=== PATIENT | male | born 1945 | race Caucasian/White ===

== ENCOUNTER → 2016-03-28 | Day surgery (SDC) | payer MEDICARE, BC, OTHER ==
[~2016-03-28] VITALS: Ht 177.8 cm; Wt 81.6 kg
[~2016-03-28] MED LIST: ACET500C OR; ACETYLCHOLINE OPHTH SOLN 1% 2ML As Ordered ONE; ACETYLCHOLINE OPHTH SOLN 1% 2ML XX ONE; ACTO15TA OR; ACTO45TA6 PO; ATOR1TAB19 PO; BALANCED SALT IRRIGATION SOLUTION 500ML BAG (FOR OR EYE MACHINE) As Ordered ONE; BALANCED SALT IRRIGATION SOLUTION 500ML BAG (FOR OR EYE MACHINE) XX ONE; BALANCED SALT SOLN OPHTH 15 ML BTL As Ordered ONE; CEFUROXIME 1MG/0.1ML INTRACAMERAL INJ As Ordered ONE; CEFUROXIME 1MG/0.1ML INTRACAMERAL INJ XX ONE; D5W/0.2% SODIUM CHLORIDE 1,000 ML IV SCH; FARX1TAB2 PO; GLUC850T PO; HEALON DUET (HEALON 10MG/ML 0.55ML & HEALON ENDOCOAT 30MG/ML 0.85ML) As Ordered ONE; INSULADS SC; LIDOCAINE 0.75%/EPINEPHRINE 0.025% IN BSS 1ML SYR INTRACAMERAL (OR ONLY) XX ONE; LIDOCAINE 1% SDV 5 ML VIAL As Ordered ONE; LIDOCAINE 4% INJ 5 ML AMP As Ordered ONE; LIDOCAINE 4% INJ 5 ML AMP OU ONE; LISI10TA4 OR; MELOPOW PO; METF1000 PO; MIDAZOLAM INJ 2 MG/2 ML VIAL (J2250) As Ordered ONE; MIRA3350 PO; OFLOXACIN 0.3 % (OCUFLOX) OPTH SOL 5ML OD ONE; ONDANSETRON 4MG/2ML VIAL (J2405) IV PRN; PHENYLEPHRINE 2.5% OPHTH SOL 2ML OD ONE; POVIDONE-IODINE 5% OPHTH PREP SOL 30ML As Ordered ONE; PRIL20TA2 PO; PROPARACAINE 0.5% OPHTH SOL 15ML OD ONE; TETRACAINE 0.5% OPHTH SOLN 2 ML As Ordered ONE; TOBRADEX OPHTH OINT 3.5 GM As Ordered ONE; TRAM50TA2 OR; TROPICAMIDE 1% OPHTH SOLN 2 ML OD ONE; VICT18IN SC; [UNRECOGNIZED DRUG - OTHER] PO; [UNRECOGNIZED DRUG - OTHER] SUBQ; fentaNYL 100 MCG/2 ML INJECTION (J3010) As Ordered ONE
[2016-03-28 09:55] VITALS: BP 132/71
--- NOTE | 2016-03-30 09:46 | RO ---
DATE OF PROCEDURE: 03/28/2016 PREOPERATIVE DIAGNOSIS: Visually significant nuclear sclerotic cataract right eye. POSTOPERATIVE DIAGNOSIS: Visually significant nuclear sclerotic cataract right eye. PROCEDURE: Cataract extraction with use of phacoemulsification and placement of intraocular lens ZCB00 20.0 diopters, right eye. SURGEON: Smith Dominguez DO WOOD PLANER: ANESTHESIA: Local with monitored anesthesia care (MAC). COMPLICATIONS: None. POSTOPERATIVE CONDITION: Stable. INDICATION FOR SURGERY: Blurred vision right eye affecting patient's activities of daily living. DESCRIPTION OF PROCEDURE: The patient was seen in the preoperative area and properly identified. The correct operative eye was identified and marked. Attention was turned to that eye. The patient received topical antibiotics in the preoperative area. The patient then received topical dilating drops consisting of tropicamide and phenylephrine. The patient was then transferred to the operating room. The correct side was reidentified. The patient received topical anesthetics and antibiotics on the surface of the eye. The eye was prepped and draped in a sterile fashion. The upper and lower eyelids were isolated with Tegaderm tape, and the lids were held open with an adjustable speculum. Using a sideport blade, a paracentesis incision was made. Intraocular preservative-free lidocaine was then injected into the anterior chamber. Viscoelastic was then injected into the anterior chamber through the paracentesis. Using a 2.75 mm sharp-tipped keratome, the anterior chamber was entered via a temporal clear corneal incision. A continuous curvilinear capsulorrhexis was created with the aid of a 26-gauge cystotome and Utrata forceps. Hydrodissection was performed with balanced salt solution (BSS) on a blunt cannula until the nucleus was freely mobile. The crystalline lens was phacoemulsified and aspirated. Additional cohesive viscoelastic was placed into the capsular bag to deepen it. A ZCB00, 20.0 diopter lens was placed into the capsular bag and confirmed by visualizing the continuous curvilinear capsulorrhexis. Additional irrigation and aspiration was used to remove cortical material and remaining viscoelastic. The clear corneal incision was hydrated with BSS on a blunt cannula. The lens was well positioned. The incisions were then tested for leaks and found to be negative. The eye was then palpated for appropriate pressure and adjusted accordingly with BSS. Several drops of antibiotics and Iopidine were placed in the eye. The eyelid speculum was then carefully removed. Maxitrol ointment was placed in the eye. An eye patch and shield were then secured over the eye. The patient tolerated the procedure well and was discharged to the recovery unit in a stable condition.
== END | disposition home or self-care (01) ==
LOC: M SDC 07:05
PROVIDERS: ATTEND Ophthalmology
DX: H25.11 Age-related nuclear cataract, right eye (principal); E11.9 Type 2 diabetes mellitus without complications; Z79.4 Long term (current) use of insulin; E78.4 Other hyperlipidemia; Z79.899 Other long term (current) drug therapy
CPT/HCPCS: 66984; J2250; J3010; V2632

== ENCOUNTER → 2016-05-03 | Outpatient (REF) | payer MEDICARE, OTHER ==
[~2016-05-03] MED LIST changes: -ACETYLCHOLINE OPHTH SOLN 1% 2ML As Ordered ONE; -ACETYLCHOLINE OPHTH SOLN 1% 2ML XX ONE; -BALANCED SALT IRRIGATION SOLUTION 500ML BAG (FOR OR EYE MACHINE) As Ordered ONE; -BALANCED SALT IRRIGATION SOLUTION 500ML BAG (FOR OR EYE MACHINE) XX ONE; -BALANCED SALT SOLN OPHTH 15 ML BTL As Ordered ONE; -CEFUROXIME 1MG/0.1ML INTRACAMERAL INJ As Ordered ONE; -CEFUROXIME 1MG/0.1ML INTRACAMERAL INJ XX ONE; -D5W/0.2% SODIUM CHLORIDE 1,000 ML IV SCH; -HEALON DUET (HEALON 10MG/ML 0.55ML & HEALON ENDOCOAT 30MG/ML 0.85ML) As Ordered ONE; -LIDOCAINE 0.75%/EPINEPHRINE 0.025% IN BSS 1ML SYR INTRACAMERAL (OR ONLY) XX ONE; -LIDOCAINE 1% SDV 5 ML VIAL As Ordered ONE; -LIDOCAINE 4% INJ 5 ML AMP As Ordered ONE; -LIDOCAINE 4% INJ 5 ML AMP OU ONE; -MIDAZOLAM INJ 2 MG/2 ML VIAL (J2250) As Ordered ONE; -OFLOXACIN 0.3 % (OCUFLOX) OPTH SOL 5ML OD ONE; -ONDANSETRON 4MG/2ML VIAL (J2405) IV PRN; -PHENYLEPHRINE 2.5% OPHTH SOL 2ML OD ONE; -POVIDONE-IODINE 5% OPHTH PREP SOL 30ML As Ordered ONE; -PROPARACAINE 0.5% OPHTH SOL 15ML OD ONE; -TETRACAINE 0.5% OPHTH SOLN 2 ML As Ordered ONE; -TOBRADEX OPHTH OINT 3.5 GM As Ordered ONE; -TROPICAMIDE 1% OPHTH SOLN 2 ML OD ONE; -fentaNYL 100 MCG/2 ML INJECTION (J3010) As Ordered ONE
== END ==
LOC: M LAB REF 12:56
PROVIDERS: ATTEND Internal Medicine Cardiovascular Disease
DX: I10 Essential (primary) hypertension (principal)

== ENCOUNTER → 2016-05-22 | Outpatient (CLI) | payer MEDICARE, BC, OTHER ==
--- NOTE | 2016-05-22 10:38 | REP ---
REASON: Trauma. COMPARISON: None. TECHNIQUE: 4.5 mm contiguous transaxial sections were obtained from the skull base to the cerebral convexities with thin cuts through the posterior fossa without the administration of intravenous contrast. FINDINGS: The ventricles and sulci are consistent with the patient's age. There are no extra-axial fluid collections. There is no mass effect. The deep cerebral white matter is consistent with the patient's age. The orbital and petrous structures , cerebellopontine angles, and posterior fossa are unremarkable. The sella turcica, cavernous, and paracavernous structures are essentially unremarkable. The visualized portions of the paranasal sinuses and mastoid air cells are clear. Images of the skull base show no gross abnormality. IMPRESSION: Essentially unremarkable CT examination of the brain. There are calcifications in the carotid siphon bilaterally. Signed by Royce Kimball DO 05/22/2016 11:42 A
== END ==
LOC: M RAD 10:04
PROVIDERS: ATTEND Internal Medicine Cardiovascular Disease
DX: R51 Headache (principal)

== ENCOUNTER → 2016-08-09 | Outpatient (REF) | payer MEDICARE, BC, OTHER | LOC: M LAB REF 09:48 | PROVIDERS: ATTEND Physician Assistant | DX: R31.0 Gross hematuria (principal) ==

== ENCOUNTER → 2016-08-13 | Outpatient (CLI) | payer MEDICARE, BC, OTHER ==
--- NOTE | 2016-08-13 09:25 | REP ---
Clinical: Hypertension . Comparison: 02/13/2016 . Technique: PA and lateral. Findings: The mediastinum and cardiac silhouette are normal. The lung rowland are clear and without acute consolidation, effusion, or pneumothorax. The skeletal structures are intact and normal. Impression: 1. No acute cardiopulmonary process. Signed by Vinod Woodruff MD 08/13/2016 09:16 A
[2016-08-13 09:31] LABS: ALBUMIN 3.9 GM/DL (3.2-5.2); ALBUMIN/GLOBULIN RATIO 1.26 (1.00-1.93); ALKALINE PHOSPHATASE 74 U/L (45-117); ALT/SGPT 26 U/L (12-78); ANION GAP 6 MEQ/L (8-16); AST/SGOT 12 U/L (15-37); BLOOD UREA NITROGEN 14 MG/DL (7-18); CALCIUM LEVEL 8.6 MG/DL (8.8-10.2); CARBON DIOXIDE LEVEL 29 MEQ/L (21-32); CHLORIDE LEVEL 106 MEQ/L (98-107); CHOLESTEROL LEVEL 187 MG/DL (<200); CREATININE FOR GFR 0.87 MG/DL (0.70-1.30); GLOMERULAR FILTRATION RATE > 60.0 (>49); GLUCOSE, FASTING 158 MG/DL (80-110); MEAN CORPUSCULAR HEMOGLOBIN 30.6 pg (27.0-33.0); MEAN CORPUSCULAR HGB CONC 33.5 g/dl (32.0-36.5); MEAN CORPUSCULAR VOLUME 91.3 fl (80.0-96.0); POTASSIUM SERUM 4.2 MEQ/L (3.5-5.1); RED CELL DISTRIBUTION WIDTH 12.4 % (11.5-14.5); SODIUM LEVEL 141 MEQ/L (136-145); TRIGLYCERIDES LEVEL 86 MG/DL (<150); WHITE BLOOD COUNT 4.6 K/mm3 (4.0-10.0)
--- NOTE | 2016-08-15 14:16 | ECGEPIP ---
Stationary ECG Study 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 Electronically Signed On 08-15-2016 14:15:59 EDT by Adria Tovar
== END ==
LOC: M LAB 08:16
PROVIDERS: ATTEND Family Medicine
DX: I10 Essential (primary) hypertension (principal); E11.9 Type 2 diabetes mellitus without complications; R31.9 Hematuria, unspecified

== ENCOUNTER → 2016-08-21 | Outpatient (CLI) | payer MEDICARE, BC, OTHER ==
[~2016-08-21] MED LIST changes: +ISOVUE-370 76% 100ML VIAL (Q9967) As Ordered ONE
--- NOTE | 2016-08-21 16:31 | REP ---
CT ABDOMEN: REASON: Hematuria. COMPARISON: 07/03/2007. CONTRAST: 100 mL Isovue-370. There is no significant change in appearance of the lung bases. The precontrast enhanced portion of the examination shows hepatic and splenic densities again to be within normal limits. Since last examination the patient has undergone cholecystectomy. In the inferior pole of the left kidney there is an abnormal 1 cm sized calcification in one of the lower pole calices and there is a small calcification in the proximal left ureter at the level of the renal pelvis measuring 6 mm. There is no hydronephrosis. There are no right sided nephroliths or right ureteroliths. There are no urinary bladder calcifications. There are mild bilateral pelvic phleboliths. The contrast enhanced portion of the examination shows the liver, spleen, pancreas, and adrenal glands to be within normal limits. There are no abnormal enhancing renal lesions. There is a small round 1.6 cm sized cyst in the inferior pole of the right kidney which is unchanged from the prior exam. The small calcification seen in the upper left ureter is again noted. The abdominal aorta and paraortic regions are within normal limits. There is no evidence of an intraabdominal mass or adenopathy. The bowel loops and their mesenteries are within normal limits. There is no evidence of free fluid or free air. CT PELVIS: The bowel loops and their mesenteries are within normal limits. The prostate gland appears enlarged in the floor of the urinary bladder there is a small filling defect. This measures approximately 1.7 cm. There is no free pelvic fluid or air. There is no pelvic side wall adenopathy Bone window technique throughout the exam shows the osseous structures to be within normal limits for the patient's age. There are spinal degenerative changes status quo. IMPRESSION: 1. Right renal and proximal ureteral calcifications as described above. 2. Filling defect seen in the floor of the urinary bladder. Neoplasm can not be ruled out. Urological consultation is recommended. 3. There is prostatomegaly. 4. Simple right renal cyst and other findings as described above. Signed by Royce Kimball DO 08/22/2016 09:05 A
== END ==
LOC: M RAD 14:34
PROVIDERS: ATTEND Family Medicine
DX: R30.0 Dysuria (principal); N20.2 Calculus of kidney with calculus of ureter; N28.1 Cyst of kidney, acquired; N40.0 Benign prostatic hyperplasia without lower urinary tract symptoms; N32.9 Bladder disorder, unspecified
CPT/HCPCS: 74178; Q9967

== ENCOUNTER → 2016-08-29 | Outpatient (REF) | payer MEDICARE, OTHER, BC ==
[~2016-08-29] MED LIST changes: +ACTO45TA12 PO; -ACTO45TA6 PO; +ATOR1TAB21 PO; +CIPR-249 PO; +CIPR500T3 PO; +CLEADRO8 OU; +DOXA1TAB71 PO; -FARX1TAB2 PO; +FARX1TAB3 PO; +INSULANT SC; -ISOVUE-370 76% 100ML VIAL (Q9967) As Ordered ONE; +LISI10TA4 PO; -METF1000 PO; +METF10004 PO; +OMEP40CA2 PO; +OXYB5TAB10 PO; +OXYC1TAB23 PO; +ZOFR4TAB3 PO
== END ==
LOC: M SMT 17:17
PROVIDERS: ATTEND Nurse Practitioner Family
DX: R31.9 Hematuria, unspecified (principal)
CPT/HCPCS: 81001; 87086; 88108; G0463

== ENCOUNTER → 2016-09-28 | Outpatient (CLI) | payer MEDICARE, BC, OTHER ==
[2016-09-28 10:32] LABS: MEAN CORPUSCULAR HEMOGLOBIN 29.9 pg (27.0-33.0); MEAN CORPUSCULAR HGB CONC 33.4 g/dl (32.0-36.5); MEAN CORPUSCULAR VOLUME 89.6 fl (80.0-96.0); WHITE BLOOD COUNT 5.6 K/mm3 (4.0-10.0)
[2016-09-28 10:35] LABS: INR 0.94
[2016-09-28 10:55] LABS: ALBUMIN 3.8 GM/DL (3.2-5.2); ALBUMIN/GLOBULIN RATIO 1.23 (1.00-1.93); ALKALINE PHOSPHATASE 75 U/L (45-117); ALT/SGPT 24 U/L (12-78); ANION GAP 6 MEQ/L (8-16); AST/SGOT 11 U/L (15-37); BILIRUBIN,TOTAL 0.8 MG/DL (0.2-1.0); BLOOD UREA NITROGEN 12 MG/DL (7-18); CALCIUM LEVEL 8.6 MG/DL (8.8-10.2); CARBON DIOXIDE LEVEL 25 MEQ/L (21-32); CHLORIDE LEVEL 108 MEQ/L (98-107); CHOLESTEROL LEVEL 203 MG/DL (<200); CREATININE FOR GFR 0.79 MG/DL (0.70-1.30); GLOMERULAR FILTRATION RATE > 60.0 (>49); GLUCOSE, FASTING 159 MG/DL (80-110); POTASSIUM SERUM 3.9 MEQ/L (3.5-5.1); SODIUM LEVEL 139 MEQ/L (136-145); TOTAL PROTEIN 6.9 GM/DL (6.4-8.2); TRIGLYCERIDES LEVEL 109 MG/DL (<150)
== END ==
LOC: M LAB 09:48
PROVIDERS: ATTEND Family Medicine
DX: Z01.818 Encounter for other preprocedural examination (principal); I10 Essential (primary) hypertension; E11.9 Type 2 diabetes mellitus without complications

== ENCOUNTER → 2016-10-01 | Outpatient (CLI) | payer MEDICARE, BC, OTHER ==
--- NOTE | 2016-10-01 11:03 | REP ---
Chest two views HISTORY: Hypertension Comparison: 08/13/2016 The lungs are clear. The heart is normal in size. The pulmonary vasculature is normal in appearance. The bony structure is intact. IMPRESSION: No acute disease. Signed by Ran Ham MD 10/01/2016 10:55 A
--- NOTE | 2016-10-01 23:13 | ECGEPIP ---
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
== END ==
LOC: M EKG 10:29
PROVIDERS: ATTEND Family Medicine
DX: Z01.818 Encounter for other preprocedural examination (principal); I10 Essential (primary) hypertension

== ENCOUNTER → 2016-10-03 | Outpatient (REF) | payer MEDICARE, OTHER | LOC: M LAB REF 08:59 | PROVIDERS: ATTEND Family Medicine | DX: N39.0 Urinary tract infection, site not specified (principal) ==

== ENCOUNTER → 2016-10-11 | Day surgery (SDC) | payer MEDICARE, BC, OTHER ==
[~2016-10-11] VITALS: Ht 177.8 cm; Wt 81.6 kg
[~2016-10-11] MED LIST changes: +CONRAY-60 60% 50ML VIAL (Q9961) As Ordered ONE; +LIDOCAINE 2% INJ 100 MG/5 ML SDV (FOR ANES.) As Ordered ONE; +LIDOCAINE 2% JELLY 30 ML As Ordered ONE; +LR 1,000 ML IV SCH; +METOCLOPRAMIDE INJ 10MG/2ML VIAL (J2765) As Ordered ONE; +METOCLOPRAMIDE INJ 10MG/2ML VIAL (J2765) IV PRN; +MIDAZOLAM INJ 2 MG/2 ML VIAL (J2250) As Ordered ONE; +MORPHINE 10 MG/ML 1ML VIAL As Ordered ONE; +ONDANSETRON 4MG/2ML VIAL (J2405) As Ordered ONE; +ONDANSETRON 4MG/2ML VIAL (J2405) IV PRN; +PERCOCET 5MG/325MG TAB PO PRN; +PROPOFOL 200 MG/20 ML VIAL As Ordered ONE; +ROCURONIUM BROMIDE 50 MG/5 ML VIAL/SYRINGE As Ordered ONE; +dexameTHASONE 4 MG/ML 1ML VIAL (J1100) As Ordered ONE; +fentaNYL 100 MCG/2 ML INJECTION (J3010) As Ordered ONE; +oxyBUTYnin 5 MG TAB PO PRN
[2016-10-11] MEDS: fentaNYL 100 MCG/2 ML INJECTION (J3010) IV PRN ×4 (10:17→11:09)
[2016-10-11] MEDS: PERCOCET 5MG/325MG TAB PO PRN ×2 (10:20→11:55)
[2016-10-11] MEDS: MORPHINE 2 MG/ML 1ML SYRINGE IV PRN ×5 (11:08→11:51)
--- NOTE | 2016-10-11 11:56 | REP ---
RETROGRADE PYELOGRAM: Eight views. HISTORY: Bladder tumor. Nephrolithiasis. 10 seconds of fluoroscopy time is reported. FINDINGS: A sequence of eight last image hold fluoroscopically obtained spot radiographs of the abdomen document left ureteral cannulation, guidewire manipulation, contrast injection, and double pigtail ureteral stent placement. Signed by Parveen Alva MD 10/11/2016 12:26 P
[2016-10-11 15:20] VITALS: BP 152/82
--- NOTE | 2016-10-12 14:21 | RO ---
DATE OF PROCEDURE: 10/11/2016 PREPROCEDURE DIAGNOSIS: Left kidney stones, bladder tumors. POSTPROCEDURE DIAGNOSIS: Left kidney stones, bladder tumors. PROCEDURE: Cystoscopy, left ureteroscopy with laser lithotripsy and basket extraction of stones, left retrograde pyelogram with intraoperative interpretation of images, left ureteral stent placement, transurethral resection of bladder tumor (greater than 5 cm). SURGEON: Brent Little MD RECORDS OFFICER: None. ANESTHESIA: General. OPERATIVE INDICATIONS: This is a 70-year-old male who was recently seen for hematuria and on evaluation was found to have left kidney stones, the largest stone measuring around a centimeter in size. Also, on cystoscopy he was noted to have a large bladder tumor at the base of his bladder. He was brought to the operating room today for treatment. DESCRIPTION OF PROCEDURE: The patient was brought to the operating room and general anesthesia was induced. Prophylactic antibiotics were infused. He was then placed in dorsal lithotomy position and prepped and draped in the usual sterile fashion. A rigid cystoscope was then inserted into the urethral meatus and advanced to the bladder. The bladder was then thoroughly examined and the only abnormality seen was the large papillary tumor at the trigone in between the two ureteral orifices as well as a few smaller tumors on either side of it. At this point, a guidewire was advanced up the left collecting system. I then utilized the wire to advance the ureteral access sheath to the left collecting system. The stylette was then removed and the wire was secured to the drape to serve as a safety wire. I then went in the access sheath with the flexible ureteroscope and within the upper pole calyx a 1 cm stone was seen. Also within the mid pole calyx an approximately 3-4 mm stone was seen. At this point, a 200 micron laser fiber was utilized to fragment the 1 cm stone into smaller fragments, then all the pieces were removed with a basket. I then removed the mid pole calyx with the basket as well. Once this was done, the only stone fragments that remained were very tiny fragments that should be small enough to pass. At this point, a retrograde pyelogram was performed and was negative for extravasation. I then withdrew the ureteroscope along with access sheath and no stones were seen within the ureter. At this point, the wire was used to advanced a #6 Jordanian by 22-32 cm JJ ureteral stent up into the left collecting system. The wire was then removed and there were adequate curls of the stent in the left renal pelvis and in the bladder. At this point, the cystoscope was traded out for the resectoscope. At this point, I utilized the resectoscope to remove a large tumor on the trigone as well as small satellite tumors that were adjacent to it. I kept doing this until there was no visible tumor left in the bladder. I did make sure I made deep enough resections to get into the muscle layer of the bladder. Once I was done resecting the tumor, all of the tumors were removed using an [employer] evacuator. Hemostasis was then obtained using coagulation current. Even though I was resecting in the trigone, I did not have to resect over the ureteral orifices on either side. Once satisfied with hemostasis, the resectoscope was removed and an #18 Jordanian Scott catheter was inserted into the bladder and the balloon was filled with 10 mL of sterile water. Fluid drained clear out of the catheter at the end of the procedure. The catheter was connected to gravity drainage, thus marking conclusion of the procedure. The patient was then taken out of the dorsal lithotomy position, awakened from anesthesia and transported to the recovery room in stable condition. ESTIMATED BLOOD LOSS: 5 mL. COMPLICATIONS: None. SPECIMENS: Left kidney stone fragments, bladder tumors. PLAN: The patient will followup in the clinic next week for catheter removal and to discuss pathology results. I will remove the stent in 2-3 weeks. ALYSE
== END | disposition home or self-care (01) ==
LOC: M SDC 05:50
PROVIDERS: ATTEND Urology
DX: N20.0 Calculus of kidney (principal); C67.0 Malignant neoplasm of trigone of bladder; E10.9 Type 1 diabetes mellitus without complications; Z79.4 Long term (current) use of insulin; Z79.899 Other long term (current) drug therapy; E78.5 Hyperlipidemia, unspecified; K21.9 Gastro-esophageal reflux disease without esophagitis; N40.0 Benign prostatic hyperplasia without lower urinary tract symptoms
CPT/HCPCS: 52240; 52356; 76000; 82360; 88300; 88307; C1769; C1894; C2617; J0690; J1100; J2250; J2405; J2765; J3010; Q9961

== ENCOUNTER 2016-10-14 15:06 | Emergency (ER) | payer MEDICARE, BC, OTHER ==
[~2016-10-14] VITALS: Ht 177.8 cm; Wt 81.8 kg
[~2016-10-14 15:06] MED LIST changes: -CIPR-249 PO; -CONRAY-60 60% 50ML VIAL (Q9961) As Ordered ONE; -LIDOCAINE 2% INJ 100 MG/5 ML SDV (FOR ANES.) As Ordered ONE; -LIDOCAINE 2% JELLY 30 ML As Ordered ONE; -LR 1,000 ML IV SCH; -METOCLOPRAMIDE INJ 10MG/2ML VIAL (J2765) As Ordered ONE; -METOCLOPRAMIDE INJ 10MG/2ML VIAL (J2765) IV PRN; -MIDAZOLAM INJ 2 MG/2 ML VIAL (J2250) As Ordered ONE; -MORPHINE 10 MG/ML 1ML VIAL As Ordered ONE; -ONDANSETRON 4MG/2ML VIAL (J2405) As Ordered ONE; -ONDANSETRON 4MG/2ML VIAL (J2405) IV PRN; -OXYB5TAB10 PO; -OXYC1TAB23 PO; -PERCOCET 5MG/325MG TAB PO PRN; -PROPOFOL 200 MG/20 ML VIAL As Ordered ONE; -ROCURONIUM BROMIDE 50 MG/5 ML VIAL/SYRINGE As Ordered ONE; -ZOFR4TAB3 PO; -dexameTHASONE 4 MG/ML 1ML VIAL (J1100) As Ordered ONE; -fentaNYL 100 MCG/2 ML INJECTION (J3010) As Ordered ONE; -oxyBUTYnin 5 MG TAB PO PRN
[2016-10-14] MEDS ORDERED: OXYB5TAB10 PO (15:35)
[2016-10-14] MEDS ORDERED: OXYC1TAB23 PO (15:35)
[2016-10-14] MEDS ORDERED: CIPR-249 PO ×2 (15:35→18:17)
[2016-10-14] MEDS ORDERED: ONDANSETRON 4MG/2ML VIAL (J2405) IV ONE (16:30)
[2016-10-14] MEDS ORDERED: NS 1,000 ML IV ONE (16:30)
[2016-10-14] MEDS ORDERED: cefTRIAXone SOD 2 GM in D5W MINI-BAG PLUS 50 ML IV ONE (16:30)
--- NOTE | 2016-10-14 17:36 | REP ---
CT ABDOMEN AND PELVIS WITHOUT CONTRAST: CT abdomen and pelvis performed without oral or IV contrast with sagittal and coronal reconstruction images performed. COMPARISON: 08/21/2016 Visualized lung bases demonstrate no evidence of infiltrate. The liver is grossly unremarkable. The patient has had a cholecystectomy. The spleen, adrenals and pancreas are grossly unremarkable. There is a small cyst in the lower pole of the right kidney. There is no right hydronephrosis. The left kidney demonstrates a small stone in the upper pole collecting system. There is mild left hydronephrosis. There is a left ureteral stent in place. There are mild to moderate scattered atherosclerotic calcifications of the abdominal aorta without aneurysm. There is o adenopathy. There is no free air or free fluid. No bowel wall thickening is seen. A Scott catheter is seen in the urinary bladder. There is a small hiatal hernia. There are small bilateral inguinal hernias containing fat. IMPRESSION: Left ureteral stent in place. There is mild left hydronephrosis. There is a calculus in the upper pole of the left kidney. There is no right hydronephrosis. There is no other acute abnormality identified as discussed in detail above. Signed by Jai Tiwari MD 10/15/2016 03:26 P
[2016-10-14 17:38] LABS: BASO % 0.1 % (0.0-1.0); EOS # 0.1 K/mm3 (0.0-0.50); EOS % 0.7 % (0.0-3.0); LARGE UNSTAINED CELL % 0.3 % (0.0-4.0); LYMPH # 0.7 K/mm3 (1.5-4.5); LYMPH % 6.9 % (24.0-44.0); MEAN CORPUSCULAR HGB CONC 33.9 g/dl (32.0-36.5); MEAN CORPUSCULAR VOLUME 88.6 fl (80.0-96.0); MONO # 0.3 K/mm3 (0.0-0.8); MONO % 2.6 % (0.0-5.0); NEUTROPHILS # 9.2 K/mm3 (1.8-7.7); NEUTROPHILS % 89.4 % (36.0-66.0); PLATELET COUNT, AUTOMATED 184 k/mm3 (150-450); RED CELL DISTRIBUTION WIDTH 11.9 % (11.5-14.5); WHITE BLOOD COUNT 10.3 K/mm3 (4.0-10.0)
[2016-10-14 17:42] LABS: MICROSCOPIC INDICATED? MAN YES (NO)
[2016-10-14 17:45] LABS: INR 0.96
[2016-10-14 17:45] LABS: BACTERIA, URINE LARGE AMOUNT; HYALINE CAST, URINE NONE SEEN /lpf (0-1); MICROSCOPIC EXAM PERFORMED; RBC, URINE TNTC /hpf (0-3); SQUAMOUS EPITHELIAL CELL URINE NONE SEEN /hpf (SMALL AMT); TRANSITIONAL EPI CELLS, URINE SMALL AMOUNT /hpf; WBC, URINE 15-20 /hpf (0-3)
[2016-10-14 17:55] LABS: ALBUMIN 3.4 GM/DL (3.2-5.2); ALBUMIN/GLOBULIN RATIO 0.83 (1.00-1.93); ALKALINE PHOSPHATASE 82 U/L (45-117); ALT/SGPT 19 U/L (12-78); ANION GAP 8 MEQ/L (8-16); AST/SGOT 12 U/L (15-37); BILIRUBIN,DIRECT 0.1 MG/DL (0.0-0.2); BILIRUBIN,TOTAL 0.6 MG/DL (0.2-1.0); BLOOD UREA NITROGEN 9 MG/DL (7-18); CARBON DIOXIDE LEVEL 27 MEQ/L (21-32); CHLORIDE LEVEL 104 MEQ/L (98-107); CREATININE FOR GFR 0.98 MG/DL (0.70-1.30); GLOMERULAR FILTRATION RATE > 60.0 (>49); GLUCOSE, FASTING 210 MG/DL (80-110); POTASSIUM SERUM 3.9 MEQ/L (3.5-5.1); SODIUM LEVEL 139 MEQ/L (136-145); TOTAL PROTEIN 7.5 GM/DL (6.4-8.2)
[2016-10-14] MEDS ORDERED: ZOFR4TAB3 PO (18:17)
[2016-10-14 19:36] VITALS: BP 134/69
== END 2016-10-14 19:50 | disposition home or self-care (01) ==
LOC: M ED 15:06
DX: N30.00 Acute cystitis without hematuria (principal); I10 Essential (primary) hypertension; E11.9 Type 2 diabetes mellitus without complications; Z87.442 Personal history of urinary calculi; K21.9 Gastro-esophageal reflux disease without esophagitis; Z87.891 Personal history of nicotine dependence; Z90.79 Acquired absence of other genital organ(s); Z87.448 Personal history of other diseases of urinary system; Z96.0 Presence of urogenital implants; Z79.4 Long term (current) use of insulin; Z79.899 Other long term (current) drug therapy
CPT/HCPCS: 36415; 74176; 80048; 80076; 81000; 83605; 83690; 85025; 85610; 85730; 87040; 87086; 96365; 96366; 96375; 99284; J0696; J2405

== ENCOUNTER → 2016-10-30 | Outpatient (REF) | payer MEDICARE, OTHER ==
[~2016-10-30] MED LIST changes: +CIPR-249 PO; +OXYB5TAB10 PO; +OXYC1TAB23 PO; +ZOFR4TAB3 PO
== END ==
LOC: M SMT 17:19
PROVIDERS: ATTEND Urology
DX: N39.0 Urinary tract infection, site not specified (principal)

== ENCOUNTER → 2016-11-08 | Outpatient (CLI) | payer MEDICARE, BC, OTHER ==
[2016-11-08 09:24] LABS: MEAN CORPUSCULAR HEMOGLOBIN 30.5 pg (27.0-33.0); MEAN CORPUSCULAR HGB CONC 34.4 g/dl (32.0-36.5); MEAN CORPUSCULAR VOLUME 88.7 fl (80.0-96.0); RED CELL DISTRIBUTION WIDTH 11.8 % (11.5-14.5); WHITE BLOOD COUNT 5.3 K/mm3 (4.0-10.0)
[2016-11-08 09:42] LABS: ANION GAP 6 MEQ/L (8-16); BLOOD UREA NITROGEN 11 MG/DL (7-18); CARBON DIOXIDE LEVEL 30 MEQ/L (21-32); CHLORIDE LEVEL 107 MEQ/L (98-107); CREATININE FOR GFR 0.91 MG/DL (0.70-1.30); GLOMERULAR FILTRATION RATE > 60.0 (>49); GLUCOSE, FASTING 160 MG/DL (80-110); POTASSIUM SERUM 4.3 MEQ/L (3.5-5.1); SODIUM LEVEL 143 MEQ/L (136-145)
== END ==
LOC: M LAB 08:44
PROVIDERS: ATTEND Urology
DX: Z01.818 Encounter for other preprocedural examination (principal); C67.9 Malignant neoplasm of bladder, unspecified; N39.0 Urinary tract infection, site not specified

== ENCOUNTER 2016-11-18 05:59 | Day surgery (SDC) | payer MEDICARE, BC, OTHER ==
[~2016-11-18] VITALS: Ht 177.8 cm; Wt 81.6 kg
[2016-11-18] MEDS ORDERED: LR 1,000 ML IV SCH ×2 (06:15→09:00)
[2016-11-18] MEDS ORDERED: LIDOCAINE 2% INJ 100 MG/5 ML SDV (FOR ANES.) As Ordered ONE (07:15)
[2016-11-18] MEDS ORDERED: dexameTHASONE 4 MG/ML 1ML VIAL (J1100) As Ordered ONE ×2 (07:15→08:14)
[2016-11-18] MEDS ORDERED: PROPOFOL 200 MG/20 ML VIAL As Ordered ONE (07:15)
[2016-11-18] MEDS ORDERED: MIDAZOLAM INJ 2 MG/2 ML VIAL (J2250) As Ordered ONE (07:16)
[2016-11-18] MEDS ORDERED: fentaNYL 250 MCG/5 ML INJECTION (J3010) As Ordered ONE (07:16)
[2016-11-18] MEDS ORDERED: ROCURONIUM BROMIDE 50 MG/5 ML VIAL/SYRINGE As Ordered ONE (07:41)
[2016-11-18] MEDS ORDERED: METOCLOPRAMIDE INJ 10MG/2ML VIAL (J2765) As Ordered ONE (08:15)
[2016-11-18] MEDS ORDERED: ONDANSETRON 4MG/2ML VIAL (J2405) As Ordered ONE (08:15)
[2016-11-18] MEDS ORDERED: SUGAMMADEX SODIUM 500 MG/5 ML VIAL (BRIDION) As Ordered ONE (08:23)
[2016-11-18] MEDS ORDERED: ACETAMINOPHEN TAB 650MG DOSE (2X325MG) PO PRN (08:45)
[2016-11-18] MEDS ORDERED: oxyBUTYnin 5 MG TAB PO PRN (08:45)
[2016-11-18] MEDS ORDERED: PERCOCET 5MG/325MG TAB PO PRN (09:00)
[2016-11-18] MEDS ORDERED: fentaNYL 100 MCG/2 ML INJECTION (J3010) IV PRN (09:00)
[2016-11-18] MEDS ORDERED: ONDANSETRON 4MG/2ML VIAL (J2405) IV PRN (09:00)
[2016-11-18 10:01] VITALS: BP 160/81
--- NOTE | 2016-11-18 16:54 | RO ---
DATE OF PROCEDURE: 11/18/2016 PREPROCEDURE DIAGNOSIS: Bladder cancer, kidney stones. POSTPROCEDURE DIAGNOSIS: Bladder cancer, kidney stones. PROCEDURE: Cystoscopy, transurethral resection of bladder tumor (less than 2 cm), removal of left ureteral stent. SURGEON: Dr. Brent Little POULTRY TRIMMER: None. ANESTHESIA: General. OPERATIVE INDICATIONS: This 70-year-old male was brought to the operating room approximately 1 month ago for removal of left kidney stones, and he had a stent placed at that time. 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 Per routine, the patient was brought back to the operating room approximately 1 month later, which is today, for a restaging transurethral resection of bladder tumor. Since we are bringing him to the operating room today, the decision was also made to remove his left ureteral stent today. DESCRIPTION OF PROCEDURE: The patient was brought to the operating room where general was induced. Prophylactic antibiotics were infused. He was then placed in the dorsal lithotomy position and prepped and draped in the usual sterile fashion. A resectoscope was then inserted into the urethral meatus and advanced to the bladder using visual obturator. Once within the bladder, the previously placed left ureteral stent was grasped and withdrawn. Then I went back in with the resectoscope and the area of prior resection seen at the bladder base right above the trigone. There was nothing but scar tissue here. The bladder was thoroughly examined and no tumors were seen. At this point, I resected the bladder tumor base to get additional samples of muscle layer. Once all the resections were obtained, they were removed from the bladder to be sent for pathological analysis. I then cauterized the area of resection, making sure not to cauterize on top of the ureteral orifices. Once there was good hemostasis, this marked the conclusion of the procedure. The patient's bladder was then emptied of all fluid and this marked the conclusion of the procedure. The patient was then taken out of the dorsal lithotomy position, awakened from anesthesia and transported to the recovery room in stable condition. Estimated blood loss was 0 mL. Complications: None. Specimens: Resection of bladder tumor base. PLAN: The patient will followup in the clinic next week to discuss pathology results.
== END 2016-11-18 10:05 | disposition home or self-care (01) ==
LOC: M SDC 05:59
PROVIDERS: ATTEND Urology
DX: C67.9 Malignant neoplasm of bladder, unspecified (principal); N20.0 Calculus of kidney; E10.9 Type 1 diabetes mellitus without complications; I10 Essential (primary) hypertension; E78.4 Other hyperlipidemia; K21.9 Gastro-esophageal reflux disease without esophagitis; N40.0 Benign prostatic hyperplasia without lower urinary tract symptoms; Z87.891 Personal history of nicotine dependence; Z79.4 Long term (current) use of insulin; Z79.899 Other long term (current) drug therapy
CPT/HCPCS: 52234; 88309; J0690; J2250; J2405; J2765; J3010

== ENCOUNTER → 2017-01-02 | Outpatient (CLI) | payer MEDICARE, BC, OTHER ==
[2017-01-02 14:11] LABS: MEAN CORPUSCULAR HEMOGLOBIN 29.9 pg (27.0-33.0); MEAN CORPUSCULAR HGB CONC 33.3 g/dl (32.0-36.5); MEAN CORPUSCULAR VOLUME 89.8 fl (80.0-96.0); RED CELL DISTRIBUTION WIDTH 12.4 % (11.5-14.5); WHITE BLOOD COUNT 4.8 10^3/uL (4.0-10.0)
[2017-01-02 14:26] LABS: ALBUMIN 3.8 GM/DL (3.2-5.2); ALBUMIN/GLOBULIN RATIO 1.19 (1.00-1.93); ALKALINE PHOSPHATASE 83 U/L (45-117); ALT/SGPT 22 U/L (12-78); ANION GAP 5 MEQ/L (8-16); AST/SGOT 10 U/L (15-37); BILIRUBIN,TOTAL 0.5 MG/DL (0.2-1.0); BLOOD UREA NITROGEN 12 MG/DL (7-18); CALCIUM LEVEL 9.2 MG/DL (8.8-10.2); CARBON DIOXIDE LEVEL 28 MEQ/L (21-32); CHLORIDE LEVEL 107 MEQ/L (98-107); CREATININE FOR GFR 0.75 MG/DL (0.70-1.30); GLOMERULAR FILTRATION RATE > 60.0 (>42); GLUCOSE, FASTING 134 MG/DL (83-110); POTASSIUM SERUM 4.2 MEQ/L (3.5-5.1); SODIUM LEVEL 140 MEQ/L (136-145)
== END ==
LOC: M SMT 09:18
PROVIDERS: ATTEND Urology
DX: C67.9 Malignant neoplasm of bladder, unspecified (principal)

== ENCOUNTER → 2017-01-15 | Outpatient (REF) | payer MEDICARE, OTHER | LOC: M SMT 12:47 | PROVIDERS: ATTEND Urology | DX: C67.9 Malignant neoplasm of bladder, unspecified (principal); R31.9 Hematuria, unspecified ==

== ENCOUNTER → 2017-02-03 | Outpatient (REF) | payer MEDICARE, OTHER | LOC: M SMT 17:09 | PROVIDERS: ATTEND Urology | DX: R31.29 Other microscopic hematuria (principal) ==

== ENCOUNTER → 2017-04-29 | Outpatient (CLI) | payer MEDICARE, OTHER ==
[2017-04-29 18:21] LABS: HEMATOCRIT 44.8 % (42.0-52.0); HEMOGLOBIN 15.1 g/dl (14.0-18.0); MEAN CORPUSCULAR HEMOGLOBIN 29.2 pg (27.0-33.0); MEAN CORPUSCULAR HGB CONC 33.7 g/dl (32.0-36.5); MEAN CORPUSCULAR VOLUME 86.5 fl (80.0-96.0); PLATELET COUNT, AUTOMATED 235 10^3/uL (150-450); RED BLOOD COUNT 5.18 10^6/uL (4.30-6.10); RED CELL DISTRIBUTION WIDTH 12.2 % (11.5-14.5); WHITE BLOOD COUNT 5.3 10^3/uL (4.0-10.0)
[2017-04-29 18:23] LABS: APPEARANCE, URINE CLEAR (CLEAR); BACTERIA, URINE AUTO NEGATIVE (NEGATIVE); BILIRUBIN, URINE AUTO NEGATIVE (NEGATIVE); BLOOD, URINE BLOOD 1+ (NEGATIVE); COLOR, URINE YELLOW (YELLOW); GLUCOSE, URINE (UA) AUTO 2+ mg/dL (NEGATIVE); KETONE, URINE AUTO NEGATIVE (NEGATIVE); LEUKOCYTE ESTERASE, URINE AUTO NEGATIVE (NEGATIVE); MUCUS, URINE SMALL (NEGATIVE); NITRITE, URINE AUTO NEGATIVE (NEGATIVE); PROTEIN, URINE AUTO NEGATIVE (NEGATIVE); RBC, URINE AUTO 4 /HPF (0-3); SPECIFIC GRAVITY URINE AUTO 1.024 (1.002-1.035); SQUAMOUS EPITHELIAL CELL UR AU 0 /HPF (0-6); UROBILINOGEN, URINE AUTO 0.2 mg/dL (0.0-2.0); WBC, URINE AUTO 4 /HPF (0-3)
[2017-04-29 18:34] LABS: ALBUMIN 3.9 GM/DL (3.2-5.2); ALBUMIN/GLOBULIN RATIO 1.08 (1.00-1.93); ALKALINE PHOSPHATASE 85 U/L (45-117); ALT/SGPT 22 U/L (12-78); ANION GAP 7 MEQ/L (8-16); AST/SGOT 13 U/L (7-37); BILIRUBIN,TOTAL 0.8 MG/DL (0.2-1.0); BLOOD UREA NITROGEN 11 MG/DL (7-18); CALCIUM LEVEL 8.7 MG/DL (8.8-10.2); CARBON DIOXIDE LEVEL 26 MEQ/L (21-32); CHLORIDE LEVEL 107 MEQ/L (98-107); CREATININE FOR GFR 0.78 MG/DL (0.70-1.30); GLOMERULAR FILTRATION RATE > 60.0 (>42); GLUCOSE, FASTING 150 MG/DL (70-100); POTASSIUM SERUM 4.3 MEQ/L (3.5-5.1); SODIUM LEVEL 140 MEQ/L (136-145); TOTAL PROTEIN 7.5 GM/DL (6.4-8.2)
== END ==
LOC: M SMT 12:02
DX: C67.9 Malignant neoplasm of bladder, unspecified (principal); Z79.899 Other long term (current) drug therapy
CPT/HCPCS: 80053

== ENCOUNTER → 2017-05-19 | Outpatient (CLI) | payer MEDICARE, BC, OTHER ==
[~2017-05-19] MED LIST changes: -ACET500C OR; -ACTO15TA OR; -ACTO45TA12 PO; -ATOR1TAB19 PO; -ATOR1TAB21 PO; -CIPR-249 PO; -CIPR500T3 PO; -CLEADRO8 OU; -DOXA1TAB71 PO; -FARX1TAB3 PO; -GLUC850T PO; -INSULADS SC; -INSULANT SC; +LIQUID POLIBAR PLUS 105% w/v 1900ML BTL As Ordered; -LISI10TA4 OR; -LISI10TA4 PO; -MELOPOW PO; -METF10004 PO; -MIRA3350 PO; -OMEP40CA2 PO; -OXYB5TAB10 PO; -OXYC1TAB23 PO; -PRIL20TA2 PO; -TRAM50TA2 OR; -VICT18IN SC; -ZOFR4TAB3 PO; -[UNRECOGNIZED DRUG - OTHER] PO; -[UNRECOGNIZED DRUG - OTHER] SUBQ
== END ==
LOC: M RAD 08:10
DX: K59.00 Constipation, unspecified (principal); R10.84 Generalized abdominal pain
CPT/HCPCS: 74270

== ENCOUNTER → 2017-06-24 | Outpatient (REF) | payer MEDICARE, OTHER | LOC: M SMT 12:55 | DX: C67.9 Malignant neoplasm of bladder, unspecified (principal) | CPT/HCPCS: 88108 ==

== ENCOUNTER → 2017-07-28 | Outpatient (CLI) | payer MEDICARE, BC, OTHER ==
[2017-07-28 14:13] LABS: ALBUMIN 3.9 GM/DL (3.2-5.2); ALBUMIN/GLOBULIN RATIO 1.22 (1.00-1.93); ALKALINE PHOSPHATASE 84 U/L (45-117); ALT/SGPT 22 U/L (12-78); ANION GAP 6 MEQ/L (8-16); AST/SGOT 14 U/L (7-37); BILIRUBIN,TOTAL 0.7 MG/DL (0.2-1.0); BLOOD UREA NITROGEN 11 MG/DL (7-18); CALCIUM LEVEL 8.7 MG/DL (8.8-10.2); CARBON DIOXIDE LEVEL 28 MEQ/L (21-32); CHLORIDE LEVEL 106 MEQ/L (98-107); CREATININE FOR GFR 0.82 MG/DL (0.70-1.30); GLOMERULAR FILTRATION RATE > 60.0 (>42); GLUCOSE, FASTING 136 MG/DL (70-100); HEMATOCRIT 44.4 % (42.0-52.0); HEMOGLOBIN 14.9 g/dl (13.5-17.5); MEAN CORPUSCULAR HEMOGLOBIN 29.9 pg (27.0-33.0); MEAN CORPUSCULAR HGB CONC 33.6 g/dl (32.0-36.5); PLATELET COUNT, AUTOMATED 225 10^3/uL (150-450); POTASSIUM SERUM 4.3 MEQ/L (3.5-5.1); RED BLOOD COUNT 4.99 10^6/uL (4.30-6.10); RED CELL DISTRIBUTION WIDTH 12.4 % (11.5-14.5); SODIUM LEVEL 140 MEQ/L (136-145); TOTAL PROTEIN 7.1 GM/DL (6.4-8.2); WHITE BLOOD COUNT 5.7 10^3/uL (4.0-10.0)
[2017-07-28 14:28] LABS: APPEARANCE, URINE HAZY (CLEAR); BACTERIA, URINE AUTO NEGATIVE (NEGATIVE); BILIRUBIN, URINE AUTO NEGATIVE (NEGATIVE); BLOOD, URINE BLOOD 2+ (NEGATIVE); COLOR, URINE YELLOW (YELLOW); GLUCOSE, URINE (UA) AUTO 3+ mg/dL (NEGATIVE); KETONE, URINE AUTO NEGATIVE (NEGATIVE); LEUKOCYTE ESTERASE, URINE AUTO TRACE (NEGATIVE); MUCUS, URINE SMALL (NEGATIVE); NITRITE, URINE AUTO NEGATIVE (NEGATIVE); PROTEIN, URINE AUTO NEGATIVE (NEGATIVE); RBC, URINE AUTO 12 /HPF (0-3); SPECIFIC GRAVITY URINE AUTO 1.021 (1.002-1.035); SQUAMOUS EPITHELIAL CELL UR AU 0 /HPF (0-6); UROBILINOGEN, URINE AUTO 0.2 mg/dL (0.0-2.0); WBC, URINE AUTO 11 /HPF (0-3)
== END ==
LOC: M SMT 09:18
DX: C67.9 Malignant neoplasm of bladder, unspecified (principal); Z79.899 Other long term (current) drug therapy
CPT/HCPCS: 80053

== ENCOUNTER → 2017-10-28 | Outpatient (REF) | payer MEDICARE, OTHER | LOC: M SMT 17:33 | DX: C67.9 Malignant neoplasm of bladder, unspecified (principal) | CPT/HCPCS: 88108 ==

== ENCOUNTER → 2017-12-12 | Outpatient (REF) | payer MEDICARE, OTHER ==
[2017-12-12 18:32] LABS: APPEARANCE, URINE CLEAR (CLEAR); BACTERIA, URINE AUTO NEGATIVE (NEGATIVE); BILIRUBIN, URINE AUTO NEGATIVE (NEGATIVE); BLOOD, URINE BLOOD NEGATIVE (NEGATIVE); COLOR, URINE YELLOW (YELLOW); GLUCOSE, URINE (UA) AUTO 1+ mg/dL (NEGATIVE); KETONE, URINE AUTO NEGATIVE (NEGATIVE); LEUKOCYTE ESTERASE, URINE AUTO NEGATIVE (NEGATIVE); MUCUS, URINE SMALL (NEGATIVE); NITRITE, URINE AUTO NEGATIVE (NEGATIVE); PROTEIN, URINE AUTO NEGATIVE (NEGATIVE); RBC, URINE AUTO 0 /HPF (0-3); SPECIFIC GRAVITY URINE AUTO 1.017 (1.002-1.035); SQUAMOUS EPITHELIAL CELL UR AU 0 /HPF (0-6); UROBILINOGEN, URINE AUTO 0.2 mg/dL (0.0-2.0); WBC, URINE AUTO 2 /HPF (0-3)
== END ==
LOC: M SMT 17:15
DX: R97.20 Elevated prostate specific antigen [PSA] (principal); Z79.899 Other long term (current) drug therapy
CPT/HCPCS: 81001

== ENCOUNTER → 2017-12-16 | Outpatient (CLI) | payer MEDICARE, OTHER ==
[2017-12-16 13:50] LABS: ALBUMIN 3.9 GM/DL (3.2-5.2); ANION GAP 11 MEQ/L (8-16); BLOOD UREA NITROGEN 13 MG/DL (7-18); CARBON DIOXIDE LEVEL 24 MEQ/L (21-32); CHLORIDE LEVEL 106 MEQ/L (98-107); CREATININE FOR GFR 0.81 MG/DL (0.70-1.30); GLOMERULAR FILTRATION RATE > 60.0 (>42); GLUCOSE, FASTING 93 MG/DL (70-100); PHOSPHORUS LEVEL 3.5 MG/DL (2.5-4.9); POTASSIUM SERUM 4.3 MEQ/L (3.5-5.1); SODIUM LEVEL 141 MEQ/L (136-145)
== END ==
LOC: M WUC 09:07
DX: I10 Essential (primary) hypertension (principal)
CPT/HCPCS: 80069

== ENCOUNTER → 2018-01-02 | Outpatient (CLI) | payer MEDICARE, BC, OTHER ==
[2018-01-04 00:06] LABS: PSA % FREE 20.2 % (.); PSA FREE 0.87 ng/mL; PSA TOTAL 4.3 ng/mL (0.0-4.0)
== END ==
LOC: M LAB 08:12
DX: R97.20 Elevated prostate specific antigen [PSA] (principal)
CPT/HCPCS: 84154

== ENCOUNTER → 2018-03-03 | Outpatient (REF) | payer MEDICARE, OTHER ==
[~2018-03-03] MED LIST changes: +ACET500C OR; +ACTO15TA OR; +ACTO45TA12 PO; +ATOR1TAB19 PO; +ATOR1TAB21 PO; +CIPR-249 PO; +CIPR500T3 PO; +CLEADRO8 OU; +DOXA2TAB3 PO; +FARX1TAB3 PO; +GLUC850T PO; +INSULADS SC; +INSULANT SC; -LIQUID POLIBAR PLUS 105% w/v 1900ML BTL As Ordered; +LISI10TA4 OR; +LISI10TA4 PO; +MELOPOW PO; +METF10004 PO; +MIRA3350 PO; +OMEP40CA2 PO; +OXYB5TAB10 PO; +OXYC1TAB23 PO; +PRIL20TA2 PO; +TRAM50TA2 OR; +VICT18IN SC; +ZOFR4TAB14 PO; +[UNRECOGNIZED DRUG - OTHER] PO; +[UNRECOGNIZED DRUG - OTHER] SUBQ
== END ==
LOC: M SMT 17:15
PROVIDERS: ATTEND Urology
DX: C67.9 Malignant neoplasm of bladder, unspecified (principal)

== ENCOUNTER → 2018-04-08 | Outpatient (CLI) | payer MEDICARE, BC, OTHER ==
[2018-04-08 13:42] LABS: HEMATOCRIT 45.8 % (42.0-52.0); HEMOGLOBIN 15.3 g/dl (13.5-17.5); MEAN CORPUSCULAR HEMOGLOBIN 29.3 pg (27.0-33.0); MEAN CORPUSCULAR HGB CONC 33.4 g/dl (32.0-36.5); MEAN CORPUSCULAR VOLUME 87.7 fl (80.0-96.0); PLATELET COUNT, AUTOMATED 215 10^3/uL (150-450); RED BLOOD COUNT 5.22 10^6/uL (4.30-6.10); WHITE BLOOD COUNT 4.6 10^3/uL (4.0-10.0)
[2018-04-08 13:57] LABS: APPEARANCE, URINE TURBID (CLEAR); BACTERIA, URINE AUTO NEGATIVE (NEGATIVE); BILIRUBIN, URINE AUTO NEGATIVE (NEGATIVE); BLOOD, URINE BLOOD 2+ (NEGATIVE); COLOR, URINE AMBER (YELLOW); GLUCOSE, URINE (UA) AUTO 3+ mg/dL (NEGATIVE); KETONE, URINE AUTO NEGATIVE (NEGATIVE); LEUKOCYTE ESTERASE, URINE AUTO TRACE (NEGATIVE); MUCUS, URINE SMALL (NEGATIVE); NITRITE, URINE AUTO NEGATIVE (NEGATIVE); PROTEIN, URINE AUTO NEGATIVE (NEGATIVE); RBC, URINE AUTO 9 /HPF (0-3); SPECIFIC GRAVITY URINE AUTO 1.023 (1.002-1.035); SQUAMOUS EPITHELIAL CELL UR AU 0 /HPF (0-6); UROBILINOGEN, URINE AUTO 0.2 mg/dL (0.0-2.0); WBC, URINE AUTO 9 /HPF (0-3)
[2018-04-08 13:59] LABS: ALT/SGPT 29 U/L (12-78); BILIRUBIN,TOTAL 0.5 MG/DL (0.2-1.0); BLOOD UREA NITROGEN 13 MG/DL (7-18); CALCIUM LEVEL 8.7 MG/DL (8.8-10.2); CARBON DIOXIDE LEVEL 27 MEQ/L (21-32); CHLORIDE LEVEL 106 MEQ/L (98-107); CREATININE FOR GFR 0.83 MG/DL (0.70-1.30); GLOMERULAR FILTRATION RATE > 60.0 (>42); GLUCOSE, FASTING 177 MG/DL (70-100); POTASSIUM SERUM 4.2 MEQ/L (3.5-5.1); SODIUM LEVEL 139 MEQ/L (136-145)
[2018-04-10 00:10] LABS: PSA FREE 1.15 ng/mL
== END ==
LOC: M SMT 08:52
PROVIDERS: ATTEND Urology
DX: C67.9 Malignant neoplasm of bladder, unspecified (principal); R97.20 Elevated prostate specific antigen [PSA]; Z79.899 Other long term (current) drug therapy

== ENCOUNTER → 2018-04-21 | Outpatient (CLI) | payer MEDICARE, OTHER ==
--- NOTE | 2018-04-21 12:13 | REP ---
TRANSRECTAL PROSTATE ULTRASOUND WITH ULTRASOUND GUIDANCE FOR PROSTATE BIOPSY. Real-time sonographic evaluation of the prostate performed utilizing transrectal probe. The size of the gland is 5.1 x 4.3 x 6.3 cm for a total volume of 72.3 mL. Echotexture is heterogeneous with scattered tiny cystic changes in calcifications. Seminal vesicles appear symmetrical. Ultrasound guidance was provided for Dr. Little who performed ultrasound guided biopsy of the prostate. Electronically Signed by Jai Tiwari MD 04/21/2018 12:49 P
== END ==
LOC: M SMT PRO 10:08
PROVIDERS: ATTEND Urology
DX: C61 Malignant neoplasm of prostate (principal)
CPT/HCPCS: 55700; 76872; 76942; G0416

== ENCOUNTER → 2018-05-20 | Outpatient (CLI) | payer MEDICARE, BC, OTHER ==
[2018-05-20 10:17] LABS: HEMATOCRIT 48.6 % (42.0-52.0); HEMOGLOBIN 16.1 g/dl (13.5-17.5); MEAN CORPUSCULAR HEMOGLOBIN 29.2 pg (27.0-33.0); MEAN CORPUSCULAR HGB CONC 33.1 g/dl (32.0-36.5); MEAN CORPUSCULAR VOLUME 88.2 fl (80.0-96.0); PLATELET COUNT, AUTOMATED 263 10^3/uL (150-450); RED BLOOD COUNT 5.51 10^6/uL (4.30-6.10); WHITE BLOOD COUNT 7.3 10^3/uL (4.0-10.0)
[2018-05-20 10:24] LABS: ALBUMIN 4.2 GM/DL (3.2-5.2); ALT/SGPT 37 U/L (12-78); BILIRUBIN,TOTAL 0.9 MG/DL (0.2-1.0); BLOOD UREA NITROGEN 13 MG/DL (7-18); CALCIUM LEVEL 10.1 MG/DL (8.8-10.2); CARBON DIOXIDE LEVEL 27 MEQ/L (21-32); CHLORIDE LEVEL 104 MEQ/L (98-107); CREATININE FOR GFR 0.81 MG/DL (0.70-1.30); GLOMERULAR FILTRATION RATE > 60.0 (>42); GLUCOSE, FASTING 112 MG/DL (70-100); POTASSIUM SERUM 4.4 MEQ/L (3.5-5.1); SODIUM LEVEL 139 MEQ/L (136-145); TOTAL PROTEIN 7.5 GM/DL (6.4-8.2)
== END ==
LOC: M SMT 08:05
PROVIDERS: ATTEND Urology
DX: C67.9 Malignant neoplasm of bladder, unspecified (principal)

== ENCOUNTER → 2018-05-25 | Outpatient (REF) | payer MEDICARE, OTHER | LOC: M SMT 13:07 | PROVIDERS: ATTEND Urology | DX: R39.89 Other symptoms and signs involving the genitourinary system (principal) ==

== ENCOUNTER → 2018-05-26 | Outpatient (REF) | payer MEDICARE, OTHER ==
[2018-05-26 18:37] LABS: APPEARANCE, URINE CLEAR (CLEAR); BACTERIA, URINE AUTO NEGATIVE (NEGATIVE); BILIRUBIN, URINE AUTO NEGATIVE (NEGATIVE); BLOOD, URINE BLOOD NEGATIVE (NEGATIVE); COLOR, URINE YELLOW (YELLOW); GLUCOSE, URINE (UA) AUTO 3+ mg/dL (NEGATIVE); KETONE, URINE AUTO TRACE mg/dL (NEGATIVE); LEUKOCYTE ESTERASE, URINE AUTO 1+ (NEGATIVE); MUCUS, URINE SMALL (NEGATIVE); NITRITE, URINE AUTO NEGATIVE (NEGATIVE); PROTEIN, URINE AUTO NEGATIVE (NEGATIVE); RBC, URINE AUTO 1 /HPF (0-3); SPECIFIC GRAVITY URINE AUTO 1.028 (1.002-1.035); SQUAMOUS EPITHELIAL CELL UR AU 0 /HPF (0-6); UROBILINOGEN, URINE AUTO 0.2 mg/dL (0.0-2.0); WBC, URINE AUTO 9 /HPF (0-3)
== END ==
LOC: M SMT 17:24
PROVIDERS: ATTEND Urology
DX: C67.9 Malignant neoplasm of bladder, unspecified (principal)

== ENCOUNTER → 2018-06-17 | Outpatient (REF) | payer MEDICARE, OTHER ==
[2018-06-17 14:07] LABS: APPEARANCE, URINE HAZY (CLEAR); BACTERIA, URINE AUTO NEGATIVE (NEGATIVE); BILIRUBIN, URINE AUTO NEGATIVE (NEGATIVE); BLOOD, URINE BLOOD NEGATIVE (NEGATIVE); COLOR, URINE YELLOW (YELLOW); GLUCOSE, URINE (UA) AUTO 3+ mg/dL (NEGATIVE); KETONE, URINE AUTO NEGATIVE (NEGATIVE); LEUKOCYTE ESTERASE, URINE AUTO TRACE (NEGATIVE); MUCUS, URINE SMALL (NEGATIVE); NITRITE, URINE AUTO NEGATIVE (NEGATIVE); PROTEIN, URINE AUTO NEGATIVE (NEGATIVE); RBC, URINE AUTO 1 /HPF (0-3); SPECIFIC GRAVITY URINE AUTO 1.023 (1.002-1.035); SQUAMOUS EPITHELIAL CELL UR AU 0 /HPF (0-6); UROBILINOGEN, URINE AUTO 0.2 mg/dL (0.0-2.0); WBC, URINE AUTO 15 /HPF (0-3)
== END ==
LOC: M SMT 13:17
PROVIDERS: ATTEND Nurse Practitioner Family
DX: R82.90 Unspecified abnormal findings in urine (principal)

== ENCOUNTER → 2018-07-27 | Outpatient (REF) | payer MEDICARE, OTHER | LOC: M SMT 17:18 | PROVIDERS: ATTEND Urology | DX: C67.9 Malignant neoplasm of bladder, unspecified (principal) ==

== ENCOUNTER → 2018-08-06 | Outpatient (CLI) | payer MEDICARE, OTHER | LOC: M SMT 08:13 | PROVIDERS: ATTEND Urology | DX: C61 Malignant neoplasm of prostate (principal); C67.9 Malignant neoplasm of bladder, unspecified ==

== ENCOUNTER → 2018-09-03 | Outpatient (CLI) | payer MEDICARE, OTHER | LOC: M WUC 08:09 | PROVIDERS: ATTEND Urology | DX: C61 Malignant neoplasm of prostate (principal) ==

== ENCOUNTER → 2018-10-06 | Outpatient (CLI) | payer MEDICARE, BC, OTHER ==
--- NOTE | 2018-10-06 15:24 | REP ---
Transrectal ultrasound guidance: History: Prostate cancer. Findings: Transrectal sonographic guidance is provided to Dr. Little who performed transrectal ultrasound guided needle biopsy of the prostate. Electronically Signed by Parveen Alva MD 10/06/2018 04:56 P
== END ==
LOC: M SMT PRO 09:45
PROVIDERS: ATTEND Urology
DX: R97.20 Elevated prostate specific antigen [PSA] (principal); Z85.46 Personal history of malignant neoplasm of prostate; Z85.51 Personal history of malignant neoplasm of bladder
CPT/HCPCS: 55700; 76942; G0416

== ENCOUNTER → 2018-11-02 | Outpatient (REF) | payer MEDICARE, OTHER ==
[~2018-11-02] MED LIST changes: +ATOR80TA59 PO; +LINZ290C PO; +SUCR1TA PO
== END ==
LOC: M SMT 13:17
PROVIDERS: ATTEND Urology
DX: C67.9 Malignant neoplasm of bladder, unspecified (principal)

== ENCOUNTER 2018-11-07 13:41 | Emergency (ER) | payer MEDICARE, BC, OTHER ==
[~2018-11-07] VITALS: Ht 177.8 cm; Wt 73.2 kg
[~2018-11-07 13:41] MED LIST changes: -ATOR80TA59 PO; -LINZ290C PO; -OMEP40CA2 PO; +OMEP40CA97 PO; -SUCR1TA PO
[2018-11-07] MEDS ORDERED: ATOR80TA59 PO (13:56)
[2018-11-07] MEDS ORDERED: LINZ290C PO (13:56)
[2018-11-07] MEDS ORDERED: SUCR1TA PO (13:56)
[2018-11-07 14:17] LABS: BASO % 0.5 % (0.0-1.0); EOS # 0.1 10^3/uL (0.0-0.50); EOS % 1.1 % (0.0-3.0); HEMATOCRIT 44.8 % (42.0-52.0); LYMPH # 1.7 10^3/uL (1.5-4.5); LYMPH % 29.9 % (24.0-44.0); MEAN CORPUSCULAR HEMOGLOBIN 30.1 pg (27.0-33.0); MEAN CORPUSCULAR HGB CONC 33.5 g/dl (32.0-36.5); MEAN CORPUSCULAR VOLUME 89.8 fl (80.0-96.0); MONO # 0.4 10^3/uL (0.0-0.8); MONO % 7.5 % (0.0-5.0); NEUTROPHILS # 3.5 10^3/uL (1.8-7.7); NEUTROPHILS % 60.6 % (36.0-66.0); PLATELET COUNT, AUTOMATED 212 10^3/uL (150-450); RED BLOOD COUNT 4.99 10^6/uL (4.30-6.10); WHITE BLOOD COUNT 5.7 10^3/uL (4.0-10.0)
[2018-11-07 14:49] LABS: ALBUMIN 3.7 GM/DL (3.2-5.2); ALT/SGPT 289 U/L (12-78); BILIRUBIN,DIRECT 1.9 MG/DL (0.0-0.2); BILIRUBIN,TOTAL 2.3 MG/DL (0.2-1.0); BLOOD UREA NITROGEN 10 MG/DL (7-18); CALCIUM LEVEL 8.9 MG/DL (8.8-10.2); CARBON DIOXIDE LEVEL 29 MEQ/L (21-32); CHLORIDE LEVEL 105 MEQ/L (98-107); CREATININE FOR GFR 0.84 MG/DL (0.70-1.30); GLOMERULAR FILTRATION RATE > 60.0 (>42); GLUCOSE, FASTING 230 MG/DL (70-100); POTASSIUM SERUM 4.2 MEQ/L (3.5-5.1); SODIUM LEVEL 139 MEQ/L (136-145); TOTAL PROTEIN 7.5 GM/DL (6.4-8.2)
[2018-11-07 14:50] LABS: LIPASE 7768 U/L (73-393)
[2018-11-07] MEDS ORDERED: KETOROLAC 30 MG/ML VIAL (J1885) IV ONE (15:45)
[2018-11-07] MEDS ORDERED: NS 1,000 ML IV ONE (15:45)
[2018-11-07] MEDS ORDERED: ONDANSETRON 4MG/2ML VIAL (J2405) IV ONE (15:45)
[2018-11-07] MEDS ORDERED: ISOVUE-370 76% 100ML VIAL (Q9967) As Ordered ONE (15:47)
--- NOTE | 2018-11-07 19:38 | ECGEPIP ---
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
[2018-11-07] MEDS ORDERED: MORPHINE 4 MG/ML 1ML VIAL/SYRINGE (J2270) IV PRN (20:45)
[2018-11-07 22:05] VITALS: BP 171/80
--- NOTE | 2018-11-08 00:40 | ED PDOC ---
Post-Departure Follow-Up AT 2041 PT REQUESTED ADDITIONAL PAIN MEDICATION. PROVIDER EXAMINED PATIENT. EXAM WAS UNCHANGED. ORDER FOR MORPHINE WAS PLACED, WHICH NURSE LATERAL INFORMED PROVIDER PT DECLINED STATING HE DID NOT WANT ANYTHING THAT STRONG AND PREFERRED TO WAIT UNTIL TRANSFER TO [facility] FOR FURTHER TREATMENT Christie Pedraza PA-C Nov 08, 2018 00:40
--- NOTE | 2018-11-08 09:16 | REP ---
CT ABDOMEN AND PELVIS WITH IV CONTRAST ONLY: 11/07/2018. Technique: The patient received bolus of 100 ml Isovue 370, scanning through the abdomen and pelvis with coronal and sagittal reconstructions. Comparison: 10/14/2016. Clinical history: Pancreatitis. Evaluate common duct. Findings: CT abdomen: Lung bases are clear. Heart is not enlarged. There is no pericardial thickening or effusion. Small hiatal hernia noted. There is no hepatomegaly. There is evidence for prior cholecystectomy. There is also some mild intraductal dilatation centrally and this is a new finding since the previous study which was also postcholecystectomy. In the orville hepatis, the common duct measures up to 11 mm. I do not see a calcified stone or other filling defect. It extends into the pancreatic head where it resumes normal caliber and then disappears. There is no ascites around the liver. Spleen is not enlarged and shows no focal lesion. Adrenal glands normal. The pancreas shows no mass. There is only very subtle infiltration of fat around the pancreatic head. This could be some very mild pancreatitis. The remainder of the pancreas including body and tail region are without that finding. These show a lower pole cyst on the right up to 2.5 cm. There is a peripheral scar in the interpolar region on the right. There is no stone, mass or hydronephrosis on the right. The left kidney shows a 4.4 mm nonobstructing stone lower pole. Calcifications in the upper pole on the previous CT are no longer located there. The ureteral stent is also gone. Small bowel loops were unremarkable. Appendix is seen and normal. The colon without signs of colitis or diverticulitis. Stomach collapsed without much fluid or content. The bony lumbar and thoracic spine show no compression deformity or destructive lesion. There is some hypertrophic facet changes lower lumbar spine. Visualized ribs are intact. CT pelvis: The bony sacrum, SI joints, pelvis and ischia were unremarkable. Acetabulum and hips show some degenerative spurring but no AVN or fracture. Bladder shows no wall thickening, mass or stone. There is a prostate indentation on the bladder base with an enlarged prostate. Distal small bowel loops unremarkable. The distal left colon, sigmoid and rectum unremarkable. No ventral or inguinal hernia nor pathologic sized inguinal adenopathy. Impression: 1. Common duct dilatation up to 11.4 mm in the orville hepatis in this postcholecystectomy patient, 2 years ago in this same location it was no more than 7 mm. In addition, there is intrahepatic ductal dilatation which was not previously present. Consideration for a MRCP is warranted in the absence of visualization of a common duct stone or other definite cause. Slight infiltration of the peripancreatic fat may reflect some mild pancreatitis. No other findings in the region of the pancreas. 2. No hepatosplenomegaly or ascites. 3. Simple cyst lower pole right kidney, scarring laterally in its upper pole and a nonobstructing calculus about 4 mm lower pole on the left. 4. No colitis, diverticulitis, appendicitis or other acute bowel inflammatory changes. I see no perforation or free air. 5. Bladder without mass, wall thickening or stone. However the prostate is enlarged and indents the bladder base. Electronically Signed by Iglesia Huynh MD 11/08/2018 08:04 P
[2019-02-25] MEDS ORDERED: NOVOINJ3 SC (13:07)
[2019-02-25] MEDS ORDERED: CREO3600 PO (13:07)
[2019-02-25] MEDS ORDERED: Boost (14:12)
[2019-03-15] MEDS ORDERED: [UNRECOGNIZED DRUG - CODE] PO (13:25)
[2019-03-15] MEDS ORDERED: GRAN1TA PO (13:36)
[2019-03-15] MEDS ORDERED: MORP1SOL3 PO (13:37)
[2019-03-22] MEDS ORDERED: CREO3600 PO (10:20)
[2019-03-26] MEDS ORDERED: LACT10SO29 PO (14:46)
[2019-03-26] MEDS ORDERED: DRON5CAP13 PO (14:48)
[2019-04-13] MEDS ORDERED: DRON5CAP13 PO (09:10)
== END 2018-11-07 22:08 | disposition short-term general hospital (02) ==
LOC: M ED 13:41
DX: K85.10 Biliary acute pancreatitis without necrosis or infection (principal); E11.9 Type 2 diabetes mellitus without complications; I10 Essential (primary) hypertension; E78.5 Hyperlipidemia, unspecified; K22.70 Barrett's esophagus without dysplasia; Z85.46 Personal history of malignant neoplasm of prostate; Z85.51 Personal history of malignant neoplasm of bladder; Z79.899 Other long term (current) drug therapy; Z79.4 Long term (current) use of insulin
CPT/HCPCS: 74177; 80048; 80076; 81001; 83690; 85025; 87088; 87186; 93005; 96361; 96374; 96375; 99284; J1885; J2405; Q9967

== ENCOUNTER 2018-11-26 09:36 | Day surgery (SDC) | payer MEDICARE, BC, OTHER ==
[~2018-11-26] VITALS: Ht 177.8 cm; Wt 69.8 kg
[~2018-11-26 09:36] MED LIST changes: +ATOR80TA59 PO; +LINZ290C PO; +OMEP40CA2 PO; -OMEP40CA97 PO; +SUCR1TA PO
[2018-11-26] MEDS ORDERED: PROPOFOL 500 MG/50 ML VIAL As Ordered ONE (10:27)
[2018-11-26] MEDS ORDERED: LIDOCAINE 2% INJ 100 MG/5 ML SDV (FOR ANES.) As Ordered ONE (10:29)
[2018-11-26] MEDS ORDERED: NS 1,000 ML IV ONE (11:00)
--- NOTE | 2018-11-26 11:43 | ROOR ---
Patient Name: Barry Monahan Procedure Date: 11/26/2018 11:21 AM Date of : 1945 Age: 72 Room: [facility] Gender: Male Note Status: Finalized Procedure: Upper GI endoscopy Indications: Surveillance for malignancy due to personal history of Page's esophagus, Epigastric abdominal pain, Heartburn Providers: Bright OSPINA MD Referring MD: OSMANY SNELL MD Requesting Provider: Medicines: Monitored Anesthesia Care Complications: No immediate complications. Procedure: Pre-Anesthesia Assessment: - The heart rate, respiratory rate, oxygen saturations, blood pressure, adequacy of pulmonary ventilation, and response to care were monitored throughout the procedure. The Endoscope was introduced through the mouth, and advanced to the second part of duodenum. The upper GI endoscopy was accomplished without difficulty. The patient tolerated the procedure well. Findings: The Z-line was variable and was found 39 cm from the incisors. This was biopsied with a cold forceps for histology. The exam of the esophagus was otherwise normal. Mild gastritis, This was biopsied with a cold forceps for histology. The exam of the stomach was otherwise normal. A previously placed plastic biliary stent was seen in the area of the papilla. The exam of the duodenum was otherwise normal. Impression: - Z-line variable, 39 cm from the incisors. Biopsied. - Mild gastritis - Plastic biliary stent in the duodenum. - The examination was otherwise normal. Recommendation: - Telephone endoscopist for pathology results in 2 weeks. - Continue present medications. Bright Ospina MD Bright OSPINA MD 11/26/2018 11:42:42 AM Electronically signed by Bright OSPINA MD Number of Addenda: 0 Note Initiated On: 11/26/2018 11:21 AM Estimated Blood Loss: Estimated blood loss: none.
--- NOTE | 2018-11-26 12:03 | ROOR ---
Patient Name: Barry Monahan Procedure Date: 11/26/2018 11:22 AM Date of : 1945 Age: 72 Room: LTAC, [facility]IN [facility] Gender: Male Note Status: Finalized Procedure: Colonoscopy Indications: Change in bowel habits Providers: Bright OSPINA MD Referring MD: OSMANY SNELL MD Requesting Provider: Medicines: Monitored Anesthesia Care Complications: No immediate complications. Procedure: Pre-Anesthesia Assessment: - The heart rate, respiratory rate, oxygen saturations, blood pressure, adequacy of pulmonary ventilation, and response to care were monitored throughout the procedure. The Colonoscope was introduced through the anus and advanced to 10 cm into the ileum. The colonoscopy was performed without difficulty. The patient tolerated the procedure well. The quality of the bowel preparation was good. Findings: The perianal and digital rectal examinations were normal. Internal hemorrhoids were found during retroflexion. The hemorrhoids were medium-sized. Retroflexion in the right colon was performed. The entire examined colon appeared normal on direct and retroflexion views. The terminal ileum appeared normal. Impression: - Internal hemorrhoids. - Mild scattered sigmoid diverticulosis. - The entire colon is otherwise normal on direct and retroflexion views. - The examined portion of the ileum was normal. - No specimens collected. Recommendation: - Continue present medications. Bright Ospina MD Bright OSPINA MD 11/26/2018 12:02:59 PM Electronically signed by Bright OSPINA MD Number of Addenda: 0 Note Initiated On: 11/26/2018 11:22 AM Estimated Blood Loss: Estimated blood loss: none.
[2018-11-26 12:30] VITALS: BP 125/75
== END 2018-11-26 13:15 | disposition home or self-care (01) ==
LOC: M OPP 09:36
PROVIDERS: ATTEND Internal Medicine Gastroenterology
DX: K64.8 Other hemorrhoids (principal); K57.30 Diverticulosis of large intestine without perforation or abscess without bleeding; R19.4 Change in bowel habit; K22.8 Other specified diseases of esophagus; K22.70 Barrett's esophagus without dysplasia; R10.13 Epigastric pain; E11.9 Type 2 diabetes mellitus without complications; Z79.4 Long term (current) use of insulin; Z79.899 Other long term (current) drug therapy; Z85.51 Personal history of malignant neoplasm of bladder; Z85.46 Personal history of malignant neoplasm of prostate

== ENCOUNTER 2019-01-21 17:35 | Emergency (ER) | payer MEDICARE, BC, OTHER ==
[~2019-01-21] VITALS: Ht 177.8 cm; Wt 69.3 kg
[~2019-01-21 17:35] MED LIST changes: -OMEP40CA2 PO; +OMEP40CA97 PO
[2019-01-21] MEDS ORDERED: TRAM50TA2 PO (17:44)
[2019-01-21] MEDS ORDERED: NS 1,000 ML IV ONE (18:30)
[2019-01-21] MEDS ORDERED: FAMOTIDINE INJ 20MG/2ML VIAL (S0028) IVP ONE (18:30)
[2019-01-21] MEDS ORDERED: MORPHINE 4 MG/ML 1ML VIAL/SYRINGE (J2270) IV ONE (18:30)
[2019-01-21] MEDS ORDERED: ONDANSETRON 4MG/2ML VIAL (J2405) IV ONE (18:30)
[2019-01-21 18:50] LABS: BASO % 0.4 % (0.0-1.0); EOS # 0.3 10^3/uL (0.0-0.5); EOS % 4.8 % (0.0-3.0); HEMATOCRIT 32.6 % (42.0-52.0); HEMOGLOBIN 10.5 g/dl (13.5-17.5); LYMPH # 1.3 10^3/uL (1.5-5.0); LYMPH % 17.6 % (24.0-44.0); MEAN CORPUSCULAR HEMOGLOBIN 29.6 pg (27.0-33.0); MEAN CORPUSCULAR HGB CONC 32.2 g/dl (32.0-36.5); MEAN CORPUSCULAR VOLUME 91.8 fl (80.0-96.0); MONO # 0.5 10^3/uL (0.0-0.8); MONO % 6.5 % (0.0-5.0); NEUTROPHILS % 69.9 % (36.0-66.0); PLATELET COUNT, AUTOMATED 422 10^3/uL (150-450); RED BLOOD COUNT 3.55 10^6/uL (4.30-6.10); WHITE BLOOD COUNT 7.1 10^3/uL (4.0-10.0)
[2019-01-21] MEDS: GASTROGRAFIN SOLUTION 30ML PO SCH ×2 (19:01→19:20)
[2019-01-21 19:09] LABS: ALBUMIN 2.7 GM/DL (3.2-5.2); ALT/SGPT 41 U/L (12-78); BILIRUBIN,DIRECT 0.1 MG/DL (0.0-0.2); BILIRUBIN,TOTAL 0.4 MG/DL (0.2-1.0); BLOOD UREA NITROGEN 8 MG/DL (7-18); CALCIUM LEVEL 8.7 MG/DL (8.8-10.2); CARBON DIOXIDE LEVEL 29 MEQ/L (21-32); CHLORIDE LEVEL 103 MEQ/L (98-107); CK-MB VALUE MASS < 1.0 NG/ML (<3.6); CPK CREATINE PHOSPHOKINASE 27 U/L (39-308); CREATININE FOR GFR 0.69 MG/DL (0.70-1.30); GLOMERULAR FILTRATION RATE > 60.0 (>42); GLUCOSE, FASTING 133 MG/DL (70-100); LIPASE 119 U/L (73-393); POTASSIUM SERUM 4.1 MEQ/L (3.5-5.1); SODIUM LEVEL 139 MEQ/L (136-145); TOTAL PROTEIN 6.4 GM/DL (6.4-8.2); TROPONIN I < 0.02 NG/ML (< 0.10)
[2019-01-21] MEDS ORDERED: fentaNYL 100 MCG/2 ML INJECTION (J3010) IV ONE (19:15)
[2019-01-21] MEDS ORDERED: PROMETHAZINE INJ 25 MG/ML VIAL (J2550) IV ONE (19:15)
[2019-01-21] MEDS ORDERED: ISOVUE-370 76% 100ML VIAL (Q9967) As Ordered ONE (19:41)
--- NOTE | 2019-01-21 20:34 | REPVR ---
PROCEDURE INFORMATION: Exam: CT Abdomen And Pelvis With Contrast Exam date and time: 01/21/2019 8:07 PM Clinical history: 73 years old, male; Abdominal pain; Generalized; Prior surgery; Surgery date: 3-7 days post-operative; Surgery type: Whipple 01-11-19; Additional info: Whipple 01/11/19, worsening pain, nausea, reflux TECHNIQUE: Imaging protocol: Computed tomography of the abdomen and pelvis with intravenous contrast. Radiation optimization: All CT scans at this facility use at least one of these dose optimization techniques: automated exposure control; mA and/or kV adjustment per patient size (includes targeted exams where dose is matched to clinical indication); or iterative reconstruction. Contrast material: ISOVUE 370; Contrast volume: 100 ml; Contrast route: IV; COMPARISON: CT ABD/PEL W/IV CONTRAST ONLY 11/07/2018 3:58 PM FINDINGS: Liver: There is a diffuse decrease in hepatic parenchymal density, consistent with fatty infiltration. Gallbladder and bile ducts: Normal. No calcified stones. No ductal dilation. Pancreas: Postsurgical changes are inserted in the pancreatic head and neck region status post Whipple procedure. Fluid demonstrated in the surgical bed extending along the medial perihepatic region and caudate lobe likely related to recent surgery. Impression per Spleen: Normal. No splenomegaly. Adrenals: Normal. No mass. Kidneys and ureters: Nonobstructive calculus left kidney measures 6 mm. Right renal cyst measures 2 cm. Stomach and bowel: Pneumobilia secondary to Whipple procedure demonstrated in There is gastric distention with retained secretions. Clinical correlation to exclude gastroparesis or gastric outlet obstruction suggested. Appendix: No evidence of appendicitis. Intraperitoneal space: There is a small amount of free intraperitoneal fluid present. Vasculature: There is moderate atherosclerotic calcification of the coronary arteries. The aorta demonstrates mild atherosclerotic calcification. Lymph nodes: Unremarkable. No enlarged lymph nodes. Bladder: Unremarkable as visualized. Reproductive: The prostate gland demonstrates moderate hyperplasia. Bones/joints: The spine demonstrates mild degenerative changes. Moderate short pedicle degenerative spinal stenosis L4-5. Soft tissues: Left inguinal hernia. Mild anasarca. IMPRESSION: 1. There is a diffuse decrease in hepatic parenchymal density, consistent with fatty infiltration. 2. There is gastric distention with retained secretions. Clinical correlation to exclude gastroparesis or gastric outlet obstruction suggested. 3. Moderate prostatic hyperplasia. Electronically signed by: Farshad Barr On 01/21/2019 20:33:45 PM
[2019-01-21] MEDS ORDERED: REGL10TA6 PO (21:14)
[2019-01-21 21:20] VITALS: BP 161/77
--- NOTE | 2019-01-21 21:46 | ECGEPIP ---
[facility] - ED Test Date: 2019-01-21 Pat Name: FABI DECKER Department: Room: - Gender: Male Information Systems Architect: LAUREN : 1945 Requested By: DAV HINTON Order Number: [id number] Reading MD: Segun Gan Measurements Intervals [place] Rate: 75 P: 8 CA: 164 QRS: 59 QRSD: 114 T: 40 QT: 383 QTc: 428 Interpretive Statements SINUS RHYTHM MODERATE INTRAVENTRICULAR CONDUCTION DELAY NONSPECIFIC T-WAVE ABNORMALITY SIMILAR TO 11/07/18 Electronically Signed on 01-21-2019 21:46:28 EDT by Segun Gan
== END 2019-01-21 21:29 | disposition home or self-care (01) ==
LOC: M ED 17:35
DX: K31.84 Gastroparesis (principal); K22.70 Barrett's esophagus without dysplasia; I10 Essential (primary) hypertension; E11.9 Type 2 diabetes mellitus without complications; E78.49 Other hyperlipidemia; K59.00 Constipation, unspecified

== ENCOUNTER → 2019-01-22 | Outpatient (CLI) | payer MEDICARE, BC, OTHER ==
[~2019-01-22] MED LIST changes: +PEPC40TA12 PO; +REGL10TA6 PO; +TRAM50TA2 PO
[2019-01-22 13:35] LABS: BLOOD UREA NITROGEN 12 MG/DL (7-18); CALCIUM LEVEL 8.5 MG/DL (8.8-10.2); CARBON DIOXIDE LEVEL 30 MEQ/L (21-32); CHLORIDE LEVEL 103 MEQ/L (98-107); CREATININE FOR GFR 0.85 MG/DL (0.70-1.30); GLOMERULAR FILTRATION RATE > 60.0 (>42); GLUCOSE, FASTING 159 MG/DL (70-100); POTASSIUM SERUM 4.7 MEQ/L (3.5-5.1); SODIUM LEVEL 137 MEQ/L (136-145)
== END ==
LOC: M LAB 12:24
PROVIDERS: ATTEND Internal Medicine Endocrinology, Diabetes & Metabolism
DX: E11.65 Type 2 diabetes mellitus with hyperglycemia (principal)

== ENCOUNTER 2019-01-23 18:58 | Inpatient (IN) | payer MEDICARE, BC, OTHER ==
[~2019-01-23] VITALS: Ht 177.8 cm; Wt 65.2 kg
[~2019-01-23 18:58] MED LIST changes: -PEPC40TA12 PO
[2019-01-23] MEDS ORDERED: DEXTROSE 50% 50 ML SYRINGE As Ordered ONE (19:04)
[2019-01-23] MEDS ORDERED: DEXTROSE 50% 50 ML SYRINGE IV STA (19:19)
[2019-01-23] MEDS ORDERED: PEPC40TA12 PO (19:29)
[2019-01-23] MEDS ORDERED: D10W 500 ML IV ONE (19:30)
[2019-01-23 19:57] LABS: HEMOGLOBIN 11.6 g/dl (13.5-17.5); MEAN CORPUSCULAR HEMOGLOBIN 29.1 pg (27.0-33.0); MEAN CORPUSCULAR HGB CONC 31.4 g/dl (32.0-36.5); MEAN CORPUSCULAR VOLUME 92.7 fl (80.0-96.0); PLATELET COUNT, AUTOMATED 489 10^3/uL (150-450); RED BLOOD COUNT 3.99 10^6/uL (4.30-6.10)
[2019-01-23 20:07] LABS: ALT/SGPT 29 U/L (12-78); BILIRUBIN,DIRECT 0.1 MG/DL (0.0-0.2); BILIRUBIN,TOTAL 0.5 MG/DL (0.2-1.0); BLOOD UREA NITROGEN 9 MG/DL (7-18); CALCIUM LEVEL 8.8 MG/DL (8.8-10.2); CARBON DIOXIDE LEVEL 27 MEQ/L (21-32); CHLORIDE LEVEL 103 MEQ/L (98-107); CREATININE FOR GFR 0.64 MG/DL (0.70-1.30); GLOMERULAR FILTRATION RATE > 60.0 (>42); GLUCOSE, FASTING 53 MG/DL (70-100); POTASSIUM SERUM 3.8 MEQ/L (3.5-5.1); SODIUM LEVEL 139 MEQ/L (136-145); TOTAL PROTEIN 7.1 GM/DL (6.4-8.2)
[2019-01-23 20:33] LABS: LIPASE 74 U/L (73-393)
[2019-01-23] MEDS ORDERED: METOCLOPRAMIDE INJ 10MG/2ML VIAL (J2765) IV ONE (20:45)
[2019-01-23] MEDS ORDERED: fentaNYL 100 MCG/2 ML INJECTION (J3010) IV ONE (20:45)
[2019-01-23] MEDS ORDERED: ISOVUE-370 76% 100ML VIAL (Q9967) As Ordered ONE (21:13)
--- NOTE | 2019-01-23 22:10 | REPVR ---
PROCEDURE INFORMATION: Exam: CT Abdomen And Pelvis With Contrast Exam date and time: 01/23/2019 9:15 PM Clinical history: 73 years old, male; Abdominal pain; Prior surgery; Surgery date: <1 month; Surgery type: Whipple; Additional info: Abd pain, n/v S/P whipple procedure TECHNIQUE: Imaging protocol: Computed tomography of the abdomen and pelvis with intravenous contrast. Radiation optimization: All CT scans at this facility use at least one of these dose optimization techniques: automated exposure control; mA and/or kV adjustment per patient size (includes targeted exams where dose is matched to clinical indication); or iterative reconstruction. Contrast material: ISOVUE 370; Contrast volume: 100 ml; Contrast route: IV; COMPARISON: CT ABD/PEL W/IV ORAL CONTRAS 01/21/2019 8:06 PM FINDINGS: Liver: Trace pneumobilia in the left hepatic lobe. Gallbladder and bile ducts: Normal. No calcified stones. No ductal dilation. Pancreas: The pancreatic body and tail are within normal limits. In the region of the pancreatic head, there is induration with lobular fluid collections and an apparent suture line along the right lateral aspect consistent with a Whipple procedure. A segment of bowel extends into the orville hepatis which may reflect a choledocho-enterostomy. Spleen: Normal. No splenomegaly. Adrenals: Normal. No mass. Kidneys and ureters: There is a right renal cyst measuring 19 mm. Nonobstructing left renal calculus. Stomach and bowel: Partial gastrectomy with gastrojejunostomy. Prominent distention of the gastric remnant to the level of the gastrojejunostomy anastomosis. There is reflux into a small hiatal hernia and retained fluid and gas in the distal esophagus with slight distal esophageal wall thickening. The gastric remnant extends anterior to the transverse colon. Appendix: A normal contrast-filled appendix is seen. Intraperitoneal space: Mild peritoneal ascites with a Hounsfield measurement of 3 in the pelvis. Vasculature: There is mild calcification of the abdominal aorta with extension into the iliac arteries. Lymph nodes: Unremarkable. No enlarged lymph nodes. Bladder: Unremarkable as visualized. Reproductive: There is mild prostatic enlargement. Bones/joints: Unremarkable. No acute fracture. Soft tissues: Small fat filled bilateral inguinal hernias. Residua of midline incision. IMPRESSION: 1. Status post Whipple procedure. 2. Status post partial gastrectomy with prominent distention of the gastric remnant which is increased since 01/21/2019 extending to the level of the gastrojejunostomy anastomosis which may reflect anastomotic stricture. Gastric atony is not excluded. There is reflux into a small hiatal hernia and into the distal esophagus with question of esophagitis with slight wall thickening. 3. Trace pneumobilia which is decreased since the prior study. 4. Mild peritoneal ascites which is slightly increased overall. 5. Induration and small fluid collections in the region of the previous pancreatic head. The fluid collections are similar but there is increased induration consistent with increased inflammation which may reflect a leak at the pancreatico-enteric anastomosis. 6. Nonobstructing left renal calculus. 7. Small fat filled bilateral inguinal hernias which are similar. Electronically signed by: Jaiden Dyer On 01/23/2019 22:09:40 PM
[2019-01-23] MEDS ORDERED: PROMETHAZINE INJ 25 MG/ML VIAL (J2550) IV ONE (22:30)
[2019-01-23] MEDS ORDERED: MORPHINE 4 MG/ML 1ML VIAL/SYRINGE (J2270) IV PRN (22:30)
[2019-01-23 22:32] LABS: BASO # 0.1 10^3/uL (0.0-0.2); BASO % 0.5 % (0.0-1.0); EOS # 0.7 10^3/uL (0.0-0.5); EOS % 4.7 % (0.0-3.0); LYMPH # 1.9 10^3/uL (1.5-5.0); LYMPH % 13.2 % (24.0-44.0); MONO # 0.6 10^3/uL (0.0-0.8); MONO % 3.9 % (0.0-5.0); NEUTROPHILS # 10.8 10^3/uL (1.5-8.5); NEUTROPHILS % 77.3 % (36.0-66.0)
[2019-01-23] MEDS ORDERED: PIPERACILLIN/TAZOBACTAM SOD 3.375 GM in D5W MINI-BAG PLUS 50 ML IV ONE (23:30)
[2019-01-24] MEDS ORDERED: D5W/0.45% SODIUM CHLORIDE 1,000 ML IV SCH (00:13)
[2019-01-24] MEDS ORDERED: REGL10TA6 PO (00:32)
[2019-01-24 01:30] VITALS: BP 175/86
[2019-01-24] MEDS ORDERED: NS 1,000 ML IV SCH ×2 (01:57→15:00)
[2019-01-24] MEDS ORDERED: diphenhydrAMINE INJ 50MG/ML VIAL (J1200) IV PRN (02:00)
[2019-01-24] MEDS ORDERED: NALOXONE INJ 0.4 MG/1 ML VIAL (J2310) IV PRN (02:00)
[2019-01-24] MEDS ORDERED: NALBUPHINE HCL 10 MG/ML AMP (J2300) IV PRN (02:00)
[2019-01-24] MEDS ORDERED: ONDANSETRON 4MG/2ML VIAL (J2405) IV PRN (02:00)
[2019-01-24] MEDS ORDERED: EPIDURAL/PCA KEYS XX PRN (02:00)
[2019-01-24] MEDS ORDERED: MORPHINE 4 MG/ML 1ML VIAL/SYRINGE (J2270) IV ONE (02:00)
[2019-01-24] MEDS: MORPHINE 1MG/ML IN 0.9% NACL 100ML IV BAG IV PRN (02:04)
[2019-01-24 04:00] VITALS: BP 150/72
[2019-01-24 05:28] LABS: BASO % 0.3 % (0.0-1.0); EOS # 0.2 10^3/uL (0.0-0.5); EOS % 1.4 % (0.0-3.0); HEMATOCRIT 33.1 % (42.0-52.0); HEMOGLOBIN 10.7 g/dl (13.5-17.5); LYMPH # 1.1 10^3/uL (1.5-5.0); LYMPH % 10.6 % (24.0-44.0); MEAN CORPUSCULAR HEMOGLOBIN 29.4 pg (27.0-33.0); MEAN CORPUSCULAR HGB CONC 32.3 g/dl (32.0-36.5); MEAN CORPUSCULAR VOLUME 90.9 fl (80.0-96.0); MONO # 0.5 10^3/uL (0.0-0.8); MONO % 4.5 % (0.0-5.0); NEUTROPHILS # 8.6 10^3/uL (1.5-8.5); NEUTROPHILS % 82.6 % (36.0-66.0); PLATELET COUNT, AUTOMATED 462 10^3/uL (150-450); RED BLOOD COUNT 3.64 10^6/uL (4.30-6.10); WHITE BLOOD COUNT 10.4 10^3/uL (4.0-10.0)
[2019-01-24] MEDS: PIPERACILLIN/TAZOBACTAM SOD 3.375 GM in D5W MINI-BAG PLUS 50 ML IV SCH ×4 (05:38→23:21)
[2019-01-24 05:43] LABS: HEMOGLOBIN A1c 6.9 %
[2019-01-24 05:56] LABS: ALBUMIN 2.6 GM/DL (3.2-5.2); ALT/SGPT 23 U/L (12-78); BILIRUBIN,TOTAL 0.4 MG/DL (0.2-1.0); BLOOD UREA NITROGEN 8 MG/DL (7-18); CALCIUM LEVEL 8.3 MG/DL (8.8-10.2); CARBON DIOXIDE LEVEL 28 MEQ/L (21-32); CHLORIDE LEVEL 101 MEQ/L (98-107); CHOLESTEROL LEVEL 111 MG/DL (<200); CHOLESTEROL RISK RATIO 2.775 (<5); CK-MB VALUE MASS < 1.0 NG/ML (<3.6); CPK CREATINE PHOSPHOKINASE 17 U/L (39-308); CREATININE FOR GFR 0.73 MG/DL (0.70-1.30); GLOMERULAR FILTRATION RATE > 60.0 (>42); GLUCOSE, FASTING 287 MG/DL (70-100); HDL CHOLESTEROL 40 MG/DL (>40); LDL CHOLESTEROL 53 MG/DL (<100); LIPASE 106 U/L (73-393); MAGNESIUM LEVEL 1.9 MG/DL (1.8-2.4); MB/CK RELATIVE INDEX 5.88 (< OR =4); NON-HDL-C 71 MG/DL; POTASSIUM SERUM 4.6 MEQ/L (3.5-5.1); SODIUM LEVEL 135 MEQ/L (136-145); TOTAL PROTEIN 6.2 GM/DL (6.4-8.2); TRIGLYCERIDES LEVEL 90 MG/DL (<150); TROPONIN I < 0.02 NG/ML (< 0.10)
[2019-01-24 07:33] VITALS: BP 148/70
[2019-01-24] MEDS: ATORVASTATIN 20 MG TAB PO SCH (08:55)
[2019-01-24] MEDS: SUCRALFATE 1 GM TAB PO SCH ×4 (08:55→21:37)
[2019-01-24] MEDS: PANTOPRAZOLE 40MG INJ (PROTONIX) (C9113) IV SCH ×2 (08:56→21:37)
[2019-01-24] MEDS ORDERED: GLUCOSE 4 GM CHEW TABLET PO PRN (09:00)
[2019-01-24] MEDS ORDERED: DEXTROSE 50% 50 ML SYRINGE IV PRN (09:00)
[2019-01-24] MEDS ORDERED: GLUCAGON FOR INJ 1 MG VIAL (J1610) SC PRN (09:00)
[2019-01-24] MEDS ORDERED: HumaLOG INSULIN (NovoLOG) PER UNIT SC ONE (09:30)
[2019-01-24] MEDS ORDERED: SLF 3 ML SYR IV PRN (10:00)
--- NOTE | 2019-01-24 10:02 | REP ---
Clinical: Hyperglycemia . Comparison: 10/01/2016 . Findings: The mediastinum and cardiac silhouette are stable and within normal limits for portable technique. The lung [place] are clear without acute consolidation, effusion, or pneumothorax. Skeletal structures are intact. Impression: No acute cardiopulmonary process appreciated. Electronically Signed by Vinod Woodruff MD 01/24/2019 09:54 A
--- NOTE | 2019-01-24 10:20 | HPE ---
DATE OF ADMISSION: 01/24/2019 PRIMARY CARE PHYSICIAN: Kenny House CHIEF COMPLAINT: Abdominal pain. HISTORY OF PRESENTING ILLNESS: This is a 73-year-old male with recent diagnosis of pancreatic cancer status post Whipple procedure at [facility] [address] Anne presents to the emergency room after being released on 01/18/2019 with a several day history of nausea, vomiting, heartburn symptoms, burping and gas. The patient states "my stomach is killing me." Says that the pain is 9/10, very sharp, crampy and unrelenting in four different spots. The patient feels a significant "pouring out with acid reflux with burning sensation all the way up to his mouth." Complaining of "a lot of pain which started with a followup with a Dr. Anne on Friday. The patient denies any fever and chills, has had 2-3 episodes of bilious vomiting today once at home and despite pain medications with tramadol, which he only took one of, has had no significant improvement. The patient has only had one bowl of cereal this morning and two small cookies. He made himself drink some orange juice due to his glucose level dropping down to 60 and he has not been taking insulin. He says that he was seen in the emergency room (ER) on 01/21/2019. CT of the abdomen and pelvis was unremarkable and he was sent home on pain medications. When he presented today on 01/23/2019, CT abdomen and pelvis shows a possible anastomotic stricture with reflux into a small hiatal hernia and question esophagitis with slight wall thickening. There is increased inflammation in the region of the previous pancreatic head, which could reflect a leak at the pancreaticoenteric anastomosis. Dr. Anne was contacted by the emergency room physician Gustavo Ceballos recommended transferring to [facility] once a bed is available. The patient is currently being admitted for medical management. He has been given antibiotics, Protonix 40 mg intravenously twice a day and continued on morphine patient controlled analgesia (CUSHION BUILDER) and intravenous fluids. The patient also has noted some thick yellow output with his right-sided colostomy bag, which he was told was fatty deposits due to recent pancreatic surgery. He was due to see a transport assistant and follow with Dr. Anne but ended in the emergency room due to severe pain. PAST MEDICAL HISTORY: 1. Pancreatic cancer status post Whipple procedure, December 2018, at Dr. Dayana Mg. 2. Gastritis. 3. Plastic biliary stent in the duodenum. 4. Internal hemorrhoids 5. Sigmoid diverticulosis. 6. Gastroesophageal reflux disease. 7. Renal colic. 8. Hiatal hernia. 9. Page's esophagus. 10. Chronic constipation. 11. Kidney stones. 12. Prostate cancer status post transurethral resection of bladder (TURBT) 2017 and BCG induction and three maintenance courses. 123. Prostate cancer, [place] 3+4, status post prostate biopsy on 04/21/2018. PAST SURGICAL HISTORY: 1. Whipple procedure, 01/11/2019, at Dr. Dayana Mg. 2. Cholecystectomy 2007. 3. TURBT 2016. 4. Lithotripsy. 5. Bladder cancer status post TURBT on 10/11/2016. 6. Squamous cell skin resection 2014. 7. Tonsillectomy age 22. 8. Restaging TURBT 11/18/2016. 9. TRUS biopsy of the prostate 04/21/2018. 10. Repeat TRUS biopsy of the prostate 10/06/2018. ALLERGIES: NO KNOWN DRUG ALLERGIES. HOME MEDICATIONS: - famotidine 40 mg daily - lisinopril 10 mg daily - metformin 1 gram daily - Reglan 10 mg every 6 hours as needed - omeprazole 40 mg daily - Carafate 1 gram by mouth four times a day - tramadol 50 mg every 6 hours - Linzess 290 mcg by mouth nightly - atorvastatin 80 mg daily - Lantus insulin 25 units subcu nightly SOCIAL HISTORY: Denies any active alcohol use. Nonsmoker. Denies drug use. 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 FAMILY HISTORY: Noncontributory due to age. Father with diabetes. Mother . One son, one daughter both are healthy. REVIEW OF SYSTEMS: Per HPI. 12 point system otherwise negative. PHYSICAL EXAMINATION: Vital signs: Temperature 98.3, pulse 91, respiratory rate 16, blood pressure 152/71, 100% on room air. Generally, the patient is in moderate distress, laying still. He is wincing in pain. Cannot get comfortable. Pupils are round, reactive to light, accommodation. Extraocular muscles are intact. Normocephalic, atraumatic. Anicteric sclerae. No jaundice. Face is symmetric. Tongue is midline. Trachea is midline. Dry mucous membranes. No jugular venous distention (JVD) or thyromegaly. No cervical lymphadenopathy. Full range of motion. Lungs are clear to auscultation. No wheezing, rales or rhonchi. Heart: S1, S2. Sinus rhythm. No murmurs, rubs or gallops. Abdomen is soft, significantly tender left upper epigastric region, right upper quadrant. He has a right-sided colostomy bag. Midline abdominal scars was healed. No rebound or guarding. Positive bowel sounds on four quadrants. Midline chary in epigastric region all the way down to umbilicus. Extremities: No cyanosis, clubbing or pitting edema. LABORATORY DATA: White count 14, hemoglobin 11.6, hematocrit 37, platelet count 489. Sodium 139, potassium 3.8, chloride 103, bicarbonate 27, BUN 9, creatinine 0.64, glucose 53, lactic acid 1.3, calcium 8.8, total bilirubin 0.5, direct bilirubin 0.1, AST 13, ALT 29, alkaline phosphatase 150, total protein 7.1, albumin 3, lipase 74. Urinalysis: Cloudy appearance, 5 pH, 1.02 specific gravity, 3+ glucose, 2+ ketones, 2+ leukocyte esterase, too numerous count WBCs, 12 RBCs, 1+ bacteria, small amount of mucus. Glucose 155, fingerstick 146, 169, 156, 175. Two sets of blood cultures, urine culture are pending. CT abdomen and pelvis: In the liver trace pneumobilia in the left hepatic lobe. Gallbladder and bile ducts are normal. No calcified stones. No ductal dilatation. Pancreatic body and tail within normal. In the region of the pancreatic head there is induration with lobular fluid collection and suture line along the right lateral aspect consistent with a Whipple procedure. A segment of bile extends into the orville hepatis, which may reflect choledochoenterostomy. Spleen is normal without splenomegaly. Adrenals are normal. No mass. Kidneys and ureters there is a right renal cyst measuring 19 mm nonobstructing left renal calculus. Stomach and bowel have a partial gastrectomy with gastrojejunostomy. Prominent distention of the gastric remnant to the level of the gastrojejunostomy anastomosis. There is reflux into a small hiatal hernia and retained fluid and gas in the distal esophagus with slight distal esophageal wall thickening. The gastric remnant extends anterior to the transverse colon. A normal contrast filled appendix is seen. Mild peritoneal ascites with Hounsfield measurement of 3. In the pelvis there is mild calcification of the abdominal aorta with extension into the iliac arteries. No enlarged lymph nodes. Unremarkable bladder. There is mild prostatic enlargement. No acute fracture of bones and joints. Small fat filled bilateral inguinal hernias. Residual of midline incisions. ASSESSMENT AND PLAN: This is a 73-year-old male with recent diagnosis of pancreatic cancer status post Whipple procedure at [facility] by Dr. Anne in December 2018, discharged on 01/18/2019, presented to the emergency room at [facility] on 01/21/2019 with complaints of gas, burping nausea, vomiting, and heartburn. CT of the abdomen at that time was unremarkable and patient was sent home on Toradol. The patient then re-presents on 01/23/2019 with worsening pain found on CT to have possible pancreaticoenteric anastomotic leak with possible anastomotic stricture with prominent distention of the gastric remnant extending to the level of the gastrojejunostomy anastomosis, reflux into a small hiatal hernia with question of esophagitis. Hospitalist was asked to admit. Surgical consultation was discussed by ER physician, Dr. Gustavo Ceballos with Dr. Issa Au. The patient is admitted for the following issues. 1. Pancreaticoenteric anastomotic leak, possible anastomotic stricture at the leve of the gastrojejunostomy anastomosis, reflux into small hiatal hernia with question of esophagitis. The patient is admitted as an inpatient for IV fluids, antibiotics. He has been placed on Protonix 40 mg IV twice a day and Zosyn 3.375 grams IV every 6 hours, and surgical consult being controlled with morphine CUSHION BUILDER pump and keep nothing by mouth status with D5 normal saline at 100 mL/h to prevent hypoglycemia. Dr. Anne has accepted the patient in transfer to [facility] as soon as a bed is available. I have confirmed this with the nursing mill platform supervisor, who has taken down the phone number to progressive care unit (PCU) and will call in case a bed opens up and patient may be transferred expeditiously. Defer to Dr. Au's surgical consult for any need for intervention. He is currently kept nothing by mouth for now. 2. History of bladder tumor, status post TURBT, managed by Dr. Little, Urologist. No acute issues at this time. 3. Prostate cancer, status post TRUS biopsy, surveyed with repeat cystoscopies by Dr. Little, Urology. 4. Type 2 diabetes. Currently on D5 normal saline due to nothing by mouth status. Levemir insulin has been held due to nothing by mouth status. Monitor fingersticks every 6 hours, hypoglycemic protocol. 5. Hypertension. Currently stable with systolic pressure of 119-155. The patient's pain is yet to be controlled. Will monitor for now. The patient is currently on telemetry. 6. Esophagitis, gastroesophageal reflux. On Protonix IV twice a day and Carafate four times a day. 7. Hypercholesterolemia. On atorvastatin. 8. History of Page's esophagus. Currently on proton pump inhibitor (PPI) and Carafate. 9. Chronic constipation. No acute issues at this time. 10. Diet: Nothing by mouth status. 11. Code status: FULL CODE. DISPOSITION: Morning hospitalist attending is to call [facility] to check for bed availability. The patient's primary surgeon, Dr. Anne, who had performed the Whipple procedure has accepted the patient in transfer once a bed is available. ALYSE
[2019-01-24 12:00] VITALS: BP 129/78
[2019-01-24] MEDS: METOCLOPRAMIDE INJ 10MG/2ML VIAL (J2765) IV SCH ×3 (13:13→23:21)
[2019-01-24] MEDS: HumaLOG INSULIN (NovoLOG) PER UNIT SC SCH ×3 (13:13→23:33)
[2019-01-24] MEDS: SIMETHICONE 80 MG CHEW TAB PO SCH ×3 (13:14→21:37)
[2019-01-24] MEDS: SLF 3 ML SYR IV SCH ×2 (15:07→21:37)
--- NOTE | 2019-01-24 15:36 | CR ---
DATE: 01/24/2019 The patient was readmitted for some abdominal distension, pain, discomfort. Essentially was readmitted after having a recent admission for a gastroparesis issue and essentially had undergone a Whipple procedure within the last couple of weeks and essentially he was released a couple of days ago and since that time developed increasing abdominal pain, discomfort and swelling. He has had terrible reflux issues and has had some bilious vomiting. A CT scan was performed and said there was some inflammatory changes around the operative site and there was evidence of distended stomach. I was asked to see him for his abdominal discomfort pain. They are awaiting a transfer to [place] at this point and he states that he is feeling better today than he was yesterday, having much decreased pain compared to what it was and having less reflux symptoms. His past medical history is significant for pancreatic cancer status post Whipple procedure, history of gastritis, history of biliary stenting, history of diverticulosis, GE reflux disease, renal colic, hiatal hernia, Page's esophagus, chronic constipation, kidney stones, prostate cancer and cholecystectomy, bladder cancer surgery. MEDICATIONS: Include: - famotidine - lisinopril - metformin - Reglan - omeprazole - Carafate - tramadol - Linzess - atorvastatin - Lantus insulin PHYSICAL EXAMINATION: Reveals a frail-appearing, 73-year-old male who looks stated age. HEENT is unremarkable. Lungs are clear anteriorly. Heart is regular. Abdomen is distended in the upper abdomen with tympanitic epigastric area without guarding, without rebound, without peritoneal signs. His x-ray show a significantly distended stomach. He has been hiccupping today. IMPRESSION AND PLAN: The patient has evidence of possible gastroparesis / delayed gastric emptying status post his Whipple procedure. Other options or possibility is that he has an anastomotic stricture but I anticipate his major issue is most likely gastroparesis as a not unusual / somewhat typical postoperative finding in a Whipple procedure. In any case, at this point I have offered him an NG tube which probably will make his abdominal distension much better, decrease his abdominal pain, possibly even resolve his gastroparesis issues quicker and otherwise given that he has had some improvement, it may not be unreasonable to keep him nothing by mouth and see how he does over the next 24 hours. He would prefer to do this given that he may be transferred to [place] in the near future and when that happens he would like their opinion about the next step for treatment. I have instructed him that he also has a possibility of reflux / aspiration pneumonia developing if he has nausea and vomiting. He understands but despite this would prefer not to have an NG tube. Thus, at this point, I will order him some simethicone to see if we can decrease the gaseous distension to at least a little bit and otherwise I would keep him nothing by mouth for right now and continue his supportive care and medications as ordered.
[2019-01-24 16:00] VITALS: BP 126/68
[2019-01-24 20:00] VITALS: BP 138/68
[2019-01-24] MEDS ORDERED: LEVEMIR (INSULIN DETEMIR) 1 UNITS/0.01ML SC SCH (21:00)
[2019-01-25] VITALS: BP 143/70
[2019-01-25] MEDS: MORPHINE 1MG/ML IN 0.9% NACL 100ML IV BAG IV PRN (03:56)
[2019-01-25 04:00] VITALS: BP 142/68
[2019-01-25] MEDS: PIPERACILLIN/TAZOBACTAM SOD 3.375 GM in D5W MINI-BAG PLUS 50 ML IV SCH ×2 (05:15→11:05)
[2019-01-25] MEDS: METOCLOPRAMIDE INJ 10MG/2ML VIAL (J2765) IV SCH (05:27)
[2019-01-25] MEDS: SLF 3 ML SYR IV SCH ×2 (05:27→13:44)
[2019-01-25] MEDS: HumaLOG INSULIN (NovoLOG) PER UNIT SC SCH ×2 (05:27→12:00)
[2019-01-25 05:34] LABS: BASO # 0.1 10^3/uL (0.0-0.2); BASO % 0.4 % (0.0-1.0); EOS # 0.7 10^3/uL (0.0-0.5); EOS % 5.8 % (0.0-3.0); HEMATOCRIT 28.6 % (42.0-52.0); HEMOGLOBIN 9.2 g/dl (13.5-17.5); LYMPH # 1.8 10^3/uL (1.5-5.0); LYMPH % 15.8 % (24.0-44.0); MEAN CORPUSCULAR HGB CONC 32.2 g/dl (32.0-36.5); MEAN CORPUSCULAR VOLUME 93.2 fl (80.0-96.0); MONO # 0.7 10^3/uL (0.0-0.8); MONO % 6.3 % (0.0-5.0); NEUTROPHILS % 71.1 % (36.0-66.0); PLATELET COUNT, AUTOMATED 391 10^3/uL (150-450); RED BLOOD COUNT 3.07 10^6/uL (4.30-6.10); WHITE BLOOD COUNT 11.3 10^3/uL (4.0-10.0)
[2019-01-25 06:02] LABS: ALBUMIN 2.1 GM/DL (3.2-5.2); ALT/SGPT 19 U/L (12-78); BILIRUBIN,TOTAL 0.7 MG/DL (0.2-1.0); BLOOD UREA NITROGEN 10 MG/DL (7-18); CARBON DIOXIDE LEVEL 31 MEQ/L (21-32); CHLORIDE LEVEL 102 MEQ/L (98-107); CREATININE FOR GFR 0.72 MG/DL (0.70-1.30); GLOMERULAR FILTRATION RATE > 60.0 (>42); GLUCOSE, FASTING 126 MG/DL (70-100); LIPASE 123 U/L (73-393); MAGNESIUM LEVEL 1.9 MG/DL (1.8-2.4); POTASSIUM SERUM 4.2 MEQ/L (3.5-5.1); SODIUM LEVEL 137 MEQ/L (136-145); TOTAL PROTEIN 5.4 GM/DL (6.4-8.2)
[2019-01-25 08:00] VITALS: BP 137/63
[2019-01-25] MEDS ORDERED: HEPARIN SOD (PORCINE) 5000 UNITS/ML VIAL SQ SCH (09:00)
[2019-01-25] MEDS: PANTOPRAZOLE 40MG INJ (PROTONIX) (C9113) IV SCH (09:16)
[2019-01-25] MEDS: SIMETHICONE 80 MG CHEW TAB PO SCH ×2 (09:17→13:44)
[2019-01-25] MEDS: SUCRALFATE 1 GM TAB PO SCH ×2 (09:17→13:44)
[2019-01-25] MEDS: ATORVASTATIN 20 MG TAB PO SCH (09:17)
[2019-01-25] MEDS ORDERED: NS 1,000 ML IV SCH (10:30)
[2019-01-25] MEDS ORDERED: PILL CUTTER 1 EACH XX PRN (10:45)
[2019-01-25 12:00] VITALS: BP 150/70
[2019-01-25] MEDS ORDERED: CIPROFLOXACIN 200 MG in IV 1 EA IV SCH (13:15)
[2019-01-25] MEDS ORDERED: CIPR-249 PO (13:25)
[2019-01-25] MEDS ORDERED: ALPRAZolam 0.25 MG TAB PO ONE (14:15)
--- NOTE | 2019-01-25 14:15 | DS.PDOC ---
Discharge Summary General Date of Admission Jan 24, 2019 at 00:10 Date of Discharge 01/25/19 Attending Physician: PHILIP VARELA MD Specialist/Consultants Involve: Issa Au Jr Discharge Summary PROCEDURES PERFORMED DURING STAY: None ADMITTING DIAGNOSES: 1. Abdominal Pain 2. Postoperative leak DISCHARGE DIAGNOSES: 1. Postoperative leak 2. Gastroparesis/ileus COMPLICATIONS/CHIEF COMPLAINT: Postoperative Leak. HISTORY OF PRESENT ILLNESS/HOSPITAL COURSE: Patient is a 73-year-old male with recent diagnosis of pancreatic cancer status post Whipple procedure at [facility] [address] Anne. He presented complaining of severe abdominal pain that was 9 out of 10, sharp, unrelenting, and not relieved by moment, this was accompanied by 2-3 episodes of nonbilious vomiting. On initial evaluation, patient was afebrile, non- tachycardic, he did have elevated blood pressure. Initial CT of the abdomen showed possible anastomotic stricture with reflux into a small hiatal hernia and question esophagitis with slight wall thickening. There was increased inflammation in the region of the previous pancreatic head, which could reflect a leak at the pancreaticoenteric anastomosis. He was admitted and started on IV Protonix, as well as pain control with morphine BREAKER BOSS. During admission, patient was evaluated by surgeon, Dr. Au, who noted that there was evidence of possible gastroparesis/delayed gastric emptying following patients with procedure. Offer was made to place an NG tube for abdominal compression of her patient declined. He was managed medically in the hospital, until his pain significantly improved and he was no longer using a BREAKER BOSS pump. Patient will be discharged to [place], to follow-up with his surgeon, for management of his gastroparesis/ileus, and possible leak from surgery. He was discharged in stable condition, without questions or concerns. DISCHARGE MEDICATIONS: Please see below. ALLERGIES: Please see below. PHYSICAL EXAMINATION ON DISCHARGE: VITAL SIGNS: Please see below. PHYSICAL EXAMINATION: GENERAL APPEARANCE: Alert no acute distress. SKIN: Warm, well perfused. ENT: Palate intact, martinez tympanic membrane no bulging, no erythema, Neck supple, no thyromegaly THORAX: Symmetrical. LUNGS: Clear to auscultation bilaterally. HEART: Normal S1, S2. No murmurs, no rubs, no gallops ABDOMEN: Soft. No masses. Bowel sounds are present. Colostomy bag located on patient's right side abdomen, draining abdominal contents. Abdomen is distended TRUNK/SPINE:Straight. EXTREMITIES: Moves all extremities equally. No gross deformities. PULSES: 2+ upper and lower extremity . LABORATORY DATA: Please see below. IMAGING: Impression: No acute cardiopulmonary process appreciated. IMPRESSION: 1. Status post Whipple procedure. 2. Status post partial gastrectomy with prominent distention of the gastric remnant which is increased since 01/21/2019 extending to the level of the gastrojejunostomy anastomosis which may reflect anastomotic stricture. Gastric atony is not excluded. There is reflux into a small hiatal hernia and into the distal esophagus with question of esophagitis with slight wall thickening. 3. Trace pneumobilia which is decreased since the prior study. 4. Mild peritoneal ascites which is slightly increased overall. 5. Induration and small fluid collections in the region of the previous pancreatic head. The fluid collections are similar but there is increased induration consistent with increased inflammation which may reflect a leak at the pancreatico-enteric anastomosis. 6. Nonobstructing left renal calculus. 7. Small fat filled bilateral inguinal hernias which are similar. PROGNOSIS: Stable ACTIVITY: As tolerated DIET: Nothing by mouth diet DISCHARGE PLAN: To [place] DISPOSITION: . Stable. DISCHARGE INSTRUCTIONS: 1. Follow-up at [place] ITEMS TO FOLLOWUP ON ON OUTPATIENT: 1. History of paresis/ileus 2. Postoperative leak DISCHARGE CONDITION: Stable TIME SPENT ON DISCHARGE: Greater than 35 minutes. Attending addendum: I personally saw and examined the patient. I discussed the care and management of this patient with the Resident and agree with the plan above. Additional information below: - s/p recent Whipple's procedure, admitted for possible anastomotic stricture vs leak vs gastroparesis, clinically stable, wishes to follow up at [place] for further care because that's where he had surgery. Remained NPO w/o any nausea/vomiting, received bed in [place], will be transferred there today via ambulance. Vital Signs/I&Os Vital Signs Date Time Temp Pulse Resp B/P (MAP) Pulse Ox O2 Delivery O2 Flow Rate FiO2 01/25/19 12:00 98.4 79 18 150/70 (96) 96 Room Air I&O- Last 24 Hours up to 6 AM 01/25/19 06:00 Intake Total 725 ml Output Total 1015 ml Balance -290 ml Laboratory Data Labs 24H Laboratory Tests 2 01/24/19 17:35: Bedside Glucose (Misc Panel) 207H 01/24/19 23:20: Bedside Glucose (Misc Panel) 169H 01/25/19 04:08: Bedside Glucose (Misc Panel) 131H 01/25/19 04:48: Immature Granulocyte % (Auto) 0.6, Neutrophils (%) (Auto) 71.1H, Lymphocytes (%) (Auto) 15.8L, Monocytes (%) (Auto) 6.3H, Eosinophils (%) (Auto) 5.8H, Basophils (%) (Auto) 0.4, Neutrophils # (Auto) 8.0, Lymphocytes # (Auto) 1.8, Monocytes # (Auto) 0.7, Eosinophils # (Auto) 0.7H, Basophils # (Auto) 0.1, Nucleated Red Blood Cells % (auto) 0.0, Anion Gap 4L, Glomerular Filtration Rate > 60.0, Calcium Level 8.0L, Magnesium Level 1.9, Total Bilirubin 0.7#, Aspartate Amino Transf (AST/SGOT) 10, Alanine Aminotransferase (ALT/SGPT) 19, Alkaline Phosphatase 96, Total Protein 5.4L, Albumin 2.1L, Albumin/Globulin Ratio 0.64L, Lipase 123 01/25/19 06:35: Bedside Glucose (Misc Panel) 130H 01/25/19 11:55: Bedside Glucose (Misc Panel) 149H CBC/BMP Laboratory Tests 01/25/19 04:48 FSBS Laboratory Tests Test 01/24/19 17:35 01/24/19 23:20 01/25/19 04:08 01/25/19 06:35 Range/Units Bedside Glucose (Misc Panel) 207 169 131 130 83-110 MG/DL Test 01/25/19 11:55 Range/Units Bedside Glucose (Misc Panel) 149 83-110 MG/DL Microbiology Microbiology 01/23/19 Urine Culture - Final, Complete Enterococcus Faecalis 01/23/19 Blood Culture - Preliminary, Resulted No growth after 24 hours . All specim... 01/23/19 Blood Culture - Preliminary, Resulted No growth after 24 hours . All specim... Discharge Medications Scheduled Atorvastatin Calcium (Atorvastatin Calcium) 80 Mg Tablet, 80 MG PO DAILY, (Reported) Ciprofloxacin HCl (Cipro) 500 Mg Tablet, 500 MG PO BID Famotidine (Pepcid) 40 Mg Tablet, 40 MG PO DAILY, (Reported) Insulin Glargine (Lantus) 1 Units/0.01 Ml Susp, 25 UNITS SC QHS, (Reported) Linaclotide (Linzess) 290 Mcg Capsule, 290 MCG PO QHS, (Reported) Lisinopril (Lisinopril) 10 Mg Tab, 10 MG PO DAILY, (Reported) Metformin HCl (Metformin HCl) 1,000 Mg Tab, 1,000 MG PO DAILY, (Reported) Sucralfate (Sucralfate) 1 Gm Tablet, 1 GM PO QID, (Reported) Scheduled PRN Metoclopramide HCl (Reglan) 10 Mg Tablet, 10 MG PO Q6H PRN for NAUSEA, (Reported) Omeprazole (Omeprazole) 40 Mg Cap, 40 MG PO DAILY PRN for HEARTBURN, (Reported) Tramadol HCl (Tramadol HCl) 50 Mg Tablet, 50 MG PO Q6H PRN for PAIN, (Reported) Allergies Coded Allergies: No Known Drug Allergies (Verified Allergy, Unknown, 11/07/18) GME ATTESTATION GME ATTESTATION My faculty preceptor for this patient encounter was physically present during the encounter and was fully available. All aspects of the patient interview, examination, medical decision making process, and medical care plan development were reviewed and approved by the faculty preceptor. The faculty preceptor is aware and concurs with the plan as stated in the body of this note and will attest to such by his/her cosignature. ANTHONY PERAZA DO Jan 25, 2019 14:15 PHILIP VARELA MD Jan 25, 2019 17:18
== END 2019-01-25 15:16 | disposition short-term general hospital (02) | DRG 395 ==
LOC: M ED 18:58 → M ED INP 01-24 00:10 → M PCU 01-24 01:30
PROVIDERS: ADMIT General Practice; ATTEND Internal Medicine
DX: K91.89 Other postprocedural complications and disorders of digestive system (principal); E11.9 Type 2 diabetes mellitus without complications; K31.84 Gastroparesis; Z79.899 Other long term (current) drug therapy; Z85.07 Personal history of malignant neoplasm of pancreas; Z85.46 Personal history of malignant neoplasm of prostate; K21.9 Gastro-esophageal reflux disease without esophagitis; K44.9 Diaphragmatic hernia without obstruction or gangrene; K64.8 Other hemorrhoids; K57.30 Diverticulosis of large intestine without perforation or abscess without bleeding; Z85.51 Personal history of malignant neoplasm of bladder; Z79.4 Long term (current) use of insulin; I10 Essential (primary) hypertension; E78.00 Pure hypercholesterolemia, unspecified; K22.70 Barrett's esophagus without dysplasia

== ENCOUNTER → 2019-03-04 | Outpatient (CLI) | payer MEDICARE, BC, OTHER ==
[~2019-03-04] MED LIST changes: +ACET25TA12 PO; +Boost; +CREO3600 PO; +NOVOINJ3 SC; +PEPC40TA12 PO; +ceFAZolin 1GM INJ (J0690 PER 500MG) As Ordered ONE
[2019-03-04 08:54] VITALS: BP 140/70
--- NOTE | 2019-03-04 12:38 | IRPN ---
[facility] IR Progress Note IR Progress Note DATE: Mar 04, 2019 Patient presented for port placement. 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 He is scheduled to see neurology in early March. He is also confused about his treatment plan as he was initially told no chemotherapy but then yes chemotherapy. He is eager to meet with his medical oncologist for further discussions. He is not clear about any concrete treatment plans and does not yet have a chemotherapy date. After talking to the patient, I felt it best to hold off on placing a port today. Let him see his neurologist in early March. Once concrete treatment plans are in place and patient understands them, a temporary PICC line is probably best for starting chemotherapy. Once concrete treatment plans are in place for long-term chemotherapy, I'll be happy to place a port. Thank you for this referral Allergies Coded Allergies: No Known Drug Allergies (Verified Allergy, Unknown, 11/07/18) VS,Fishbone, I+O VS, Fishbone, I+O Vital Signs Date Time Temp Pulse Resp B/P (MAP) Pulse Ox O2 Delivery O2 Flow Rate FiO2 03/04/19 08:54 98.3 79 16 99 Room Air ROWAN BOO MD Mar 04, 2019 12:38
== END ==
LOC: M IRPRO 08:18
PROVIDERS: ATTEND Internal Medicine Hematology
DX: C25.9 Malignant neoplasm of pancreas, unspecified (principal); Z53.9 Procedure and treatment not carried out, unspecified reason

== ENCOUNTER → 2019-03-05 | Outpatient (CLI) | payer MEDICARE, BC, OTHER ==
[~2019-03-05] MED LIST changes: -ceFAZolin 1GM INJ (J0690 PER 500MG) As Ordered ONE
--- NOTE | 2019-03-08 12:47 | RADONC ---
RADIATION ONCOLOGY CONSULTATION NOTE: DATE: 03/05/2019 CHART NUMBER: [id number] DIAGNOSIS: Pancreatic carcinoma. STAGE: II B pT1c pN1c M0 ECOG PERFORMANCE STATUS: 0 Mr. Monahan is a very pleasant 73-year-old white male with the diagnosis of what appears to be a stage II B, pT1c pN1c M0 poorly differentiated adenocarcinoma of the pancreas as well as a well-differentiated neuroendocrine tumor of the pancreas who is presenting to us today status post a Whipple procedure with negative margins for consideration of postoperative external beam radiation therapy as a therapeutic options. HISTORY OF PRESENT ILLNESS: The patient has a rather long history. He has been diagnosed with prostate cancer and is being monitored by his urologist Dr. Little for that. In addition on 10/11/2016 the patient underwent a bladder biopsy and was diagnosed as having a high-grade papillary urothelial carcinoma. He has been undergoing BCG treatments and reports that on his most recent visit with Dr. Little, he was told that they are no longer working. He is being scheduled for a cystoscopy in the future. As far as his prostate cancer goes patient has a Madelin score 7 (3-4) adenocarcinoma of the prostate involving his right apex which was biopsied on 04/21/2018. Apparently, the patient had been followed and more recently had several episodes of severe abdominal pain. He also lost 25 pounds over 2 months during the summer. He presented on November 07, 2018 and was noted to be jaundiced. A CT scan was done and there was a dilated biliary tract duct. On November 11, 2018 ERCP was undertaken and there was noted to be some stenosed common bile duct. Brushings revealed a poorly differentiated malignancy. Subsequent studies done on December 16, 2018 with an MRI revealed a 1 cm mass in that of the pancreas. He was subsequently referred to [facility]. On January 11, 2019 the patient underwent a Whipple procedure. Pathology revealed a 1.2 cm poorly differentiated adenocarcinoma in the head of the pancreas. In addition, there was a grade 1, well-differentiated neuroendocrine tumor measuring 0.7 cm in greatest dimension. A total of 1/22 lymph nodes was positive for malignancy. All margins of resection were noted to be negative. There was perineural invasion present. Lymph vascular invasion was also noted to be present. The patient was therefore staged as having a stage II B, pathologic T1c, pathologic N1 pancreatic malignancy. The patient has been seen and followed by his physicians at [facility] and chemotherapy was recommended. Apparently, he was told there that there is no definitive evidence of benefit to the rather toxic regimen of chemoradiation postoperatively. Since that time, this patient was seen by her medical oncologist, Dr. Bobby Morris, who asked me to see this patient to review some of the studies to see whether or not he would like to undergo postoperative radiation. ALLERGIES: The patient has NO KNOWN DRUG ALLERGIES. PAST MEDICAL HISTORY: The patient's past medical history is positive for diabetes as well as his bladder cancer and prostate cancer. He has received no definitive treatment or radiation for either of those at this point. SOCIAL HISTORY: The patient has smoked [id number] of cigarettes per day for 20 years. He quit in the year 1999. He does not abuse alcohol. FAMILY HISTORY: The patient's family his history is negative for pancreatic malignancies or other cancers. REVIEW OF SYSTEMS: The patient's review of systems is positive for a 35-pound weight loss as well as anorexia. He has some visual acuity problems. He reports hearing loss as well as some weakness in his arms and legs and decreased energy. He denies nausea, vomiting, fevers, chills, night sweats, diplopia, headaches, chest pain, shortness of breath, bowel difficulties or bone pain. PHYSICAL EXAMINATION: The patient is a well-developed, well-nourished male in no acute distress. HEENT exam is normocephalic, atraumatic. Extraocular movements are intact. There is no palpable cervical, supraclavicular, infraclavicular, axillary, or inguinal lymphadenopathy present. Lungs are clear to auscultation and percussion. Heart has a regular rate and rhythm. Abdomen is benign with no hepatosplenomegaly, masses, or tenderness. Skeletal examination reveals no tenderness to pressure or percussion of the bony skeleton. Extremities reveal no clubbing, cyanosis, or edema. Neurologic exam is grossly intact, as is the remainder of the physical examination. ASSESSMENT: The patient came in and reaffirmed that he wishes to follow the instructions of his physicians at [facility] who have recommended against radiation. He is rather strongly against radiation at this time and I cannot disagree with him. I made him a copy of the guidelines from the national comprehensive cancer network which actually includes [facility]. We discussed version 1.2020 for pancreatic adenocarcinomas. I gave the patient a copy of these guidelines and we discussed multiple studies with regards to various adjuvant regimens to treat pancreatic adenocarcinoma. Postoperatively. The definitive role of receiving postoperative radiation is still not clear in this case. The patient has had a complete resection and indeed his margins appeared to be negative. He does have several risk factors including perineural invasion and tumor extending into the peripancreatic soft tissues as well as a lymph node present. I discussed the potential benefits of adjuvant chemoradiation in different subsets. We discussed various trials clinical trials including the new RTOG trial 0848 which is being conducted. The trial is estimated to be completed next year in 2019. This trial is being used to clarify the role of chemoradiation following gemcitabine mono therapy in an adjuvant setting. The patient is aware that many studies have failed to show survival benefits while others have showed some statistical benefit to adjuvant radiation. In addition, I spoke to the patient about his other malignancies. I have made clear to him that radiation can be delivered only once safely. If indeed his bladder malignancy is no longer controlled with BCG, then radiation would be a treatment option for bladder conservation treatment. It would also be an option for palliative treatment for hematuria. If however, we treat to maximum tolerable doses the small intestines for postoperative pancreatic treatment, then that would eliminate or at least compromise significantly the chances of delivering a beneficial dose of radiation to his bladder or his prostate cancer for that matter. Once again in summary, I have given the patient list of various studies and the web sites to check out and make a decision on whether or not he wants radiation. I have also asked him to contact his physician again at [facility] and confirm at their tumor conference and meetings, they have recommended against it. At this time the patient does not wish to undergo radiation and in light of the fact that the data is not at this point definitive, I think he is being reasonable. I have given the patient my cell phone number and office number and should he change his mind and wish radiation or have any questions whatsoever and more than glad to see him at any time and we can initiate treatment without delay. In the meantime, I believe he is in good hands with Dr. Morris and therefore, I am not setting him up for any routine followup in our office at this point. cc: MD Chris Holder MD MTDD
== END ==
LOC: M ONCR 13:59
PROVIDERS: ATTEND Radiology Radiation Oncology
DX: C25.9 Malignant neoplasm of pancreas, unspecified (principal)

== ENCOUNTER 2019-03-07 11:44 | Inpatient (IN) | payer MEDICARE, BC, OTHER ==
[~2019-03-07] VITALS: Ht 177.8 cm; Wt 65.2 kg
[~2019-03-07 11:44] MED LIST changes: -ACET25TA12 PO
[2019-03-07 12:23] LABS: BASO % 0.4 % (0.0-1.0); EOS % 0.1 % (0.0-3.0); HEMATOCRIT 43.6 % (42.0-52.0); HEMOGLOBIN 13.4 g/dl (13.5-17.5); LYMPH # 1.4 10^3/uL (1.5-5.0); LYMPH % 14.1 % (24.0-44.0); MEAN CORPUSCULAR HGB CONC 30.7 g/dl (32.0-36.5); MONO # 0.6 10^3/uL (0.0-0.8); MONO % 5.5 % (0.0-5.0); NEUTROPHILS # 8.1 10^3/uL (1.5-8.5); NEUTROPHILS % 79.6 % (36.0-66.0); PLATELET COUNT, AUTOMATED 273 10^3/uL (150-450); RED BLOOD COUNT 4.79 10^6/uL (4.30-6.10); WHITE BLOOD COUNT 10.2 10^3/uL (4.0-10.0)
[2019-03-07 12:48] LABS: ALBUMIN 3.5 GM/DL (3.2-5.2); BILIRUBIN,DIRECT 0.2 MG/DL (0.0-0.2); BILIRUBIN,TOTAL 0.9 MG/DL (0.2-1.0); TOTAL PROTEIN 7.5 GM/DL (6.4-8.2)
[2019-03-07] MEDS ORDERED: KETOROLAC 30 MG/ML VIAL (J1885) IV ONE (13:00)
[2019-03-07] MEDS ORDERED: NS 1,000 ML IV ONE (13:00)
[2019-03-07] MEDS ORDERED: ONDANSETRON 4MG/2ML VIAL (J2405) IV ONE (13:00)
[2019-03-07] MEDS ORDERED: ISOVUE-370 76% 100ML VIAL (Q9967) As Ordered ONE (13:10)
--- NOTE | 2019-03-07 14:13 | REP ---
CT abdomen and pelvis with IV but without oral contrast: History: Left upper quadrant pain. History of pancreatic cancer. Status post Whipple procedure. Comparison is made with prior studies, the most recent of which is from [address] contrast dose: 100 mL of intravenous Isovue 370. CT findings: Digital preliminary certified orthotist radiograph demonstrates two loops of air-filled dilated small bowel in the central abdomen. The lung bases are clear. There is a very small sliding-type hiatal hernia. Pneumobilia is noted post choledochojejunostomy. No focal hepatic lesion is seen. The spleen is normal in size and homogeneous in texture. Partial gastrectomy has been performed with gastrojejunostomy. The distal stomach and duodenal C-loop appear to have been resected. There is peripancreatic edema and edema is seen with wall thickening surrounding the choledochojejunostomy in the epigastric region of the abdomen. This pattern is more pronounced than on January 26, 2019. That prior study showed some ascitic fluid. There is a tiny sliver of fluid in the pericolic gutters. There is a small quantity of ascites in the pelvic reflection, but this is improved from the January 26, 2019 study. Stomach is not dilated today. There are some mildly dilated air and fluid-filled small bowel loops in the central abdomen consistent with ileus. No obstructive lesion is appreciated. The prostate is enlarged. Mild diffuse bladder wall thickening is seen. The kidneys enhance symmetrically. There is a 2 cm cyst in the lower pole of the right kidney. There is some focal renal parenchymal scarring in the upper pole of the right kidney. There is an intrarenal calculus in the lower pole of the left kidney which measures 7 mm in diameter. No hydro. A normal appendix is seen. Impression: Diffuse pattern of edema surrounding the choledochojejunostomy bowel loop in the epigastric region. Edema surrounds the remaining pancreas, question pancreatitis. No evidence of abscess. Minimal ascites. Mild ileus pattern in the bowel gas. Small sliding-type hiatal hernia. There is a 7 mm intrarenal calculus in the lower pole of the left kidney without hydronephrosis. Electronically Signed by Parveen Alva MD 03/07/2019 02:46 P
[2019-03-07] MEDS ORDERED: MORPHINE 2 MG/ML 1ML VIAL (J2270) IV ONE ×2 (15:45→18:15)
[2019-03-07] MEDS ORDERED: ACET25TA12 PO (16:27)
--- NOTE | 2019-03-07 17:41 | CR.PDOC ---
General Date of Consultation: Mar 07, 2019 Referring Provider: Issa Au Jr Consultation REASON FOR CONSULTATION/CHIEF COMPLAINT: medical co-management HISTORY OF PRESENT ILLNESS: 73 yo male for recurrent abdominal pain s/p whipples procedure , recent discharge from [facility] and transfer to [place] for possible post-op complications, returns for 2 day history of mid-epigastric/LUQ abdominal pain. Pain started around 1pm yesterday after lunch, no modifying factors, constant, non-radiating. He was recently admitted on 01/24/19, and transferred to [place] for further evaluation and treatment. He states he had an NG tube there draining chyle for about three days, and then another 4 days of rehab. Today he denies N/V/D, chest pain, shortness of breath. He states he did contact [facility], who advised to visit local ED. ALLERGIES: Please see below. HOME MEDICATIONS: Please see below. 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 REVIEW OF SYSTEMS: Negative except as per HPI PHYSICAL EXAMINATION: VITAL SIGNS: Please see below. GENERAL APPEARANCE: NAD, lying comfortably in bed, at bedside HEENT: NC/AT, EOMI RESPIRATORY: CTA B/L CARDIOVASCULAR: +S1S2, RRR ABDOMEN: soft, hypoactive bowel sounds, well healing mid-line scar EXTREMITIES: no edema NEUROLOGICAL: no gross focal deficits PSYCHIATRIC: AAOx3, in good spirits LABORATORY DATA: Please see below. ASSESSMENT/PLAN: 73 yo male for recurrent abdominal pain s/p recent Whipples procedure (Dec 2018), presents for 2 day history of mid-epigastric/LUQ abdominal pain. #abdominal pain - in setting of recent whipples procedure - follow as per primary team - surgery #adenocarcinoma of the pancreas - s/p whipple - Dr. 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 #DVT prophylaxis - will d/w surgery - mechanical for now Vital Signs/I&O Vital Signs Date Time Temp Pulse Resp B/P (MAP) Pulse Ox O2 Delivery O2 Flow Rate FiO2 03/07/19 15:52 18 03/07/19 14:06 97.7 81 144/69 (94) 99 Room Air Laboratory Data Labs 24H Laboratory Tests 2 03/07/19 12:12: Immature Granulocyte % (Auto) 0.3, Neutrophils (%) (Auto) 79.6H, Lymphocytes (%) (Auto) 14.1L, Monocytes (%) (Auto) 5.5H, Eosinophils (%) (Auto) 0.1, Basophils (%) (Auto) 0.4, Neutrophils # (Auto) 8.1, Lymphocytes # (Auto) 1.4L, Monocytes # (Auto) 0.6, Eosinophils # (Auto) 0.0, Basophils # (Auto) 0.0, Nucleated Red Blood Cells % (auto) 0.0, POC Glucose (Misc Panel) 234H, POC Sodium (Misc Panel) 137, POC Potassium (Misc Panel) 4.1, POC Chloride (Misc Panel) 99, POC Total CO2 (Misc Panel) 26.0, POC Blood Urea Nitrogen (Misc Panel 9, POC Ionized Calcium (Misc Panel) 4.7, POC Creatinine (Misc Panel) 0.6, POC Hematocrit (Misc Panel) 43.0, Total Bilirubin 0.9, Direct Bilirubin 0.2, Aspartate Amino Transf (AST/SGOT) 14, Alanine Aminotransferase (ALT/SGPT) 18, Alkaline Phosphatase 109, Total Protein 7.5, Albumin 3.5, Albumin/Globulin Ratio 0.88L, Amylase Level 251H, Lipase 1128H CBC/BMP Laboratory Tests 03/07/19 12:12 Allergies Coded Allergies: No Known Drug Allergies (Verified Allergy, Unknown, 11/07/18) Home Medications Scheduled Insulin Aspart (Novolog Flexpen) 100 Unit/1 Ml Insuln.pen, 1 DOSE SC AC, (Reported) PER SLIDING SCALE Insulin Glargine (Lantus) 1 Units/0.01 Ml Susp, 20 UNITS SC QHS, (Reported) Linaclotide (Linzess) 290 Mcg Capsule, 290 MCG PO QHS, (Reported) Scheduled PRN Acetaminophen/Diphenhydramine (Acetaminophen Pm Caplet) 1 Each Tablet, 1 TAB PO QHS PRN for SLEEP, (Reported) Tramadol HCl (Tramadol HCl) 50 Mg Tablet, 50 MG PO Q6H PRN for PAIN, (Reported) DEVON CONTE MD Mar 07, 2019 17:41
[2019-03-07] MEDS ORDERED: DEXTROSE 50% 50 ML SYRINGE IV PRN (17:45)
[2019-03-07] MEDS ORDERED: GLUCAGON FOR INJ 1 MG VIAL (J1610) SC PRN (17:45)
[2019-03-07] MEDS ORDERED: GLUCOSE 4 GM CHEW TABLET PO PRN (17:45)
[2019-03-07] MEDS ORDERED: ONDANSETRON 4MG/2ML VIAL (J2405) IV PRN (19:15)
[2019-03-07] MEDS ORDERED: MORPHINE 2 MG/ML 1ML VIAL (J2270) IV PRN (19:15)
[2019-03-07] MEDS: NS 1,000 ML IV SCH (20:22)
[2019-03-07] MEDS: HumaLOG INSULIN (NovoLOG) PER UNIT SC SCH (20:44)
[2019-03-07] MEDS ORDERED: DOCUSATE SODIUM 100 MG CAP PO SCH (21:00)
[2019-03-07] MEDS: PANTOPRAZOLE 40MG INJ (PROTONIX) (C9113) IV SCH (21:04)
[2019-03-07] MEDS: MORPHINE 2 MG/ML 1ML VIAL (J2270) IV PRN (21:05)
--- NOTE | 2019-03-08 00:50 | ECGEPIP ---
[facility] - ED Test Date: 2019-03-07 Pat Name: FABI DECKER Department: Room: - Gender: Male X Ray Technologist: : 1945 Requested By: Pierre Gan Order Number: [id number] Reading MD: Bright Mejia Measurements Intervals [place] Rate: 91 P: 74 VA: 162 QRS: 76 QRSD: 110 T: 65 QT: 344 QTc: 423 Interpretive Statements SINUS RHYTHM Intraventricular conduction delay Non specific t Nonspecific T wave abnormality Similar to tracing done 01-21-19 Electronically Signed on 03-08-2019 0:50:21 EST by Bright Mejia
[2019-03-08] MEDS: HumaLOG INSULIN (NovoLOG) PER UNIT SC SCH ×4 (01:07→17:15)
[2019-03-08] MEDS: MORPHINE 2 MG/ML 1ML VIAL (J2270) IV PRN ×4 (01:22→19:56)
[2019-03-08] MEDS: NS 1,000 ML IV SCH ×3 (03:12→17:15)
[2019-03-08 06:00] VITALS: BP 161/79
[2019-03-08 06:49] LABS: HEMATOCRIT 35.6 % (42.0-52.0); MEAN CORPUSCULAR HEMOGLOBIN 28.9 pg (27.0-33.0); MEAN CORPUSCULAR VOLUME 90.1 fl (80.0-96.0); PLATELET COUNT, AUTOMATED 216 10^3/uL (150-450); RED BLOOD COUNT 3.95 10^6/uL (4.30-6.10)
[2019-03-08 06:50] LABS: HEMOGLOBIN 11.4 g/dl (13.5-17.5)
[2019-03-08 07:06] LABS: ALBUMIN 2.5 GM/DL (3.2-5.2); ALT/SGPT 11 U/L (12-78); BILIRUBIN,TOTAL 0.9 MG/DL (0.2-1.0); BLOOD UREA NITROGEN 8 MG/DL (7-18); CALCIUM LEVEL 8.1 MG/DL (8.8-10.2); CARBON DIOXIDE LEVEL 27 MEQ/L (21-32); CHLORIDE LEVEL 106 MEQ/L (98-107); GLOMERULAR FILTRATION RATE > 60.0 (>42); GLUCOSE, FASTING 151 MG/DL (70-100); LIPASE 679 U/L (73-393); POTASSIUM SERUM 3.9 MEQ/L (3.5-5.1); SODIUM LEVEL 138 MEQ/L (136-145)
[2019-03-08] MEDS: PANTOPRAZOLE 40MG INJ (PROTONIX) (C9113) IV SCH ×2 (08:58→20:30)
[2019-03-08] MEDS: DOCUSATE SOD LIQ 100MG/10ML UDC PO SCH ×2 (11:26→20:30)
[2019-03-08 13:10] VITALS: BP 169/79
[2019-03-08 14:00] VITALS: BP 148/78
--- NOTE | 2019-03-08 15:15 | IPNPDOC ---
Text Note Date of Service The patient was seen on 03/08/19. NOTE Patient was seen and examined this morning. Continues to complain of mid-epi gastric/LUQ abdominal pain. PHYSICAL EXAMINATION: GENERAL APPEARANCE: NAD, lying comfortably in bed HEENT: NC/AT, EOMI RESPIRATORY: CTA B/L CARDIOVASCULAR: +S1S2, RRR ABDOMEN: soft, hypoactive bowel sounds, well healing mid-line scar EXTREMITIES: no edema NEUROLOGICAL: no gross focal deficits PSYCHIATRIC: AAOx3, in good spirits LABORATORY DATA: Please see below. ASSESSMENT/PLAN: 73 yo male for recurrent abdominal pain s/p recent Whipples procedure (Dec 2018), presents for 2 day history of mid-epigastric/LUQ abdominal pain. 1. abdominal pain. Under evaluation. CT scan of the abdomen and pelvis was done which showed Diffuse pattern of edema surrounding the choledochojejunostomy bowel loop in the epigastric region. Edema surrounds the remaining pancreas, question pancreatitis. No evidence of abscess. Minimal ascites. Mild ileus pattern in the bowel gas. Surgery has been following the patient. Diet as per surgery. Activity as per surgery and pain control as per surgery. 2. adenocarcinoma of the pancreas: s/p whipple - Dr. Anne - surgeon at [facility] 3. diabetes: insulin sliding scale. Optimize once he started on a diet and his home medications 4. HTN: appears to be controlled with diet. Continue monitoring 5. 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 Little this Friday 6. adenocarcinoma of the prostate: clinical stage of cT1c, underactive surveillance by Diet. Pain control and activity as per surgery Disposition as per primary VS,Fishbone, I+O VS, Fishbone, I+O Laboratory Tests 03/08/19 06:20 Vital Signs Date Time Temp Pulse Resp B/P (MAP) Pulse Ox O2 Delivery O2 Flow Rate FiO2 03/08/19 13:10 99.6 77 18 169/79 (109) 98 Room Air I&O- Last 24 Hours up to 6 AM 03/08/19 06:00 Intake Total 1000 ml Balance 1000 ml ANAHY SMITH MD Mar 08, 2019 15:15
[2019-03-08] MEDS ORDERED: LIDOCAINE 1% MDV 20ML VIAL As Ordered ONE (15:39)
--- NOTE | 2019-03-08 17:24 | REP ---
PICC line insertion under ultrasound guidance. The procedure was performed by FLAQUITA Sarkar, under the direct supervision of Dr. Alva. The risks and benefits of the procedure were explained to the patient and informed consent was obtained both verbally and written. Directly prior to the start of the procedure, a formal timeout was completed in the procedure room. The left medial brachial vein was localized using ultrasound guidance. The skin was prepped and draped in the sterile fashion. 2 ml 1% lidocaine 10 mg/ml was used as a local anesthetic. Using ultrasound guidance the left medial brachial vein was cannulated and a 0.018 guidewire was inserted and advanced to the SVC using fluoroscopic guidance. The needle was removed and a 5.5 Nauruan dilator and peel-away sheath was inserted over the guidewire. A 5.5 Nauruan double lumen catheter was cut to the length of 40 cm. The dilator was removed and the catheter was inserted over the guide wire with the tip ending in the SVC. The peel-away sheath was removed and the catheter was flushed with heparinized saline as per hospital protocol. The catheter was affixed to the skin and a sterile dressing was applied. The patient tolerated the procedure well and there were no immediate complications. 0.4 minutes of fluoroscopy time was utilized for this procedure. Some fluoroscopic images are performed with last image hold technology. These images require no additional radiation. Reviewed by FLAQUITA Arzate 03/08/2019 05:02 P Electronically Signed by Parveen Alva MD 03/08/2019 05:15 P
[2019-03-08] MEDS ORDERED: SODIUM CHLORIDE 0.9% INJ 10 ML SYR IV PRN (18:45)
[2019-03-08] MEDS: ACETAMINOPHEN TAB 650MG DOSE (2X325MG) PO PRN (20:30)
[2019-03-08 22:00] VITALS: BP 145/81
[2019-03-09] MEDS: MORPHINE 2 MG/ML 1ML VIAL (J2270) IV PRN ×3 (00:46→22:22)
[2019-03-09] MEDS: NS 1,000 ML IV SCH ×3 (00:47→17:49)
[2019-03-09] MEDS: HumaLOG INSULIN (NovoLOG) PER UNIT SC SCH ×4 (00:47→17:44)
[2019-03-09 02:00] VITALS: BP 144/75
[2019-03-09 06:00] VITALS: BP 148/67
[2019-03-09] MEDS: SODIUM CHLORIDE 0.9% INJ 10 ML SYR IV SCH ×2 (06:00→17:49)
[2019-03-09 06:24] LABS: HEMATOCRIT 35.7 % (42.0-52.0); HEMOGLOBIN 10.9 g/dl (13.5-17.5); MEAN CORPUSCULAR HEMOGLOBIN 27.7 pg (27.0-33.0); MEAN CORPUSCULAR HGB CONC 30.5 g/dl (32.0-36.5); MEAN CORPUSCULAR VOLUME 90.6 fl (80.0-96.0); PLATELET COUNT, AUTOMATED 193 10^3/uL (150-450); RED BLOOD COUNT 3.94 10^6/uL (4.30-6.10); WHITE BLOOD COUNT 7.6 10^3/uL (4.0-10.0)
[2019-03-09 06:55] LABS: ALBUMIN 2.3 GM/DL (3.2-5.2); ALT/SGPT 8 U/L (12-78); BILIRUBIN,TOTAL 1.5 MG/DL (0.2-1.0); BLOOD UREA NITROGEN 7 MG/DL (7-18); CALCIUM LEVEL 8.1 MG/DL (8.8-10.2); CARBON DIOXIDE LEVEL 26 MEQ/L (21-32); CHLORIDE LEVEL 107 MEQ/L (98-107); GLOMERULAR FILTRATION RATE > 60.0 (>42); GLUCOSE, FASTING 91 MG/DL (70-100); LIPASE 393 U/L (73-393); POTASSIUM SERUM 3.7 MEQ/L (3.5-5.1); SODIUM LEVEL 139 MEQ/L (136-145); TOTAL PROTEIN 5.7 GM/DL (6.4-8.2)
[2019-03-09] MEDS: PANTOPRAZOLE 40MG INJ (PROTONIX) (C9113) IV SCH ×2 (08:51→20:09)
[2019-03-09] MEDS: DOCUSATE SOD LIQ 100MG/10ML UDC PO SCH ×2 (08:52→20:09)
[2019-03-09 14:00] VITALS: BP 143/74
--- NOTE | 2019-03-09 14:21 | IPNPDOC ---
Text Note Date of Service The patient was seen on 03/09/19. NOTE Patient was seen and examined this morning. Continues to complain of mid-epi gastric/LUQ abdominal pain but better from yesterday. PHYSICAL EXAMINATION: GENERAL APPEARANCE: NAD, lying comfortably in bed HEENT: NC/AT, EOMI RESPIRATORY: CTA B/L CARDIOVASCULAR: +S1S2, RRR ABDOMEN: soft, hypoactive bowel sounds, well healing mid-line scar EXTREMITIES: no edema NEUROLOGICAL: no gross focal deficits PSYCHIATRIC: AAOx3, in good spirits LABORATORY DATA: Please see below. ASSESSMENT/PLAN: 73 yo male for recurrent abdominal pain s/p recent Whipples procedure (Dec 2018), presents for 2 day history of mid-epigastric/LUQ abdominal pain. 1. abdominal pain. Under evaluation. CT scan of the abdomen and pelvis was done which showed Diffuse pattern of edema surrounding the choledochojejunostomy bowel loop in the epigastric region. Edema surrounds the remaining pancreas, question pancreatitis. No evidence of abscess. Minimal ascites. Mild ileus pattern in the bowel gas. Surgery has been following the patient. Diet as per surgery. Activity as per surgery and pain control as per surgery. Lipase trending down 2. adenocarcinoma of the pancreas: s/p whipple - Dr. Anne - surgeon at [facility] 3. diabetes: insulin sliding scale. Optimize once he started on a diet and his home medications 4. HTN: appears to be controlled with diet. Continue monitoring 5. 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 Little this Friday 6. adenocarcinoma of the prostate: clinical stage of cT1c, underactive surveillance by Diet. Pain control and activity as per surgery Diet as per surgery Disposition as per primary VS,Fishbone, I+O VS, Fishbone, I+O Laboratory Tests 03/09/19 06:08 Vital Signs Date Time Temp Pulse Resp B/P (MAP) Pulse Ox O2 Delivery O2 Flow Rate FiO2 03/09/19 06:00 98.9 85 16 148/67 (94) 97 Room Air I&O- Last 24 Hours up to 6 AM 03/09/19 06:00 Intake Total 60 ml Output Total 1000 ml Balance -940 ml ANAHY SMITH MD Mar 09, 2019 14:21
--- NOTE | 2019-03-09 20:27 | CR ---
DATE OF CONSULTATION: 03/09/2019 IDENTIFICATION AND CHIEF COMPLAINT: Barry Monahan is a 73-year-old gentleman with recently diagnosed adenocarcinoma of the pancreas, lymph node positive disease, seen at the request of Dr. Mckeon and the inpatient medicine service for evaluation and management recommendations with respect to adjuvant chemotherapy. Mr. Monahan reports "I still have pain, but the morphine has helped tremendously. The pain was really a 10 out of 10 over the weekend and have been much better since I was admitted to the hospital close." HISTORY OF PRESENT ILLNESS: Barry Monahan is a 73-year-old gentleman with a past medical history significant for diabetes mellitus, early stage prostate cancer, and transitional cell carcinoma of the bladder, who is currently without evidence of disease with respect to these malignancies. His history of present illness dates to September 2018, when he developed epigastric abdominal pain. He experienced several episodes of severe abdominal pain, and ultimately presented for evaluation on November 07, 2018. By that time, Mr. Monahan had lost approximately 25 pounds during the prior two months. He was noted to be jaundiced, and imaging by CT scan showed dilated intrahepatic biliary tract. He was referred to [facility] in [place], [place] and underwent initial endoscopic retrograde cholangiopancreatography (ERCP) on November 11, 2018, where there was evidence of stenosis of the distal biliary system, and sphincterotomy with plastic stent placement were performed, and brushings were obtained - which were reportedly nondiagnostic at that time. He underwent subsequent repeat ERCP at [facility], and on this occasion, tissue sampling documented poorly differentiated malignancy. Endoscopic ultrasound showed a diffuse hypoechoic area around the biliary stent and a plastic stent was again placed. On December 16, 2018, magnetic resonance cholangiopancreatography was performed demonstrating a mass in the posterior pancreatic head of approximately 1 cm. Cytology was subsequently positive for adenocarcinoma consistent with pancreatic primary. Mr. Monahan presented to [facility] in December 2018 and was felt to have resectable adenocarcinoma of the pancreas. He was therefore taken to the operating room by Ben Anne MD at [facility] on January 11, 2019. Laparoscopy was performed initially, followed by laparotomy with pancreaticoduodenectomy and partial gastrectomy, as well as a Brawn enterostomy. Severe peripancreatic inflammation was noted and the surgery was lengthy. Histopathology from [facility] showed a neuroendocrine tumor with a mitotic rate of less than 2 mitoses per squared mm, with a tumor that was 7 mm and invading the submucosa. However, a pancreatic ductal adenocarcinoma, poorly differentiated and measuring 1.2 cm in greatest dimension was also identified. One out of 22 lymph nodes sampled was positive for metastatic adenocarcinoma. Mr. Monahan was discharged from the hospital, but re-admitted with upper gastrointestinal symptoms and was found to have gastroparesis. This responded favorably to metoclopramide. He was subsequently discharged and evaluated as an outpatient for adjuvant therapy on March 04, 2019 by medical oncology. He was, in addition, evaluated by radiation oncology as well. Following discussions, it was elected to proceed with plans for adjuvant Folfirinox chemotherapy, utilizing the regimen described in the so-called PRODIGE Study, published in the [employer] Journal of Medicine in February 2018. The patient signed consent for treatment, and therapy was anticipated to begin on March 09, 2019. However, in the evening of March 06, 2019, Mr. Monahan developed severe epigastric abdominal pain, rated 10 out of 10 in intensity. He presented to the emergency department at [facility] on March 07, 2019, and laboratory studies were consistent with pancreatitis. Serum lipase was markedly elevated at 1128 and serum amylase was elevated at 251. The patient was admitted, made nil per os, and aggressive intravenous fluid hydration was initiated. CT scan obtained March 07, 2019 documented a diffuse pattern of edema surrounding the choledochojejunostomy bowel loop in the epigastric region, as well as edema surrounding the remaining pancreas. Minimal ascites was seen and a mild ileus pattern was noted in the bowel gas. Overall, the patient was felt to have pancreatitis as a postoperative complication of his recent surgery. At this time, he reports that his pain is well controlled with current medications, and he is eager for hospital discharge. He has had no recent fevers, chills nor sweats. ALLERGIES: None known. CURRENT MEDICATIONS: - NovoLog insulin on sliding scale - Lantus insulin 20 units subcutaneously every p.m. - Linzess 290 mcg by mouth at bedtime (q.h.s.) - tramadol 50 mg by mouth every 6 hours - morphine sulfate 4 mg intravenously every 4 hours as needed - Zofran 4 mg IV every 6 hours as needed for nausea - Protonix 40 mg IV twice a day PAST MEDICAL HISTORY: The patient has past history significant for diabetes mellitus, as well as hypertension. There is history of transitional cell carcinoma of the bladder superficial, status post transurethral resection and adjuvant BCG. There is history of adenocarcinoma of the prostate on prostate biopsy with clinical stage C T1C under active surveillance by Dr. Little. There is history of cholelithiasis for which he underwent cholecystectomy and history of nephrolithiasis. 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 There is also history of ocular cataracts status post surgery. SOCIAL HISTORY: Tobacco: The patient smokes cigarettes from the age of 19 to approximately the age of 56, but less than one pack per day for a less than 30 pack-year history of tobacco use. Alcohol: The patient has consumed alcohol socially in the past. Illicit drugs: No history of illicit drug use. FAMILY HISTORY: The patient's father at that age of 77 from organic heart disease in the setting of diabetes mellitus. The patient's mother at age of 85 from organic heart disease. REVIEW OF SYSTEMS: Neurologic: The patient reports right hand pain, particularly at the thumb following Whipple procedure and states this has interfere with his ability to play the guitar. He notes that his right ear feels "like it is plugged up" at times. No history of seizure disorder. No history of cough. No shortness of breath. No chest pain at present. Cardiac: No history of myocardial infarction. No exertional chest pressure. No palpitations. No leg edema. No orthopnea. Gastrointestinal: Epigastric pain as detailed above with report of mild constipation since hospital admission. No fevers, chills or sweats. No jaundice. Genitourinary: History of bladder cancer, history of prostate cancer, history of nephrolithiasis. No dysuria at this time. No hematuria. No flank pain. Endocrine: History of diabetes mellitus on insulin. No polyuria, polydipsia or polyphagia at this time. No intolerance of heat or cold. Musculoskeletal: Mild joint discomfort chronically. No recent fractures. No joint effusions. No bone pain. Constitutional: No recent fevers, chills nor sweats. The remainder of the review of systems was obtained and was negative. PHYSICAL EXAMINATION: The patient is a thin, well-developed, well-nourished gentleman, awake, alert, fully oriented, cooperative in no acute distress. Temperature 99.7, pulse 88, respirations 17, blood pressure 143/74, oxygen saturation 97% on room air. Skin: Full turgor, anicteric and without lesions. HEENT examination: Normocephalic, atraumatic. Pupils round and reactive. Extraocular muscles intact. Sclerae anicteric. Oropharynx without lesions. Neck: Supple without thyromegaly. Lymphatics: No pathologic lymphadenopathy noted in the cervical, supraclavicular, axillary nor inguinal regions. Lungs: Clear to auscultation. Cardiac exam: Regular rhythm. Point of maximal impulse nondisplaced. S1, S2, without gallop, rub or murmur. Full pulses. Abdomen: Active bowel sounds, soft, nontender to superficial palpation with modest tenderness on deep palpation. No guarding or rebound elicited. There is no appreciable organomegaly present. Abdominal scar healing well. No masses appreciated. Rectal examination: Deferred. Extremities: Without clubbing, cyanosis or edema. Neurologic examination: Mental status intact. Cranial nerves intact. Motor and sensory grossly intact. LABORATORY DATA: Laboratory studies dated March 09, 2019 include the following: Sodium 139, potassium 3.7, chloride 107, bicarbonate 26, BUN is 7, creatinine 0.5 mg per dl, glucose 91 mg per dl, total bilirubin mildly elevated at 1.5 mg per dl, AST 8, ALT 8, alkaline phosphatase 76, albumin depressed at 2.3 grams per dl, lipase has normalized at 393, decreased 1128 on March 07, 2019. CEA mildly elevated at 2.6 ng/mL. Complete blood count March 09, 2019 includes white blood count 7600, hemoglobin 10.9 grams per dl, hematocrit 35.7%, platelet count 193,000 IMPRESSION: 1. Pancreatitis. The patient has acute pancreatitis clinically, as a complication of his recent Whipple procedure. This is not an unusual complication of this radical surgical procedure. The patient is being treated appropriately, with a normalization of the serum lipase noted over the last several days, and regression of pain. Hemoglobin has been stable, white count is now not elevated, and the patient overall is doing well. It is concerning that the patient's serum albumin is depressed, and it will be important to maintain his nutritional status. He may benefit from dietary consult during this admission, in order to educate the patient regarding appropriate diet in the setting of pancreatic insufficiency and pancreatitis. As an outpatient, the patient has been taking Creon enzyme supplementation, and this will need to be renewed once the patient begins to eat again. He would likely also benefit from low-fat nutritional supplementation such as Resource. 2. Adenocarcinoma of the pancreas. The patient is clinically without evidence of disease. It is desirable to initiate adjuvant chemotherapy as soon as feasible, but not at the expense of unacceptable toxicities in the setting of pancreatitis. As the patient appears to be improving, it is likely that he will be fit for hospital discharge within the next several days. Consequently, it may be feasible to initiate his first cycle of Folfirinox chemotherapy, previously planned for this week, to start on March 16, 2019. This was discussed with the patient; and if his clinical status permits this, he is amendable to beginning Folfirinox chemotherapy on March 16, 2019. RECOMMENDATIONS: Mr. Monahan will be monitored during the remainder of his hospital stay. If he is discharged prior to March 16, 2019, and he is clinically stable on that date, then he will be asked to return to begin Folfirinox chemotherapy as detailed in the PRODIGE study. Treatment would be every 2 weeks for a total of approximately 24 weeks, barring unexpected complications. MediPort will need to be placed to facilitate chemotherapy, but the patient's percutaneous indwelling central catheter (PICC) should remain in place to facilitate infusional chemotherapy for the first cycle. The patient is aware that he will require PICC line care in the interim.
[2019-03-09 22:00] VITALS: BP 144/75
[2019-03-09] MEDS: ACETAMINOPHEN TAB 650MG DOSE (2X325MG) PO PRN (22:21)
[2019-03-10] MEDS: SODIUM CHLORIDE 0.9% INJ 10 ML SYR IV SCH (05:38)
[2019-03-10] MEDS: NS 1,000 ML IV SCH ×2 (05:39→08:05)
[2019-03-10] MEDS: HumaLOG INSULIN (NovoLOG) PER UNIT SC SCH ×3 (05:59→12:00)
[2019-03-10 06:00] VITALS: BP 147/73
[2019-03-10 07:22] LABS: HEMATOCRIT 31.9 % (42.0-52.0); HEMOGLOBIN 10.3 g/dl (13.5-17.5); MEAN CORPUSCULAR HEMOGLOBIN 28.5 pg (27.0-33.0); MEAN CORPUSCULAR HGB CONC 32.3 g/dl (32.0-36.5); MEAN CORPUSCULAR VOLUME 88.1 fl (80.0-96.0); PLATELET COUNT, AUTOMATED 185 10^3/uL (150-450); RED BLOOD COUNT 3.62 10^6/uL (4.30-6.10)
[2019-03-10 07:51] LABS: ALT/SGPT 7 U/L (12-78); BILIRUBIN,TOTAL 1.5 MG/DL (0.2-1.0); BLOOD UREA NITROGEN 6 MG/DL (7-18); CARBON DIOXIDE LEVEL 26 MEQ/L (21-32); CHLORIDE LEVEL 107 MEQ/L (98-107); CREATININE FOR GFR 0.51 MG/DL (0.70-1.30); GLOMERULAR FILTRATION RATE > 60.0 (>42); GLUCOSE, FASTING 104 MG/DL (70-100); LIPASE 375 U/L (73-393); POTASSIUM SERUM 3.7 MEQ/L (3.5-5.1); SODIUM LEVEL 138 MEQ/L (136-145); TOTAL PROTEIN 5.4 GM/DL (6.4-8.2)
[2019-03-10] MEDS: PANTOPRAZOLE 40MG INJ (PROTONIX) (C9113) IV SCH (08:04)
[2019-03-10] MEDS: DOCUSATE SOD LIQ 100MG/10ML UDC PO SCH (08:05)
--- NOTE | 2019-03-10 11:38 | IPNPDOC ---
Text Note Date of Service The patient was seen on 03/10/19. NOTE Patient was seen and examined this morning. Continues to complain of mid-epi gastric/LUQ abdominal pain but better from yesterday. Tolerated diet PHYSICAL EXAMINATION: GENERAL APPEARANCE: NAD, lying comfortably in bed HEENT: NC/AT, EOMI RESPIRATORY: CTA B/L CARDIOVASCULAR: +S1S2, RRR ABDOMEN: soft, hypoactive bowel sounds, well healing mid-line scar EXTREMITIES: no edema NEUROLOGICAL: no gross focal deficits PSYCHIATRIC: AAOx3, in good spirits LABORATORY DATA: Please see below. ASSESSMENT/PLAN: 73 yo male for recurrent abdominal pain s/p recent Whipples procedure (Dec 2018), presents for 2 day history of mid-epigastric/LUQ abdominal pain. 1. abdominal pain. Improving. CT scan of the abdomen and pelvis was done which showed Diffuse pattern of edema surrounding the choledochojejunostomy bowel loop in the epigastric region. Edema surrounds the remaining pancreas, question pancreatitis. No evidence of abscess. Minimal ascites. Mild ileus pattern in the bowel gas. Surgery has been following the patient. Diet as per surgery. Activity as per surgery and pain control as per surgery. Lipase trending down and normalized 2. adenocarcinoma of the pancreas: s/p whipple - Dr. Anne - surgeon at [facility] 3. diabetes: insulin sliding scale. Optimize once he started on a diet and his home medications 4. HTN: appears to be controlled with diet. Continue monitoring 5. 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 Little this Friday 6. adenocarcinoma of the prostate: clinical stage of cT1c, underactive surveillance by Diet. Pain control and activity as per surgery Diet as per surgery Disposition as per primary VS,Fishbone, I+O VS, Fishbone, I+O Laboratory Tests 03/10/19 07:05 Vital Signs Date Time Temp Pulse Resp B/P (MAP) Pulse Ox O2 Delivery O2 Flow Rate FiO2 03/10/19 06:00 98.7 70 18 147/73 (97) 98 Room Air I&O- Last 24 Hours up to 6 AM 03/10/19 06:00 Intake Total 3510 ml Output Total 1550 ml Balance 1960 ml ANAHY SMITH MD Mar 10, 2019 11:38
--- NOTE | 2019-03-10 15:30 | IPN ---
DATE: 03/08/2019 Patient overall has done well overnight. Still feels a fair bit of pressure and his lipase did come down to 679 today. His white count is also normalized and he states that he is feeling relatively good, but still has some pressure in the mid upper abdomen. He has not had any fevers or chills and otherwise feeling relatively well at this point. He states that his oncologist was hoping to get a PICC line in to start his chemotherapy and essentially wanted to start it later on this week. In general I feel that that is not a good option at this point to start his chemotherapy and we should resolve his pancreatitis before that time, however, we can get a PICC line him while he is here in the hospital given that he is somewhat of a difficult IV stick in any case and then we will have it available for him after discharge for them to use his PICC line. I anticipate he will probably need an [id number] at some point in the future, but I will defer that judgment to the oncologist evaluating/treating him. Otherwise at this point on this physical examination he really does not have any significant peritoneal signs. He has some mild discomfort in the epigastric area and clinically he seems to be improving his pancreatitis as well as chemically. We will just see how he does overnight with still keeping him nothing by mouth, I would like to go slowly with him given the significant inflammation I appreciated on the CAT scan and if he is doing well tomorrow we will start him on a clear liquid diet.
--- NOTE | 2019-03-10 15:38 | IPN ---
DATE: 03/09/2019 The patient overall has been doing quite nicely and feeling a lot better today; only has some minimal discomfort in the epigastric area and has not had any fevers or chills. Actually did have a little bit of a low grade temperature yesterday, but since that time has been good. Has not had any nausea. His white count is within normal limits and otherwise his lipase is down to 393 which is within normal limits today. In any case, given his decreased pain, discomfort and overall improvement I do feel that his abdominal exam is relatively benign on exam. I do feel that we can start some clear liquids today. I would like to go slowly with him and we will see how he does with a full day of clear liquids before progressing his diet and tomorrow we will try him on a low-fat diet and if he does well with that then we may be able to discharge him to home.
--- NOTE | 2019-03-10 15:44 | HPE ---
DATE OF ADMISSION: 03/07/2019 HISTORY OF PRESENT ILLNESS: The patient is a 73-year-old male, who presents with abdominal pain status post Whipple procedure a month before essentially had a postoperative ileus and had an admission for a few days. Went back to [facility] for some possible complications but then seemed to do well for a couple weeks and now has acute onset of pain that started 24 hours prior to admission quite severe in nature and persistent and then came to the emergency room for this persistent abdominal pain. States his pain was about at the midline just off to the left-hand side. He had no fevers, no chills. He had some mild nausea, no vomiting, decreased appetite. But pain that was in the abdomen somewhat radiating to his back. His evaluation was performed in the emergency room and revealed a white count of 10.2 and revealed an elevated lipase of 1100, and a CAT scan which showed edema at the choledochojejunostomy and some edema surrounding the remaining pancreas in the midabdomen. Question of pancreatitis. Mild ileus in this area as well. No other significant abnormalities. His past medical history is significant for history of bladder cancer, history of hypertension, history of diabetes mellitus, history of pancreas/neuroendocrine tumor, status post Whipple, history of prostate cancer, history of cholecystectomy, history of Page's esophagus, history of squamous cell cancer, history of cataracts. Medications include: - insulin - Linzess - acetaminophen - tramadol Physical exam reveals a 73-year-old male who looks stated age. HEENT is unremarkable. Neck supple without adenopathy. Lungs are clear to auscultation without crackles, wheezes, rhonchi. Heart is regular without murmur. Abdomen is softly distended, mostly in the upper abdomen, has some mild tenderness in the upper abdomen without significant guarding, rebound or peritoneal signs. Extremities are warm, well-perfused. IMPRESSION/PLAN: The patient has evidence of pancreatitis on his CT scan and given his previous Whipple I anticipate this is in the previous anastomotic area. Right now not I am not seeing any significant fluid collection, although there is a slight development of a phlegmon in this area. The emergency room doctors contacted [facility] and they felt that he would be served adequately by being admitted to the hospital and treated for typical pancreatitis here and if they we have any progressive problems that they would be glad to intervene/accept him in transfer. Thus, we will admit him for pancreatitis, nothing by mouth, IV fluids, IV medications as necessary. I have asked medicine to see him and make recommendations as appropriate. We give him some pain medication for him as well.
--- NOTE | 2019-03-11 02:56 | DSES ---
DATE OF ADMISSION: 03/07/2019 DATE OF DISCHARGE: 03/10/2019 PRINCIPAL DIAGNOSIS: Pancreatitis. ASSOCIATED DIAGNOSES: History of Whipple procedure for pancreatic neuroendocrine tumor. History of diabetes mellitus. History of bladder cancer. History of prostate cancer. History of hypertension. BRIEF HISTORY OF PRESENT ILLNESS: Patient is a 73-year-old male who presents after a Whipple procedure done a little over a month ago and initially came into the hospital within 2 weeks of being discharged from his Whipple with an ileus/gastric emptying issue and eventually was discharged to [place] where they treated him nonoperatively and he improved/resolved his issues, has been home for awhile now, and then developed acute abdominal pain in the mid epigastric area 24 hours prior to admission. He came to the emergency room where he was found have some pancreatitis and was admitted for the above findings. HOSPITAL COURSE SUMMARY: The patient was admitted with the above findings and had significant improvement over the first 24 hours and continued improvement over the next several days. Eventually he was started on a clear liquid diet, advanced to a regular diet, and was discharged home with instructions to followup with oncology next week. He had a peripherally inserted central catheter (PICC) line placed for IV access but also for plans on using that for his chemotherapy next week, and then he will followup with oncology next week and then followup with his surgeon in [place] as necessary. MEDICATIONS AT THE TIME OF DISCHARGE: Include the same as on admission, which include: - insulin - tramadol - nighttime Tylenol - Linzess
== END 2019-03-10 15:40 | disposition home health service (06) | DRG 393 ==
LOC: M ED 11:44 → M ED INP 19:11 → M MS5PR 03-08 13:20
PROVIDERS: ADMIT Surgery; ATTEND Surgery
PROC: 02HV33Z Insertion of Infusion Device into Superior Vena Cava, Percutaneous Approach (ICD-10-PCS; principal; 2019-03-08 15:00)
DX: K91.89 Other postprocedural complications and disorders of digestive system (principal); K85.90 Acute pancreatitis without necrosis or infection, unspecified; C77.9 Secondary and unspecified malignant neoplasm of lymph node, unspecified; C25.9 Malignant neoplasm of pancreas, unspecified; E11.9 Type 2 diabetes mellitus without complications; I10 Essential (primary) hypertension; Z85.51 Personal history of malignant neoplasm of bladder; Z79.4 Long term (current) use of insulin; Z79.899 Other long term (current) drug therapy; K22.70 Barrett's esophagus without dysplasia; Z85.828 Personal history of other malignant neoplasm of skin; Z87.891 Personal history of nicotine dependence; C61 Malignant neoplasm of prostate

== ENCOUNTER → 2019-03-12 | Outpatient (REF) | payer MEDICARE, BC, OTHER ==
[~2019-03-12] MED LIST changes: +ACET25TA12 PO; +GRAN1TA PO; +MORP1SOL3 PO; +[UNRECOGNIZED DRUG - CODE] PO
[2019-03-15 11:40] LABS: HEMATOCRIT 33.9 % (42.0-52.0); HEMOGLOBIN 10.7 g/dl (13.5-17.5); MEAN CORPUSCULAR HEMOGLOBIN 27.9 pg (27.0-33.0); MEAN CORPUSCULAR HGB CONC 31.6 g/dl (32.0-36.5); MEAN CORPUSCULAR VOLUME 88.5 fl (80.0-96.0); RED BLOOD COUNT 3.83 10^6/uL (4.30-6.10); WHITE BLOOD COUNT 5.7 10^3/uL (4.0-10.0)
[2019-03-15 11:41] LABS: BASO % 0.4 % (0.0-1.0); EOS # 0.3 10^3/uL (0.0-0.5); EOS % 4.9 % (0.0-3.0); LYMPH # 1.3 10^3/uL (1.5-5.0); LYMPH % 23.3 % (24.0-44.0); MONO # 0.4 10^3/uL (0.0-0.8); MONO % 6.7 % (0.0-5.0); NEUTROPHILS # 3.7 10^3/uL (1.5-8.5); NEUTROPHILS % 64.5 % (36.0-66.0); PLATELET COUNT, AUTOMATED 262 10^3/uL (150-450)
[2019-03-15 11:42] LABS: ALT/SGPT 14 U/L (12-78); AMYLASE 34 U/L (25-115); BILIRUBIN,TOTAL 0.4 MG/DL (0.2-1.0); BLOOD UREA NITROGEN 7 MG/DL (7-18); CALCIUM LEVEL 8.1 MG/DL (8.8-10.2); CARBON DIOXIDE LEVEL 24 MEQ/L (21-32); CHLORIDE LEVEL 107 MEQ/L (98-107); CREATININE FOR GFR 0.61 MG/DL (0.70-1.30); GLOMERULAR FILTRATION RATE > 60.0 (>42); GLUCOSE, FASTING 207 MG/DL (70-100); POTASSIUM SERUM 4.6 MEQ/L (3.5-5.1); SODIUM LEVEL 140 MEQ/L (136-145); TOTAL PROTEIN 6.2 GM/DL (6.4-8.2)
[2019-03-15 11:43] LABS: ALBUMIN 2.7 GM/DL (3.2-5.2); LIPASE 161 U/L (73-393)
== END ==
LOC: M SHH 11:34
PROVIDERS: ATTEND Internal Medicine Hematology
DX: C67.9 Malignant neoplasm of bladder, unspecified (principal); C61 Malignant neoplasm of prostate; C25.9 Malignant neoplasm of pancreas, unspecified; C77.9 Secondary and unspecified malignant neoplasm of lymph node, unspecified

== ENCOUNTER → 2019-03-29 | Outpatient (CLI) | payer MEDICARE, BC, OTHER ==
[~2019-03-29] MED LIST changes: +DRON5CAP13 PO; +LACT10SO29 PO; +LIDOCAINE 1% MDV 20ML VIAL As Ordered ONE; +MIDAZOLAM INJ 2 MG/2 ML VIAL (J2250) As Ordered ONE; +ceFAZolin 1GM INJ (J0690 PER 500MG) As Ordered ONE; +diphenhydrAMINE INJ 50MG/ML VIAL (J1200) As Ordered ONE; +fentaNYL 100 MCG/2 ML INJECTION (J3010) As Ordered ONE
--- NOTE | 2019-03-29 15:10 | IRHP ---
[facility] IR Pre-Procedure H & P General Date of Service: Mar 29, 2019 Procedure: Same Day Surgery Interval History and Physical I have seen the patient and reviewed last H & P performed within 30 days. There is no significant interval change. History of Present Illness Chief Complaint The patient is a 73-year-old male admitted with a reason for visit of Bladder Ca. PRE-PROCEDURE DIAGNOSIS: bladder ca HEART: normal rate. LUNGS: normal breathing at rest. ASA Classification ASA Classification: II-Mild systemic disease Mallampati Score: II NPO: Yes Problems with prior sedation: No Obstructive Sleep Apnea: No Plan moderate sedation Allergies Coded Allergies: No Known Drug Allergies (Verified Allergy, Unknown, 11/07/18) Home Medications Scheduled Insulin Aspart (Novolog Flexpen), 1 DOSE SC AC, (Reported) Insulin Glargine (Lantus), 20 UNITS SC QHS, (Reported) Lactulose (Lactulose), 30 ML PO TID Linaclotide (Linzess), 290 MCG PO QHS, (Reported) Lipase/Protease/Amylase (Creon Dr 36,000 Units Capsule), 1 CAP PO AC, (Reported) Scheduled PRN Acetaminophen/Diphenhydramine (Acetaminophen Pm Caplet), 1 TAB PO QHS PRN for SLEEP, (Reported) Dronabinol (Dronabinol), 5 MG PO BIDP PRN for anorexia Granisetron HCl (Granisetron HCl), 1 TAB PO DAILY PRN for NAUSEA Morphine Sulfate (Morphine Sulfate), 5 MG PO Q4H PRN for PAIN Tramadol HCl (Tramadol HCl), 50 MG PO Q6H PRN for PAIN, (Reported) Discontinued Medications Nutritional Supplement (Resource 2.0), 1 LIQ PO TID Discontinued Reason: Pt states not taking VS, I&O, 24H, Fishbone Vital Signs/I&O Vital Signs Date Time Temp Pulse Resp B/P (MAP) Pulse Ox O2 Delivery O2 Flow Rate FiO2 03/29/19 14:50 78 18 98 Nasal Cannula 2 03/29/19 13:28 98.2 ROWAN BOO MD Mar 29, 2019 15:10
--- NOTE | 2019-03-29 15:12 | POST-OPPD ---
Postoperative Procedure Note Date Of Procedure: Mar 29, 2019 Time Of Procedure: 15:58 PREOPERATIVE DIAGNOSIS: bladder ca POSTOPERATIVE DIAGNOSIS: bladder ca FINDINGS: patent right IJ PROCEDURE: right sided port SURGEON: Celeste ANESTHESIA: mod sed ESTIMATED BLOOD LOSS: < 5 ml COMPLICATIONS: none POSTOPERATIVE CONDITION: stable ROWAN BOO MD Mar 29, 2019 15:12
[2019-03-29 15:56] VITALS: BP 127/60
--- NOTE | 2019-03-30 08:53 | REP ---
IR Ultrasound and fluoroscopy-guided port placement. IR Ultrasound of the neck. IR Moderate sedation. Clinical information: Bladder cancer. Physician: Dr. Alonso. Procedure: The patient was advised of the benefits, risks, and alternatives of the procedure and informed consent was obtained. A time-out was performed with verification of the patient's name, MRN, site of procedure and type of procedure to be performed. The patient was positioned in the supine position on the angiographic table. The site was prepped and draped in the usual sterile fashion. Moderate sedation was performed by the physician including the presence of an independent trained observer who assisted and monitored the patient's level of consciousness and physiologic status. Following the administration of Fentanyl and versed, the physician spent 45 minutes of continuous face to face time with the patient. Ultrasound of the neck reveals a patent and compressible right internal jugular vein. A parking meter mechanic radiograph reveals no gross abnormality. The neck and anterior chest wall were anesthetized with lidocaine. The right internal jugular vein was accessed using a microintroducer needle under ultrasound guidance, via a lateral approach. An 018 wire was advanced into the superior vena cava, the needle was removed and a microsheath was placed. An Amplatz wire was then passed into the inferior vena cava. An incision at the internal jugular vein access site and anterior chest wall were made using a scalpel. An incision was made at the anterior chest wall. A small pocket was created using a combination of blunt and sharp dissection. A tunneling device was then used to pass the catheter from the pocket to the neck puncture site. An 8-Fijian Angio dynamics low profile Smart power port was then positioned in the pocket. The catheter was then measured and cut. The introducer sheath was exchanged for a peel-away sheath. The catheter was passed through the peel-away sheath into the internal jugular vein and the peel-away sheath was removed. The port tip was positioned at the cavoatrial junction. The port was then accessed with a Worrell needle. The port flushes and aspirates well. The puncture site in the neck was closed. The chest wall incision was then closed with 2-0 Vicryl and 4-0 Monocryl. Glue and Steri-Strips were applied. A sterile dressing was then applied. The patient tolerated the procedure well and was returned to the PRU in stable condition. Estimated blood loss: <5 ml. Complications: None. Conclusion: 1. Successful placement of an 8-Fijian Angio dynamics Smart power port via the right internal jugular vein. The port is ready for immediate use. 2. Patient to follow up in IR clinic in 2 weeks. Thank you for this referral. Electronically Signed by Janice Alonso MD 03/30/2019 08:51 A
== END ==
LOC: M IRPRO 12:01
PROVIDERS: ATTEND Internal Medicine Hematology
DX: C67.9 Malignant neoplasm of bladder, unspecified (principal); Z79.4 Long term (current) use of insulin

== ENCOUNTER → 2019-04-20 | Outpatient (POV) | payer MEDICARE, BC, OTHER ==
[~2019-04-20] VITALS: Ht 177.8 cm; Wt 57.7 kg
[~2019-04-20] MED LIST changes: -LIDOCAINE 1% MDV 20ML VIAL As Ordered ONE; -MIDAZOLAM INJ 2 MG/2 ML VIAL (J2250) As Ordered ONE; -ceFAZolin 1GM INJ (J0690 PER 500MG) As Ordered ONE; -diphenhydrAMINE INJ 50MG/ML VIAL (J1200) As Ordered ONE; -fentaNYL 100 MCG/2 ML INJECTION (J3010) As Ordered ONE
[2019-04-20 08:39] VITALS: BP 134/73
--- NOTE | 2019-04-21 08:06 | IRPN ---
[facility] IR Progress Note IR Progress Note DATE: Apr 20, 2019 FOLLOW-UP: 2 weeks status post right chest wall port placement. No fevers or chills. No pain, discomfort or discharge from site. ON EXAMINATION: Right port site healing well. No redness, tenderness, fluctuance or discharge. IMPRESSION: Port site healing well status post placement. No further follow-up scheduled unless initiated by patient or referring provider. Thank you for this referral Allergies Coded Allergies: No Known Drug Allergies (Verified Allergy, Unknown, 11/07/18) VS,Fishbone, I+O VS, Fishbone, I+O Vital Signs Date Time Temp Pulse Resp B/P (MAP) Pulse Ox O2 Delivery O2 Flow Rate FiO2 04/20/19 08:39 97.7 98 16 134/73 (93) 95 Room Air ROWAN BOO MD Apr 21, 2019 08:06
== END ==
LOC: M IRPOV 08:30
PROVIDERS: ATTEND Radiology Diagnostic Radiology
DX: Z45.2 Encounter for adjustment and management of vascular access device (principal)

== ENCOUNTER → 2019-05-07 | Outpatient (CLI) | payer MEDICARE, BC, OTHER ==
[~2019-05-07] MED LIST changes: +CHOL4PW PO; +LIDVISCBTL SSP; -MORP1SOL3 PO; +MORP1SOL4 PO; +ONDA4TAB6 PO
--- NOTE | 2019-05-07 10:03 | REP ---
Clinical: Epigastric and abdominal pain. Technique: Upright view of the chest with supine and upright views of the abdomen and pelvis. Findings: Frontal upright view of the chest demonstrates no acute cardiopulmonary process or free air below the diaphragm to suspect pneumoperitoneum. [id number] identified with tip in the SVC/right atrium. Supine and upright views of the abdomen and pelvis demonstrate nonspecific bowel gas pattern with evidence to suggest moderate/significant fecal stasis. No obstruction or perforation. No organomegaly. 5 mm calcification in the left mid abdomen may represent nonobstructing renal stone. Surgical suture material in the left upper abdomen. Skeletal structures normal for age. Impression: 1. Moderate/significant fecal stasis suggested. No bowel obstruction or perforation. 2. 5 mm nonobstructing left renal calculus suspected. Electronically Signed by Vinod Woodruff MD 05/07/2019 09:54 A
== END ==
LOC: M RAD 09:29
PROVIDERS: ATTEND Physician Assistant Medical
DX: K59.04 Chronic idiopathic constipation (principal)

== ENCOUNTER 2019-05-15 08:53 | Inpatient (IN) | payer MEDICARE, BC, OTHER ==
[~2019-05-15] VITALS: Ht 177.8 cm; Wt 62.2 kg
[2019-05-15] MEDS: DOCUSATE SODIUM 100 MG CAP PO SCH ×2 (09:00→20:19)
[2019-05-15] MEDS ORDERED: ENOXAPARIN 40 MG/0.4 ML SYRINGE (J1650) SC SCH (09:00)
[2019-05-15] MEDS ORDERED: NS 1,000 ML IV ONE (09:30)
[2019-05-15 10:10] LABS: HEMATOCRIT 38.3 % (42.0-52.0); HEMOGLOBIN 12.4 g/dl (13.5-17.5); MEAN CORPUSCULAR HEMOGLOBIN 27.7 pg (27.0-33.0); MEAN CORPUSCULAR HGB CONC 32.4 g/dl (32.0-36.5); MEAN CORPUSCULAR VOLUME 85.7 fl (80.0-96.0); PLATELET COUNT, AUTOMATED 137 10^3/uL (150-450); RED BLOOD COUNT 4.47 10^6/uL (4.30-6.10)
[2019-05-15 10:22] LABS: WHITE BLOOD COUNT 35.9 10^3/uL (4.0-10.0)
[2019-05-15 10:36] LABS: ALBUMIN 3.1 GM/DL (3.2-5.2); BILIRUBIN,DIRECT 0.1 MG/DL (0.0-0.2); BILIRUBIN,TOTAL 0.5 MG/DL (0.2-1.0); TOTAL PROTEIN 6.4 GM/DL (6.4-8.2)
[2019-05-15] MEDS ORDERED: cefTRIAXone SOD 2 GM in D5W MINI-BAG PLUS 50 ML IV ONE (10:45)
[2019-05-15 10:46] LABS: BASOPHILS 1 % (0-1); LYMPHOCYTES 2 % (16-44); MONOCYTES 1 % (0-5); NEUTROPHILS 92 % (28-66); PLATELET ESTIMATE DECREASED (NORMAL); TOXIC GRANULATION 1+
[2019-05-15 10:47] LABS: ANISOCYTOSIS 1+
--- NOTE | 2019-05-15 11:42 | REP ---
Renal ultrasound for renal calculus: Comparison is the abdomen/pelvis CT dated 2018. On the comparison CT there was a left renal lower pole calculus that measured 7 mm. In addition there is a right renal lower pole 2 cm cyst. On the study today: The right kidney measures 12.3 x 5.2 x 5.6 cm. The left kidney measures 10.9 x 5.5 x 5.2 cm. The kidneys are normal size. Renal cortical echogenicity is normal bilaterally. There is no hydronephrosis on the right on the left. No renal calculi are identified by ultrasound today. There is a renal cyst at the lower pole of the right kidney measuring 2.9 x 1.7 by 2.0 cm. This is a Bosniak type 1 cyst. Bladder: The bladder wall appears trabeculated. The prostate is enlarged measuring 4.7 x 5.5 x 5.7 cm. Impression: There are no renal calculi by ultrasound. There is a Bosniak type 1 2.9 cm right renal lower pole cyst. There is no hydronephrosis. The prostate is enlarged. The bladder wall appears trabeculated. Electronically Signed by Jai Portillo MD 05/15/2019 11:34 A
[2019-05-15] MEDS ORDERED: AUGM0.05 TOP (12:21)
[2019-05-15] MEDS ORDERED: ZZZQ50LI PO (12:21)
[2019-05-15] MEDS ORDERED: PREDOPD OS (12:21)
[2019-05-15] MEDS ORDERED: MORPHINE SULFATE ORAL SOLN 10 MG/5 ML UD PO PRN (12:45)
[2019-05-15] MEDS ORDERED: DEXTROSE 50% 50 ML SYRINGE IV PRN (12:45)
[2019-05-15] MEDS ORDERED: CHOLESTYRAMINE 4 GM PWD PKT PO PRN (12:45)
[2019-05-15] MEDS ORDERED: traMADol 50 MG TAB PO PRN (12:45)
[2019-05-15] MEDS ORDERED: GLUCAGON FOR INJ 1 MG VIAL (J1610) SC PRN (12:45)
[2019-05-15] MEDS ORDERED: DRONABINOL 2.5 MG CAP (MARINOL) PO PRN (12:45)
[2019-05-15] MEDS ORDERED: GLUCOSE 4 GM CHEW TABLET PO PRN (12:45)
[2019-05-15] MEDS ORDERED: BETAMETHASONE DIP 0.05% OINT 15 GM TOP PRN (12:45)
[2019-05-15] MEDS ORDERED: diphenhydrAMINE 25 MG CAP PO PRN (12:45)
[2019-05-15] MEDS ORDERED: LIDOCAINE VISCOUS 2% SOLN 15ML UDC TOP PRN (12:45)
[2019-05-15] MEDS ORDERED: ONDANSETRON 4 MG ORAL DISINTEGRATING TAB (Q0162 PER 1MG) PO PRN (12:45)
[2019-05-15] MEDS ORDERED: GRANISETRON 1 MG PO PRN (12:45)
[2019-05-15] MEDS: ACETAMINOPHEN TAB 650MG DOSE (2X325MG) PO PRN ×2 (13:18→20:18)
[2019-05-15 16:00] VITALS: BP 92/49
[2019-05-15 16:40] VITALS: BP 98/56
[2019-05-15] MEDS: HumaLOG INSULIN (NovoLOG) PER UNIT SC SCH ×2 (17:30→20:19)
[2019-05-15] MEDS: prednisoLONE ACET 1% OPHTH SUSP 5ML OS SCH ×2 (17:59→20:17)
[2019-05-15] MEDS: CREON-24 CAPSULE PO SCH (17:59)
[2019-05-15] MEDS: NS 1,000 ML IV SCH (19:00)
--- NOTE | 2019-05-15 19:18 | HPEPDOC ---
General Date of Admission May 15, 2019 at 12:07 Date of Service: May 15, 2019 Attending Physician: SONJA FALCON MD Chief Complaint The patient is a 73-year-old male admitted with a reason for visit of Adenocarcinoma Of Pancreas Stage 3 Uti. 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 He is now being admitted for sepsis 2/2 UTI with softening BP and tachycardia in the setting of the ongoing UTI. Home Medications Scheduled Insulin Aspart (Novolog Flexpen) 100 Unit/1 Ml Insuln.pen, 1 DOSE SC AC, (Reported) PER SLIDING SCALE Insulin Glargine (Lantus) 1 Units/0.01 Ml Susp, 20 UNITS SC BID, (Reported) Lactulose (Lactulose) 10 Gm/15 Ml Solution, 30 ML PO TID for constipation Take 30 ml po q.i.d. prn constipation Linaclotide (Linzess) 290 Mcg Capsule, 290 MCG PO QHS, (Reported) Lipase/Protease/Amylase (Ismael Jonas 36,000 Units Capsule) 1 Each Capsule.dr, 1 CAP PO AC, (Reported) Prednisolone Acetate (Prednisolone Acetate 1% Opth Susp) 5 Ml Drops.susp, 1 DROP OS QID, (Reported) Scheduled PRN Acetaminophen/Diphenhydramine (Acetaminophen Pm Caplet) 1 Each Tablet, 2 CAP PO QHS PRN for SLEEP, (Reported) Alternates with Zzzquil for sleep Betamethasone/Propylene Glyc (Betamethasone Dp Aug 0.05% Crm) 15 Gm Cream..g., 1 APLCT TOP TID PRN for perirectal area discomfort, (Reported) Cholestyramine (Cholestyramine Packet) 4 Gm Powd.pack, 4 GM PO TIDP PRN for DIARRHEA Take 1 packet in liquid as directed T.I.D. prn diarrhea Diphenhydramine HCl (Zzzquil) 50 Mg/30 Ml Liquid, 25 MG PO QHS PRN for SLEEP, (Reported) Alternates with tylenol PM for sleep Dronabinol (Dronabinol) 5 Mg Capsule, 5 MG PO BIDP PRN for anorexia Take 5 mg po B.I.D. as appetite stimulant Granisetron HCl (Granisetron HCl) 1 Mg Tablet, 1 TAB PO DAILY PRN for NAUSEA take 1 tablet po daily x 2 days after each chemotherapy infusion started, then daily prn Lidocaine HCl (Lidocaine HCl Viscous) 100 Ml Solution, 5 ML SSP Q3-4HP PRN for pain apply using gauze or cotton tip swab to painful hemorroids q 4 hours prn pain Morphine Sulfate (Morphine Sulfate) 10 Mg/5 Ml Solution, 5 MG PO Q4H PRN for PAIN Ondansetron (Ondansetron Odt) 4 Mg Tab.rapdis, 4 MG PO Q6-8HP PRN for nausea/vomiting Take 4 mg po q 6 hours prn nausea Tramadol HCl (Tramadol HCl) 50 Mg Tablet, 50 MG PO Q6H PRN for PAIN, (Reported) Allergies Coded Allergies: No Known Drug Allergies (Verified Allergy, Unknown, 11/07/18) Past Medical History Medical History prostate CA, bladder CA s/p tumor resection and BCG, and recent diagnosis of pancreatic CA in 2019 s/p Whipple surgery in 12/2018 on FOLFIRINOX 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, DM, HTN, HLD, prior episodes of enterococcus UTIs Surgical History tonsillectomy cataract surgery whipple surgery for pancreatic cancer bladder tumor resection TURP lithotripsy colonoscopy cholecystectomy Social History * Smoker: Denies Alcohol: Denies Drugs: denies Recent Travel/Sick Contacts: Denies: Recent travel, Recent sick contacts Lives with girlfriend of 20+ years A-FIB/CHADSVASC A-FIB History Current/History of A-Fib/PAF?: No Current PO Anticoag Therapy: No Age/Risk Factor Scoring CHADSVASC: CHADSVASC Response (Comments) Value Age Risk Factor Age 65-74 years old 1 Gender Risk Factor Male 0 Hx of CHF No 0 Hx of HTN Yes 1 Hx of Stroke/TIA/or VTE No 0 Hx of Diabetes Yes 1 Hx of Vascular Disease No 0 Total 3 Treatment Treatment ordered: NONE Reason Anticoagulant not given: Not indicated/[id number] Review of Systems Constitutional: Denies: Chills, Fever, Night Sweats Eyes: Denies: Pain, Vision change ENT: Denies: Head Aches, Ear Pain, Dysphagia Skin: Denies: Rash, Lesions, Breakdown Pulmonary: Denies: Dyspnea, Cough Cardiovascular: Denies: Chest Pain, Palpitations, Orthopnea, Paroxysmal Noc. Dyspnea, Lt Headedness Gastrointestinal: Denies: Nausea, Vomiting, Abdominal Pain, Diarrhea Genitourinary: Reports: Dysuria, Frequency; Denies: Incontinence, Hematuria, Retention Hematologic: Denies: Bruising, Bleeding Excessively Endocrine: Reports: Polyuria; Denies: Polydipsia, Polyphagia, Heat Intolerance Musculoskeletal: Denies: Neck Pain, Back Pain, Joint Pain, Muscle Pain, Spasms Neurological: Denies: Weakness, Numbness, Change in speech, Confusion Psych: Reports: Mood Normal; Denies: Depression, Memory Issues Physical Examination General Exam: Positive: Alert, No Acute Distress, Other (thin, cachectic) Eye Exam: Positive: PERRLA, Conjunctiva & lids normal, EOMI; Negative: Sclera icteric ENT Exam: Positive: Atraumatic, Mucous membr. moist/pink, Pharynx Normal Neck Exam: Positive: Supple; Negative: JVD, thyromegaly Chest Exam: Positive: Clear to auscultation, Normal air movement Heart Exam: Positive: Rate Normal, Regular Rhythm, Normal S1, Normal S2; Negative: Murmurs, Rubs Abdomen Exam: Positive: Normal bowel sounds, Soft, Other (scaphoid); Negative: Tenderness, Hepatospenomegaly, Mass, Hernia Extremity Exam: Positive: Normal pulses; Negative: Clubbing, Cyanosis, Edema Skin Exam: Positive: Nl turgor and temperature; Negative: Breakdown, Lesion Neuro Exam: Positive: Normal Speech, Strength at 5/5 X4 ext, Normal Tone, Cranial Nerves 3-12 NL, Reflexes 2+ Psych Exam: Positive: Mental status NL, Mood NL, Oriented x 3 Vital Signs Vital Signs Date Time Temp Pulse Resp B/P (MAP) Pulse Ox O2 Delivery O2 Flow Rate FiO2 05/15/19 16:40 98/56 (70) 05/15/19 16:00 97.1 71 18 97 Room Air Laboratory Data Labs 24H Laboratory Tests 2 05/15/19 09:37: Immature Granulocyte % (Auto) , Neutrophils (%) (Auto) , Neutrophils # (Auto) , Nucleated Red Blood Cells % (auto) 0.0, Neutrophils 92H, Band Neutrophils 4, Lymphocytes (Manual) 2L, Monocytes (Manual) 1, Basophils (Manual) 1, Anisocytosis 1+, Toxic Granulation 1+, Platelet Estimate DECREASED, Urine Color YELLOW, Urine Appearance CLOUDYH, Urine pH 6.0, Urine Specific [place] 1.015, Urine Protein 1+H, Urine Glucose (UA) 3+H, Urine Ketones TRACEH, Urine Blood NEGATIVE, Urine Nitrite NEGATIVE, Urine Bilirubin NEGATIVE, Urine Urobilinogen 0.2, Urine Leukocyte Esterase 2+H, Urine WBC (Auto) TNTCH, Urine RBC (Auto) 24H, Urine Hyaline Casts (Auto) 2, Urine Bacteria (Auto) 1+H, Urine Squamous Epithelial Cells 0, Urine Mucus (Auto) SMALL, Urine Sperm (Auto) , Lactic Acid Level 1.9, Total Bilirubin 0.5, Direct Bilirubin 0.1, Aspartate Amino Transf (AST/SGOT) 19, Alanine Aminotransferase (ALT/SGPT) 21, Alkaline Phosphatase 163H, Total Protein 6.4, Albumin 3.1L, Albumin/Globulin Ratio 0.94L, Lipase 31L 05/15/19 09:55: POC Glucose (Misc Panel) 202H, POC Sodium (Misc Panel) 133L, POC Potassium (Misc Panel) 4.5, POC Chloride (Misc Panel) 96L, POC Total CO2 (Misc Panel) 25.0, POC Blood Urea Nitrogen (Misc Panel 18, POC Ionized Calcium (Misc Panel) 4.5, POC C reatinine (Misc Panel) 0.8, POC Hematocrit (Misc Panel) 40.0 05/15/19 16:44: Bedside Glucose (Misc Panel) 124H CBC/BMP Laboratory Tests 05/15/19 09:37 Microbiology Microbiology 05/15/19 Urine Culture, Received Pending Assessment/Plan 73 yo man with a history of prostate CA, bladder CA s/p tumor resection and BCG, and recent diagnosis of pancreatic CA in 2019 s/p Whipple surgery in 12/2018 on FOLFIRINOX 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 Sepsis 2/2 ongoing UTI: Leukocytosis, tachycardia, +UA, now with borderline soft BPs -Will continue empiric ceftriaxone based on the prior micro data of enterococcus that was ceftriaxone sensitive -follow up UCx -s/p 1L NS in the ED -start NS @ 150cc/hr for 1.5L more -strict I/Os, he seems from the history he told, excessively polyuric? Pancreatic cancer: -s/p Whipple -On FOLFIRINOX with Dr. Morris, c/b neuropathy thus far manageable and plan it to continue with treatment -continue home morphine and tramadol per outpatient scripts for pain -continue home granisetron and PRN ondansetron -continue creon and cholestyramine Bladder CA: -s/p tumor resection and BCG -Follow with Dr. Little Prostate CA: -s/p TURP with enlarged prostate on imaging -being monitored Anorexia with poor nutritional status: -continue home dranabinol -consistent carb diet -continue home granisetron and PRN ondansetron to manage nausea DM: -continue home levemir, SSI, hypoglycemia protocol, FSBG AC/HS DVT ppx: SCDs and TEDs, no lovenox with mild thrombocytopenia Plan / VTE VTE Prophylaxis Ordered?: Yes SONJA FALCON MD May 15, 2019 19:17
[2019-05-15 20:00] VITALS: BP 107/57
[2019-05-15] MEDS ORDERED: LEVEMIR (INSULIN DETEMIR) 1 UNITS/0.01ML SC SCH (21:00)
[2019-05-15] MEDS ORDERED: LINZESS 290 MCG PO SCH (21:00)
[2019-05-15] MEDS: LEVEMIR (INSULIN DETEMIR) 1 UNITS/0.01ML SC SCH (21:00)
[2019-05-15] MEDS: RAMELTEON 8 MG TAB (ROZEREM) PO SCH (22:26)
[2019-05-16] MEDS: NS 1,000 ML IV SCH ×2 (01:42→08:31)
[2019-05-16 04:00] VITALS: BP 112/58
[2019-05-16] MEDS: HumaLOG INSULIN (NovoLOG) PER UNIT SC SCH ×4 (07:30→21:00)
[2019-05-16 07:40] LABS: HEMATOCRIT 29.5 % (42.0-52.0); MEAN CORPUSCULAR HEMOGLOBIN 27.9 pg (27.0-33.0); MEAN CORPUSCULAR HGB CONC 32.2 g/dl (32.0-36.5); MEAN CORPUSCULAR VOLUME 86.5 fl (80.0-96.0); RED BLOOD COUNT 3.41 10^6/uL (4.30-6.10); WHITE BLOOD COUNT 29.8 10^3/uL (4.0-10.0)
[2019-05-16 08:18] LABS: ALBUMIN 2.2 GM/DL (3.2-5.2); ALT/SGPT 17 U/L (12-78); BILIRUBIN,TOTAL 0.2 MG/DL (0.2-1.0); BLOOD UREA NITROGEN 14 MG/DL (7-18); CALCIUM LEVEL 7.3 MG/DL (8.8-10.2); CARBON DIOXIDE LEVEL 26 MEQ/L (21-32); CHLORIDE LEVEL 110 MEQ/L (98-107); CREATININE FOR GFR 0.54 MG/DL (0.70-1.30); GLOMERULAR FILTRATION RATE > 60.0 (>42); GLUCOSE, FASTING 68 MG/DL (70-100); MAGNESIUM LEVEL 2.1 MG/DL (1.8-2.4); POTASSIUM SERUM 4.1 MEQ/L (3.5-5.1); SODIUM LEVEL 140 MEQ/L (136-145); TOTAL PROTEIN 4.6 GM/DL (6.4-8.2)
[2019-05-16] MEDS: prednisoLONE ACET 1% OPHTH SUSP 5ML OS SCH ×4 (08:26→21:45)
[2019-05-16] MEDS: CREON-24 CAPSULE PO SCH ×3 (08:27→18:00)
[2019-05-16] MEDS: DOCUSATE SODIUM 100 MG CAP PO SCH ×2 (08:30→21:00)
[2019-05-16] MEDS: LEVEMIR (INSULIN DETEMIR) 1 UNITS/0.01ML SC SCH ×2 (08:30→21:45)
[2019-05-16 08:42] LABS: HEMOGLOBIN 9.5 g/dl (13.5-17.5); PLATELET COUNT, AUTOMATED 87 10^3/uL (150-450)
[2019-05-16 10:15] VITALS: BP 116/57
[2019-05-16] MEDS: cefTRIAXone SOD 2 GM in D5W MINI-BAG PLUS 50 ML IV SCH (11:26)
--- NOTE | 2019-05-16 11:54 | IPNPDOC ---
Text Note Date of Service The patient was seen on 05/16/19. NOTE Physical Examination General: Alert, No Acute Distress, cachectic, appears comfortable Eye: PERRLA, Conjunctiva & lids normal, EOMI, anicteric ENT: Atraumatic, Mucous membr. moist/pink, Pharynx Normal Neck: Supple, no JVD or thyromegaly Chest: Clear to auscultation, Normal air movement Heart: RRR, no mrg Abdomen: scaphoid, normoactive, soft, NTND Extremity: WWP, no LE edema Skin: Nl turgor and temperature, no rashes or lesions Neuro: Normal Speech, Strength at 5/5 X4 ext, Normal Tone, Cranial Nerves 3-12 NL Psych Exam: Oriented x 3 Labs: Reviewed. 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 Sepsis 2/2 ongoing UTI: Leukocytosis, tachycardia, +UA, now with borderline soft BPs -Will continue empiric ceftriaxone based on the prior micro data of enterococcus that was ceftriaxone sensitive -follow up UCx -s/p 1L NS in the ED -DC NS @ 150cc/hr as he is taking good PO -strict I/Os, he seems from the history he told, excessively polyuric? Pancreatic cancer: -s/p Whipple -On FOLFIRINOX with Dr. Morris, c/b neuropathy thus far manageable and plan it to continue with treatment -continue home morphine and tramadol per outpatient scripts for pain -continue home granisetron and PRN ondansetron -continue creon and cholestyramine Bladder CA: -s/p tumor resection and BCG -Follow with Dr. Little Prostate CA: -s/p TURP with enlarged prostate on imaging -being monitored Anorexia with poor nutritional status: -continue home dranabinol -consistent carb diet -continue home granisetron and PRN ondansetron to manage nausea DM: -continue home levemir, SSI, hypoglycemia protocol, FSBG AC/HS DVT ppx: SCDs and TEDs, no lovenox with mild thrombocytopenia VS,Fishbone, I+O VS, Fishbone, I+O Laboratory Tests 05/16/19 07:29 Vital Signs Date Time Temp Pulse Resp B/P (MAP) Pulse Ox O2 Delivery O2 Flow Rate FiO2 05/16/19 10:15 97.5 71 18 116/57 (76) 98 Room Air I&O- Last 24 Hours up to 6 AM 05/16/19 06:00 Intake Total 2380 ml Output Total 525 ml Balance 1855 ml SONJA FALCON MD May 16, 2019 11:54
[2019-05-16 14:00] VITALS: BP 116/59
[2019-05-16] MEDS: LACTULOSE 20 GM/30 ML SYRUP UD PO PRN (18:08)
[2019-05-16] MEDS: RAMELTEON 8 MG TAB (ROZEREM) PO SCH (21:45)
[2019-05-16] MEDS: ACETAMINOPHEN TAB 650MG DOSE (2X325MG) PO PRN (21:46)
[2019-05-16 22:00] VITALS: BP 119/63
[2019-05-17] MEDS ORDERED: ANUSOL HC 25MG SUPP PR PRN (01:00)
[2019-05-17] MEDS: ANUSOL HC CREAM 30GM TOP SCH ×3 (04:08→22:00)
[2019-05-17 06:00] VITALS: BP 116/65
[2019-05-17 06:17] LABS: HEMATOCRIT 29.9 % (42.0-52.0); HEMOGLOBIN 9.7 g/dl (13.5-17.5); MEAN CORPUSCULAR HGB CONC 32.4 g/dl (32.0-36.5); MEAN CORPUSCULAR VOLUME 86.4 fl (80.0-96.0); RED BLOOD COUNT 3.46 10^6/uL (4.30-6.10); WHITE BLOOD COUNT 21.5 10^3/uL (4.0-10.0)
[2019-05-17 06:18] LABS: PLATELET COUNT, AUTOMATED 65 10^3/uL (150-450)
[2019-05-17 06:42] LABS: ALBUMIN 2.4 GM/DL (3.2-5.2); ALT/SGPT 17 U/L (12-78); BILIRUBIN,TOTAL 0.4 MG/DL (0.2-1.0); BLOOD UREA NITROGEN 10 MG/DL (7-18); CARBON DIOXIDE LEVEL 28 MEQ/L (21-32); CHLORIDE LEVEL 108 MEQ/L (98-107); CREATININE FOR GFR 0.59 MG/DL (0.70-1.30); GLOMERULAR FILTRATION RATE > 60.0 (>42); GLUCOSE, FASTING 74 MG/DL (70-100); POTASSIUM SERUM 3.9 MEQ/L (3.5-5.1); SODIUM LEVEL 137 MEQ/L (136-145); TOTAL PROTEIN 5.3 GM/DL (6.4-8.2)
[2019-05-17] MEDS: HumaLOG INSULIN (NovoLOG) PER UNIT SC SCH ×4 (07:30→20:45)
[2019-05-17] MEDS: LEVEMIR (INSULIN DETEMIR) 1 UNITS/0.01ML SC SCH ×3 (08:18→21:00)
[2019-05-17] MEDS: DOCUSATE SODIUM 100 MG CAP PO SCH ×2 (08:19→20:45)
[2019-05-17] MEDS: CREON-24 CAPSULE PO SCH ×3 (08:28→18:00)
[2019-05-17] MEDS: LACTULOSE 20 GM/30 ML SYRUP UD PO PRN ×2 (08:28→21:59)
[2019-05-17] MEDS: prednisoLONE ACET 1% OPHTH SUSP 5ML OS SCH ×4 (08:28→21:58)
[2019-05-17] MEDS: cefTRIAXone SOD 2 GM in D5W MINI-BAG PLUS 50 ML IV SCH (10:46)
[2019-05-17 14:00] VITALS: BP 102/63
--- NOTE | 2019-05-17 16:27 | IPNPDOC ---
Text Note Date of Service The patient was seen on 05/17/19. NOTE Patient was seen and examined this morning. No apparent distress. Physical Examination General: Alert, No Acute Distress, cachectic, appears comfortable Eye: PERRLA, Conjunctiva & lids normal, EOMI, anicteric ENT: Atraumatic, Mucous membr. moist/pink, Pharynx Normal Neck: Supple, no JVD or thyromegaly Chest: Clear to auscultation, Normal air movement Heart: RRR, no mrg Abdomen: scaphoid, normoactive, soft, NTND Extremity: WWP, no LE edema Skin: Nl turgor and temperature, no rashes or lesions Neuro: Normal Speech, Strength at 5/5 X4 ext, Normal Tone, Cranial Nerves 3-12 NL Psych Exam: Oriented x 3 Labs: Reviewed. 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 1. Sepsis 2/2 ongoing UTI: Improving Leukocytosis, tachycardia, +UA, now with borderline soft BPs. She was started on empiric Rocephin, but it is Enterococcus faecalis and the patient has been started on Cipro now. 2. Pancreatic cancer: s/p Whipple. On FOLFIRINOX with Dr. Morris, c/b neuropathy thus far manageable and plan it to continue with treatment . continue home morphine and tramadol per outpatient scripts for pain, continue home granisetron and PRN ondansetron , continue creon and cholestyramine 3. Bladder CA: s/p tumor resection and BCG , Follow with Dr. Little 4. Anorexia with poor nutritional status: continue home dranabinol , consistent carb diet , continue home granisetron and PRN ondansetron to manage nausea 5. DM: continue home levemir, SSI, hypoglycemia protocol, FSBG AC/HS DVT ppx: SCDs and TEDs, no lovenox with mild thrombocytopenia VS,Fishbone, I+O VS, Fishbone, I+O Laboratory Tests 05/17/19 05:21 Vital Signs Date Time Temp Pulse Resp B/P (MAP) Pulse Ox O2 Delivery O2 Flow Rate FiO2 05/17/19 14:00 98.2 78 19 102/63 (76) 98 Room Air I&O- Last 24 Hours up to 6 AM 05/17/19 06:00 Intake Total 1890 ml Output Total 450 ml Balance 1440 ml ANAHY SMITH MD May 17, 2019 16:27
[2019-05-17] MEDS: CIPROFLOXACIN 500 MG TAB PO SCH (19:51)
[2019-05-17] MEDS: RAMELTEON 8 MG TAB (ROZEREM) PO SCH (21:58)
[2019-05-17] MEDS: ACETAMINOPHEN TAB 650MG DOSE (2X325MG) PO PRN (21:59)
[2019-05-17 22:00] VITALS: BP 108/58
[2019-05-18] MEDS ORDERED: SODIUM CHLORIDE NASAL 0.65% SPRAY BTL (OCEAN) PRN (05:15)
[2019-05-18 05:50] LABS: HEMATOCRIT 29.3 % (42.0-52.0); HEMOGLOBIN 9.5 g/dl (13.5-17.5); MEAN CORPUSCULAR HEMOGLOBIN 27.9 pg (27.0-33.0); MEAN CORPUSCULAR HGB CONC 32.4 g/dl (32.0-36.5); MEAN CORPUSCULAR VOLUME 85.9 fl (80.0-96.0); RED BLOOD COUNT 3.41 10^6/uL (4.30-6.10); WHITE BLOOD COUNT 7.1 10^3/uL (4.0-10.0)
[2019-05-18] MEDS: CIPROFLOXACIN 500 MG TAB PO SCH (05:56)
[2019-05-18 06:00] VITALS: BP 113/62
[2019-05-18 06:00] LABS: PLATELET COUNT, AUTOMATED 45 10^3/uL (150-450)
[2019-05-18 06:08] LABS: ALBUMIN 2.3 GM/DL (3.2-5.2); ALT/SGPT 15 U/L (12-78); BILIRUBIN,TOTAL 0.3 MG/DL (0.2-1.0); BLOOD UREA NITROGEN 9 MG/DL (7-18); CALCIUM LEVEL 8.1 MG/DL (8.8-10.2); CARBON DIOXIDE LEVEL 26 MEQ/L (21-32); CHLORIDE LEVEL 107 MEQ/L (98-107); CREATININE FOR GFR 0.54 MG/DL (0.70-1.30); GLOMERULAR FILTRATION RATE > 60.0 (>42); GLUCOSE, FASTING 120 MG/DL (70-100); POTASSIUM SERUM 4.1 MEQ/L (3.5-5.1); SODIUM LEVEL 136 MEQ/L (136-145); TOTAL PROTEIN 5.4 GM/DL (6.4-8.2)
[2019-05-18] MEDS: HumaLOG INSULIN (NovoLOG) PER UNIT SC SCH ×2 (07:30→12:00)
[2019-05-18] MEDS: DOCUSATE SODIUM 100 MG CAP PO SCH (07:32)
[2019-05-18] MEDS: LEVEMIR (INSULIN DETEMIR) 1 UNITS/0.01ML SC SCH (07:32)
[2019-05-18] MEDS: CREON-24 CAPSULE PO SCH ×2 (08:45→12:14)
[2019-05-18] MEDS: prednisoLONE ACET 1% OPHTH SUSP 5ML OS SCH ×2 (08:46→12:14)
[2019-05-18] MEDS: ANUSOL HC CREAM 30GM TOP SCH (08:48)
[2019-05-18] MEDS: LACTULOSE 20 GM/30 ML SYRUP UD PO PRN (08:50)
[2019-05-18] MEDS ORDERED: CIPR-249 PO (10:58)
--- NOTE | 2019-05-18 11:00 | DS.PDOC ---
Discharge Summary General Date of Admission May 15, 2019 at 12:07 Date of Discharge 05/18/19 Discharge Summary Chief Complaint The patient is a 73-year-old male admitted with Uti. 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 He was admitted for sepsis 2/2 UTI with softening BP and tachycardia in the setting of the ongoing UTI.For his sepsis 2/2 ongoing UTI. Initially he had Leukocytosis, tachycardia, +UA, now with borderline soft BPs. He was started on empiric Rocephin, but it is Enterococcus faecalis and the patient was switched to Cipro. And he will require for the next 5 days, Cipro 500 twice a day. His sepsis has resolved and UTIs getting better. For his Pancreatic cancer: s/p Whipple. On FOLFIRINOX with Dr. Morris, c/b neuropathy thus far manageable and plan it to continue with treatment . continue home morphine and tramadol per outpatient scripts for pain, continue home granisetron and PRN ondansetron , continue creon and cholestyramine. For his diabetes. He will be continued on his home medications. He is clinically optimized for discharge and will be required to follow-up with PCP and oncology as outpatient Physical Examination General: Alert, No Acute Distress, cachectic, appears comfortable Eye: PERRLA, Conjunctiva & lids normal, EOMI, anicteric ENT: Atraumatic, Mucous membr. moist/pink, Pharynx Normal Neck: Supple, no JVD or thyromegaly Chest: Clear to auscultation, Normal air movement Heart: RRR, no mrg Abdomen: scaphoid, normoactive, soft, NTND Extremity: WWP, no LE edema Skin: Nl turgor and temperature, no rashes or lesions Neuro: Normal Speech, Strength at 5/5 X4 ext, Normal Tone, Cranial Nerves 3-12 NL Psych Exam: Oriented x 3 Medications. As per discharge reconciliation medication list Activity as tolerated Diet. 2 g sodium diet Follow-up appointments. PCP in 1 week, oncology in 1 week Condition on discharge. Patient is medically optimized for discharge Discharge disposition: Home Total time spent on this discharge including coordination of care, review of ch art documentation and actual contact is around 35 minutes Vital Signs/I&Os Vital Signs Date Time Temp Pulse Resp B/P (MAP) Pulse Ox O2 Delivery O2 Flow Rate FiO2 05/18/19 06:00 98.1 65 18 113/62 (79) 99 Room Air I&O- Last 24 Hours up to 6 AM 05/18/19 05:59 Intake Total 1990 ml Output Total 1625 ml Balance 365 ml Laboratory Data Labs 24H Laboratory Tests 2 05/17/19 11:19: Bedside Glucose (Misc Panel) 174H 05/17/19 16:29: Bedside Glucose (Misc Panel) 161H 05/17/19 19:56: Bedside Glucose (Misc Panel) 131H 05/18/19 05:25: Nucleated Red Blood Cells % (auto) 0.0, Immature Platelet Fraction 4.5, Anion Gap 3L, Glomerular Filtration Rate > 60.0, Calcium Level 8.1L, Total Bilirubin 0.3, Aspartate Amino Transf (AST/SGOT) 18, Alanine Aminotransferase (ALT/SGPT) 15, Alkaline Phosphatase 132H, Total Protein 5.4L, Albumin 2.3L, Albumin/Globulin Ratio 0.74L CBC/BMP Laboratory Tests 05/18/19 05:25 FSBS Laboratory Tests Test 05/17/19 11:19 05/17/19 16:29 05/17/19 19:56 Range/Units Bedside Glucose (Misc Panel) 174 161 131 83-110 MG/DL Microbiology Microbiology 05/15/19 Urine Culture - Final, Complete Enterococcus Faecalis Discharge Medications Scheduled Ciprofloxacin HCl (Cipro) 500 Mg Tablet, 500 MG PO BID@ Insulin Aspart (Novolog Flexpen) 100 Unit/1 Ml Insuln.pen, 1 DOSE SC AC, (Reported) PER SLIDING SCALE Insulin Glargine (Lantus) 1 Units/0.01 Ml Susp, 20 UNITS SC BID, (Reported) Lactulose (Lactulose) 10 Gm/15 Ml Solution, 30 ML PO TID for constipation Take 30 ml po q.i.d. prn constipation Linaclotide (Linzess) 290 Mcg Capsule, 290 MCG PO QHS, (Reported) Lipase/Protease/Amylase (Creon Dr 36,000 Units Capsule) 1 Each Capsule.dr, 1 CAP PO AC, (Reported) Prednisolone Acetate (Prednisolone Acetate 1% Opth Susp) 5 Ml Drops.susp, 1 DROP OS QID, (Reported) Scheduled PRN Acetaminophen/Diphenhydramine (Acetaminophen Pm Caplet) 1 Each Tablet, 2 CAP PO QHS PRN for SLEEP, (Reported) Alternates with Zzzquil for sleep Betamethasone/Propylene Glyc (Betamethasone Dp Aug 0.05% Crm) 15 Gm Cream..g., 1 APLCT TOP TID PRN for perirectal area discomfort, (Reported) Cholestyramine (Cholestyramine Packet) 4 Gm Powd.pack, 4 GM PO TIDP PRN for DIARRHEA Take 1 packet in liquid as directed T.I.D. prn diarrhea Diphenhydramine HCl (Zzzquil) 50 Mg/30 Ml Liquid, 25 MG PO QHS PRN for SLEEP, (Reported) Alternates with tylenol PM for sleep Dronabinol (Dronabinol) 5 Mg Capsule, 5 MG PO BIDP PRN for anorexia Take 5 mg po B.I.D. as appetite stimulant Granisetron HCl (Granisetron HCl) 1 Mg Tablet, 1 TAB PO DAILY PRN for NAUSEA take 1 tablet po daily x 2 days after each chemotherapy infusion started, then daily prn Lidocaine HCl (Lidocaine HCl Viscous) 100 Ml Solution, 5 ML SSP Q3-4HP PRN for pain apply using gauze or cotton tip swab to painful hemorroids q 4 hours prn pain Morphine Sulfate (Morphine Sulfate) 10 Mg/5 Ml Solution, 5 MG PO Q4H PRN for PAIN Ondansetron (Ondansetron Odt) 4 Mg Tab.rapdis, 4 MG PO Q6-8HP PRN for nausea/vomiting Take 4 mg po q 6 hours prn nausea Tramadol HCl (Tramadol HCl) 50 Mg Tablet, 50 MG PO Q6H PRN for PAIN, (Reported) Allergies Coded Allergies: No Known Drug Allergies (Verified Allergy, Unknown, 11/07/18) ANAHY SMITH MD May 18, 2019 11:00
[2019-05-18] MEDS ORDERED: MIRALAX *UNIT DOSE* 17GM PACKET PO ONE (12:00)
[2019-05-18] MEDS ORDERED: SENNA 8.6 MG TAB (SENOKOT) PO ONE (13:00)
== END 2019-05-18 13:13 | disposition home or self-care (01) | DRG 872 ==
LOC: M ED 08:53 → M ED INP 12:07 → ENRESERVTM 05-16 09:39 → ENRESERVDT 05-16 09:39 → M MSPAV 05-16 10:16
PROVIDERS: ADMIT Internal Medicine; ATTEND Internal Medicine
DX: A41.9 Sepsis, unspecified organism (principal); N39.0 Urinary tract infection, site not specified; Z68.1 Body mass index [BMI] 19.9 or less, adult; C25.9 Malignant neoplasm of pancreas, unspecified; E11.40 Type 2 diabetes mellitus with diabetic neuropathy, unspecified; Z85.51 Personal history of malignant neoplasm of bladder; Z85.46 Personal history of malignant neoplasm of prostate; B97.19 Other enterovirus as the cause of diseases classified elsewhere; Z79.4 Long term (current) use of insulin; Z79.899 Other long term (current) drug therapy; R63.0 Anorexia

== ENCOUNTER 2019-06-05 12:35 | Inpatient (IN) | payer MEDICARE, BC, OTHER ==
[~2019-06-05] VITALS: Ht 177.8 cm; Wt 56.9 kg
[~2019-06-05 12:35] MED LIST changes: +AUGM0.05 TOP; +PREDOPD OS; +ZZZQ50LI PO
[2019-06-05 13:20] LABS: HEMOGLOBIN 12.2 g/dl (13.5-17.5); MEAN CORPUSCULAR HEMOGLOBIN 28.4 pg (27.0-33.0); MEAN CORPUSCULAR HGB CONC 32.1 g/dl (32.0-36.5); MEAN CORPUSCULAR VOLUME 88.6 fl (80.0-96.0); RED BLOOD COUNT 4.29 10^6/uL (4.30-6.10); WHITE BLOOD COUNT 4.5 10^3/uL (4.0-10.0)
[2019-06-05 13:36] LABS: BLOOD UREA NITROGEN 12 MG/DL (7-18); CALCIUM LEVEL 8.2 MG/DL (8.8-10.2); CARBON DIOXIDE LEVEL 26 MEQ/L (21-32); CHLORIDE LEVEL 103 MEQ/L (98-107); CREATININE FOR GFR 0.81 MG/DL (0.70-1.30); GLOMERULAR FILTRATION RATE > 60.0 (>42); GLUCOSE, FASTING 137 MG/DL (70-100); POTASSIUM SERUM 3.4 MEQ/L (3.5-5.1); SODIUM LEVEL 137 MEQ/L (136-145)
[2019-06-05 13:58] LABS: ATYPICAL LYMPH 1 % (0-5); DOHLE BODIES 1+; EOSINOPHILS 2 % (0-3); LYMPHOCYTES 39 % (16-44); MONOCYTES 13 % (0-5); NEUTROPHILS 38 % (28-66); PLATELET ESTIMATE INVALID (NORMAL)
[2019-06-05] MEDS ORDERED: MORPHINE 4 MG/ML 1ML VIAL/SYRINGE (J2270) IV ONE (14:00)
[2019-06-05] MEDS ORDERED: NS 1,000 ML IV ONE (14:00)
[2019-06-05 14:18] LABS: ALT/SGPT 14 U/L (12-78); BILIRUBIN,DIRECT 0.1 MG/DL (0.0-0.2); BILIRUBIN,TOTAL 0.4 MG/DL (0.2-1.0); CK-MB VALUE MASS < 1.0 NG/ML (<3.6); CPK CREATINE PHOSPHOKINASE 17 U/L (39-308); LIPASE 29 U/L (73-393); MB/CK RELATIVE INDEX 5.88 (< OR =4); TOTAL PROTEIN 6.4 GM/DL (6.4-8.2); TROPONIN I < 0.02 NG/ML (< 0.10)
[2019-06-05] MEDS ORDERED: ISOVUE-370 76% 100ML VIAL (Q9967) As Ordered ONE (14:20)
--- NOTE | 2019-06-05 17:29 | ECGEPIP ---
[facility] - ED Test Date: 2019-06-05 Pat Name: FABI DECKER Department: Room: - Gender: Male Tile Ditcher: ef : 1945 Requested By: ZION Arita Order Number: [id number] Reading MD: Bright Mejia Measurements Intervals [place] Rate: 97 P: 78 CT: 156 QRS: 85 QRSD: 126 T: 40 QT: 350 QTc: 445 Interpretive Statements SINUS RHYTHM MODERATE INTRAVENTRICULAR CONDUCTION DELAY Nonspecific ST-T wave abnormalities Electronically Signed on 06-05-2019 17:29:36 EDT by Bright Mejia
[2019-06-05] MEDS ORDERED: COMMENTS (17:43)
[2019-06-05] MEDS ORDERED: GLUCAGON FOR INJ 1 MG VIAL (J1610) SC PRN (17:45)
[2019-06-05] MEDS ORDERED: GLUCOSE 4 GM CHEW TABLET PO PRN (17:45)
[2019-06-05] MEDS ORDERED: MAGIC MOUTHWASH SUSPENSION BTL SS PRN (17:45)
[2019-06-05] MEDS ORDERED: traMADol 50 MG TAB PO PRN (18:15)
[2019-06-05] MEDS ORDERED: DRONABINOL 2.5 MG CAP (MARINOL) PO PRN (18:15)
[2019-06-05] MEDS ORDERED: MORPHINE SULFATE ORAL SOLN 10 MG/5 ML UD PO PRN (18:15)
[2019-06-05] MEDS: HumaLOG INSULIN (NovoLOG) PER UNIT SC SCH ×2 (19:07→19:52)
[2019-06-05] MEDS: LEVEMIR (INSULIN DETEMIR) 1 UNITS/0.01ML SC SCH (19:53)
[2019-06-05 20:00] VITALS: BP 128/68
--- NOTE | 2019-06-05 20:02 | HPE ---
DATE OF ADMISSION: 06/05/2019 TIME: 5:00 p.m. CHIEF COMPLAINT: Diarrhea for the last 2 days, which has been persistent. HISTORY OF PRESENT ILLNESS: Mr. Monahan is a 74-year-old gentleman who has a history of prostate cancer, bladder cancer and is status post tumor resection and BCG. He was diagnosed with pancreatic cancer in 2018 and underwent a Whipple in December 2018 and is currently followed by Dr. Morris. He is currently on FOLFIRINOX, complicated by neuropathy secondary to oxaliplatin. He also has concomitant medical conditions that include diabetes, hypertension, hyperlipidemia. He was hospitalized here approximately 2 to 3 weeks ago for urinary tract infection (UTI). At that time, he was discharged home on Cipro. The patient had completed his full course of antibiotics. Over the past few days, he has developed increasing weakness, as well as persistent diarrhea, which brought him to the emergency room to be evaluated. Prior to coming to the emergency room, the patient did take some Imodium. A CT of the abdomen and pelvis was done in the emergency department. I am unable to view the radiologic report as it is not available, but in talking to the emergency room provider, it only shows ileus, no evidence of colitis. Due to the patient receiving chemotherapy 2 weeks ago and receiving antibiotic, there is concern for possible Clostridium (C.) difficile, but he has not had any diarrhea since being in the emergency department. His preliminary laboratories showed no evidence of sepsis. He is going to be admitted to an observation status for further treatment and evaluation. ALLERGIES: No known drug allergies. CURRENT HOME MEDICATIONS: - Lantus 20 units twice a day - NovoLog sliding scale - Linzess 290 mcg at bedtime - Creon one capsule with meals - prednisolone eye drops one drop four times a day - Tylenol PM one capsule at bedtime for sleep - betamethasone cream applied topically every 8 hours as needed for perirectal area - cholestyramine 4 grams by mouth three t imes a day as needed for diarrhea - diphenhydramine 25 mg as needed for sleep - dronabinol 5 mg twice a day as needed for anorexia - Gaviscon one tablet by mouth daily as needed for nausea - lidocaine applied with cotton tipped swab to painful hemorrhoids every 4 hours as needed for pain - morphine sulfate 5 mg by mouth every 4 hours as needed for pain - Zofran 4 mg every 6 to 8 hours as needed for nausea and vomiting - tramadol 50 mg every 6 hours as needed for pain PAST MEDICAL HISTORY: Includes prostate cancer, bladder cancer, status post tumor resection and BCG, pancreatic cancer, status post Whipple, he is currently on chemotherapy, he has had four sessions, the last session was 2 weeks ago. He has a history of insulin-dependent diabetes, hypertension, hyperlipidemia. He has a history of Enterococcus urinary tract infection (UTI). PAST SURGICAL HISTORY: Notable for tonsillectomy, cataract surgery, Whipple, bladder tumor resection, transurethral resection of prostate (TURP), lithotripsy, colonoscopy, cholecystectomy. SOCIAL HISTORY: The patient resides with his girlfriend. He states that his girlfriend is his surrogate medical decision maker. He is a [employer]. He does not use tobacco, alcohol or illicit drugs. FAMILY HISTORY: Notable for heart disease in both of his parents. REVIEW OF SYSTEMS: 12 system reviewed with the patient, otherwise negative. He is experiencing a hemorrhoid flare at this time and is having some blood in his stool, bright red blood, but nothing quite severe. He is not experiencing any fevers or chills. He did have some abdominal crampy pain but that has resolved after receiving IV morphine in the emergency department. The remainder of the systems reviewed with the patient are otherwise negative. PERTINENT LABORATORIES: White count 4.5, hemoglobin 11.2, hematocrit 38, platelet count not reported as the patient has platelet clumping. Sodium is 137, potassium 3.4, chloride 103, bicarbonate 26, anion gap 8, BUN 12, creatinine 0.8, glucose 137, lactic acid 2.3, bilirubin 0.4, AST 11, ALT 14, alkaline phosphatase 138, troponin is less than 0.02, albumin 3.0, lipase 29. IMAGING: CT of the abdomen and pelvis showed ileus. IMPRESSION: 1. Diarrhea, rule out Clostridium (C.) difficile colitis secondary to recent antibiotic use. 2. Pancreatic cancer with ongoing chemotherapy. 3. Hypokalemia. 4. Insulin-dependent diabetes mellitus type 2. PLAN: The patient will be admitted to observation status. He will be hydrated with intravenous fluids. We will obtain GI panel, as well as ova and parasites and check microsporidia as well. We will hold off on giving antibiotics until infection is confirmed, but at this point in time he is not having any diarrhea after taking some Imodium. Hold the Imodium for now. His potassium will be supplemented. He will be placed on a diabetic diet. He will continue on his medications from home. ALYSE
[2019-06-05] MEDS ORDERED: ENOXAPARIN 40 MG/0.4 ML SYRINGE (J1650) SC SCH (21:00)
[2019-06-05] MEDS: LR 1,000 ML IV SCH (21:37)
[2019-06-05] MEDS: diphenhydrAMINE 25 MG CAP PO PRN (21:37)
[2019-06-05] MEDS ORDERED: PREPARATION H OINTMENT (HEMORRHOID) TOP PRN (22:30)
[2019-06-06] MEDS: prednisoLONE ACET 1% OPHTH SUSP 5ML OS SCH ×5 (00:29→20:25)
[2019-06-06] MEDS: LR 1,000 ML IV SCH (05:43)
[2019-06-06 06:00] VITALS: BP 116/62
[2019-06-06 07:28] LABS: HEMATOCRIT 27.9 % (42.0-52.0); MEAN CORPUSCULAR HEMOGLOBIN 28.4 pg (27.0-33.0); MEAN CORPUSCULAR HGB CONC 31.9 g/dl (32.0-36.5); MEAN CORPUSCULAR VOLUME 89.1 fl (80.0-96.0); RED BLOOD COUNT 3.13 10^6/uL (4.30-6.10); WHITE BLOOD COUNT 6.6 10^3/uL (4.0-10.0)
[2019-06-06] MEDS: HumaLOG INSULIN (NovoLOG) PER UNIT SC SCH ×4 (07:30→20:24)
[2019-06-06 07:52] LABS: ALBUMIN 2.1 GM/DL (3.2-5.2); ALT/SGPT 11 U/L (12-78); BILIRUBIN,TOTAL 0.2 MG/DL (0.2-1.0); BLOOD UREA NITROGEN 10 MG/DL (7-18); CARBON DIOXIDE LEVEL 28 MEQ/L (21-32); CHLORIDE LEVEL 107 MEQ/L (98-107); CREATININE FOR GFR 0.65 MG/DL (0.70-1.30); GLOMERULAR FILTRATION RATE > 60.0 (>42); GLUCOSE, FASTING 65 MG/DL (70-100); POTASSIUM SERUM 4.2 MEQ/L (3.5-5.1); SODIUM LEVEL 139 MEQ/L (136-145); TOTAL PROTEIN 4.9 GM/DL (6.4-8.2)
[2019-06-06 08:05] LABS: HEMOGLOBIN 8.9 g/dl (13.5-17.5); PLATELET COUNT, AUTOMATED 68 10^3/uL (150-450)
[2019-06-06] MEDS: LEVEMIR (INSULIN DETEMIR) 1 UNITS/0.01ML SC SCH (09:00)
[2019-06-06] MEDS ORDERED: LACT10SO29 PO (09:45)
[2019-06-06] MEDS ORDERED: MAGICMW SS (09:45)
--- NOTE | 2019-06-06 09:50 | IPNPDOC ---
Subjective Date Seen The patient was seen on 06/06/19. Subjective Chief Complaint/HPI No diarrhea since arriving in the hospital. Feels better after hydration Objective Physical Examination General Exam: Positive: Alert, Cooperative, No Acute Distress Eye Exam: Positive: Conjunctiva & lids normal; Negative: Sclera icteric ENT Exam: Positive: Atraumatic, Mucous membr. moist/pink (no thrush) Neck Exam: Positive: Supple Chest Exam: Positive: Clear to auscultation Heart Exam: Positive: Rate Normal, Normal S1, Normal S2; Negative: Murmurs Abdomen Exam: Positive: Normal bowel sounds Extremity Exam: Negative: Clubbing, Cyanosis, Edema Skin Exam: Positive: Nl turgor and temperature; Negative: Rash Neuro Exam: Positive: Normal Speech Psych Exam: Positive: Mental status NL Assessment /Plan Assessment # Diarrhea due likely to lactulose therapy - gi panel negative - reduce lactulose to 10 ml daily prn - home today # Hypokalemia - resolved # Bicytopenia due to chemotherapy # Stage 3 pancreatic cancer - f/u with Dr. Morris on Friday for repeat labs Plan/VTE VTE Prophylaxis Ordered?: No VTE Exclusion Mechanical Proph: N/A:VTE Prophy Ordered VTE Exclusion Pharmacological: N/A:VTE Prophy Ordered VS, I&O, 24H, Fishbone Vital Signs/I&O Vital Signs Date Time Temp Pulse Resp B/P (MAP) Pulse Ox O2 Delivery O2 Flow Rate FiO2 06/06/19 06:00 97.8 70 17 116/62 (80) 100 Room Air I&O- Last 24 Hours up to 6 AM 06/06/19 06:00 Intake Total 1480 ml Output Total 25 ml Balance 1455 ml Laboratory Data 24H LABS Laboratory Tests 2 06/05/19 13:08: Neutrophils (%) (Auto) , Nucleated Red Blood Cells % (auto) 0.7H, Neutrophils 38, Band Neutrophils 7, Lymphocytes (Manual) 39, Monocytes (Manual) 13H, Eosinophils (Manual) 2, Atypical Lymphocytes 1, Dohle Bodies 1+, Platelet Estimate INVALID, Anion Gap 8, Glomerular Filtration Rate > 60.0, Calcium Level 8.2L, Total Bilirubin 0.4, Direct Bilirubin 0.1, Aspartate Amino Transf (AST/SGOT) 11, Alanine Aminotransferase (ALT/SGPT) 14, Alkaline Phosphatase 138H, Total Creatine Kinase 17L, Creatine Kinase MB < 1.0, Creatine Kinase MB Relative Index 5.88H, Troponin I < 0.02, Total Protein 6.4, Albumin 3.0L, Albumin/Globulin Ratio 0.88L, Lipase 29L, Thyroid Stimulating Hormone (TSH) 2.750 06/05/19 14:30: Lactic Acid Level 2.3*H 06/05/19 19:00: Bedside Glucose (Misc Panel) 84 06/05/19 19:29: Urine Color YELLOW, Urine Appearance CLEAR, Urine pH 5.0, Urine Specific [place] >1.060H, Urine Protein NEGATIVE, Urine Glucose (UA) 1+H, Urine Ketones TRACEH, Urine Blood NEGATIVE, Urine Nitrite NEGATIVE, Urine Bilirubin NEGATIVE, Urine Urobilinogen 0.2, Urine Leukocyte Esterase NEGATIVE, Urine WBC (Auto) 1, Urine RBC (Auto) 0, Urine Hyaline Casts (Auto) 0, Urine Bacteria (Auto) NEGATIVE, U rine Squamous Epithelial Cells 0, Urine Mucus (Auto) SMALL, Urine Sperm (Auto) 06/05/19 19:51: Bedside Glucose (Misc Panel) 80L 06/05/19 20:42: Lactic Acid Followup at 4 Hours 1.7 06/06/19 07:11: Nucleated Red Blood Cells % (auto) 0.3H, Immature Platelet Fraction 3.0, Anion Gap 4L, Glomerular Filtration Rate > 60.0, Calcium Level 8.0L, Total Bilirubin 0.2, Aspartate Amino Transf (AST/SGOT) 9, Alanine Aminotransferase (ALT/SGPT) 11L, Alkaline Phosphatase 95, Total Protein 4.9#L, Albumin 2.1#L, Albumin/Globulin Ratio 0.75L CBC/BMP Laboratory Tests 06/05/19 13:08 06/06/19 07:11 Microbiology Microbiology 06/05/19 Gastrointestinal Tract Panel (PCR) - Final, Complete 06/05/19 Blood Culture, Received Pending 06/05/19 Blood Culture, Received Pending CHULA WEATHERS MD Jun 06, 2019 09:50
--- NOTE | 2019-06-06 10:39 | REP ---
REASON: Abdominal pain. COMPARISON: Multiple, the latest 05/08/2018. CONTRAST: 100 mL Isovue-370. There is no change in the lung bases. There is extensive pneumobilia, status quo. The spleen, pancreas, adrenal glands, and kidneys are unchanged. The abnormal bowel wall thickening and edema seen in the epigastrium has resolved. The bowel loops and their mesenteries are within normal limits. There is a large amount of fluid-like content in the colon. There is no free fluid or free air. The abdominal aorta and para-aortic regions are unchanged. There are a few nonenlarged scattered stable appearing mesenteric lymph nodes. There is an incidental unchanged right renal cyst. CT pelvis: Scattered air-fluid levels are seen in pelvic small bowel loops. There is gas and fluid in the rectosigmoid region. There is no evidence of intestinal obstruction. There is no free fluid or free air. There is no evidence of a pelvic mass. The prostate gland appears full sized but unchanged. Bone window technique throughout the exam shows the osseous structures to be unchanged. IMPRESSION: 1. Extensive but unchanged pneumobilia. 2. Probable ileus without evidence of intestinal obstruction, free fluid, or free air. 3. Simple unchanged right renal cyst. 4. Other findings, as described above. Electronically Signed by Royce Kimball DO 06/06/2019 10:53 A
[2019-06-06] MEDS: DEXTROSE 50% 50 ML SYRINGE IV PRN ×2 (12:58→16:39)
[2019-06-06 14:00] VITALS: BP 140/65
[2019-06-06] MEDS: ONDANSETRON 4 MG ORAL DISINTEGRATING TAB (Q0162 PER 1MG) PO PRN (16:36)
[2019-06-06] MEDS: D5W 1,000 ML IV SCH (16:43)
[2019-06-06] MEDS ORDERED: ONDANSETRON 4MG/2ML VIAL (J2405) IV PRN (19:00)
[2019-06-06] MEDS: MORPHINE 2 MG/ML 1ML VIAL (J2270) IV PRN (20:23)
[2019-06-06 22:00] VITALS: BP 143/68
[2019-06-07] MEDS: diphenhydrAMINE 25 MG CAP PO PRN ×2 (01:10→21:56)
[2019-06-07] MEDS: MORPHINE 2 MG/ML 1ML VIAL (J2270) IV PRN ×2 (04:42→21:58)
[2019-06-07] MEDS: D5W 1,000 ML IV SCH (04:43)
[2019-06-07 06:00] VITALS: BP 128/65
[2019-06-07 07:04] LABS: HEMATOCRIT 28.9 % (42.0-52.0); HEMOGLOBIN 9.3 g/dl (13.5-17.5); MEAN CORPUSCULAR HEMOGLOBIN 28.8 pg (27.0-33.0); MEAN CORPUSCULAR HGB CONC 32.2 g/dl (32.0-36.5); MEAN CORPUSCULAR VOLUME 89.5 fl (80.0-96.0); RED BLOOD COUNT 3.23 10^6/uL (4.30-6.10); WHITE BLOOD COUNT 10.9 10^3/uL (4.0-10.0)
[2019-06-07 07:09] LABS: PLATELET COUNT, AUTOMATED 81 10^3/uL (150-450)
[2019-06-07 07:29] LABS: EOSINOPHILS 2 % (0-3); LYMPHOCYTES 19 % (16-44); MONOCYTES 5 % (0-5); NEUTROPHILS 73 % (28-66)
[2019-06-07 07:30] LABS: ANISOCYTOSIS 2+; PLATELET ESTIMATE DECREASED (NORMAL); POIKILOCYTOSIS 1+
[2019-06-07] MEDS: HumaLOG INSULIN (NovoLOG) PER UNIT SC SCH ×4 (07:30→21:00)
[2019-06-07 07:32] LABS: BLOOD UREA NITROGEN 7 MG/DL (7-18); CALCIUM LEVEL 7.6 MG/DL (8.8-10.2); CARBON DIOXIDE LEVEL 26 MEQ/L (21-32); CHLORIDE LEVEL 104 MEQ/L (98-107); CREATININE FOR GFR 0.67 MG/DL (0.70-1.30); GLOMERULAR FILTRATION RATE > 60.0 (>42); GLUCOSE, FASTING 134 MG/DL (70-100); POTASSIUM SERUM 3.1 MEQ/L (3.5-5.1); SODIUM LEVEL 136 MEQ/L (136-145)
[2019-06-07] MEDS ORDERED: POTASSIUM CHLORIDE 10 MEQ SR TABLET PO ONE (08:00)
[2019-06-07] MEDS: CREON-12 CAPSULE PO SCH ×3 (08:00→16:55)
[2019-06-07] MEDS: prednisoLONE ACET 1% OPHTH SUSP 5ML OS SCH ×4 (08:05→21:07)
[2019-06-07] MEDS ORDERED: CHOLESTYRAMINE 4 GM PWD PKT PO PRN (09:00)
[2019-06-07] MEDS: LR 1,000 ML IV SCH ×2 (09:57→18:03)
[2019-06-07 14:00] VITALS: BP 124/72
--- NOTE | 2019-06-07 15:49 | IPNPDOC ---
Subjective Date Seen The patient was seen on 06/07/19. Subjective Chief Complaint/HPI Hypoglycemic yesterday, that has resolved with D5W infusion. BG levels are holding up since dextrose discontinued this morning. C/o diarrhea x 3 episodes this morning with lower abdominal cramping, and feeling weak, concerned about going home. Objective Physical Examination General Exam: Positive: No Acute Distress Eye Exam: Positive: Conjunctiva & lids normal; Negative: Sclera icteric ENT Exam: Positive: Pharynx Normal Neck Exam: Positive: Supple Chest Exam: Positive: Clear to auscultation Heart Exam: Positive: Rate Normal, Normal S1, Normal S2; Negative: Murmurs Abdomen Exam: Positive: Normal bowel sounds; Negative: Tenderness Extremity Exam: Negative: Clubbing, Cyanosis, Edema Skin Exam: Positive: Nl turgor and temperature; Negative: Rash Neuro Exam: Positive: Normal Speech Psych Exam: Positive: Mental status NL Assessment /Plan Assessment # Diarrhea due likely due to lactulose therapy and malabsorption associated with pancreatic ca - gi panel negative - reduce lactulose to 10 ml daily prn - resume creon + cholestyramine - Updated Dr. Morris, will hold off on upcoming chemo cycle, until he's stronger - Ova + Para still pending - change to inpatient - discharge held yesterday due to hypoglycemia, discharge summary is dictated and will need addendum at discharge # IDDM2 with hypoglycemia - did not receive levemir Friday night, suspect it's lower due to malnutrition - insulin stopped due to hypoglycemia - stop dextrose fluids and observe # Severe protein calorie malnutrition - Ensure shakes with meals # Hypokalemia - oral K today # Bicytopenia due to chemotherapy # Stage 3 pancreatic cancer - f/u with Dr. Morris as outpatient - labs this morning are higher - mild leukocytosis will monitor Plan/VTE VTE Prophylaxis Ordered?: No VTE Exclusion Mechanical Proph: N/A:VTE Prophy Ordered VTE Exclusion Pharmacological: N/A:VTE Prophy Ordered VS, I&O, 24H, Fishbone Vital Signs/I&O Vital Signs Date Time Temp Pulse Resp B/P (MAP) Pulse Ox O2 Delivery O2 Flow Rate FiO2 06/07/19 14:00 98.2 68 18 124/72 (89) 99 Room Air I&O- Last 24 Hours up to 6 AM 06/07/19 05:59 Intake Total 2270 ml Output Total 525 ml Balance 1745 ml Laboratory Data 24H LABS Laboratory Tests 2 06/06/19 16:17: Bedside Glucose (Misc Panel) 63L 06/06/19 18:17: Bedside Glucose (Misc Panel) 128H 06/06/19 19:51: Bedside Glucose (Misc Panel) 110 06/07/19 04:25: 06/07/19 04:50: Bedside Glucose (Misc Panel) 128H 06/07/19 05:57: Immature Granulocyte % (Auto) , Neutrophils (%) (Auto) , Nucleated Red Blood Cells % (auto) 0.3H, Neutrophils 73H, Band Neutrophils 1, Lymphocytes (Manual) 19, Monocytes (Manual) 5, Eosinophils (Manual) 2, Poikilocytosis 1+, Anisocytosis 2+, Platelet Estimate DECREASED, Anion Gap 6L, Glomerular Filtration Rate > 60.0, Calcium Level 7.6L 06/07/19 11:40: Bedside Glucose (Misc Panel) 123H CBC/BMP Laboratory Tests 06/07/19 05:57 Microbiology Microbiology 06/05/19 Gastrointestinal Tract Panel (PCR) - Final, Complete 06/05/19 Blood Culture - Preliminary, Resulted No Growth after 48 hours. All Specime... 06/05/19 Blood Culture - Preliminary, Resulted No Growth after 48 hours. All Specime... CHULA WEATHERS MD Jun 07, 2019 15:26
[2019-06-07] MEDS: ONDANSETRON 4 MG ORAL DISINTEGRATING TAB (Q0162 PER 1MG) PO PRN (16:55)
[2019-06-07 22:00] VITALS: BP 126/63
[2019-06-08] MEDS: LR 1,000 ML IV SCH (03:14)
[2019-06-08 06:00] VITALS: BP 121/61
[2019-06-08 06:55] LABS: HEMATOCRIT 28.4 % (42.0-52.0); HEMOGLOBIN 9.2 g/dl (13.5-17.5); MEAN CORPUSCULAR HEMOGLOBIN 28.8 pg (27.0-33.0); MEAN CORPUSCULAR HGB CONC 32.4 g/dl (32.0-36.5); RED BLOOD COUNT 3.19 10^6/uL (4.30-6.10)
[2019-06-08 06:56] LABS: PLATELET COUNT, AUTOMATED 78 10^3/uL (150-450)
[2019-06-08 07:03] LABS: BASOPHILS 1 % (0-1); EOSINOPHILS 3 % (0-3); LYMPHOCYTES 18 % (16-44); MONOCYTES 6 % (0-5); MYELOCYTES 3 % (0-0); NEUTROPHILS 69 % (28-66)
[2019-06-08 07:04] LABS: PLATELET ESTIMATE DECREASED (NORMAL); POLYCHROMASIA 1+
[2019-06-08 07:05] LABS: ANISOCYTOSIS 2+; POIKILOCYTOSIS 1+
[2019-06-08 07:21] LABS: BLOOD UREA NITROGEN 2 MG/DL (7-18); CALCIUM LEVEL 7.7 MG/DL (8.8-10.2); CARBON DIOXIDE LEVEL 28 MEQ/L (21-32); CHLORIDE LEVEL 108 MEQ/L (98-107); CREATININE FOR GFR 0.56 MG/DL (0.70-1.30); GLOMERULAR FILTRATION RATE > 60.0 (>42); GLUCOSE, FASTING 100 MG/DL (70-100); POTASSIUM SERUM 3.9 MEQ/L (3.5-5.1); SODIUM LEVEL 141 MEQ/L (136-145)
[2019-06-08] MEDS: HumaLOG INSULIN (NovoLOG) PER UNIT SC SCH ×4 (07:30→21:00)
[2019-06-08] MEDS: CREON-12 CAPSULE PO SCH ×4 (09:21→18:43)
[2019-06-08] MEDS: prednisoLONE ACET 1% OPHTH SUSP 5ML OS SCH ×4 (09:21→21:03)
--- NOTE | 2019-06-08 10:51 | IPNPDOC ---
Text Note Date of Service The patient was seen on 06/08/19. NOTE S: patient seen and examined at bedside. In good spirits. No acute overnight events reported. Feels his diarrhea is about the same. O: General: NAD, lying comfortably in bed HEENT: NC/AT, EOMI Lungs: CTA B/L HEart: +S1S2, RRR Abd: soft, NT, +BS Ext: no edema A/P: # Diarrhea due likely due to lactulose therapy and malabsorption associated with pancreatic ca - gi panel negative - reduce lactulose to 10 ml daily prn - resumed creon + cholestyramine - Updated Dr. Morris, anticipating resuming modified chemo tomorrow - Ova + Para still pending - discharge held yesterday due to hypoglycemia # IDDM2 with hypoglycemia - did not receive levemir Friday, suspect it's lower due to malnutrition - insulin stopped due to hypoglycemia - stop dextrose fluids and observe # Severe protein calorie malnutrition - Ensure shakes with meals # Hypokalemia - resolved # Bicytopenia due to chemotherapy # Stage 3 pancreatic cancer - f/u with Dr. Morris as outpatient - mild leukocytosis - continue to monitor Dispo: anticipating discharge in 24 hours, follow WBC, blood sugars VS,Fishbone, I+O VS, Fishbone, I+O Laboratory Tests 06/08/19 06:22 Vital Signs Date Time Temp Pulse Resp B/P (MAP) Pulse Ox O2 Delivery O2 Flow Rate FiO2 06/08/19 06:00 98.2 71 18 121/61 (81) 100 Room Air I&O- Last 24 Hours up to 6 AM 06/08/19 06:00 Intake Total 3120 ml Output Total 1626 ml Balance 1494 ml DEVON CONTE MD Jun 08, 2019 10:51
[2019-06-08 14:00] VITALS: BP 123/66
--- NOTE | 2019-06-08 20:29 | DSES ---
DATE OF ADMISSION: 06/05/2019 DATE OF DISCHARGE: 06/06/2019 DISCHARGE DIAGNOSES: 1. Diarrhea likely secondary to lactulose therapy. 2. Hypokalemia resolved. 3. Pancytopenia due to chemotherapy. 4. Stage III pancreatic cancer currently undergoing chemotherapy. PROCEDURES PERFORMED DURING HOSPITALIZATION: None. CONSULTANTS ON THE CASE: None. DISPOSITION: The patient is discharged home. DISCHARGE INSTRUCTIONS: The patient is instructed to reduce his lactulose therapy to 10 mL daily as needed for constipation. He is to watch for any fevers, worsening abdominal pain or recurrent diarrhea. He is to followup with Dr. Morris for his previous scheduled appointment this upcoming Friday. Dr. Morris is to address the patient's pancytopenia likely related to his chemotherapy. CONDITION ON DISCHARGE: Improved from admission. PENDING LABS AT THE TIME OF DISCHARGE: None. RELEVANT LABS: Gastrointestinal (GI) panel showed no identifiable organisms. Blood cultures times two are no growth to date at the time of discharge. White blood cell count 6.6, hemoglobin 8.9, hematocrit 27.9, platelet count is 68,000. Sodium 139, potassium 4.2, chloride 107, bicarbonate 28, BUN 10, creatinine 0.65, glucose 65, calcium 8, ALT 11, albumin 2.1, TSH 2.7, lipase 29. IMAGING STUDIES: CT of the abdomen and pelvis showed extensive unchanged pneumobilia, probable ileus without evidence of intestinal obstruction, free fluid or free air, simple unchanged renal cyst. Other findings as described in the body of the report. DISCHARGE MEDICATIONS: - tramadol 50 mg every 6 hours as needed for pain - prednisone acetate 1% ophthalmic solution suspension - Osmol drops, one drop left eye four times a day - Zofran ODT 4 mg every 6-8 hours as needed for nausea or vomiting - morphine sulfate 10 mg/5 mL, 5 mg every 4 hours as needed for pain - Creon DR 36,000 units per capsule, 1 capsule with meals - Linzess 290 mcg at bedtime - lidocaine viscous 5 mL every 2-4 hours as needed - Lantus 20 units twice a day - NovoLog as needed for sliding scale - granisetron 1 tablet by mouth daily as needed for nausea - dronabinol 5 mg twice a day as needed for anorexia - Benadryl 25 mg at bedtime as needed for sleep - cholestyramine 4 grams by mouth three times a day as needed for diarrhea - betamethasone 0.05 % cream as needed to perirectal area for hemorrhoid therapy - Magic Mouth Wash oral suspension every 4 hours as needed for oral discomfort - lactulose 10 grams daily as needed HOSPITAL COURSE: Mr. Moanhan is a 73-year-old gentleman who has history of stage III pancreatic cancer status post Whipple, he is currently on chemotherapy with Dr. Morris. He presents to the hospital with complaints of diarrhea for two days which had been preceded by constipation. He has been taking lactulose for this. He denied having any fevers, chills on presentation. He had some mild abdominal cramping that resolved with intravenous morphine administration in the emergency room. CT abdomen and pelvis done in the emergency room (ER) showed an ileus; however the patient had taken some Imodium prior to coming to the emergency room. The patient was able to provide a sample for a GI panel. The GI panel did come back negative. The patient has not had any diarrhea since arriving to the hospital. He is doing quite well this morning aside for some mild hypoglycemia for which he is asymptomatic. The patient did experience some superimposed dilutional anemia on top of his anemia associated with his chemotherapy and it appears that he has some mild thrombocytopenia also. He does not have any active bleeding. He can follow this up with his oncologist as an outpatient. He will be discharged home in stable condition today. A total of 30 minutes was spent on completing discharge paperwork.
[2019-06-08] MEDS: LEVEMIR (INSULIN DETEMIR) 1 UNITS/0.01ML SC SCH (21:00)
[2019-06-08 22:00] VITALS: BP 122/66
[2019-06-08] MEDS: diphenhydrAMINE 25 MG CAP PO PRN (22:29)
[2019-06-09 06:00] VITALS: BP 103/57
[2019-06-09 06:32] LABS: HEMATOCRIT 28.3 % (42.0-52.0); HEMOGLOBIN 9.3 g/dl (13.5-17.5); MEAN CORPUSCULAR HEMOGLOBIN 29.1 pg (27.0-33.0); MEAN CORPUSCULAR HGB CONC 32.9 g/dl (32.0-36.5); MEAN CORPUSCULAR VOLUME 88.4 fl (80.0-96.0); WHITE BLOOD COUNT 9.1 10^3/uL (4.0-10.0)
[2019-06-09 06:33] LABS: PLATELET COUNT, AUTOMATED 88 10^3/uL (150-450)
[2019-06-09 07:05] LABS: ALT/SGPT 12 U/L (12-78); BILIRUBIN,TOTAL 0.2 MG/DL (0.2-1.0); BLOOD UREA NITROGEN 5 MG/DL (7-18); CALCIUM LEVEL 7.3 MG/DL (8.8-10.2); CARBON DIOXIDE LEVEL 29 MEQ/L (21-32); CHLORIDE LEVEL 106 MEQ/L (98-107); GLOMERULAR FILTRATION RATE > 60.0 (>42); GLUCOSE, FASTING 97 MG/DL (70-100); POTASSIUM SERUM 3.3 MEQ/L (3.5-5.1); SODIUM LEVEL 140 MEQ/L (136-145); TOTAL PROTEIN 4.6 GM/DL (6.4-8.2)
--- NOTE | 2019-06-09 07:05 | IPNPDOC ---
Text Note Date of Service The patient was seen on 06/09/19. NOTE Discharge Addendum: Discharge Date: 06/09/19 Patient seen and examined at bedside. Plan for discharge today and follow up with oncology to continue ongoing chemotherapy next week. Patient's discharge held over secondary to hypoglylcemia. Patient instructed to hold Lantus insulin for now, and if blood sugars continually high, requiring ac/hs correction to contact PCP to restart Lantus at lower dosage. Today his potassium and magnesium are slightly low. Potassium repleted orally, and magnesium with IV repletion. Please refer to previous discharge summary for full details regarding hospital stay. VS,Fishbone, I+O VS, Fishbone, I+O Laboratory Tests 06/09/19 06:09 Vital Signs Date Time Temp Pulse Resp B/P (MAP) Pulse Ox O2 Delivery O2 Flow Rate FiO2 06/09/19 06:00 97.2 68 18 103/57 (72) 100 Room Air I&O- Last 24 Hours up to 6 AM 06/09/19 06:00 Intake Total 680 ml Output Total 900 ml Balance -220 ml DEVON CONTE MD Jun 09, 2019 07:05
[2019-06-09] MEDS: HumaLOG INSULIN (NovoLOG) PER UNIT SC SCH (07:25)
[2019-06-09] MEDS: prednisoLONE ACET 1% OPHTH SUSP 5ML OS SCH (08:05)
[2019-06-09] MEDS: CREON-12 CAPSULE PO SCH (08:05)
[2019-06-09] MEDS ORDERED: POTASSIUM CHLORIDE 10 MEQ SR TABLET PO ONE (09:00)
[2019-06-09] MEDS: LEVEMIR (INSULIN DETEMIR) 1 UNITS/0.01ML SC SCH (09:00)
[2019-06-09 09:53] LABS: MAGNESIUM LEVEL 1.6 MG/DL (1.8-2.4)
[2019-06-09] MEDS ORDERED: MAG SULF 1GM/100ML (MAG RUN) 1 GM in IV 1 EA IV ONE (10:45)
== END 2019-06-09 13:20 | disposition home or self-care (01) | DRG 393 ==
LOC: M ED 12:35 → M ED INP 12:36 → ENRESERVTM 19:02 → ENRESERVDT 19:02 → M MS5PR 20:00 → OBSVTOIN 06-07 09:51
PROVIDERS: ADMIT Internal Medicine; ATTEND Internal Medicine
DX: K52.1 Toxic gastroenteritis and colitis (principal); E43 Unspecified severe protein-calorie malnutrition; D61.810 Antineoplastic chemotherapy induced pancytopenia; C25.9 Malignant neoplasm of pancreas, unspecified; T47.3X5A Adverse effect of saline and osmotic laxatives, initial encounter; E87.6 Hypokalemia; K59.00 Constipation, unspecified; Z79.899 Other long term (current) drug therapy; Z79.4 Long term (current) use of insulin; E11.649 Type 2 diabetes mellitus with hypoglycemia without coma; I10 Essential (primary) hypertension; E78.5 Hyperlipidemia, unspecified

== ENCOUNTER → 2019-07-14 | Outpatient (REF) | payer MEDICARE, BC, OTHER ==
[~2019-07-14] MED LIST changes: +COMMENTS; +MAGICMW SS
== END ==
LOC: M LAB REF 09:45
PROVIDERS: ATTEND Internal Medicine Hematology
DX: C25.9 Malignant neoplasm of pancreas, unspecified (principal)

== ENCOUNTER → 2019-07-20 | Outpatient (CLI) | payer MEDICARE, BC, OTHER ==
[~2019-07-20] MED LIST changes: +DIPH2.5T15 PO
--- NOTE | 2019-07-20 15:39 | REP ---
PET/CT: HISTORY: Restaging pancreatic head malignancy. Stage III A, lymph node positive, post surgical resection and post chemotherapy. COMPARISONS: Comparison CT study abdomen and pelvis June 05, 2019. TECHNIQUE: 48 minutes following the intravenous injection of a 8.70 mCi dose of F-18 FDG, three-dimensional PET scintigraphy is acquired from the skull base to the proximal thighs. Triplanar noncontrast CT scanning is acquired through the same anatomic range for attenuation correction, and image registration with scan parameters optimized to minimize radiation exposure to the patient. PET scintigraphy and CT datasets were fused and displayed on a workstation with multiplanar and projection display capability. PET/CT FINDINGS: Head and neck soft tissues are unremarkable. There is no abnormal pulmonary parenchymal hypermetabolic uptake. A right-sided Isztnj-L-Puwd catheter is noted. No abnormal mediastinal or hilar hypermetabolic uptake is seen. In the abdomen and pelvis, there is normal hepatic FDG distribution. No abnormal oziel uptake is seen in the upper abdomen. Postoperative changes are seen post choledochojejunostomy with pneumobilia. No abnormal hypermetabolic uptake is seen within the area of the remaining pancreas or adjacent soft tissues. Normal adrenal glands are seen. No abnormal hypermetabolic uptake is noted in the abdomen or pelvis. No abnormal skeletal uptake is seen. There is increased uptake in the region of the anal sphincter. Maximum standard uptake value here is 6.62. This it is somewhat more prominent than background gastrointestinal mucosal physiologic uptake in this patient. This is nonspecific. Anal neoplasm versus inflamed hemorrhoids. Clinical correlation suggested. No other abnormal hypermetabolic uptake is seen. IMPRESSION: No abnormal hypermetabolic uptake is seen in the remaining pancreas or elsewhere in the upper abdomen or liver. There is a focus of hypermetabolic uptake in the region of the anal sphincter question inflammatory versus neoplastic disease at the level of the anus. No other abnormal hypermetabolic uptake is seen. Electronically Signed by Parveen Alva MD 07/20/2019 05:10 P
== END ==
LOC: M PLARAD 11:32
PROVIDERS: ATTEND Internal Medicine Hematology
DX: C25.0 Malignant neoplasm of head of pancreas (principal)
CPT/HCPCS: 78815; A9552

== ENCOUNTER → 2019-07-23 | Outpatient (CLI) | payer MEDICARE, BC, OTHER ==
[2019-07-23 09:15] LABS: BASO % 0.2 % (0.0-1.0); EOS % 0.5 % (0.0-3.0); HEMATOCRIT 32.8 % (42.0-52.0); HEMOGLOBIN 10.4 g/dl (13.5-17.5); LYMPH # 0.9 10^3/uL (1.5-5.0); LYMPH % 15.1 % (24.0-44.0); MEAN CORPUSCULAR HGB CONC 31.7 g/dl (32.0-36.5); MEAN CORPUSCULAR VOLUME 97.9 fl (80.0-96.0); MONO # 0.3 10^3/uL (0.0-0.8); MONO % 5.4 % (0.0-5.0); NEUTROPHILS # 4.5 10^3/uL (1.5-8.5); NEUTROPHILS % 78.3 % (36.0-66.0); PLATELET COUNT, AUTOMATED 137 10^3/uL (150-450); RED BLOOD COUNT 3.35 10^6/uL (4.30-6.10); WHITE BLOOD COUNT 5.7 10^3/uL (4.0-10.0)
[2019-07-23 09:49] LABS: ALBUMIN 3.1 GM/DL (3.2-5.2); ALT/SGPT 20 U/L (12-78); BILIRUBIN,TOTAL 0.3 MG/DL (0.2-1.0); BLOOD UREA NITROGEN 7 MG/DL (7-18); CALCIUM LEVEL 8.3 MG/DL (8.8-10.2); CARBON DIOXIDE LEVEL 24 MEQ/L (21-32); CHLORIDE LEVEL 112 MEQ/L (98-107); CREATININE FOR GFR 0.69 MG/DL (0.70-1.30); GLOMERULAR FILTRATION RATE > 60.0 (>42); GLUCOSE, FASTING 125 MG/DL (70-100); POTASSIUM SERUM 4.3 MEQ/L (3.5-5.1); SODIUM LEVEL 141 MEQ/L (136-145); TOTAL PROTEIN 6.1 GM/DL (6.4-8.2)
== END ==
LOC: M LAB 08:53
PROVIDERS: ATTEND Internal Medicine Hematology
DX: C25.9 Malignant neoplasm of pancreas, unspecified (principal)

== ENCOUNTER 2019-10-10 19:39 | Emergency (ER) | payer MEDICARE, BC, OTHER ==
[~2019-10-10] VITALS: Ht 177.8 cm; Wt 62.3 kg
[~2019-10-10 19:39] MED LIST changes: +GABA300S PO; -LACT10SO29 PO; +LACT20EL PO; +LOMO2.5T PO
[2019-10-10] MEDS ORDERED: LIDOCAINE 1% MDV 20ML VIAL IM ONE (21:30)
[2019-10-10] MEDS ORDERED: BOOSTRIX/ADACEL VACCINE (DIPHTH/PERTUSS/ACELL/TETANUS) 0.5ML SYR IM ONE (22:15)
[2019-10-10] MEDS ORDERED: LIDOCAINE 1% SDV 5ML VIAL DILUENT ONE (22:15)
[2019-10-10] MEDS ORDERED: cefTRIAXone SOD 1GM VIAL (J0696 PER 250MG) IM ONE (22:15)
[2019-10-10 22:45] VITALS: BP 158/76
--- NOTE | 2019-10-11 08:27 | REP ---
Clinical: Crush injury. Technique: AP, lateral, bilateral oblique views of the right third digit. Findings: Comminuted nondisplaced fracture of the terminal tuft with overlying soft tissue swelling and laceration noted. Impression: Terminal tuft fracture with soft tissue injury. Electronically Signed by Vinod Woodruff MD 10/11/2019 08:18 A
[2019-11-11] MEDS ORDERED: GABA300S PO (11:46)
[2019-11-11] MEDS ORDERED: DULO30CA9 PO (11:46)
== END 2019-10-10 22:59 | disposition home or self-care (01) ==
LOC: M ED 19:39
DX: S61.212A Laceration without foreign body of right middle finger without damage to nail, initial encounter (principal); W23.0XXA Caught, crushed, jammed, or pinched between moving objects, initial encounter; Y92.018 Other place in single-family (private) house as the place of occurrence of the external cause; E11.9 Type 2 diabetes mellitus without complications; C25.9 Malignant neoplasm of pancreas, unspecified; F17.210 Nicotine dependence, cigarettes, uncomplicated; Z79.899 Other long term (current) drug therapy
CPT/HCPCS: 12001; 73140; 90471; 90715; 96372; 99284; J0696

== ENCOUNTER → 2019-11-26 | Outpatient (CLI) | payer MEDICARE, BC, OTHER ==
[~2019-11-26] MED LIST changes: +DULO30CA9 PO; +GASTROGRAFIN SOLUTION 30ML (Q9963) As Ordered ONE; +ISOVUE-370 76% 100ML VIAL As Ordered ONE
--- NOTE | 2019-12-20 10:23 | REP ---
CONTRAST ENHANCED CT OF THE ABDOMEN AND PELVIS CLINICAL: Pancreatic cancer for follow up. TECHNIQUE: Axial contrast enhanced images from the lung bases to the pubic symphysis using oral (per protocol) and 100 cc Isovue-370 intravenous contrast material with delayed images of the abdomen as well as coronal and sagittal reformations. COMPARISON: 06/05/2019 FINDINGS: Lung bases are clear. Visualized heart and pericardium normal. Small hiatal hernia noted. The patient is status post Whipple procedure. The liver demonstrates small amount of pneumobilia and no focal hepatic lesions to suggest metastatic disease or further pathology. The spleen, residual pancreas, bilateral adrenal glands, and kidneys are essentially normal/stable. A simple 2.2 cm cyst is again identified at the lower pole right kidney along with 6 mm nonobstructing left renal calculus. The enteric system is without obstruction or acute inflammatory process. Pelvis demonstrates normal bladder along with presumed prostatomegaly. No ascites. No free air. No adenopathy. No obvious mass lesion. Atherosclerotic changes to the aorta and vasculature noted without aneurysm. Musculoskeletal structures demonstrate age-related changes without acute osseous abnormality. IMPRESSION: * Status post Whipple for pancreatic carcinoma. No evidence for recurrence or metastatic disease. * Stable simple right renal cyst and 6 mm nonobstructing left renal calculus. MTDD
== END ==
LOC: M RAD 11:00
PROVIDERS: ATTEND Internal Medicine Medical Oncology
DX: R10.9 Unspecified abdominal pain (principal); N28.1 Cyst of kidney, acquired; N20.0 Calculus of kidney; C25.9 Malignant neoplasm of pancreas, unspecified
CPT/HCPCS: 74177; Q9963; Q9967

== ENCOUNTER → 2019-12-24 | Outpatient (CLI) | payer MEDICARE, BC, OTHER ==
[~2019-12-24] MED LIST changes: -GASTROGRAFIN SOLUTION 30ML (Q9963) As Ordered ONE; -ISOVUE-370 76% 100ML VIAL As Ordered ONE
== END ==
LOC: M LABSMTC 11:10
PROVIDERS: ATTEND Anesthesiology
DX: Z01.812 Encounter for preprocedural laboratory examination (principal); Z20.828 Contact with and (suspected) exposure to other viral communicable diseases
CPT/HCPCS: C9803; U0003

== ENCOUNTER 2019-12-29 11:43 | Day surgery (SDC) | payer MEDICARE, BC, OTHER ==
[~2019-12-29] VITALS: Ht 177.8 cm; Wt 71.2 kg
[~2019-12-29 11:43] MED LIST changes: +NS 1,000 ML IV ONE
[2019-12-29] MEDS ORDERED: LIDOCAINE 2% 100MG/5ML SDV (FOR ANES.) As Ordered ONE (13:29)
[2019-12-29] MEDS ORDERED: propofoL 200 MG/20 ML VIAL As Ordered ONE (13:29)
--- NOTE | 2019-12-29 15:24 | ROOR ---
Patient Name: Barry Monahan Procedure Date: 12/29/2019 2:49 PM Date of : 1945 Age: 74 Room: [facility] Gender: Male Note Status: Finalized Procedure: Upper GI endoscopy Indications: Abdominal pain Providers: Bright OSPINA MD Referring MD: OSMANY SNELL MD Requesting Provider: Medicines: Monitored Anesthesia Care Complications: No immediate complications. Procedure: Pre-Anesthesia Assessment: - The heart rate, respiratory rate, oxygen saturations, blood pressure, adequacy of pulmonary ventilation, and response to care were monitored throughout the procedure. The Endoscope was introduced through the mouth, and advanced to the jejunum. The upper GI endoscopy was accomplished without difficulty. The patient tolerated the procedure well. Findings: The Z-line was variable and was found 39 cm from the incisors. Small Hiatal Hernia. 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 This was characterized by erosion, inflammation and mild stenosis. Biopsies were taken with a cold forceps for histology. The exam of the stomach was otherwise normal. The examined jejunum was normal. Impression: - Z-line variable, 39 cm from the incisors. - Small Hiatal Hernia. 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 Biopsied. - Normal examined jejunum. Recommendation: - Use Prilosec (omeprazole) 40 mg PO daily. - Use sucralfate tablets 1 gram PO QID. - Telephone endoscopist for pathology results in 2 weeks. - Follow up with your surgeon for assessment of the anastomosis. (mild to moderate stenosis). - Eat smaller, more frequent meals throughout the day. - Low fat diet. - Liquid/soft foods are tolerated better than solid foods. - Low fiber/well cooked vegetables are tolerated better than high fiber/fibrous foods/raw vegetables. - Avoid medications that inhibit gastric/intestinal motility such as narcotic medications. Bright Ospina MD Bright OSPINA MD 12/29/2019 3:23:42 PM Electronically signed by Bright OSPINA MD Number of Addenda: 0 Note Initiated On: 12/29/2019 2:49 PM Estimated Blood Loss: Estimated blood loss: none.
[2019-12-29 15:55] VITALS: BP 142/70
== END 2019-12-29 16:10 | disposition home or self-care (01) ==
LOC: M OPP 11:43
PROVIDERS: ATTEND Internal Medicine Gastroenterology
DX: K22.8 Other specified diseases of esophagus (principal); Z98.0 Intestinal bypass and anastomosis status; R10.9 Unspecified abdominal pain; K44.9 Diaphragmatic hernia without obstruction or gangrene; E10.9 Type 1 diabetes mellitus without complications; Z79.4 Long term (current) use of insulin; Z79.899 Other long term (current) drug therapy; Z85.07 Personal history of malignant neoplasm of pancreas; Z85.51 Personal history of malignant neoplasm of bladder; Z85.46 Personal history of malignant neoplasm of prostate; Z92.3 Personal history of irradiation; Z92.21 Personal history of antineoplastic chemotherapy; Z87.891 Personal history of nicotine dependence

== ENCOUNTER → 2020-02-15 | Outpatient (CLI) | payer MEDICARE, BC, OTHER ==
[~2020-02-15] MED LIST changes: -NS 1,000 ML IV ONE
== END ==
LOC: M LAB 13:46
PROVIDERS: ATTEND Urology
DX: C61 Malignant neoplasm of prostate (principal)

== ENCOUNTER → 2020-02-21 | Outpatient (REF) | payer MEDICARE, OTHER | LOC: M SMT 13:25 | PROVIDERS: ATTEND Urology | DX: C67.9 Malignant neoplasm of bladder, unspecified (principal) ==

== ENCOUNTER → 2020-05-11 | Outpatient (CLI) | payer MEDICARE, BC, OTHER ==
[~2020-05-11] MED LIST changes: -GRAN1TA PO; +GRAN1TAB PO; +LISI10TA22 PO; -LISI10TA4 PO
[2020-05-11 14:42] LABS: BASO % 0.4 % (0.0-1.0); EOS # 0.1 10^3/uL (0.0-0.5); EOS % 2.3 % (0.0-3.0); HEMATOCRIT 42.4 % (42.0-52.0); LYMPH # 1.7 10^3/uL (1.5-5.0); LYMPH % 34.9 % (24.0-44.0); MEAN CORPUSCULAR HEMOGLOBIN 29.5 pg (27.0-33.0); MEAN CORPUSCULAR VOLUME 89.5 fl (80.0-96.0); MONO # 0.3 10^3/uL (0.0-0.8); MONO % 6.9 % (2.0-8.0); NEUTROPHILS # 2.6 10^3/uL (1.5-8.5); NEUTROPHILS % 55.3 % (36.0-66.0); PLATELET COUNT, AUTOMATED 167 10^3/uL (150-450); RED BLOOD COUNT 4.74 10^6/uL (4.30-6.10); WHITE BLOOD COUNT 4.8 10^3/uL (4.0-10.0)
[2020-05-11 15:03] LABS: ALBUMIN 3.7 GM/DL (3.2-5.2); ALT/SGPT 25 U/L (12-78); AMYLASE 22 U/L (25-115); BILIRUBIN,TOTAL 0.4 MG/DL (0.2-1.0); BLOOD UREA NITROGEN 8 MG/DL (7-18); CALCIUM LEVEL 8.8 MG/DL (8.8-10.2); CARBON DIOXIDE LEVEL 25 MEQ/L (21-32); CHLORIDE LEVEL 107 MEQ/L (98-107); CREATININE FOR GFR 0.95 MG/DL (0.70-1.30); GLOMERULAR FILTRATION RATE > 60.0 (>42); GLUCOSE, FASTING 305 MG/DL (70-100); LIPASE 49 U/L (73-393); POTASSIUM SERUM 4.5 MEQ/L (3.5-5.1); SODIUM LEVEL 138 MEQ/L (136-145); TOTAL PROTEIN 7.2 GM/DL (6.4-8.2)
== END ==
LOC: M LAB 13:56
PROVIDERS: ATTEND Physician Assistant Medical
DX: R10.13 Epigastric pain (principal)

== ENCOUNTER → 2020-05-23 | Outpatient (CLI) | payer MEDICARE, BC, OTHER ==
[~2020-05-23] MED LIST changes: +LANTINJ4 SC
--- NOTE | 2020-05-23 10:56 | REPPI ---
INDICATION: ELEVATED PSA. COMPARISON: None. TECHNIQUE: Transrectal prostate ultrasound performed. FINDINGS: Prostate measures 4.5 x 4.3 x 6.1 cm, total volume 61.1 mL. Echotexture is heterogeneous with scattered tiny cysts and calcifications. No focal mass is seen. Seminal vesicles are symmetrical. IMPRESSION: Ultrasound guidance was provided for Dr. Little who performed ultrasound-guided biopsy of the prostate. <Electronically signed by Jai Tiwari > 05/23/20 [id number]
== END ==
LOC: M SMT PRO 08:09
PROVIDERS: ATTEND Urology
DX: Z85.46 Personal history of malignant neoplasm of prostate (principal); R97.20 Elevated prostate specific antigen [PSA]
CPT/HCPCS: 55700; 76872; 76942; G0416

== ENCOUNTER → 2020-05-28 | Outpatient (CLI) | payer MEDICARE, BC, OTHER | LOC: M LABSMTC 09:33 | PROVIDERS: ATTEND Anesthesiology | DX: Z01.812 Encounter for preprocedural laboratory examination (principal); Z20.822 Contact with and (suspected) exposure to COVID-19 ==

== ENCOUNTER → 2020-05-31 | Outpatient (CLI) | payer MEDICARE, BC, OTHER ==
[~2020-05-31] MED LIST changes: +GASTROGRAFIN SOLUTION 30ML (Q9963) As Ordered ONE; +ISOVUE-370 76% 100ML VIAL As Ordered ONE
--- NOTE | 2020-05-31 18:10 | REP ---
INDICATION: PANCREATIC CANCER. Increasing tumor markers. Patient also gives a history of prostate and bladder carcinoma. COMPARISON: No comparison chest CT study.. There is a comparison PET-CT study July 20, 2019. TECHNIQUE: Helical scanning is acquired following the intravenous injection of 100 mL of Isovue 370. Coronal and sagittal MPR images are generated. FINDINGS: Digital preliminary director of agronomy radiograph shows an Scoohd-K-Chcu catheter on the right. There is no evidence of hilar or mediastinal mass or adenopathy. Coronary artery vascular calcification is observed. No axillary or supraclavicular adenopathy or mass lesion is observed. No pleural or pericardial effusion is seen. There is a small sliding-type hiatal hernia. On lung window settings, there is no evidence of infiltrate, pulmonary mass, or significant pulmonary nodule. No bony destructive lesion is appreciated. IMPRESSION: No active disease. No evidence of mass or adenopathy. <Electronically signed by Easton Alva > 05/31/20 [id number]
--- NOTE | 2020-05-31 18:22 | REP ---
INDICATION: PANCREATIC CANCER INCREASING TUMOR MARKERS. COMPARISON: Comparison CT studies are from November 26, 2019 and June 05, 2019.. TECHNIQUE: Helical scanning is acquired and 3 mm axial images re-formatted. Coronal and sagittal MPR images are generated. The CT contrast enhancement dose is 100 mL of intravenous Isovue 370. FINDINGS: Preliminary digital crime scene investigator radiograph demonstrates an unremarkable bowel gas pattern. Postoperative pneumobilia is noted. The gallbladder is surgically absent. The pancreatic head appears to be surgically absent. There is no evidence of regional adenopathy. No focal liver mass lesion is seen. The spleen is homogeneous in texture normal in size. Normal adrenal glands are observed bilaterally. No retroperitoneal mass or adenopathy is seen. The kidneys enhance symmetrically. There is a cyst in the lower pole and there is some cortical scarring in the upper pole right kidney. There are intrarenal calculi in the lower pole of the left kidney. These findings are unchanged. There is a small sliding-type hiatal hernia. Small and large bowel loops are unremarkable. Prostate is enlarged. Urinary bladder is unremarkable. Normal appendix is seen in the right mid abdomen. No pelvic mass or adenopathy is seen. No abdominal wall defect is observed. No bony destructive lesion is seen. Delayed postcontrast CT acquisition shows no additional abnormality. IMPRESSION: No evidence of mass or adenopathy seen. Status post Whipple procedure. Intrarenal nephrolithiasis lower pole left kidney. Prostate enlargement. Small hiatal hernia. <Electronically signed by Easton Alva > 05/31/20 [id number]
== END ==
LOC: M RAD 15:31
PROVIDERS: ATTEND Internal Medicine Medical Oncology
DX: C25.9 Malignant neoplasm of pancreas, unspecified (principal)
CPT/HCPCS: 71260; 74177; Q9963; Q9967

== ENCOUNTER 2020-06-02 06:50 | Day surgery (SDC) | payer MEDICARE, BC, OTHER ==
[~2020-06-02] VITALS: Ht 177.8 cm; Wt 74.3 kg
[~2020-06-02 06:50] MED LIST changes: -GASTROGRAFIN SOLUTION 30ML (Q9963) As Ordered ONE; -ISOVUE-370 76% 100ML VIAL As Ordered ONE; +NS 1,000 ML IV ONE
[2020-06-02] MEDS ORDERED: LIDOCAINE 2% 100MG/5ML SDV (FOR ANES.) As Ordered ONE (07:26)
[2020-06-02] MEDS ORDERED: propofoL 200 MG/20 ML VIAL As Ordered ONE (07:26)
[2020-06-02] MEDS ORDERED: fentaNYL 100 MCG/2 ML INJECTION (J3010) As Ordered ONE (07:26)
--- NOTE | 2020-06-02 07:59 | ROOR ---
Patient Name: Barry Monahan Procedure Date: 06/02/2020 7:22 AM Date of : 1945 Age: 74 Room: [facility] Gender: Male Note Status: Finalized Procedure: Upper GI endoscopy Indications: Epigastric abdominal pain, Abdominal bloating, Dyspepsia, s/p whipple Providers: Bright OSPINA MD Referring MD: OSMANY SNELL MD Requesting Provider: Medicines: Monitored Anesthesia Care Complications: No immediate complications. Procedure: Pre-Anesthesia Assessment: - The heart rate, respiratory rate, oxygen saturations, blood pressure, adequacy of pulmonary ventilation, and response to care were monitored throughout the procedure. The Endoscope was introduced through the mouth, and advanced to the jejunum. The upper GI endoscopy was accomplished without difficulty. Findings: The examined esophagus was normal. 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 This was characterized by healthy mucosa. no further erosions, no further stenosis. It is now widely patent. The examined jejunum was normal. This was biopsied with a cold forceps for histology. Impression: - Normal esophagus. - A gastroenterostomy was found, characterized by healthy mucosa. no further erosions, no further stenosis. It is now widely patent. - I intubated both limbs of the whipple for 15-20 cm and this showed normal examined jejunum. Biopsied. - I did not see any bile on this exam. Recommendation: - rec checking liver enzymes and hida imaging to assess bile flow if not recently done. - Continue present medications. - Return to our office at the next available appointment. Procedure Code(s): --- Professional --- 39034, Esophagogastroduodenoscopy, flexible, transoral; with biopsy, single or multiple Diagnosis Code(s): --- Professional --- R14.0, Abdominal distension (gaseous) R10.13, Epigastric pain Z98.0, Intestinal bypass and anastomosis status CPT copyright 2019 [employer]. All rights reserved. The codes documented in this report are preliminary and upon stress test technician review may be revised to meet current compliance requirements. Bright Ospina MD Bright OSPINA MD 06/02/2020 7:59:21 AM Electronically signed by Bright OSPINA MD Number of Addenda: 0 Note Initiated On: 06/02/2020 7:22 AM Estimated Blood Loss: Estimated blood loss: none.
[2020-06-02 08:10] VITALS: BP 151/78
== END 2020-06-02 08:17 | disposition home or self-care (01) ==
LOC: M OPP 06:50
PROVIDERS: ATTEND Internal Medicine Gastroenterology
DX: R10.13 Epigastric pain (principal); R14.0 Abdominal distension (gaseous); Z98.0 Intestinal bypass and anastomosis status; E10.9 Type 1 diabetes mellitus without complications; Z85.07 Personal history of malignant neoplasm of pancreas; Z92.21 Personal history of antineoplastic chemotherapy; M19.90 Unspecified osteoarthritis, unspecified site; G62.9 Polyneuropathy, unspecified; E78.5 Hyperlipidemia, unspecified; Z85.51 Personal history of malignant neoplasm of bladder; Z85.46 Personal history of malignant neoplasm of prostate; Z79.4 Long term (current) use of insulin; Z79.899 Other long term (current) drug therapy; Z82.49 Family history of ischemic heart disease and other diseases of the circulatory system; Z83.3 Family history of diabetes mellitus; Z80.8 Family history of malignant neoplasm of other organs or systems
CPT/HCPCS: 43239; 88305; J3010

== ENCOUNTER → 2020-08-28 | Outpatient (REF) | payer MEDICARE, BC, OTHER ==
[~2020-08-28] MED LIST changes: +COVI100V IM; -NS 1,000 ML IV ONE; +OMEP40CA4 PO; -OMEP40CA97 PO
== END ==
LOC: M SMT 13:09
PROVIDERS: ATTEND Urology
DX: C67.9 Malignant neoplasm of bladder, unspecified (principal)

== ENCOUNTER → 2020-09-05 | Outpatient (CLI) | payer MEDICARE, BC, OTHER ==
[~2020-09-05] MED LIST changes: -OMEP40CA4 PO; +OMEP40CA97 PO
== END ==
LOC: M LAB 08:51
PROVIDERS: ATTEND Urology
DX: C61 Malignant neoplasm of prostate (principal)

== ENCOUNTER → 2021-03-30 | Outpatient (REF) | payer MEDICARE, BC, OTHER ==
[~2021-03-30] MED LIST changes: +OMEP40CA4 PO; -OMEP40CA97 PO; +ZENP1CAP64 PO
== END ==
LOC: M SMT 17:59
PROVIDERS: ATTEND Urology
DX: C67.9 Malignant neoplasm of bladder, unspecified (principal)
CPT/HCPCS: 52000; 88108; G0463

== ENCOUNTER → 2021-04-03 | Outpatient (CLI) | payer MEDICARE, BC, OTHER | LOC: M LAB 08:03 | PROVIDERS: ATTEND Urology | DX: C61 Malignant neoplasm of prostate (principal) ==

== ENCOUNTER → 2021-06-11 | Outpatient (CLI) | payer MEDICARE, BC, OTHER | LOC: M RAD 12:09 | PROVIDERS: ATTEND Family Medicine | DX: R07.89 Other chest pain (principal) ==

== ENCOUNTER → 2021-07-19 | Outpatient (CLI) | payer MEDICARE, BC, OTHER | LOC: M WHC 10:04 | PROVIDERS: ATTEND Internal Medicine Medical Oncology | DX: R22.2 Localized swelling, mass and lump, trunk (principal) ==

== ENCOUNTER → 2021-08-16 | Outpatient (REF) | payer MEDICARE, BC, OTHER | LOC: M SFHCDERM 13:49 | PROVIDERS: ATTEND Physician Assistant | DX: D04.39 Carcinoma in situ of skin of other parts of face (principal) | CPT/HCPCS: 11102; 17000; 17003; 88305; G0463 ==

== ENCOUNTER → 2021-10-18 | Outpatient (CLI) | payer MEDICARE, BC, OTHER | LOC: M LABSMTC 10:52 | PROVIDERS: ATTEND Anesthesiology | DX: Z01.812 Encounter for preprocedural laboratory examination (principal); Z20.822 Contact with and (suspected) exposure to COVID-19 ==

== ENCOUNTER 2021-10-23 07:32 | Day surgery (SDC) | payer MEDICARE, BC, OTHER ==
[~2021-10-23] VITALS: Ht 177.8 cm; Wt 71.6 kg
[~2021-10-23 07:32] MED LIST changes: +NS 1,000 ML IV ONE; +propofoL 500 MG/50 ML VIAL As Ordered ONE
[2021-10-23] MEDS ORDERED: fentaNYL 100 MCG/2 ML INJECTION As Ordered ONE (07:36)
[2021-10-23] MEDS ORDERED: LIDOCAINE 2% 100MG/5ML SDV (FOR ANES.) As Ordered ONE (07:36)
[2021-10-23] MEDS ORDERED: ePHEDrine SULFATE 25 MG/5 ML(5MG/ML) SYRINGE As Ordered ONE (08:40)
[2021-10-23 09:45] VITALS: BP 138/68
== END 2021-10-23 10:20 | disposition home or self-care (01) ==
LOC: M OPP 07:32
PROVIDERS: ATTEND Internal Medicine Gastroenterology
DX: R10.32 Left lower quadrant pain (principal); R10.12 Left upper quadrant pain; R19.7 Diarrhea, unspecified; R19.4 Change in bowel habit; K22.70 Barrett's esophagus without dysplasia; D12.6 Benign neoplasm of colon, unspecified; K57.30 Diverticulosis of large intestine without perforation or abscess without bleeding; K64.8 Other hemorrhoids; K22.89 Other specified disease of esophagus; Z98.0 Intestinal bypass and anastomosis status; E11.40 Type 2 diabetes mellitus with diabetic neuropathy, unspecified; K21.9 Gastro-esophageal reflux disease without esophagitis; M19.90 Unspecified osteoarthritis, unspecified site; E78.5 Hyperlipidemia, unspecified; Z85.07 Personal history of malignant neoplasm of pancreas; Z85.51 Personal history of malignant neoplasm of bladder; Z85.46 Personal history of malignant neoplasm of prostate; Z92.21 Personal history of antineoplastic chemotherapy; Z87.891 Personal history of nicotine dependence; Z79.4 Long term (current) use of insulin; Z79.899 Other long term (current) drug therapy; Z82.49 Family history of ischemic heart disease and other diseases of the circulatory system; Z83.3 Family history of diabetes mellitus; Z80.8 Family history of malignant neoplasm of other organs or systems
CPT/HCPCS: 43239; 45380; 88305; J3010

== ENCOUNTER → 2021-10-30 | Outpatient (REF) | payer MEDICARE, BC, OTHER ==
[~2021-10-30] MED LIST changes: -NS 1,000 ML IV ONE; -propofoL 500 MG/50 ML VIAL As Ordered ONE
== END ==
LOC: M LAB REF 14:37
PROVIDERS: ATTEND Internal Medicine Gastroenterology
DX: D3A.8 Other benign neuroendocrine tumors (principal)

== ENCOUNTER → 2021-10-31 | Outpatient (CLI) | payer MEDICARE, BC, OTHER ==
[2021-11-02 17:07] LABS: CHROMOGRANIN A 97.4 ng/mL (0.0-101.8); GASTRIN < 10 pg/mL (0-115)
== END ==
LOC: M LAB 07:23
PROVIDERS: ATTEND Internal Medicine Gastroenterology
DX: D3A.8 Other benign neuroendocrine tumors (principal)

== ENCOUNTER → 2021-11-12 | Outpatient (REF) | payer MEDICARE, OTHER, BC | LOC: M SMT 12:54 | PROVIDERS: ATTEND Urology | DX: C67.9 Malignant neoplasm of bladder, unspecified (principal) ==

== ENCOUNTER → 2022-01-21 | Outpatient (CLI) | payer MEDICARE, BC, OTHER | LOC: M LAB 09:38 | PROVIDERS: ATTEND Urology | DX: C61 Malignant neoplasm of prostate (principal) ==

== ENCOUNTER → 2022-04-10 | Outpatient (CLI) | payer MEDICARE, BC, OTHER | LOC: M ONCR 09:34 | PROVIDERS: ATTEND General Practice | DX: C25.0 Malignant neoplasm of head of pancreas (principal); E11.9 Type 2 diabetes mellitus without complications; K22.70 Barrett's esophagus without dysplasia; K80.80 Other cholelithiasis without obstruction; I10 Essential (primary) hypertension; N20.0 Calculus of kidney; Z79.4 Long term (current) use of insulin; Z79.899 Other long term (current) drug therapy; Z82.49 Family history of ischemic heart disease and other diseases of the circulatory system; Z83.3 Family history of diabetes mellitus; Z85.46 Personal history of malignant neoplasm of prostate; Z85.51 Personal history of malignant neoplasm of bladder; Z85.828 Personal history of other malignant neoplasm of skin; Z87.891 Personal history of nicotine dependence ==

== ENCOUNTER 2022-04-15 09:29 | Outpatient (RCR) | payer MEDICARE, BC, OTHER ==
[2022-04-16] MEDS ORDERED: LACT20EL PO (09:18)
[2022-04-16] MEDS ORDERED: OMEP40CA4 PO (09:18)
[2022-04-16] MEDS ORDERED: CREO3600 PO (09:18)
== END 2022-04-23 ==
LOC: M ONCR 09:29
PROVIDERS: ATTEND General Practice
DX: C25.0 Malignant neoplasm of head of pancreas (principal)

== ENCOUNTER → 2022-04-29 | Outpatient (CLI) | payer MEDICARE, BC, OTHER ==
[~2022-04-29] MED LIST changes: +LINZ145C PO; +ONDA8TAB8 PO; +PROC10TA5 PO
== END ==
LOC: M PLARAD 11:55
PROVIDERS: ATTEND Nurse Practitioner
DX: C25.0 Malignant neoplasm of head of pancreas (principal)
CPT/HCPCS: 78815; A9552

== ENCOUNTER → 2022-05-14 | Outpatient (CLI) | payer MEDICARE, BC, OTHER | LOC: M ONCM 08:39 | PROVIDERS: ATTEND Dietitian, Registered | DX: Z01.89 Encounter for other specified special examinations (principal) ==

== ENCOUNTER → 2022-05-21 | Outpatient (RCR) | payer MEDICARE, BC, OTHER | LOC: M ONCR 04-24 11:10 | PROVIDERS: ATTEND General Practice | DX: C25.0 Malignant neoplasm of head of pancreas (principal) ==

== ENCOUNTER → 2022-06-04 | Outpatient (CLI) | payer MEDICARE, BC, OTHER ==
[~2022-06-04] MED LIST changes: +DEXA4TA PO; +LIDO15SO4 PO; +MAGICMW SSP; +OMEP20TA2 PO; +ORAL0.1P MT
== END ==
LOC: M ONCM 09:32
PROVIDERS: ATTEND Dietitian, Registered
DX: C25.0 Malignant neoplasm of head of pancreas (principal); Z68.21 Body mass index [BMI] 21.0-21.9, adult; Z71.3 Dietary counseling and surveillance; Z92.21 Personal history of antineoplastic chemotherapy

== ENCOUNTER 2022-06-12 09:48 | Outpatient (RCR) | payer MEDICARE, BC, OTHER ==
[~2022-06-12 09:48] MED LIST changes: -DEXA4TA PO
[2022-06-12] MEDS ORDERED: DEXA4TA PO (10:30)
== END 2022-06-21 ==
LOC: M ONCR 09:48
PROVIDERS: ATTEND General Practice
DX: C25.0 Malignant neoplasm of head of pancreas (principal)

== ENCOUNTER → 2022-06-12 | Outpatient (CLI) | payer MEDICARE, BC, OTHER | LOC: M RAD 10:52 | PROVIDERS: ATTEND General Practice | DX: C25.0 Malignant neoplasm of head of pancreas (principal) ==

== ENCOUNTER → 2022-07-22 | Outpatient (CLI) | payer MEDICARE, BC, OTHER ==
[~2022-07-22] MED LIST changes: +DEXA4TA PO; -GABA300S PO; +GABA300S2 PO; +GASTROGRAFIN SOLUTION 30ML As Ordered ONE; +ISOVUE-370 76% 100ML VIAL As Ordered ONE; +LIDO15SO PO; -LIDO15SO4 PO
== END ==
LOC: M RAD 12:09
PROVIDERS: ATTEND Nurse Practitioner
DX: C25.9 Malignant neoplasm of pancreas, unspecified (principal)
CPT/HCPCS: 74177; Q9963; Q9967

== ENCOUNTER → 2022-07-30 | Outpatient (CLI) | payer MEDICARE, BC, OTHER ==
[~2022-07-30] MED LIST changes: -GASTROGRAFIN SOLUTION 30ML As Ordered ONE; -ISOVUE-370 76% 100ML VIAL As Ordered ONE
== END ==
LOC: M LAB 08:31
PROVIDERS: ATTEND Urology
DX: C61 Malignant neoplasm of prostate (principal)

== ENCOUNTER → 2022-09-12 | Outpatient (CLI) | payer MEDICARE, BC, OTHER | LOC: M ONCR 10:12 | PROVIDERS: ATTEND General Practice | DX: C25.0 Malignant neoplasm of head of pancreas (principal); Z71.2 Person consulting for explanation of examination or test findings; Z79.4 Long term (current) use of insulin; Z79.899 Other long term (current) drug therapy; Z85.46 Personal history of malignant neoplasm of prostate; Z87.891 Personal history of nicotine dependence; Z92.21 Personal history of antineoplastic chemotherapy; Z92.3 Personal history of irradiation ==

== ENCOUNTER → 2022-10-30 | Outpatient (CLI) | payer MEDICARE, BC, OTHER ==
[~2022-10-30] MED LIST changes: -DOXA2TAB3 PO; +DOXA2TAB61 PO; +GASTROGRAFIN SOLUTION 30ML As Ordered ONE; +ISOVUE-370 76% 100ML VIAL As Ordered ONE
== END ==
LOC: M RAD 08:05
PROVIDERS: ATTEND Internal Medicine Medical Oncology
DX: C25.9 Malignant neoplasm of pancreas, unspecified (principal)
CPT/HCPCS: 71260; 74177; Q9963; Q9967

== ENCOUNTER → 2022-11-11 | Outpatient (REF) | payer MEDICARE, BC, OTHER ==
[~2022-11-11] MED LIST changes: -GASTROGRAFIN SOLUTION 30ML As Ordered ONE; -ISOVUE-370 76% 100ML VIAL As Ordered ONE
== END ==
LOC: M SMT 13:22
PROVIDERS: ATTEND Urology
DX: C67.9 Malignant neoplasm of bladder, unspecified (principal)

== ENCOUNTER → 2022-11-12 | Outpatient (CLI) | payer MEDICARE, BC, OTHER | LOC: M LAB 10:23 | PROVIDERS: ATTEND Urology | DX: C61 Malignant neoplasm of prostate (principal) ==

== ENCOUNTER → 2023-01-24 | Outpatient (CLI) | payer MEDICARE, BC, OTHER ==
[~2023-01-24] MED LIST changes: +GASTROGRAFIN SOLUTION 30ML As Ordered ONE; +ISOVUE-370 76% 100ML VIAL As Ordered ONE; -OXYB5TAB10 PO; +OXYB5TAB11 PO
== END ==
LOC: M RAD 09:06
PROVIDERS: ATTEND Internal Medicine Medical Oncology
DX: C25.9 Malignant neoplasm of pancreas, unspecified (principal); Z98.890 Other specified postprocedural states
CPT/HCPCS: 71260; 74177; Q9963; Q9967

== ENCOUNTER → 2023-03-13 | Outpatient (CLI) | payer MEDICARE, BC, OTHER ==
[~2023-03-13] MED LIST changes: -GASTROGRAFIN SOLUTION 30ML As Ordered ONE; -ISOVUE-370 76% 100ML VIAL As Ordered ONE
== END ==
LOC: M ONCR 09:46
PROVIDERS: ATTEND General Practice
DX: C25.0 Malignant neoplasm of head of pancreas (principal); Z71.2 Person consulting for explanation of examination or test findings; Z79.4 Long term (current) use of insulin; Z79.899 Other long term (current) drug therapy; Z85.46 Personal history of malignant neoplasm of prostate; Z87.891 Personal history of nicotine dependence; Z90.3 Acquired absence of stomach [part of]; Z92.21 Personal history of antineoplastic chemotherapy; Z92.3 Personal history of irradiation

== ENCOUNTER → 2023-05-02 | Outpatient (CLI) | payer MEDICARE, BC, OTHER ==
[~2023-05-02] MED LIST changes: +GASTROGRAFIN SOLUTION 30ML As Ordered ONE; +ISOVUE-370 76% 100ML VIAL As Ordered ONE
== END ==
LOC: M RAD 11:08
PROVIDERS: ATTEND Internal Medicine Medical Oncology
DX: C25.9 Malignant neoplasm of pancreas, unspecified (principal)
CPT/HCPCS: 71260; 74177; Q9963; Q9967

== ENCOUNTER → 2023-07-11 | Outpatient (CLI) | payer MEDICARE, BC ==
[~2023-07-11] MED LIST changes: +DIPH1TAB81 PO; -DIPH2.5T15 PO; -GASTROGRAFIN SOLUTION 30ML As Ordered ONE; -ISOVUE-370 76% 100ML VIAL As Ordered ONE; -LIDO15SO PO; +LIDO15SO8 PO; -OXYB5TAB11 PO; +OXYB5TAB14 PO
[2023-07-11 13:12] LABS: BASO % 0.6 % (0.0-1.0); EOS % 0.9 % (0.0-3.0); HEMATOCRIT 38.5 % (42.0-52.0); HEMOGLOBIN 12.7 g/dl (13.5-17.5); LYMPH # 0.6 10^3/uL (1.5-5.0); LYMPH % 18.5 % (24.0-44.0); MEAN CORPUSCULAR HEMOGLOBIN 30.6 pg (27.0-33.0); MEAN CORPUSCULAR VOLUME 92.8 fl (80.0-96.0); MONO # 0.2 10^3/uL (0.0-0.8); MONO % 6.6 % (2.0-8.0); NEUTROPHILS # 2.5 10^3/uL (1.5-8.5); NEUTROPHILS % 73.4 % (36.0-66.0); PLATELET COUNT, AUTOMATED 137 10^3/uL (150-450); RED BLOOD COUNT 4.15 10^6/uL (4.30-6.10); WHITE BLOOD COUNT 3.4 10^3/uL (4.0-10.0)
[2023-07-11 13:38] LABS: ALBUMIN 3.4 G/DL (3.2-5.2); ALKALINE PHOSPHATASE 101 U/L (46-116); ALT/SGPT 35 U/L (7.0-40); AST/SGOT 33 U/L (<34); BLOOD UREA NITROGEN 12 MG/DL (9-23); CALCIUM LEVEL 8.7 MG/DL (8.3-10.6); CARBON DIOXIDE LEVEL 29 MMOL/L (20-31); CHLORIDE LEVEL 106 MMOL/L (98-107); CK-MB VALUE MASS 1.9 NG/ML (<3.6); CPK CREATINE PHOSPHOKINASE 63 U/L (46-171); CREATININE FOR GFR 0.69 MG/DL (0.70-1.30); GLOMERULAR FILTRATION RATE > 60.0 (>42); GLUCOSE, FASTING 284 MG/DL (74-106); MB/CK RELATIVE INDEX 3.01 (< OR =4); POTASSIUM SERUM 3.8 MMOL/L (3.5-5.1); SODIUM LEVEL 137 MMOL/L (136-145); TOTAL PROTEIN 6.4 G/DL (5.7-8.2)
[2023-07-11 13:57] LABS: CA19-9 TUMOR MARKER,CARBOHYDRA 26.8 U/ML (<35.0)
[2023-07-11 14:52] LABS: HEMOGLOBIN A1c 7.4 % (4.0-6.0)
== END ==
LOC: M RAD 11:52
PROVIDERS: ATTEND General Practice
DX: C25.0 Malignant neoplasm of head of pancreas (principal); R07.9 Chest pain, unspecified; E11.9 Type 2 diabetes mellitus without complications; C61 Malignant neoplasm of prostate; Z79.4 Long term (current) use of insulin; Z79.899 Other long term (current) drug therapy; Z87.891 Personal history of nicotine dependence; Z92.21 Personal history of antineoplastic chemotherapy; Z92.3 Personal history of irradiation; K90.89 Other intestinal malabsorption
CPT/HCPCS: 36415; 71046; 80053; 82553; 83036; 85025; 86301; 93005; G0463

== ENCOUNTER → 2023-07-11 | Outpatient (CLI) | payer MEDICARE, BC | LOC: M ONCR 10:59 | PROVIDERS: ATTEND General Practice | DX: R07.9 Chest pain, unspecified (principal); C25.0 Malignant neoplasm of head of pancreas; E11.9 Type 2 diabetes mellitus without complications; C61 Malignant neoplasm of prostate; Z79.4 Long term (current) use of insulin; Z79.899 Other long term (current) drug therapy; Z87.891 Personal history of nicotine dependence; Z92.21 Personal history of antineoplastic chemotherapy; Z92.3 Personal history of irradiation; K90.89 Other intestinal malabsorption ==

== ENCOUNTER → 2023-08-06 | Outpatient (CLI) | payer MEDICARE, BC ==
[~2023-08-06] MED LIST changes: +GASTROGRAFIN SOLUTION 30ML As Ordered ONE; +ISOVUE-370 76% 100ML VIAL As Ordered ONE
== END ==
LOC: M RAD 11:18
PROVIDERS: ATTEND Internal Medicine Medical Oncology
DX: C61 Malignant neoplasm of prostate (principal); C67.9 Malignant neoplasm of bladder, unspecified; N28.1 Cyst of kidney, acquired
CPT/HCPCS: 71260; 74177; Q9963; Q9967

== ENCOUNTER → 2023-09-05 | Outpatient (REF) | payer MEDICARE, BC ==
[~2023-09-05] MED LIST changes: -GASTROGRAFIN SOLUTION 30ML As Ordered ONE; -ISOVUE-370 76% 100ML VIAL As Ordered ONE; +ONDA-282 PO; +ONDA-284 PO; -ONDA4TAB6 PO; -ONDA8TAB8 PO
[2023-09-05 18:34] LABS: HEMATOCRIT 39.7 % (42.0-52.0); HEMOGLOBIN 12.9 g/dl (13.5-17.5); MEAN CORPUSCULAR HEMOGLOBIN 30.1 pg (27.0-33.0); MEAN CORPUSCULAR HGB CONC 32.5 g/dl (32.0-36.5); MEAN CORPUSCULAR VOLUME 92.8 fl (80.0-96.0); PLATELET COUNT, AUTOMATED 148 10^3/uL (150-450); RED BLOOD COUNT 4.28 10^6/uL (4.30-6.10); WHITE BLOOD COUNT 4.5 10^3/uL (4.0-10.0)
== END ==
LOC: M LABWUC 16:45 → M LAB REF 16:45
PROVIDERS: ATTEND Physician Assistant Medical
DX: K92.1 Melena (principal)

== ENCOUNTER → 2023-09-05 | Outpatient (CLI) | payer MEDICARE, BC | LOC: M LRY 09:50 | PROVIDERS: ATTEND Physician Assistant Medical | DX: K92.1 Melena (principal) ==

== ENCOUNTER → 2023-09-08 | Outpatient (REF) | payer MEDICARE, OTHER | LOC: M SFHCDERM 17:09 | PROVIDERS: ATTEND Physician Assistant | DX: C44.329 Squamous cell carcinoma of skin of other parts of face (principal) ==

== ENCOUNTER → 2023-09-10 | Outpatient (CLI) | payer MEDICARE, BC | LOC: M ONCR 09:47 | PROVIDERS: ATTEND General Practice | DX: Z08 Encounter for follow-up examination after completed treatment for malignant neoplasm (principal); Z85.07 Personal history of malignant neoplasm of pancreas; Z85.46 Personal history of malignant neoplasm of prostate; R10.12 Left upper quadrant pain; Z15.09 Genetic susceptibility to other malignant neoplasm; Z71.2 Person consulting for explanation of examination or test findings; Z92.21 Personal history of antineoplastic chemotherapy; Z92.3 Personal history of irradiation; Z79.4 Long term (current) use of insulin; Z79.899 Other long term (current) drug therapy; Z85.828 Personal history of other malignant neoplasm of skin; Z98.890 Other specified postprocedural states ==

== ENCOUNTER 2023-09-23 09:01 | Day surgery (SDC) | payer MEDICARE, BC ==
[~2023-09-23] VITALS: Ht 177.8 cm; Wt 79.8 kg
[~2023-09-23 09:01] MED LIST changes: +NS 1,000 ML IV ONE; +OMEP40CA5 PO
[2023-09-23] MEDS ORDERED: METOCLOPRAMIDE INJ 10MG/2ML VIAL As Ordered ONE (10:24)
[2023-09-23] MEDS ORDERED: GLYCOPYRROLATE INJ 0.2 MG/ML 2 ML VIAL As Ordered ONE (10:25)
[2023-09-23] MEDS ORDERED: LIDOCAINE 2% 100MG/5ML SDV (FOR ANES.) As Ordered ONE (10:25)
[2023-09-23] MEDS ORDERED: propofoL 200 MG/20 ML VIAL As Ordered ONE (10:25)
[2023-09-23 11:02] VITALS: TEMP 98.1
[2023-09-23 11:23] VITALS: BP 123/71; O2SAT 99
== END 2023-09-23 11:40 | disposition home or self-care (01) ==
LOC: M OPP 09:01
PROVIDERS: ATTEND Internal Medicine Gastroenterology
DX: K64.8 Other hemorrhoids (principal); R10.12 Left upper quadrant pain; Z98.0 Intestinal bypass and anastomosis status; Z87.891 Personal history of nicotine dependence; E11.9 Type 2 diabetes mellitus without complications; Z79.3 Long term (current) use of hormonal contraceptives; Z79.899 Other long term (current) drug therapy

== ENCOUNTER → 2023-11-17 | Outpatient (REF) | payer MEDICARE, OTHER ==
[~2023-11-17] MED LIST changes: -NS 1,000 ML IV ONE
== END ==
LOC: M SMT 12:29
PROVIDERS: ATTEND Urology
DX: Z85.51 Personal history of malignant neoplasm of bladder (principal)

== ENCOUNTER → 2023-11-21 | Outpatient (CLI) | payer MEDICARE, OTHER, BC ==
[~2023-11-21] MED LIST changes: +ACET-897 PO; +[UNRECOGNIZED DRUG - CODE] TOP
== END ==
LOC: M LAB 11:29
PROVIDERS: ATTEND Urology
DX: Z85.51 Personal history of malignant neoplasm of bladder (principal); Z85.46 Personal history of malignant neoplasm of prostate

== ENCOUNTER → 2023-11-26 | Outpatient (CLI) | payer MEDICARE, BC ==
[2023-11-26 14:52] LABS: HEMOGLOBIN 11.1 g/dl (13.5-17.5); MEAN CORPUSCULAR HEMOGLOBIN 29.9 pg (27.0-33.0); MEAN CORPUSCULAR HGB CONC 32.6 g/dl (32.0-36.5); MEAN CORPUSCULAR VOLUME 91.6 fl (80.0-96.0); PLATELET COUNT, AUTOMATED 163 10^3/uL (150-450); RED BLOOD COUNT 3.71 10^6/uL (4.30-6.10); WHITE BLOOD COUNT 4.2 10^3/uL (4.0-10.0)
[2023-11-26 15:10] LABS: HEMOGLOBIN A1c 7.2 % (4.0-6.0)
[2023-11-26 15:20] LABS: ALBUMIN 3.3 G/DL (3.2-5.2); ALKALINE PHOSPHATASE 122 U/L (46-116); ALT/SGPT 36 U/L (7.0-40); AST/SGOT 29 U/L (<34); BILIRUBIN,TOTAL 0.8 MG/DL (0.3-1.2); BLOOD UREA NITROGEN 16 MG/DL (9-23); CARBON DIOXIDE LEVEL 29 MMOL/L (20-31); CHLORIDE LEVEL 103 MMOL/L (98-107); CREATININE FOR GFR 0.77 MG/DL (0.70-1.30); GLOMERULAR FILTRATION RATE > 60.0 (>42); GLUCOSE, FASTING 250 MG/DL (74-106); IRON (FE) 70 UG/DL (65-175); PERCENT SATURATION 22.7 % (19.7-50.0); POTASSIUM SERUM 4.2 MMOL/L (3.5-5.1); SODIUM LEVEL 136 MMOL/L (136-145); TOTAL IRON BINDING CAPACITY 308 UG/DL (250-425); TOTAL PROTEIN 6.5 G/DL (5.7-8.2)
[2023-11-26 15:22] LABS: THYROID STIMULATING HORMONE 1.746 uIU/ML (0.55-4.78)
== END ==
LOC: M LAB 14:14
PROVIDERS: ATTEND Family Medicine
DX: E11.9 Type 2 diabetes mellitus without complications (principal); D64.9 Anemia, unspecified; R53.83 Other fatigue; E03.9 Hypothyroidism, unspecified

== ENCOUNTER 2023-12-07 18:45 | Observation (INO) | payer MEDICARE, BC ==
[~2023-12-07] VITALS: Ht 177.8 cm; Wt 54.4 kg
[~2023-12-07 18:45] MED LIST changes: -ACET-897 PO; -[UNRECOGNIZED DRUG - CODE] TOP
[2023-12-07 18:46] VITALS: BP 168/84; TEMP 96.2; O2SAT 100
[2023-12-07 20:39] LABS: BASO % 0.3 % (0.0-1.0); EOS % 0.7 % (0.0-3.0); HEMATOCRIT 39.1 % (42.0-52.0); HEMOGLOBIN 12.9 g/dl (13.5-17.5); LYMPH # 0.7 10^3/uL (1.5-5.0); LYMPH % 11.9 % (24.0-44.0); MEAN CORPUSCULAR HEMOGLOBIN 30.2 pg (27.0-33.0); MEAN CORPUSCULAR VOLUME 91.6 fl (80.0-96.0); MONO # 0.5 10^3/uL (0.0-0.8); MONO % 8.5 % (2.0-8.0); NEUTROPHILS # 4.8 10^3/uL (1.5-8.5); NEUTROPHILS % 78.3 % (36.0-66.0); PLATELET COUNT, AUTOMATED 160 10^3/uL (150-450); RED BLOOD COUNT 4.27 10^6/uL (4.30-6.10); WHITE BLOOD COUNT 6.1 10^3/uL (4.0-10.0)
[2023-12-07 21:04] LABS: BLOOD UREA NITROGEN 15 MG/DL (9-23); CARBON DIOXIDE LEVEL 26 MMOL/L (20-31); CHLORIDE LEVEL 106 MMOL/L (98-107); CREATININE FOR GFR 0.64 MG/DL (0.70-1.30); GLOMERULAR FILTRATION RATE > 60.0 (>42); GLUCOSE, FASTING 83 MG/DL (74-106); SODIUM LEVEL 137 MMOL/L (136-145)
[2023-12-07] MEDS ORDERED: ACET-897 PO (22:39)
[2023-12-07] MEDS ORDERED: [UNRECOGNIZED DRUG - CODE] TOP (22:39)
[2023-12-07] MEDS ORDERED: DIPH1TAB81 PO (22:39)
[2023-12-07] MEDS ORDERED: HOME MED LIST COMPLETE! XX SCH (22:45)
[2023-12-07] MEDS ORDERED: MOM 30ML SUSPENSION UDC PO PRN (23:15)
[2023-12-07] MEDS ORDERED: GLUCOSE 4 GM CHEW PO PRN (23:15)
[2023-12-07] MEDS ORDERED: DEXTROSE 50% 50ML SYRINGE IV PRN (23:15)
[2023-12-07] MEDS ORDERED: GLUCAGON INJ 1MG VIAL SC PRN (23:15)
[2023-12-07] MEDS ORDERED: MAALOX 30 ML SUSP *UDC PO PRN (23:15)
[2023-12-07] MEDS ORDERED: ACETAMINOPHEN TAB 650MG DOSE (2X325MG) PO PRN (23:15)
[2023-12-08] MEDS ORDERED: HEPARIN SOD (PORCINE) 5000UNITS/ML 1ML VIAL/SYRINGE SC SCH (06:00)
[2023-12-08] MEDS ORDERED: INSULIN LISPRO (NovoLOG) PER UNIT SC SCH ×2 (07:30→21:00)
[2023-12-08] MEDS ORDERED: DOCUSATE SODIUM 100MG CAPSULE PO SCH (09:00)
== END 2023-12-08 13:20 | disposition left against medical advice (07) ==
LOC: M ED 18:45 → M ED INP 18:46
PROVIDERS: ADMIT Family Medicine; ATTEND Family Medicine
DX: E11.649 Type 2 diabetes mellitus with hypoglycemia without coma (principal); Z53.29 Procedure and treatment not carried out because of patient's decision for other reasons; E78.5 Hyperlipidemia, unspecified; I10 Essential (primary) hypertension; K21.9 Gastro-esophageal reflux disease without esophagitis; Z85.46 Personal history of malignant neoplasm of prostate; C25.9 Malignant neoplasm of pancreas, unspecified; Z87.891 Personal history of nicotine dependence; Z79.4 Long term (current) use of insulin; Z79.899 Other long term (current) drug therapy
CPT/HCPCS: 71045; 80048; 85025; 87486; 87581; 87633; 87798; 99284; G0378

== ENCOUNTER → 2023-12-15 | Outpatient (CLI) | payer MEDICARE, BC ==
[~2023-12-15] MED LIST changes: +ACET-897 PO; +[UNRECOGNIZED DRUG - CODE] TOP
== END ==
LOC: M PLARAD 14:48
PROVIDERS: ATTEND Internal Medicine Medical Oncology
DX: C25.0 Malignant neoplasm of head of pancreas (principal)
CPT/HCPCS: 78815; A9552

== ENCOUNTER 2023-12-24 14:49 | Emergency (ER) | payer MEDICARE, BC ==
[~2023-12-24] VITALS: Ht 177.8 cm; Wt 51.4 kg
[~2023-12-24 14:49] MED LIST changes: -PERC5TAB12 PO
[2023-12-24 16:23] LABS: BASO % 0.4 % (0.0-1.0); EOS # 0.1 10^3/uL (0.0-0.5); HEMATOCRIT 39.8 % (42.0-52.0); HEMOGLOBIN 13.2 g/dl (13.5-17.5); MEAN CORPUSCULAR HEMOGLOBIN 30.1 pg (27.0-33.0); MEAN CORPUSCULAR HGB CONC 33.2 g/dl (32.0-36.5); MEAN CORPUSCULAR VOLUME 90.7 fl (80.0-96.0); MONO # 0.4 10^3/uL (0.0-0.8); MONO % 7.7 % (2.0-8.0); NEUTROPHILS # 3.6 10^3/uL (1.5-8.5); NEUTROPHILS % 71.7 % (36.0-66.0); PLATELET COUNT, AUTOMATED 183 10^3/uL (150-450); RED BLOOD COUNT 4.39 10^6/uL (4.30-6.10); WHITE BLOOD COUNT 5.1 10^3/uL (4.0-10.0)
[2023-12-24] MEDS: MORPHINE 2 MG/ML 1ML VIAL IV ONE (16:38)
[2023-12-24 16:54] LABS: LIPASE 14 U/L (12-53)
[2023-12-24 16:56] LABS: ALBUMIN 3.3 G/DL (3.2-5.2); ALKALINE PHOSPHATASE 158 U/L (46-116); ALT/SGPT 54 U/L (7.0-40); AST/SGOT 42 U/L (<34); BILIRUBIN,DIRECT 0.3 MG/DL (<0.4); BILIRUBIN,TOTAL 0.7 MG/DL (0.3-1.2); BLOOD UREA NITROGEN 15 MG/DL (9-23); CALCIUM LEVEL 9.3 MG/DL (8.3-10.6); CARBON DIOXIDE LEVEL 26 MMOL/L (20-31); CHLORIDE LEVEL 104 MMOL/L (98-107); CK-MB VALUE MASS < 1.0 NG/ML (<3.6); CREATININE FOR GFR 0.79 MG/DL (0.70-1.30); GLOMERULAR FILTRATION RATE > 60.0 (>42); GLUCOSE, FASTING 198 MG/DL (74-106); POTASSIUM SERUM 4.6 MMOL/L (3.5-5.1); SODIUM LEVEL 134 MMOL/L (136-145); TOTAL PROTEIN 6.8 G/DL (5.7-8.2)
[2023-12-24 16:58] LABS: THYROID STIMULATING HORMONE 0.972 uIU/ML (0.55-4.78)
[2023-12-24 17:01] LABS: CPK CREATINE PHOSPHOKINASE 33 U/L (46-171); MB/CK RELATIVE INDEX 3.03 (< OR =4)
[2023-12-24 17:30] VITALS: O2SAT 96
[2023-12-24] MEDS ORDERED: ISOVUE-370 76% 100ML VIAL As Ordered ONE (17:44)
[2023-12-24 18:09] LABS: CK-MB VALUE MASS < 1.0 NG/ML (<3.6)
[2023-12-24 18:14] LABS: CPK CREATINE PHOSPHOKINASE 27 U/L (46-171)
[2023-12-24] MEDS ORDERED: PERC5TAB12 PO (19:11)
[2023-12-24 19:25] VITALS: BP 170/78; TEMP 97.4; O2SAT 97
== END 2023-12-24 19:26 | disposition home or self-care (01) ==
LOC: M ED 14:49
DX: J90 Pleural effusion, not elsewhere classified (principal); R10.9 Unspecified abdominal pain; N28.1 Cyst of kidney, acquired; E11.9 Type 2 diabetes mellitus without complications; I10 Essential (primary) hypertension; C61 Malignant neoplasm of prostate; C67.9 Malignant neoplasm of bladder, unspecified; C25.9 Malignant neoplasm of pancreas, unspecified; Z87.891 Personal history of nicotine dependence; Z79.1 Long term (current) use of non-steroidal anti-inflammatories (NSAID); Z79.4 Long term (current) use of insulin; Z79.899 Other long term (current) drug therapy
CPT/HCPCS: 71045; 71275; 74177; 80048; 80076; 82550; 82553; 83690; 83880; 84443; 84484; 85025; 87040; 87486; 87581; 87633; 87798; 93005; 93041; 93306; 94760; 96374; 99285; Q9967

== ENCOUNTER → 2023-12-24 | Outpatient (CLI) | payer MEDICARE, BC ==
[~2023-12-24] MED LIST changes: +PERC5TAB12 PO
== END ==
LOC: M CARPUL 12:58
PROVIDERS: ATTEND Internal Medicine Pulmonary Disease
DX: J90 Pleural effusion, not elsewhere classified (principal)

== ENCOUNTER → 2023-12-26 | Outpatient (CLI) | payer MEDICARE, BC ==
[~2023-12-26] MED LIST changes: +PERC5TAB12 PO
[2023-12-26 11:13] LABS: PLATELET COUNT, AUTOMATED 159 10^3/uL (150-450)
[2023-12-26 11:27] LABS: INR 1.21; PARTIAL THROMBOPLASTIN TIME 35.7 SECONDS (24.8-34.2)
== END ==
LOC: M LAB 10:26
PROVIDERS: ATTEND Internal Medicine Pulmonary Disease
DX: Z01.812 Encounter for preprocedural laboratory examination (principal); Z79.899 Other long term (current) drug therapy

== ENCOUNTER → 2023-12-29 | Outpatient (CLI) | payer MEDICARE, BC ==
[~2023-12-29] MED LIST changes: +DICY-61
[2023-12-29 10:25] VITALS: TEMP 97.7
[2023-12-29 11:16] LABS: PH BODY FLUID 7.639 UNITS (NOT ESTABLISHED); SOURCE, BODY FLUID pH PLEURAL
[2023-12-29 11:28] LABS: SOURCE, BODY FLUID ALBUMIN PLEURAL
[2023-12-29 11:33] LABS: SOURCE, BODY FLUID GLUCOSE PLEURAL
[2023-12-29 11:34] LABS: LDH, BODY FLUID 178 U/L (NOT ESTABLISHED); SOURCE, BODY FLUID LDH PLEURAL
[2023-12-29 11:35] LABS: AMYLASE, BODY FLUID < 20 U/L (NOT ESTABLISHED); SOURCE, BODY FLUID PLEURAL; SOURCE, BODY FLUID AMYLASE PLEURAL
[2023-12-29 11:36] LABS: APPEARANCE, BODY FLUID HAZY (CLEAR); PLEURAL FL COLOR PALE YELLOW (COLORLESS)
[2023-12-29 13:00] VITALS: BP 126/60; O2SAT 100
[2023-12-29 16:44] LABS: SOURCE, BODY FLUID TOT PROTEIN PLEURAL
[2023-12-29 16:56] LABS: TOTAL PROTEIN, BODY FLUID 3.8 G/DL (NOT ESTABLISHED)
== END ==
LOC: M IRPRO 09:58
PROVIDERS: ATTEND Internal Medicine Pulmonary Disease
DX: J90 Pleural effusion, not elsewhere classified (principal)

== ENCOUNTER 2023-12-30 08:53 | Emergency (ER) | payer MEDICARE, BC ==
[~2023-12-30] VITALS: Ht 177.8 cm; Wt 52.0 kg
[~2023-12-30 08:53] MED LIST changes: -DICY-61
[2023-12-30] MEDS ORDERED: DICY-61 (09:07)
[2023-12-30] MEDS: PERCOCET 5MG/325MG TAB PO ONE (12:50)
[2023-12-30 17:11] VITALS: BP 113/58; TEMP 97.6; O2SAT 100
[2024-01-01] MEDS ORDERED: MORP10SO2 PO (12:30)
== END 2023-12-30 17:19 | disposition home or self-care (01) ==
LOC: M ED 08:53
DX: J93.9 Pneumothorax, unspecified (principal); J91.8 Pleural effusion in other conditions classified elsewhere; R91.1 Solitary pulmonary nodule; J98.11 Atelectasis; E78.5 Hyperlipidemia, unspecified; K21.9 Gastro-esophageal reflux disease without esophagitis; I10 Essential (primary) hypertension; C61 Malignant neoplasm of prostate; M54.50 Low back pain, unspecified; E11.9 Type 2 diabetes mellitus without complications; Z79.1 Long term (current) use of non-steroidal anti-inflammatories (NSAID); Z79.899 Other long term (current) drug therapy; Z87.442 Personal history of urinary calculi; Z79.4 Long term (current) use of insulin

== ENCOUNTER → 2023-12-31 | Outpatient (CLI) | payer MEDICARE, BC ==
[~2023-12-31] MED LIST changes: +DICY-61; +MORP10SO2 PO
== END ==
LOC: M RAD 12:08
PROVIDERS: ATTEND Internal Medicine Pulmonary Disease
DX: J93.83 Other pneumothorax (principal)

== ENCOUNTER → 2024-01-01 | Outpatient (CLI) | payer MEDICARE, BC | LOC: M PAL 09:41 | PROVIDERS: ATTEND Nurse Practitioner Family | DX: G89.3 Neoplasm related pain (acute) (chronic) (principal); R10.9 Unspecified abdominal pain; R06.09 Other forms of dyspnea; R53.83 Other fatigue; R63.0 Anorexia; R43.2 Parageusia; F41.9 Anxiety disorder, unspecified; C67.9 Malignant neoplasm of bladder, unspecified; C61 Malignant neoplasm of prostate; C25.9 Malignant neoplasm of pancreas, unspecified; Z51.5 Encounter for palliative care; Z79.4 Long term (current) use of insulin; Z79.891 Long term (current) use of opiate analgesic; Z79.899 Other long term (current) drug therapy; Z80.7 Family history of other malignant neoplasms of lymphoid, hematopoietic and related tissues; Z87.891 Personal history of nicotine dependence; Z92.3 Personal history of irradiation; Z92.21 Personal history of antineoplastic chemotherapy ==

== ENCOUNTER → 2024-01-05 | Outpatient (CLI) | payer MEDICARE, BC ==
[2024-01-05 10:20] VITALS: TEMP 97.2
[2024-01-05 12:19] LABS: PH BODY FLUID 7.681 UNITS (NOT ESTABLISHED); SOURCE, BODY FLUID pH PLEURAL
[2024-01-05 12:34] LABS: SOURCE, BODY FLUID PLEURAL
[2024-01-05 12:36] LABS: PLEURAL FL COLOR ORANGE (COLORLESS)
[2024-01-05 12:37] LABS: APPEARANCE, BODY FLUID CLOUDY (CLEAR)
[2024-01-05 12:38] LABS: SOURCE, BODY FLUID ALBUMIN PLEURAL
[2024-01-05 12:43] LABS: SOURCE, BODY FLUID GLUCOSE PLEURAL
[2024-01-05 12:45] LABS: AMYLASE, BODY FLUID < 20 U/L (NOT ESTABLISHED); LDH, BODY FLUID 166 U/L (NOT ESTABLISHED); SOURCE, BODY FLUID AMYLASE PLEURAL; SOURCE, BODY FLUID LDH PLEURAL
[2024-01-05 13:16] LABS: SOURCE, BODY FLUID TOT PROTEIN PLEURAL; TOTAL PROTEIN, BODY FLUID 3.4 G/DL (NOT ESTABLISHED)
[2024-01-05 13:23] VITALS: BP 128/74; O2SAT 100
== END ==
LOC: M IRPRO 09:56
PROVIDERS: ATTEND Internal Medicine Medical Oncology
DX: C25.9 Malignant neoplasm of pancreas, unspecified (principal); C78.2 Secondary malignant neoplasm of pleura

== ENCOUNTER → 2024-01-05 | Outpatient (CLI) | payer MEDICARE, BC | LOC: M IRPRO 10:00 | PROVIDERS: ATTEND Internal Medicine Pulmonary Disease | DX: J90 Pleural effusion, not elsewhere classified (principal) ==

== ENCOUNTER → 2024-01-06 | Outpatient (CLI) | payer MEDICARE, BC ==
[~2024-01-06] MED LIST changes: -AUGM0.05 TOP; +AUGM0.0511 TOP; +OMEP-611 PO; -OMEP20TA2 PO; +OXYC1TAB23; +PERCOCET PO
== END ==
LOC: M ONCR 11:14
PROVIDERS: ATTEND General Practice
DX: C25.0 Malignant neoplasm of head of pancreas (principal); C61 Malignant neoplasm of prostate; C78.2 Secondary malignant neoplasm of pleura; C79.89 Secondary malignant neoplasm of other specified sites; J91.0 Malignant pleural effusion; R18.0 Malignant ascites; R91.8 Other nonspecific abnormal finding of lung field; R64 Cachexia; Z79.4 Long term (current) use of insulin; Z79.899 Other long term (current) drug therapy; Z87.891 Personal history of nicotine dependence; Z90.49 Acquired absence of other specified parts of digestive tract; Z92.21 Personal history of antineoplastic chemotherapy; Z92.3 Personal history of irradiation; Z79.83 Long term (current) use of bisphosphonates; Z91.048 Other nonmedicinal substance allergy status
CPT/HCPCS: 71046; G0463

== ENCOUNTER → 2024-01-06 | Outpatient (CLI) | payer MEDICARE, BC ==
[~2024-01-06] MED LIST changes: +AUGM0.05 TOP; -AUGM0.0511 TOP; -OMEP-611 PO; +OMEP20TA2 PO; -PERCOCET PO
== END ==
LOC: M RAD 12:16
PROVIDERS: ATTEND Internal Medicine Pulmonary Disease
DX: R91.8 Other nonspecific abnormal finding of lung field (principal); J91.0 Malignant pleural effusion; Z79.899 Other long term (current) drug therapy; Z79.83 Long term (current) use of bisphosphonates; Z91.048 Other nonmedicinal substance allergy status

== ENCOUNTER 2024-01-12 09:46 | Outpatient (RCR) | payer MEDICARE, BC ==
[2019-02-25 12:59] VITALS: BP 135/75; TEMP 96.4; O2SAT 99
[2019-02-25 14:49] LABS: BASO % 0.5 % (0.0-1.0); EOS # 0.2 10^3/uL (0.0-0.5); EOS % 2.9 % (0.0-3.0); HEMATOCRIT 39.1 % (42.0-52.0); LYMPH # 1.8 10^3/uL (1.5-5.0); MEAN CORPUSCULAR HEMOGLOBIN 28.4 pg (27.0-33.0); MEAN CORPUSCULAR HGB CONC 30.7 g/dl (32.0-36.5); MEAN CORPUSCULAR VOLUME 92.7 fl (80.0-96.0); MONO # 0.4 10^3/uL (0.0-0.8); MONO % 6.7 % (0.0-5.0); NEUTROPHILS # 3.1 10^3/uL (1.5-8.5); NEUTROPHILS % 56.4 % (36.0-66.0); PLATELET COUNT, AUTOMATED 231 10^3/uL (150-450); RED BLOOD COUNT 4.22 10^6/uL (4.30-6.10); WHITE BLOOD COUNT 5.5 10^3/uL (4.0-10.0)
[2019-02-25 14:55] LABS: ALBUMIN 3.5 GM/DL (3.2-5.2); ALKALINE PHOSPHATASE 129 U/L (45-117); ALT/SGPT 29 U/L (12-78); AST/SGOT 24 U/L (7-37); BILIRUBIN,TOTAL 0.5 MG/DL (0.2-1.0); BLOOD UREA NITROGEN 8 MG/DL (7-18); CALCIUM LEVEL 8.8 MG/DL (8.8-10.2); CARBON DIOXIDE LEVEL 28 MEQ/L (21-32); CHLORIDE LEVEL 109 MEQ/L (98-107); CREATININE FOR GFR 0.66 MG/DL (0.70-1.30); GLOMERULAR FILTRATION RATE > 60.0 (>42); GLUCOSE, FASTING 176 MG/DL (70-100); POTASSIUM SERUM 3.8 MEQ/L (3.5-5.1); SODIUM LEVEL 140 MEQ/L (136-145); TOTAL PROTEIN 7.4 GM/DL (6.4-8.2)
[2019-02-26 14:29] LABS: INR 1.08; PROTHROMBIN TIME 13.7 SECONDS (11.8-14.0)
[2019-03-15 12:54] VITALS: BP 122/68; TEMP 97.8; O2SAT 100
[2019-03-15 14:40] LABS: BASO % 0.1 % (0.0-1.0); EOS % 0.1 % (0.0-3.0); HEMATOCRIT 38.3 % (42.0-52.0); HEMOGLOBIN 12.1 g/dl (13.5-17.5); LYMPH # 1.8 10^3/uL (1.5-5.0); LYMPH % 13.1 % (24.0-44.0); MEAN CORPUSCULAR HEMOGLOBIN 27.8 pg (27.0-33.0); MEAN CORPUSCULAR HGB CONC 31.6 g/dl (32.0-36.5); MEAN CORPUSCULAR VOLUME 87.8 fl (80.0-96.0); MONO # 0.7 10^3/uL (0.0-0.8); NEUTROPHILS # 10.9 10^3/uL (1.5-8.5); NEUTROPHILS % 81.4 % (36.0-66.0); PLATELET COUNT, AUTOMATED 316 10^3/uL (150-450); RED BLOOD COUNT 4.36 10^6/uL (4.30-6.10); WHITE BLOOD COUNT 13.5 10^3/uL (4.0-10.0)
[2019-03-15 14:51] LABS: INR 1.15; PROTHROMBIN TIME 14.4 SECONDS (11.8-14.0)
[2019-03-15 14:52] LABS: PARTIAL THROMBOPLASTIN TIME 29.7 SECONDS (25.0-38.4)
[2019-03-15 15:06] LABS: ALBUMIN 3.1 GM/DL (3.2-5.2); ALKALINE PHOSPHATASE 115 U/L (45-117); ALT/SGPT 14 U/L (12-78); AST/SGOT 10 U/L (7-37); BILIRUBIN,TOTAL 0.6 MG/DL (0.2-1.0); BLOOD UREA NITROGEN 7 MG/DL (7-18); CARBON DIOXIDE LEVEL 27 MEQ/L (21-32); CHLORIDE LEVEL 101 MEQ/L (98-107); CREATININE FOR GFR 0.67 MG/DL (0.70-1.30); GLOMERULAR FILTRATION RATE > 60.0 (>42); GLUCOSE, FASTING 91 MG/DL (70-100); POTASSIUM SERUM 4.2 MEQ/L (3.5-5.1); SODIUM LEVEL 136 MEQ/L (136-145)
[2019-03-16 08:08] VITALS: BP 113/56; TEMP 98; O2SAT 100
[2019-03-16] MEDS: FOSAPREPITANT PERIPHERAL LINE 30 MIN INFUSION (PREMIX) IV ONE (08:10)
[2019-03-16] MEDS: OLANZapine 10 MG PO PO ONE (08:10)
[2019-03-16] MEDS: PALONOSETRON 250 MCG IV IV ONE (08:10)
[2019-03-16] MEDS: dexameTHASONE 10 MG IV IV ONE (08:10)
[2019-03-16] MEDS: OXALIPLATIN IV ONE (09:27)
[2019-03-16 11:34] LABS: CARCINOEMBRYONIC ANTIGEN 1.7 NG/ML (<2.5)
[2019-03-16] MEDS: IRINOTECAN IV ONE (11:37)
[2019-03-16] MEDS: OVER IV ONE (11:37)
[2019-03-16] MEDS: LEUCOVORIN IV ONE (11:37)
[2019-03-16] MEDS: FLUOROURACIL IV ONE ×2 (13:10→13:11)
[2019-03-16] MEDS: IVP IV ONE (13:10)
[2019-03-17] MEDS: SODIUM CHLORIDE 0.9% INJ 10 ML SYR IV PRN (10:19)
[2019-03-18] MEDS: PEGFILGRASTIM 6 MG SC ONE (09:00)
[2019-03-18] MEDS: SODIUM CHLORIDE 0.9% INJ 10 ML SYR IV PRN (12:03)
[2019-03-19] MEDS: PEGFILGRASTIM 6 MG 0.6ML SYR (NEULASTA) SC ONE (08:18)
[2019-03-26 08:01] VITALS: BP 121/71; TEMP 97.8; O2SAT 99
[2019-03-26] MEDS: SODIUM CHLORIDE 0.9% INJ 10 ML SYR IV PRN (09:15)
[2019-03-26 09:26] LABS: BASO # 0.1 10^3/uL (0.0-0.2); BASO % 0.9 % (0.0-1.0); EOS # 0.2 10^3/uL (0.0-0.5); EOS % 2.3 % (0.0-3.0); HEMATOCRIT 36.8 % (42.0-52.0); HEMOGLOBIN 11.4 g/dl (13.5-17.5); LYMPH # 1.4 10^3/uL (1.5-5.0); LYMPH % 18.1 % (24.0-44.0); MEAN CORPUSCULAR HEMOGLOBIN 27.1 pg (27.0-33.0); MEAN CORPUSCULAR VOLUME 87.4 fl (80.0-96.0); MONO # 0.9 10^3/uL (0.0-0.8); MONO % 11.7 % (0.0-5.0); NEUTROPHILS # 4.9 10^3/uL (1.5-8.5); NEUTROPHILS % 61.2 % (36.0-66.0); PLATELET COUNT, AUTOMATED 155 10^3/uL (150-450); RED BLOOD COUNT 4.21 10^6/uL (4.30-6.10); WHITE BLOOD COUNT 7.9 10^3/uL (4.0-10.0)
[2019-03-26 09:38] LABS: INR 1.15; PROTHROMBIN TIME 14.4 SECONDS (11.8-14.0)
[2019-03-26 09:39] LABS: PARTIAL THROMBOPLASTIN TIME 38.8 SECONDS (25.0-38.4)
[2019-03-26 10:01] LABS: ALBUMIN 2.7 GM/DL (3.2-5.2); ALKALINE PHOSPHATASE 147 U/L (45-117); ALT/SGPT 17 U/L (12-78); AST/SGOT 13 U/L (7-37); BILIRUBIN,TOTAL 0.2 MG/DL (0.2-1.0); BLOOD UREA NITROGEN 10 MG/DL (7-18); CALCIUM LEVEL 8.6 MG/DL (8.8-10.2); CARBON DIOXIDE LEVEL 27 MEQ/L (21-32); CHLORIDE LEVEL 103 MEQ/L (98-107); CREATININE FOR GFR 0.73 MG/DL (0.70-1.30); GLOMERULAR FILTRATION RATE > 60.0 (>42); GLUCOSE, FASTING 133 MG/DL (70-100); MAGNESIUM LEVEL 1.9 MG/DL (1.8-2.4); POTASSIUM SERUM 4.1 MEQ/L (3.5-5.1); PROSTATIC SPECIFIC AG MONITOR 5.53 NG/ML (< 4.00); SODIUM LEVEL 138 MEQ/L (136-145); TOTAL PROTEIN 6.2 GM/DL (6.4-8.2)
[2019-03-26 10:14] LABS: CARCINOEMBRYONIC ANTIGEN 0.6 NG/ML (<2.5)
[2019-03-30 08:15] VITALS: BP 118/68; TEMP 98; O2SAT 100
[2019-03-30 08:42] LABS: BASO # 0.1 10^3/uL (0.0-0.2); BASO % 0.8 % (0.0-1.0); EOS # 0.3 10^3/uL (0.0-0.5); EOS % 2.7 % (0.0-3.0); HEMATOCRIT 35.5 % (42.0-52.0); LYMPH # 1.9 10^3/uL (1.5-5.0); LYMPH % 17.3 % (24.0-44.0); MEAN CORPUSCULAR HEMOGLOBIN 27.1 pg (27.0-33.0); MEAN CORPUSCULAR VOLUME 87.4 fl (80.0-96.0); MONO # 0.7 10^3/uL (0.0-0.8); MONO % 6.1 % (0.0-5.0); NEUTROPHILS # 7.2 10^3/uL (1.5-8.5); NEUTROPHILS % 66.6 % (36.0-66.0); PLATELET COUNT, AUTOMATED 213 10^3/uL (150-450); RED BLOOD COUNT 4.06 10^6/uL (4.30-6.10); WHITE BLOOD COUNT 10.8 10^3/uL (4.0-10.0)
[2019-03-30 09:10] LABS: ALBUMIN 2.4 GM/DL (3.2-5.2); ALKALINE PHOSPHATASE 158 U/L (45-117); ALT/SGPT 14 U/L (12-78); AST/SGOT 16 U/L (7-37); BILIRUBIN,TOTAL 0.3 MG/DL (0.2-1.0); BLOOD UREA NITROGEN 7 MG/DL (7-18); CALCIUM LEVEL 8.2 MG/DL (8.8-10.2); CARBON DIOXIDE LEVEL 24 MEQ/L (21-32); CHLORIDE LEVEL 105 MEQ/L (98-107); CREATININE FOR GFR 0.81 MG/DL (0.70-1.30); GLOMERULAR FILTRATION RATE > 60.0 (>42); GLUCOSE, FASTING 264 MG/DL (70-100); POTASSIUM SERUM 3.9 MEQ/L (3.5-5.1); SODIUM LEVEL 137 MEQ/L (136-145); TOTAL PROTEIN 6.5 GM/DL (6.4-8.2)
[2019-03-30] MEDS: FOSAPREPITANT PERIPHERAL LINE 30 MIN INFUSION (PREMIX) IV ONE (09:24)
[2019-03-30] MEDS: dexameTHASONE 10 MG IV IV ONE (09:24)
[2019-03-30] MEDS: PALONOSETRON 250 MCG IV IV ONE (09:24)
[2019-03-30] MEDS: OLANZapine 10 MG PO PO ONE (09:24)
[2019-03-30] MEDS: OXALIPLATIN IV ONE (10:08)
[2019-03-30] MEDS: IRINOTECAN IV ONE (12:24)
[2019-03-30] MEDS: LEUCOVORIN IV ONE (12:24)
[2019-03-30] MEDS: OVER IV ONE (12:24)
[2019-03-30] MEDS: NEOSPORIN OINT 0.9 GM PKT TOP ONE (13:20)
[2019-03-30] MEDS: IVP IV ONE (14:11)
[2019-03-30] MEDS: FLUOROURACIL IV ONE ×2 (14:11→14:12)
[2019-04-01] MEDS: SODIUM CHLORIDE 0.9% INJ 10 ML SYR IV PRN (11:51)
[2019-04-02] MEDS: PEGFILGRASTIM 6 MG 0.6ML SYR (NEULASTA) SC ONE (11:37)
[2019-04-13 08:43] VITALS: BP 123/68; TEMP 97.4; O2SAT 100
[2019-04-13 08:57] LABS: BASO # 0.1 10^3/uL (0.0-0.2); BASO % 0.7 % (0.0-1.0); EOS # 0.3 10^3/uL (0.0-0.5); EOS % 2.3 % (0.0-3.0); HEMOGLOBIN 11.6 g/dl (13.5-17.5); LYMPH # 1.6 10^3/uL (1.5-5.0); LYMPH % 15.1 % (24.0-44.0); MEAN CORPUSCULAR HEMOGLOBIN 26.9 pg (27.0-33.0); MEAN CORPUSCULAR HGB CONC 31.4 g/dl (32.0-36.5); MEAN CORPUSCULAR VOLUME 85.8 fl (80.0-96.0); MONO # 0.7 10^3/uL (0.0-0.8); MONO % 6.5 % (0.0-5.0); NEUTROPHILS # 7.5 10^3/uL (1.5-8.5); NEUTROPHILS % 69.1 % (36.0-66.0); PLATELET COUNT, AUTOMATED 176 10^3/uL (150-450); RED BLOOD COUNT 4.31 10^6/uL (4.30-6.10); WHITE BLOOD COUNT 10.8 10^3/uL (4.0-10.0)
[2019-04-13 09:20] LABS: ALBUMIN 2.9 GM/DL (3.2-5.2); ALKALINE PHOSPHATASE 165 U/L (45-117); ALT/SGPT 17 U/L (12-78); AST/SGOT 14 U/L (7-37); BILIRUBIN,TOTAL 0.1 MG/DL (0.2-1.0); BLOOD UREA NITROGEN 9 MG/DL (7-18); CALCIUM LEVEL 8.3 MG/DL (8.8-10.2); CARBON DIOXIDE LEVEL 29 MEQ/L (21-32); CHLORIDE LEVEL 106 MEQ/L (98-107); CREATININE FOR GFR 0.76 MG/DL (0.70-1.30); GLOMERULAR FILTRATION RATE > 60.0 (>42); GLUCOSE, FASTING 223 MG/DL (70-100); POTASSIUM SERUM 3.8 MEQ/L (3.5-5.1); SODIUM LEVEL 138 MEQ/L (136-145); TOTAL PROTEIN 6.5 GM/DL (6.4-8.2)
[2019-04-13] MEDS: FOSAPREPITANT PERIPHERAL LINE 30 MIN INFUSION (PREMIX) IV ONE (09:59)
[2019-04-13] MEDS: OLANZapine 10 MG PO PO ONE (09:59)
[2019-04-13] MEDS: PALONOSETRON 250 MCG IV IV ONE (10:00)
[2019-04-13] MEDS: dexameTHASONE 10 MG IV IV ONE (10:00)
[2019-04-13] MEDS: OXALIPLATIN IV ONE (10:57)
[2019-04-13] MEDS: OVER IV ONE (13:21)
[2019-04-13] MEDS: IRINOTECAN IV ONE (13:21)
[2019-04-13] MEDS: LEUCOVORIN IV ONE (13:23)
[2019-04-13] MEDS: IVP IV ONE (15:03)
[2019-04-13] MEDS: FLUOROURACIL IV ONE ×2 (15:03)
[2019-04-13] MEDS: SODIUM CHLORIDE 0.9% INJ 10 ML SYR IV PRN (15:19)
[2019-04-15 11:38] VITALS: BP 123/57; TEMP 97.8; O2SAT 100
[2019-04-15] MEDS: SODIUM CHLORIDE 0.9% INJ 10 ML SYR IV PRN (11:38)
[2019-04-16] MEDS: PEGFILGRASTIM 6 MG 0.6ML SYR (NEULASTA) SC ONE (13:13)
[2019-04-27 08:34] VITALS: BP 116/65; TEMP 96.9; O2SAT 95
[2019-04-27 08:54] LABS: BASO # 0.1 10^3/uL (0.0-0.2); BASO % 0.7 % (0.0-1.0); EOS # 0.2 10^3/uL (0.0-0.5); EOS % 2.3 % (0.0-3.0); HEMATOCRIT 37.8 % (42.0-52.0); HEMOGLOBIN 11.7 g/dl (13.5-17.5); LYMPH # 1.6 10^3/uL (1.5-5.0); LYMPH % 18.6 % (24.0-44.0); MEAN CORPUSCULAR HEMOGLOBIN 26.7 pg (27.0-33.0); MEAN CORPUSCULAR VOLUME 86.1 fl (80.0-96.0); MONO # 0.7 10^3/uL (0.0-0.8); MONO % 8.2 % (0.0-5.0); NEUTROPHILS # 5.7 10^3/uL (1.5-8.5); NEUTROPHILS % 65.2 % (36.0-66.0); PLATELET COUNT, AUTOMATED 169 10^3/uL (150-450); RED BLOOD COUNT 4.39 10^6/uL (4.30-6.10); WHITE BLOOD COUNT 8.8 10^3/uL (4.0-10.0)
[2019-04-27 09:29] LABS: ALBUMIN 2.8 GM/DL (3.2-5.2); ALKALINE PHOSPHATASE 171 U/L (45-117); ALT/SGPT 17 U/L (12-78); AMYLASE 16 U/L (25-115); AST/SGOT 10 U/L (7-37); BILIRUBIN,TOTAL 0.2 MG/DL (0.2-1.0); BLOOD UREA NITROGEN 10 MG/DL (7-18); CALCIUM LEVEL 8.3 MG/DL (8.8-10.2); CARBON DIOXIDE LEVEL 27 MEQ/L (21-32); CHLORIDE LEVEL 106 MEQ/L (98-107); CREATININE FOR GFR 0.83 MG/DL (0.70-1.30); GLOMERULAR FILTRATION RATE > 60.0 (>42); GLUCOSE, FASTING 260 MG/DL (70-100); LIPASE 57 U/L (73-393); POTASSIUM SERUM 3.6 MEQ/L (3.5-5.1); SODIUM LEVEL 140 MEQ/L (136-145); TOTAL PROTEIN 6.3 GM/DL (6.4-8.2)
[2019-04-27] MEDS: FOSAPREPITANT PERIPHERAL LINE 30 MIN INFUSION (PREMIX) IV ONE (09:45)
[2019-04-27] MEDS: PALONOSETRON 250 MCG IV IV ONE (09:45)
[2019-04-27] MEDS: OLANZapine 10 MG PO PO ONE (09:45)
[2019-04-27] MEDS: dexameTHASONE 10 MG IV IV ONE (09:46)
[2019-04-27] MEDS: OXALIPLATIN IV ONE (11:18)
[2019-04-27] MEDS: IRINOTECAN IV ONE (13:34)
[2019-04-27] MEDS: LEUCOVORIN IV ONE (13:34)
[2019-04-27] MEDS: OVER IV ONE (13:34)
[2019-04-27] MEDS: FLUOROURACIL IV ONE ×2 (15:12)
[2019-04-27] MEDS: IVP IV ONE (15:12)
[2019-04-29 14:45] VITALS: BP 118/68; O2SAT 98
[2019-04-29] MEDS: SODIUM CHLORIDE 0.9% INJ 10 ML SYR IV PRN (14:58)
[2019-04-30] MEDS: PEGFILGRASTIM 6 MG 0.6ML SYR (NEULASTA) SC ONE (09:43)
[2019-05-11 09:01] VITALS: BP 111/69; O2SAT 99
[2019-05-11 09:02] LABS: BASO # 0.1 10^3/uL (0.0-0.2); BASO % 0.6 % (0.0-1.0); EOS # 0.3 10^3/uL (0.0-0.5); EOS % 3.6 % (0.0-3.0); HEMATOCRIT 35.6 % (42.0-52.0); HEMOGLOBIN 11.4 g/dl (13.5-17.5); LYMPH # 1.3 10^3/uL (1.5-5.0); LYMPH % 15.7 % (24.0-44.0); MEAN CORPUSCULAR HEMOGLOBIN 27.7 pg (27.0-33.0); MEAN CORPUSCULAR VOLUME 86.6 fl (80.0-96.0); MONO # 0.5 10^3/uL (0.0-0.8); MONO % 6.7 % (0.0-5.0); NEUTROPHILS # 5.7 10^3/uL (1.5-8.5); NEUTROPHILS % 71.3 % (36.0-66.0); PLATELET COUNT, AUTOMATED 148 10^3/uL (150-450); RED BLOOD COUNT 4.11 10^6/uL (4.30-6.10)
[2019-05-11 09:30] LABS: ALBUMIN 2.9 GM/DL (3.2-5.2); ALKALINE PHOSPHATASE 154 U/L (45-117); ALT/SGPT 22 U/L (12-78); AST/SGOT 17 U/L (7-37); BILIRUBIN,TOTAL 0.1 MG/DL (0.2-1.0); BLOOD UREA NITROGEN 14 MG/DL (7-18); CALCIUM LEVEL 8.4 MG/DL (8.8-10.2); CARBON DIOXIDE LEVEL 23 MEQ/L (21-32); CHLORIDE LEVEL 109 MEQ/L (98-107); CREATININE FOR GFR 0.88 MG/DL (0.70-1.30); GLOMERULAR FILTRATION RATE > 60.0 (>42); GLUCOSE, FASTING 218 MG/DL (70-100); POTASSIUM SERUM 4.4 MEQ/L (3.5-5.1); SODIUM LEVEL 139 MEQ/L (136-145); TOTAL PROTEIN 6.3 GM/DL (6.4-8.2)
[2019-05-11] MEDS: OLANZapine 10 MG PO PO ONE (09:47)
[2019-05-11] MEDS: dexameTHASONE 10 MG IV IV ONE (09:47)
[2019-05-11] MEDS: FOSAPREPITANT PERIPHERAL LINE 30 MIN INFUSION (PREMIX) IV ONE (09:47)
[2019-05-11] MEDS: PALONOSETRON 250 MCG IV IV ONE (09:47)
[2019-05-11] MEDS: OXALIPLATIN IV ONE (10:37)
[2019-05-11] MEDS: LEUCOVORIN IV ONE (12:56)
[2019-05-11] MEDS: OVER IV ONE (12:56)
[2019-05-11] MEDS: IRINOTECAN IV ONE (12:56)
[2019-05-11] MEDS: FLUOROURACIL IV ONE ×2 (14:36)
[2019-05-11] MEDS: IVP IV ONE (14:36)
[2019-05-13 12:04] VITALS: BP 116/61; O2SAT 96
[2019-05-13] MEDS: SODIUM CHLORIDE 0.9% INJ 10 ML SYR IV PRN (12:57)
[2019-05-14] MEDS: PEGFILGRASTIM 6 MG 0.6ML SYR (NEULASTA) SC ONE (10:43)
[2019-05-25 08:41] VITALS: BP 121/68; O2SAT 99
[2019-05-25 09:00] LABS: BASO % 0.3 % (0.0-1.0); EOS # 0.1 10^3/uL (0.0-0.5); EOS % 1.6 % (0.0-3.0); HEMATOCRIT 32.4 % (42.0-52.0); HEMOGLOBIN 10.6 g/dl (13.5-17.5); LYMPH # 1.5 10^3/uL (1.5-5.0); LYMPH % 20.4 % (24.0-44.0); MEAN CORPUSCULAR HEMOGLOBIN 28.1 pg (27.0-33.0); MEAN CORPUSCULAR HGB CONC 32.7 g/dl (32.0-36.5); MEAN CORPUSCULAR VOLUME 85.9 fl (80.0-96.0); MONO # 0.7 10^3/uL (0.0-0.8); NEUTROPHILS # 5.1 10^3/uL (1.5-8.5); NEUTROPHILS % 67.2 % (36.0-66.0); PLATELET COUNT, AUTOMATED 111 10^3/uL (150-450); RED BLOOD COUNT 3.77 10^6/uL (4.30-6.10); WHITE BLOOD COUNT 7.6 10^3/uL (4.0-10.0)
[2019-05-25 09:22] LABS: ALBUMIN 2.8 GM/DL (3.2-5.2); ALKALINE PHOSPHATASE 138 U/L (45-117); ALT/SGPT 19 U/L (12-78); AST/SGOT 12 U/L (7-37); BILIRUBIN,TOTAL 0.3 MG/DL (0.2-1.0); BLOOD UREA NITROGEN 9 MG/DL (7-18); CALCIUM LEVEL 8.3 MG/DL (8.8-10.2); CARBON DIOXIDE LEVEL 26 MEQ/L (21-32); CHLORIDE LEVEL 108 MEQ/L (98-107); CREATININE FOR GFR 0.79 MG/DL (0.70-1.30); GLOMERULAR FILTRATION RATE > 60.0 (>42); GLUCOSE, FASTING 189 MG/DL (70-100); POTASSIUM SERUM 3.2 MEQ/L (3.5-5.1); SODIUM LEVEL 141 MEQ/L (136-145); TOTAL PROTEIN 6.3 GM/DL (6.4-8.2)
[2019-05-25] MEDS: OLANZapine 10 MG PO PO ONE (09:51)
[2019-05-25] MEDS: dexameTHASONE 10 MG IV IV ONE (09:51)
[2019-05-25] MEDS: PALONOSETRON 250 MCG IV IV ONE (09:51)
[2019-05-25] MEDS: FOSAPREPITANT PERIPHERAL LINE 30 MIN INFUSION IV ONE (10:00)
[2019-05-25] MEDS: OXALIPLATIN IV ONE (11:00)
[2019-05-25] MEDS: OVER IV ONE (13:19)
[2019-05-25] MEDS: LEUCOVORIN IV ONE (13:19)
[2019-05-25] MEDS: IRINOTECAN IV ONE (13:19)
[2019-05-25] MEDS: IVP IV ONE (15:01)
[2019-05-25] MEDS: FLUOROURACIL IV ONE ×2 (15:01)
[2019-05-25] MEDS: SODIUM CHLORIDE 0.9% INJ 10 ML SYR IV PRN (15:12)
[2019-05-27 12:59] VITALS: BP 115/62; O2SAT 98
[2019-05-27] MEDS: SODIUM CHLORIDE 0.9% INJ 10 ML SYR IV PRN (12:59)
[2019-05-28] MEDS: PEGFILGRASTIM 6 MG 0.6ML SYR (NEULASTA) SC ONE (09:05)
[2019-06-08] MEDS: dexameTHASONE 10 MG IV IV ONE (08:00)
[2019-06-08] MEDS: PALONOSETRON 250 MCG IV IV ONE (08:00)
[2019-06-08] MEDS: OLANZapine 10 MG PO PO ONE (08:00)
[2019-06-08] MEDS: FOSAPREPITANT PERIPHERAL LINE 30 MIN INFUSION (PREMIX) IV ONE (08:00)
[2019-06-08] MEDS: IRINOTECAN IV ONE (09:00)
[2019-06-08] MEDS: OVER IV ONE (09:00)
[2019-06-08] MEDS: IVP IV ONE (10:30)
[2019-06-08] MEDS: FLUOROURACIL IV ONE ×2 (10:30→10:40)
[2019-06-15 08:16] VITALS: BP 101/68; O2SAT 91
[2019-06-15 08:23] LABS: BASO # 0.1 10^3/uL (0.0-0.2); BASO % 1.3 % (0.0-1.0); EOS # 0.3 10^3/uL (0.0-0.5); EOS % 4.6 % (0.0-3.0); HEMATOCRIT 32.6 % (42.0-52.0); HEMOGLOBIN 10.4 g/dl (13.5-17.5); LYMPH # 1.7 10^3/uL (1.5-5.0); LYMPH % 27.7 % (24.0-44.0); MEAN CORPUSCULAR HEMOGLOBIN 29.5 pg (27.0-33.0); MEAN CORPUSCULAR HGB CONC 31.9 g/dl (32.0-36.5); MEAN CORPUSCULAR VOLUME 92.6 fl (80.0-96.0); MONO # 0.6 10^3/uL (0.0-0.8); MONO % 8.8 % (0.0-5.0); NEUTROPHILS # 3.5 10^3/uL (1.5-8.5); NEUTROPHILS % 55.7 % (36.0-66.0); PLATELET COUNT, AUTOMATED 284 10^3/uL (150-450); RED BLOOD COUNT 3.52 10^6/uL (4.30-6.10); WHITE BLOOD COUNT 6.3 10^3/uL (4.0-10.0)
[2019-06-15 08:52] LABS: ALBUMIN 2.5 GM/DL (3.2-5.2); ALKALINE PHOSPHATASE 140 U/L (45-117); ALT/SGPT 17 U/L (12-78); AST/SGOT 14 U/L (7-37); BILIRUBIN,TOTAL 0.3 MG/DL (0.2-1.0); BLOOD UREA NITROGEN 9 MG/DL (7-18); CALCIUM LEVEL 8.2 MG/DL (8.8-10.2); CARBON DIOXIDE LEVEL 24 MEQ/L (21-32); CHLORIDE LEVEL 106 MEQ/L (98-107); CREATININE FOR GFR 0.76 MG/DL (0.70-1.30); GLOMERULAR FILTRATION RATE > 60.0 (>42); GLUCOSE, FASTING 248 MG/DL (70-100); MAGNESIUM LEVEL 1.7 MG/DL (1.8-2.4); POTASSIUM SERUM 4.3 MEQ/L (3.5-5.1); SODIUM LEVEL 137 MEQ/L (136-145); TOTAL PROTEIN 6.6 GM/DL (6.4-8.2)
[2019-06-15] MEDS: OLANZapine 10 MG PO PO ONE (09:37)
[2019-06-15] MEDS: dexameTHASONE 10 MG IV IV ONE (09:38)
[2019-06-15] MEDS: PALONOSETRON 250 MCG IV IV ONE (09:38)
[2019-06-15] MEDS: FOSAPREPITANT PERIPHERAL LINE 30 MIN INFUSION IV ONE (09:42)
[2019-06-15] MEDS: OVER IV ONE (10:34)
[2019-06-15] MEDS: IRINOTECAN IV ONE (10:34)
[2019-06-15] MEDS: FLUOROURACIL IV ONE ×2 (12:18)
[2019-06-15] MEDS: IVP IV ONE (12:18)
[2019-06-17 10:15] VITALS: BP 105/58; O2SAT 100
[2019-06-17] MEDS: SODIUM CHLORIDE 0.9% INJ 10 ML SYR IV PRN (10:27)
[2019-06-17] MEDS: PEGFILGRASTIM 6 MG SC ONE (10:34)
[2019-06-17] MEDS: PEGFILGRASTIM 6 MG 0.6ML SYR (NEULASTA) SC ONE (10:57)
[2019-06-18] MEDS: PEGFILGRASTIM 6 MG 0.6ML SYR (NEULASTA) SC ONE (10:02)
[2019-06-29 08:41] VITALS: BP 127/72; O2SAT 95
[2019-06-29 08:50] LABS: BASO % 0.4 % (0.0-1.0); EOS # 0.2 10^3/uL (0.0-0.5); EOS % 2.9 % (0.0-3.0); HEMOGLOBIN 9.4 g/dl (13.5-17.5); LYMPH # 1.3 10^3/uL (1.5-5.0); LYMPH % 15.3 % (24.0-44.0); MEAN CORPUSCULAR HEMOGLOBIN 30.5 pg (27.0-33.0); MEAN CORPUSCULAR HGB CONC 31.3 g/dl (32.0-36.5); MEAN CORPUSCULAR VOLUME 97.4 fl (80.0-96.0); MONO # 0.5 10^3/uL (0.0-0.8); MONO % 6.4 % (0.0-5.0); NEUTROPHILS # 6.2 10^3/uL (1.5-8.5); NEUTROPHILS % 74.3 % (36.0-66.0); PLATELET COUNT, AUTOMATED 186 10^3/uL (150-450); RED BLOOD COUNT 3.08 10^6/uL (4.30-6.10); WHITE BLOOD COUNT 8.3 10^3/uL (4.0-10.0)
[2019-06-29 09:16] LABS: ALBUMIN 2.9 GM/DL (3.2-5.2); ALKALINE PHOSPHATASE 154 U/L (45-117); ALT/SGPT 16 U/L (12-78); AST/SGOT 10 U/L (7-37); BILIRUBIN,TOTAL 0.3 MG/DL (0.2-1.0); BLOOD UREA NITROGEN 10 MG/DL (7-18); CALCIUM LEVEL 8.4 MG/DL (8.8-10.2); CARBON DIOXIDE LEVEL 26 MEQ/L (21-32); CHLORIDE LEVEL 112 MEQ/L (98-107); CREATININE FOR GFR 0.69 MG/DL (0.70-1.30); GLOMERULAR FILTRATION RATE > 60.0 (>42); GLUCOSE, FASTING 214 MG/DL (70-100); POTASSIUM SERUM 3.8 MEQ/L (3.5-5.1); SODIUM LEVEL 143 MEQ/L (136-145); TOTAL PROTEIN 6.6 GM/DL (6.4-8.2)
[2019-06-29] MEDS: MAG SULF 1GM/100ML (MAG RUN) 100 ML IV ONE (10:15)
[2019-06-29] MEDS: FOSAPREPITANT PERIPHERAL LINE 30 MIN INFUSION (PREMIX) IV ONE (11:29)
[2019-06-29] MEDS: dexameTHASONE 10 MG IV IV ONE (11:29)
[2019-06-29] MEDS: PALONOSETRON 250 MCG IV IV ONE (11:29)
[2019-06-29] MEDS: OLANZapine 10 MG PO PO ONE (11:29)
[2019-06-29] MEDS: IRINOTECAN IV ONE (12:21)
[2019-06-29] MEDS: OVER IV ONE (12:21)
[2019-06-29] MEDS: IVP IV ONE (14:02)
[2019-06-29] MEDS: SODIUM CHLORIDE 0.9% INJ 10 ML SYR IV PRN (14:02)
[2019-06-29] MEDS: FLUOROURACIL IV ONE ×2 (14:02)
[2019-07-01 12:03] VITALS: BP 111/67; O2SAT 100
[2019-07-01] MEDS: SODIUM CHLORIDE 0.9% INJ 10 ML SYR IV PRN (12:11)
[2019-07-01] MEDS: PEGFILGRASTIM 6 MG SC ONE (12:12)
[2019-07-02] MEDS: PEGFILGRASTIM 6 MG 0.6ML SYR (NEULASTA) SC ONE (09:30)
[2019-07-13 08:49] LABS: BASO % 0.4 % (0.0-1.0); EOS # 0.2 10^3/uL (0.0-0.5); EOS % 3.2 % (0.0-3.0); HEMATOCRIT 32.2 % (42.0-52.0); HEMOGLOBIN 9.9 g/dl (13.5-17.5); LYMPH # 1.2 10^3/uL (1.5-5.0); MEAN CORPUSCULAR HEMOGLOBIN 30.3 pg (27.0-33.0); MEAN CORPUSCULAR HGB CONC 30.7 g/dl (32.0-36.5); MEAN CORPUSCULAR VOLUME 98.5 fl (80.0-96.0); MONO # 0.3 10^3/uL (0.0-0.8); MONO % 6.5 % (0.0-5.0); NEUTROPHILS # 3.5 10^3/uL (1.5-8.5); NEUTROPHILS % 65.9 % (36.0-66.0); PLATELET COUNT, AUTOMATED 166 10^3/uL (150-450); RED BLOOD COUNT 3.27 10^6/uL (4.30-6.10); WHITE BLOOD COUNT 5.3 10^3/uL (4.0-10.0)
[2019-07-13 08:57] VITALS: BP 130/73; O2SAT 100
[2019-07-13 09:17] LABS: ALBUMIN 2.9 GM/DL (3.2-5.2); ALKALINE PHOSPHATASE 171 U/L (45-117); ALT/SGPT 16 U/L (12-78); AST/SGOT 11 U/L (7-37); BILIRUBIN,TOTAL 0.2 MG/DL (0.2-1.0); BLOOD UREA NITROGEN 11 MG/DL (7-18); CARBON DIOXIDE LEVEL 23 MEQ/L (21-32); CHLORIDE LEVEL 112 MEQ/L (98-107); CREATININE FOR GFR 0.68 MG/DL (0.70-1.30); GLOMERULAR FILTRATION RATE > 60.0 (>42); GLUCOSE, FASTING 188 MG/DL (70-100); SODIUM LEVEL 141 MEQ/L (136-145); TOTAL PROTEIN 6.6 GM/DL (6.4-8.2)
[2019-07-13] MEDS: FOSAPREPITANT PERIPHERAL LINE 30 MIN INFUSION (PREMIX) IV ONE (09:57)
[2019-07-13] MEDS: OLANZapine 10 MG PO PO ONE (09:57)
[2019-07-13] MEDS: PALONOSETRON 250 MCG IV IV ONE (10:15)
[2019-07-13] MEDS: dexameTHASONE 10 MG IV IV ONE (10:15)
[2019-07-13] MEDS: IRINOTECAN IV ONE (11:11)
[2019-07-13] MEDS: OVER IV ONE (11:11)
[2019-07-13] MEDS: IVP IV ONE (12:52)
[2019-07-13] MEDS: FLUOROURACIL IV ONE ×2 (12:52)
[2019-07-15 11:48] VITALS: BP 133/68; O2SAT 100
[2019-07-15] MEDS: SODIUM CHLORIDE 0.9% INJ 10 ML SYR IV PRN (11:49)
[2019-07-15] MEDS: PEGFILGRASTIM 6 MG SC ONE (11:50)
[2019-07-26 13:41] VITALS: BP 132/67; O2SAT 97
[2019-07-27 09:19] VITALS: BP 114/64; O2SAT 100
[2019-07-27 09:26] LABS: BASO % 0.6 % (0.0-1.0); EOS # 0.1 10^3/uL (0.0-0.5); EOS % 2.5 % (0.0-3.0); HEMATOCRIT 29.9 % (42.0-52.0); HEMOGLOBIN 9.5 g/dl (13.5-17.5); LYMPH # 0.8 10^3/uL (1.5-5.0); LYMPH % 23.9 % (24.0-44.0); MEAN CORPUSCULAR HEMOGLOBIN 30.7 pg (27.0-33.0); MEAN CORPUSCULAR HGB CONC 31.8 g/dl (32.0-36.5); MEAN CORPUSCULAR VOLUME 96.8 fl (80.0-96.0); MONO # 0.2 10^3/uL (0.0-0.8); MONO % 7.1 % (0.0-5.0); NEUTROPHILS # 2.1 10^3/uL (1.5-8.5); NEUTROPHILS % 65.6 % (36.0-66.0); PLATELET COUNT, AUTOMATED 174 10^3/uL (150-450); RED BLOOD COUNT 3.09 10^6/uL (4.30-6.10); WHITE BLOOD COUNT 3.2 10^3/uL (4.0-10.0)
[2019-07-27 09:49] LABS: ALBUMIN 2.9 GM/DL (3.2-5.2); ALKALINE PHOSPHATASE 145 U/L (45-117); ALT/SGPT 18 U/L (12-78); AST/SGOT 12 U/L (7-37); BILIRUBIN,TOTAL 0.2 MG/DL (0.2-1.0); BLOOD UREA NITROGEN 12 MG/DL (7-18); CALCIUM LEVEL 8.3 MG/DL (8.8-10.2); CARBON DIOXIDE LEVEL 21 MEQ/L (21-32); CHLORIDE LEVEL 112 MEQ/L (98-107); CREATININE FOR GFR 0.75 MG/DL (0.70-1.30); GLOMERULAR FILTRATION RATE > 60.0 (>42); GLUCOSE, FASTING 208 MG/DL (70-100); POTASSIUM SERUM 4.2 MEQ/L (3.5-5.1); SODIUM LEVEL 141 MEQ/L (136-145); TOTAL PROTEIN 6.4 GM/DL (6.4-8.2)
[2019-07-27] MEDS: PALONOSETRON 250 MCG IV IV ONE (10:20)
[2019-07-27] MEDS: FOSAPREPITANT PERIPHERAL LINE 30 MIN INFUSION IV ONE (10:20)
[2019-07-27] MEDS: dexameTHASONE 10 MG IV IV ONE (10:20)
[2019-07-27] MEDS: OLANZapine 10 MG PO PO ONE (10:20)
[2019-07-27] MEDS: OVER IV ONE (11:13)
[2019-07-27] MEDS: IRINOTECAN IV ONE (11:13)
[2019-07-27] MEDS: IVP IV ONE (12:52)
[2019-07-27] MEDS: FLUOROURACIL IV ONE ×2 (12:52)
[2019-07-27] MEDS: SODIUM CHLORIDE 0.9% INJ 10 ML SYR IV PRN (12:53)
[2019-07-29] MEDS: SODIUM CHLORIDE 0.9% INJ 10 ML SYR IV PRN (10:44)
[2019-07-29 10:45] VITALS: BP 104/56; O2SAT 98
[2019-07-29] MEDS: PEGFILGRASTIM 6 MG SC ONE (10:49)
[2019-08-10 08:51] VITALS: BP 140/76; O2SAT 99
[2019-08-10 09:16] LABS: BASO % 0.3 % (0.0-1.0); EOS # 0.1 10^3/uL (0.0-0.5); EOS % 1.7 % (0.0-3.0); HEMATOCRIT 29.8 % (42.0-52.0); HEMOGLOBIN 9.2 g/dl (13.5-17.5); LYMPH # 1.2 10^3/uL (1.5-5.0); LYMPH % 16.8 % (24.0-44.0); MEAN CORPUSCULAR HEMOGLOBIN 29.9 pg (27.0-33.0); MEAN CORPUSCULAR HGB CONC 30.9 g/dl (32.0-36.5); MEAN CORPUSCULAR VOLUME 96.8 fl (80.0-96.0); MONO # 0.4 10^3/uL (0.0-0.8); MONO % 5.7 % (0.0-5.0); NEUTROPHILS # 5.2 10^3/uL (1.5-8.5); NEUTROPHILS % 74.4 % (36.0-66.0); PLATELET COUNT, AUTOMATED 176 10^3/uL (150-450); RED BLOOD COUNT 3.08 10^6/uL (4.30-6.10)
[2019-08-10 09:31] LABS: ALBUMIN 2.6 GM/DL (3.2-5.2); ALKALINE PHOSPHATASE 144 U/L (45-117); ALT/SGPT 14 U/L (12-78); AST/SGOT 10 U/L (7-37); BILIRUBIN,TOTAL 0.2 MG/DL (0.2-1.0); BLOOD UREA NITROGEN 11 MG/DL (7-18); CALCIUM LEVEL 7.9 MG/DL (8.8-10.2); CARBON DIOXIDE LEVEL 25 MEQ/L (21-32); CHLORIDE LEVEL 110 MEQ/L (98-107); CREATININE FOR GFR 0.72 MG/DL (0.70-1.30); GLOMERULAR FILTRATION RATE > 60.0 (>42); GLUCOSE, FASTING 211 MG/DL (70-100); POTASSIUM SERUM 3.6 MEQ/L (3.5-5.1); SODIUM LEVEL 141 MEQ/L (136-145); TOTAL PROTEIN 5.9 GM/DL (6.4-8.2)
[2019-08-10] MEDS: FOSAPREPITANT PERIPHERAL LINE 30 MIN INFUSION (PREMIX) IV ONE (10:06)
[2019-08-10] MEDS: PALONOSETRON 250 MCG IV IV ONE (10:06)
[2019-08-10] MEDS: OXALIPLATIN IV ONE (10:07)
[2019-08-10] MEDS: OLANZapine 10 MG PO PO ONE (10:07)
[2019-08-10] MEDS: dexameTHASONE 10 MG IV IV ONE (10:07)
[2019-08-10] MEDS: IRINOTECAN IV ONE (10:45)
[2019-08-10] MEDS: OVER IV ONE (10:45)
[2019-08-10] MEDS: FLUOROURACIL IV ONE ×2 (12:23)
[2019-08-10] MEDS: IVP IV ONE (12:23)
[2019-08-12] MEDS: PEGFILGRASTIM 6 MG SC ONE (11:57)
[2019-08-12 11:58] VITALS: BP 119/64; O2SAT 99
[2019-08-12] MEDS: SODIUM CHLORIDE 0.9% INJ 10 ML SYR IV PRN (12:01)
[2019-08-24 08:39] LABS: BASO % 0.6 % (0.0-1.0); EOS # 0.1 10^3/uL (0.0-0.5); EOS % 1.6 % (0.0-3.0); HEMATOCRIT 32.6 % (42.0-52.0); HEMOGLOBIN 10.3 g/dl (13.5-17.5); LYMPH # 0.9 10^3/uL (1.5-5.0); LYMPH % 14.7 % (24.0-44.0); MEAN CORPUSCULAR HEMOGLOBIN 30.7 pg (27.0-33.0); MEAN CORPUSCULAR HGB CONC 31.6 g/dl (32.0-36.5); MEAN CORPUSCULAR VOLUME 97.3 fl (80.0-96.0); MONO # 0.5 10^3/uL (0.0-0.8); NEUTROPHILS # 4.6 10^3/uL (1.5-8.5); NEUTROPHILS % 73.7 % (36.0-66.0); PLATELET COUNT, AUTOMATED 196 10^3/uL (150-450); RED BLOOD COUNT 3.35 10^6/uL (4.30-6.10); WHITE BLOOD COUNT 6.2 10^3/uL (4.0-10.0)
[2019-08-24 08:52] VITALS: BP 156/71; O2SAT 100
[2019-08-24 09:02] LABS: ALKALINE PHOSPHATASE 171 U/L (45-117); ALT/SGPT 16 U/L (12-78); AST/SGOT 13 U/L (7-37); BILIRUBIN,TOTAL 0.3 MG/DL (0.2-1.0); BLOOD UREA NITROGEN 9 MG/DL (7-18); CALCIUM LEVEL 8.3 MG/DL (8.8-10.2); CARBON DIOXIDE LEVEL 26 MEQ/L (21-32); CHLORIDE LEVEL 109 MEQ/L (98-107); CREATININE FOR GFR 0.76 MG/DL (0.70-1.30); GLOMERULAR FILTRATION RATE > 60.0 (>42); GLUCOSE, FASTING 188 MG/DL (70-100); POTASSIUM SERUM 3.6 MEQ/L (3.5-5.1); SODIUM LEVEL 142 MEQ/L (136-145); TOTAL PROTEIN 6.4 GM/DL (6.4-8.2)
[2019-08-24 09:51] LABS: CA19-9 TUMOR MARKER,CARBOHYDRA 1.9 U/ML (<35.0)
[2019-08-24] MEDS: FOSAPREPITANT PERIPHERAL LINE 30 MIN INFUSION IV ONE (10:01)
[2019-08-24] MEDS: OLANZapine 10 MG PO PO ONE (10:02)
[2019-08-24] MEDS: PALONOSETRON 250 MCG IV IV ONE (10:02)
[2019-08-24] MEDS: dexameTHASONE 10 MG IV IV ONE (10:02)
[2019-08-24] MEDS: OVER IV ONE (10:33)
[2019-08-24] MEDS: IRINOTECAN IV ONE (10:33)
[2019-08-24] MEDS: IVP IV ONE (12:18)
[2019-08-24] MEDS: FLUOROURACIL IV ONE ×2 (12:18)
[2019-08-24] MEDS: SODIUM CHLORIDE 0.9% INJ 10 ML SYR IV PRN (12:19)
[2019-08-24 14:54] LABS: MAGNESIUM LEVEL 2.2 MG/DL (1.8-2.4)
[2019-08-26] MEDS: PEGFILGRASTIM 6 MG SC ONE (11:30)
[2019-08-26 11:32] VITALS: BP 114/64; O2SAT 99
[2019-08-26] MEDS: SODIUM CHLORIDE 0.9% INJ 10 ML SYR IV PRN (11:35)
[2019-09-16 10:27] VITALS: BP 149/71; O2SAT 100
[2019-09-16 10:37] LABS: BASO % 0.6 % (0.0-1.0); EOS # 0.1 10^3/uL (0.0-0.5); EOS % 2.8 % (0.0-3.0); HEMATOCRIT 29.7 % (42.0-52.0); HEMOGLOBIN 9.3 g/dl (13.5-17.5); LYMPH # 1.3 10^3/uL (1.5-5.0); LYMPH % 28.5 % (24.0-44.0); MEAN CORPUSCULAR HEMOGLOBIN 30.1 pg (27.0-33.0); MEAN CORPUSCULAR HGB CONC 31.3 g/dl (32.0-36.5); MEAN CORPUSCULAR VOLUME 96.1 fl (80.0-96.0); MONO # 0.4 10^3/uL (0.0-0.8); MONO % 8.6 % (0.0-5.0); NEUTROPHILS # 2.7 10^3/uL (1.5-8.5); NEUTROPHILS % 58.4 % (36.0-66.0); PLATELET COUNT, AUTOMATED 200 10^3/uL (150-450); RED BLOOD COUNT 3.09 10^6/uL (4.30-6.10); WHITE BLOOD COUNT 4.7 10^3/uL (4.0-10.0)
[2019-09-16 11:02] LABS: ALBUMIN 2.8 GM/DL (3.2-5.2); ALKALINE PHOSPHATASE 150 U/L (45-117); ALT/SGPT 20 U/L (12-78); AST/SGOT 15 U/L (7-37); BILIRUBIN,TOTAL 0.3 MG/DL (0.2-1.0); BLOOD UREA NITROGEN 15 MG/DL (7-18); CALCIUM LEVEL 8.1 MG/DL (8.8-10.2); CARBON DIOXIDE LEVEL 25 MEQ/L (21-32); CHLORIDE LEVEL 109 MEQ/L (98-107); GLOMERULAR FILTRATION RATE > 60.0 (>42); GLUCOSE, FASTING 221 MG/DL (70-100); POTASSIUM SERUM 3.9 MEQ/L (3.5-5.1); SODIUM LEVEL 141 MEQ/L (136-145); TOTAL PROTEIN 6.3 GM/DL (6.4-8.2)
[2019-09-16] MEDS: SODIUM CHLORIDE 0.9% INJ 10 ML SYR IV PRN (11:42)
[2019-11-11 10:35] VITALS: BP 153/74; O2SAT 98
[2019-11-11 11:34] LABS: BASO % 0.5 % (0.0-1.0); EOS # 0.1 10^3/uL (0.0-0.5); EOS % 2.7 % (0.0-3.0); HEMATOCRIT 37.1 % (42.0-52.0); HEMOGLOBIN 11.8 g/dl (13.5-17.5); LYMPH # 1.4 10^3/uL (1.5-5.0); MEAN CORPUSCULAR HEMOGLOBIN 28.4 pg (27.0-33.0); MEAN CORPUSCULAR HGB CONC 31.8 g/dl (32.0-36.5); MEAN CORPUSCULAR VOLUME 89.4 fl (80.0-96.0); MONO # 0.3 10^3/uL (0.0-0.8); MONO % 9.2 % (0.0-5.0); NEUTROPHILS # 1.9 10^3/uL (1.5-8.5); NEUTROPHILS % 50.3 % (36.0-66.0); PLATELET COUNT, AUTOMATED 173 10^3/uL (150-450); RED BLOOD COUNT 4.15 10^6/uL (4.30-6.10); WHITE BLOOD COUNT 3.7 10^3/uL (4.0-10.0)
[2019-11-11] MEDS: SODIUM CHLORIDE 0.9% INJ 10 ML SYR IV PRN (11:46)
[2019-11-11 12:16] LABS: ALBUMIN 3.3 GM/DL (3.2-5.2); ALKALINE PHOSPHATASE 113 U/L (45-117); ALT/SGPT 17 U/L (12-78); AST/SGOT 11 U/L (7-37); BILIRUBIN,TOTAL 0.6 MG/DL (0.2-1.0); BLOOD UREA NITROGEN 10 MG/DL (7-18); CALCIUM LEVEL 8.7 MG/DL (8.8-10.2); CARBON DIOXIDE LEVEL 29 MEQ/L (21-32); CHLORIDE LEVEL 109 MEQ/L (98-107); CREATININE FOR GFR 0.62 MG/DL (0.70-1.30); GLOMERULAR FILTRATION RATE > 60.0 (>42); GLUCOSE, FASTING 167 MG/DL (70-100); POTASSIUM SERUM 3.4 MEQ/L (3.5-5.1); SODIUM LEVEL 140 MEQ/L (136-145); TOTAL PROTEIN 7.2 GM/DL (6.4-8.2)
[2019-11-30 08:40] VITALS: BP 147/78; O2SAT 98
[2020-02-09 11:29] VITALS: BP 160/82; O2SAT 99
[2020-02-09 11:36] LABS: BASO % 0.2 % (0.0-1.0); EOS # 0.1 10^3/uL (0.0-0.5); EOS % 1.9 % (0.0-3.0); HEMATOCRIT 40.4 % (42.0-52.0); HEMOGLOBIN 12.8 g/dl (13.5-17.5); LYMPH # 1.3 10^3/uL (1.5-5.0); MEAN CORPUSCULAR HEMOGLOBIN 27.6 pg (27.0-33.0); MEAN CORPUSCULAR HGB CONC 31.7 g/dl (32.0-36.5); MEAN CORPUSCULAR VOLUME 87.3 fl (80.0-96.0); MONO # 0.4 10^3/uL (0.0-0.8); MONO % 8.7 % (0.0-5.0); NEUTROPHILS # 2.5 10^3/uL (1.5-8.5); PLATELET COUNT, AUTOMATED 169 10^3/uL (150-450); RED BLOOD COUNT 4.63 10^6/uL (4.30-6.10); WHITE BLOOD COUNT 4.3 10^3/uL (4.0-10.0)
[2020-02-09 12:00] LABS: ALBUMIN 3.5 GM/DL (3.2-5.2); ALKALINE PHOSPHATASE 121 U/L (45-117); ALT/SGPT 25 U/L (12-78); AST/SGOT 22 U/L (7-37); BILIRUBIN,TOTAL 0.8 MG/DL (0.2-1.0); BLOOD UREA NITROGEN 9 MG/DL (7-18); CALCIUM LEVEL 8.7 MG/DL (8.8-10.2); CARBON DIOXIDE LEVEL 26 MEQ/L (21-32); CHLORIDE LEVEL 108 MEQ/L (98-107); CREATININE FOR GFR 0.69 MG/DL (0.70-1.30); GLOMERULAR FILTRATION RATE > 60.0 (>42); GLUCOSE, FASTING 165 MG/DL (70-100); POTASSIUM SERUM 3.8 MEQ/L (3.5-5.1); SODIUM LEVEL 140 MEQ/L (136-145); TOTAL PROTEIN 7.2 GM/DL (6.4-8.2)
[2020-02-09] MEDS: SODIUM CHLORIDE 0.9% INJ 10 ML SYR IV PRN (12:19)
[2020-03-02] MEDS: SODIUM CHLORIDE 0.9% INJ 10 ML SYR IV PRN (11:22)
[2020-05-17 13:10] VITALS: BP 125/71; O2SAT 97
[2020-05-17] MEDS: SODIUM CHLORIDE 0.9% INJ 10 ML SYR IV PRN (14:20)
[2020-08-17] MEDS: SODIUM CHLORIDE 0.9% INJ 10 ML SYR IV PRN (14:11)
[2020-08-17 14:23] VITALS: BP 144/69; O2SAT 98
[2020-08-17 14:29] LABS: HEMATOCRIT 40.2 % (42.0-52.0); HEMOGLOBIN 12.9 g/dl (13.5-17.5); MEAN CORPUSCULAR HEMOGLOBIN 28.9 pg (27.0-33.0); MEAN CORPUSCULAR HGB CONC 32.1 g/dl (32.0-36.5); MEAN CORPUSCULAR VOLUME 89.9 fl (80.0-96.0); RED BLOOD COUNT 4.47 10^6/uL (4.30-6.10); WHITE BLOOD COUNT 4.4 10^3/uL (4.0-10.0)
[2020-08-17 14:30] LABS: BASO % 0.7 % (0.0-1.0); EOS # 0.1 10^3/uL (0.0-0.5); EOS % 1.1 % (0.0-3.0); LYMPH # 1.6 10^3/uL (1.5-5.0); MONO # 0.4 10^3/uL (0.0-0.8); MONO % 8.2 % (2.0-8.0); NEUTROPHILS # 2.3 10^3/uL (1.5-8.5); NEUTROPHILS % 52.8 % (36.0-66.0); PLATELET COUNT, AUTOMATED 175 10^3/uL (150-450)
[2020-08-17 14:52] LABS: ALBUMIN 3.5 GM/DL (3.2-5.2); ALKALINE PHOSPHATASE 120 U/L (45-117); ALT/SGPT 22 U/L (12-78); AST/SGOT 12 U/L (7-37); BILIRUBIN,TOTAL 0.6 MG/DL (0.2-1.0); BLOOD UREA NITROGEN 13 MG/DL (7-18); CALCIUM LEVEL 8.8 MG/DL (8.8-10.2); CARBON DIOXIDE LEVEL 27 MEQ/L (21-32); CHLORIDE LEVEL 107 MEQ/L (98-107); CREATININE FOR GFR 0.81 MG/DL (0.70-1.30); GLOMERULAR FILTRATION RATE > 60.0 (>42); GLUCOSE, FASTING 259 MG/DL (70-100); POTASSIUM SERUM 4.2 MEQ/L (3.5-5.1); SODIUM LEVEL 139 MEQ/L (136-145); TOTAL PROTEIN 7.3 GM/DL (6.4-8.2)
[2020-11-15 13:13] VITALS: BP 141/69; O2SAT 98
[2020-11-15 13:45] LABS: BASO % 0.7 % (0.0-1.0); EOS # 0.1 10^3/uL (0.0-0.5); EOS % 0.8 % (0.0-3.0); HEMATOCRIT 41.4 % (42.0-52.0); HEMOGLOBIN 13.5 g/dl (13.5-17.5); LYMPH # 1.3 10^3/uL (1.5-5.0); LYMPH % 21.5 % (24.0-44.0); MEAN CORPUSCULAR HGB CONC 32.6 g/dl (32.0-36.5); MEAN CORPUSCULAR VOLUME 88.8 fl (80.0-96.0); MONO # 0.5 10^3/uL (0.0-0.8); MONO % 7.6 % (2.0-8.0); NEUTROPHILS # 4.2 10^3/uL (1.5-8.5); NEUTROPHILS % 69.2 % (36.0-66.0); PLATELET COUNT, AUTOMATED 176 10^3/uL (150-450); RED BLOOD COUNT 4.66 10^6/uL (4.30-6.10)
[2020-11-15 14:09] LABS: ALBUMIN 3.4 GM/DL (3.2-5.2); ALKALINE PHOSPHATASE 134 U/L (45-117); ALT/SGPT 44 U/L (12-78); AST/SGOT 30 U/L (7-37); BILIRUBIN,TOTAL 0.7 MG/DL (0.2-1.0); BLOOD UREA NITROGEN 12 MG/DL (7-18); CALCIUM LEVEL 8.8 MG/DL (8.8-10.2); CARBON DIOXIDE LEVEL 28 MEQ/L (21-32); CHLORIDE LEVEL 106 MEQ/L (98-107); CREATININE FOR GFR 0.84 MG/DL (0.70-1.30); GLOMERULAR FILTRATION RATE > 60.0 (>42); GLUCOSE, FASTING 277 MG/DL (70-100); POTASSIUM SERUM 4.3 MEQ/L (3.5-5.1); SODIUM LEVEL 138 MEQ/L (136-145); TOTAL PROTEIN 7.4 GM/DL (6.4-8.2)
[2021-02-14 13:33] VITALS: BP 136/81; O2SAT 97
[2021-02-14 13:48] LABS: BASO % 0.4 % (0.0-1.0); EOS # 0.1 10^3/uL (0.0-0.5); EOS % 1.5 % (0.0-3.0); HEMATOCRIT 43.9 % (42.0-52.0); HEMOGLOBIN 14.1 g/dl (13.5-17.5); LYMPH # 1.5 10^3/uL (1.5-5.0); LYMPH % 30.9 % (24.0-44.0); MEAN CORPUSCULAR HEMOGLOBIN 28.8 pg (27.0-33.0); MEAN CORPUSCULAR HGB CONC 32.1 g/dl (32.0-36.5); MEAN CORPUSCULAR VOLUME 89.8 fl (80.0-96.0); MONO # 0.4 10^3/uL (0.0-0.8); MONO % 8.6 % (2.0-8.0); NEUTROPHILS # 2.8 10^3/uL (1.5-8.5); NEUTROPHILS % 58.4 % (36.0-66.0); PLATELET COUNT, AUTOMATED 158 10^3/uL (150-450); RED BLOOD COUNT 4.89 10^6/uL (4.30-6.10); WHITE BLOOD COUNT 4.8 10^3/uL (4.0-10.0)
[2021-02-14 14:14] LABS: ALBUMIN 3.6 GM/DL (3.2-5.2); ALKALINE PHOSPHATASE 102 U/L (45-117); ALT/SGPT 24 U/L (12-78); AST/SGOT 14 U/L (7-37); BILIRUBIN,TOTAL 0.7 MG/DL (0.2-1.0); BLOOD UREA NITROGEN 15 MG/DL (7-18); CALCIUM LEVEL 9.2 MG/DL (8.8-10.2); CARBON DIOXIDE LEVEL 26 MEQ/L (21-32); CHLORIDE LEVEL 106 MEQ/L (98-107); GLOMERULAR FILTRATION RATE > 60.0 (>42); GLUCOSE, FASTING 272 MG/DL (70-100); POTASSIUM SERUM 4.6 MEQ/L (3.5-5.1); SODIUM LEVEL 137 MEQ/L (136-145); TOTAL PROTEIN 7.8 GM/DL (6.4-8.2)
[2021-06-19] MEDS: SODIUM CHLORIDE 0.9% INJ 10 ML SYR IV PRN (09:57)
[2021-06-19 10:08] LABS: BASO % 0.3 % (0.0-1.0); HEMATOCRIT 42.8 % (42.0-52.0); HEMOGLOBIN 14.1 g/dl (13.5-17.5); LYMPH # 1.2 10^3/uL (1.5-5.0); LYMPH % 31.4 % (24.0-44.0); MEAN CORPUSCULAR HEMOGLOBIN 29.6 pg (27.0-33.0); MEAN CORPUSCULAR HGB CONC 32.9 g/dl (32.0-36.5); MEAN CORPUSCULAR VOLUME 89.7 fl (80.0-96.0); MONO # 0.3 10^3/uL (0.0-0.8); MONO % 8.4 % (2.0-8.0); NEUTROPHILS # 2.3 10^3/uL (1.5-8.5); NEUTROPHILS % 58.4 % (36.0-66.0); PLATELET COUNT, AUTOMATED 156 10^3/uL (150-450); RED BLOOD COUNT 4.77 10^6/uL (4.30-6.10)
[2021-06-19 10:18] VITALS: BP 145/76; O2SAT 100
[2021-06-19 10:35] LABS: ALBUMIN 3.5 GM/DL (3.2-5.2); ALKALINE PHOSPHATASE 103 U/L (45-117); ALT/SGPT 27 U/L (12-78); AST/SGOT 11 U/L (7-37); BILIRUBIN,TOTAL 0.6 MG/DL (0.2-1.0); BLOOD UREA NITROGEN 13 MG/DL (7-18); CARBON DIOXIDE LEVEL 29 MEQ/L (21-32); CHLORIDE LEVEL 107 MEQ/L (98-107); CREATININE FOR GFR 0.78 MG/DL (0.70-1.30); GLOMERULAR FILTRATION RATE > 60.0 (>42); GLUCOSE, FASTING 276 MG/DL (70-100); POTASSIUM SERUM 4.4 MEQ/L (3.5-5.1); SODIUM LEVEL 140 MEQ/L (136-145)
[2021-10-30 11:41] VITALS: BP 153/76; O2SAT 99
[2021-10-30 11:42] LABS: BASO % 0.5 % (0.0-1.0); EOS % 0.4 % (0.0-3.0); HEMATOCRIT 42.3 % (42.0-52.0); HEMOGLOBIN 13.6 g/dl (13.5-17.5); LYMPH # 1.2 10^3/uL (1.5-5.0); LYMPH % 21.2 % (24.0-44.0); MEAN CORPUSCULAR HEMOGLOBIN 29.4 pg (27.0-33.0); MEAN CORPUSCULAR HGB CONC 32.2 g/dl (32.0-36.5); MEAN CORPUSCULAR VOLUME 91.4 fl (80.0-96.0); MONO # 0.4 10^3/uL (0.0-0.8); MONO % 6.7 % (2.0-8.0); NEUTROPHILS # 3.9 10^3/uL (1.5-8.5); NEUTROPHILS % 70.8 % (36.0-66.0); PLATELET COUNT, AUTOMATED 157 10^3/uL (150-450); RED BLOOD COUNT 4.63 10^6/uL (4.30-6.10); WHITE BLOOD COUNT 5.5 10^3/uL (4.0-10.0)
[2021-10-30 12:04] LABS: ALBUMIN 3.4 GM/DL (3.2-5.2); ALKALINE PHOSPHATASE 93 U/L (45-117); ALT/SGPT 23 U/L (12-78); AST/SGOT 21 U/L (7-37); BILIRUBIN,TOTAL 0.9 MG/DL (0.2-1.0); BLOOD UREA NITROGEN 12 MG/DL (7-18); CALCIUM LEVEL 8.4 MG/DL (8.8-10.2); CARBON DIOXIDE LEVEL 26 MEQ/L (21-32); CHLORIDE LEVEL 106 MEQ/L (98-107); CREATININE FOR GFR 1.02 MG/DL (0.70-1.30); GLOMERULAR FILTRATION RATE > 60.0 (>42); GLUCOSE, FASTING 353 MG/DL (70-100); SODIUM LEVEL 137 MEQ/L (136-145); TOTAL PROTEIN 7.3 GM/DL (6.4-8.2)
[2022-01-30 09:55] VITALS: BP 146/76; O2SAT 100
[2022-01-30 10:15] LABS: BASO % 0.7 % (0.0-1.0); EOS # 0.1 10^3/uL (0.0-0.5); EOS % 1.4 % (0.0-3.0); HEMATOCRIT 44.2 % (42.0-52.0); HEMOGLOBIN 14.3 g/dl (13.5-17.5); LYMPH # 1.4 10^3/uL (1.5-5.0); LYMPH % 32.5 % (24.0-44.0); MEAN CORPUSCULAR HEMOGLOBIN 29.2 pg (27.0-33.0); MEAN CORPUSCULAR HGB CONC 32.4 g/dl (32.0-36.5); MEAN CORPUSCULAR VOLUME 90.2 fl (80.0-96.0); MONO # 0.4 10^3/uL (0.0-0.8); MONO % 8.1 % (2.0-8.0); NEUTROPHILS # 2.5 10^3/uL (1.5-8.5); NEUTROPHILS % 57.1 % (36.0-66.0); PLATELET COUNT, AUTOMATED 161 10^3/uL (150-450); WHITE BLOOD COUNT 4.3 10^3/uL (4.0-10.0)
[2022-01-30 10:46] LABS: ALBUMIN 3.6 GM/DL (3.2-5.2); ALKALINE PHOSPHATASE 85 U/L (45-117); ALT/SGPT 26 U/L (12-78); AST/SGOT 15 U/L (7-37); BILIRUBIN,TOTAL 1.1 MG/DL (0.2-1.0); BLOOD UREA NITROGEN 9 MG/DL (7-18); CALCIUM LEVEL 8.9 MG/DL (8.8-10.2); CARBON DIOXIDE LEVEL 26 MEQ/L (21-32); CHLORIDE LEVEL 107 MEQ/L (98-107); CREATININE FOR GFR 0.76 MG/DL (0.70-1.30); GLOMERULAR FILTRATION RATE > 60.0 (>42); GLUCOSE, FASTING 215 MG/DL (70-100); POTASSIUM SERUM 3.8 MEQ/L (3.5-5.1); SODIUM LEVEL 138 MEQ/L (136-145); TOTAL PROTEIN 7.4 GM/DL (6.4-8.2)
[2022-02-27 14:13] VITALS: BP 157/80; O2SAT 98
[2022-02-27 14:27] LABS: BASO % 0.4 % (0.0-1.0); EOS % 0.9 % (0.0-3.0); HEMATOCRIT 40.8 % (42.0-52.0); HEMOGLOBIN 13.2 g/dl (13.5-17.5); LYMPH # 1.5 10^3/uL (1.5-5.0); LYMPH % 31.6 % (24.0-44.0); MEAN CORPUSCULAR HEMOGLOBIN 29.3 pg (27.0-33.0); MEAN CORPUSCULAR HGB CONC 32.4 g/dl (32.0-36.5); MEAN CORPUSCULAR VOLUME 90.7 fl (80.0-96.0); MONO # 0.3 10^3/uL (0.0-0.8); NEUTROPHILS # 2.7 10^3/uL (1.5-8.5); NEUTROPHILS % 59.7 % (36.0-66.0); PLATELET COUNT, AUTOMATED 150 10^3/uL (150-450); WHITE BLOOD COUNT 4.6 10^3/uL (4.0-10.0)
[2022-02-27 14:59] LABS: ALBUMIN 3.6 G/DL (3.2-5.2); ALKALINE PHOSPHATASE 101 U/L (46-116); ALT/SGPT 16 U/L (7.0-40); AST/SGOT 16 U/L (<34); BILIRUBIN,TOTAL 0.7 MG/DL (0.3-1.2); BLOOD UREA NITROGEN 9 MG/DL (9-23); CALCIUM LEVEL 8.6 MG/DL (8.3-10.6); CARBON DIOXIDE LEVEL 26 MMOL/L (20-31); CHLORIDE LEVEL 106 MMOL/L (98-107); CREATININE FOR GFR 0.63 MG/DL (0.70-1.30); GLOMERULAR FILTRATION RATE > 60.0 (>42); GLUCOSE, FASTING 308 MG/DL (74-106); POTASSIUM SERUM 4.5 MMOL/L (3.5-5.1); SODIUM LEVEL 137 MMOL/L (136-145); TOTAL PROTEIN 6.9 G/DL (5.7-8.2)
[2022-04-02 08:30] VITALS: BP 144/70; O2SAT 99
[2022-04-02 08:41] LABS: BASO % 0.5 % (0.0-1.0); EOS # 0.1 10^3/uL (0.0-0.5); EOS % 1.4 % (0.0-3.0); HEMATOCRIT 41.2 % (42.0-52.0); HEMOGLOBIN 13.4 g/dl (13.5-17.5); LYMPH # 1.4 10^3/uL (1.5-5.0); LYMPH % 31.4 % (24.0-44.0); MEAN CORPUSCULAR HEMOGLOBIN 29.1 pg (27.0-33.0); MEAN CORPUSCULAR HGB CONC 32.5 g/dl (32.0-36.5); MEAN CORPUSCULAR VOLUME 89.6 fl (80.0-96.0); MONO # 0.3 10^3/uL (0.0-0.8); MONO % 7.4 % (2.0-8.0); NEUTROPHILS # 2.6 10^3/uL (1.5-8.5); NEUTROPHILS % 59.1 % (36.0-66.0); PLATELET COUNT, AUTOMATED 161 10^3/uL (150-450); WHITE BLOOD COUNT 4.4 10^3/uL (4.0-10.0)
[2022-04-02 08:55] LABS: ALBUMIN 3.7 G/DL (3.2-5.2); ALKALINE PHOSPHATASE 96 U/L (46-116); ALT/SGPT 20 U/L (7.0-40); AST/SGOT 21 U/L (<34); BILIRUBIN,TOTAL 0.7 MG/DL (0.3-1.2); BLOOD UREA NITROGEN 9 MG/DL (9-23); CALCIUM LEVEL 9.2 MG/DL (8.3-10.6); CARBON DIOXIDE LEVEL 28 MMOL/L (20-31); CHLORIDE LEVEL 107 MMOL/L (98-107); CREATININE FOR GFR 0.63 MG/DL (0.70-1.30); GLOMERULAR FILTRATION RATE > 60.0 (>42); GLUCOSE, FASTING 134 MG/DL (74-106); SODIUM LEVEL 141 MMOL/L (136-145)
[2022-04-16 08:36] VITALS: BP 142/69; O2SAT 100
[2022-04-16 09:32] LABS: BASO % 0.5 % (0.0-1.0); HEMATOCRIT 43.2 % (42.0-52.0); HEMOGLOBIN 13.7 g/dl (13.5-17.5); LYMPH # 1.2 10^3/uL (1.5-5.0); LYMPH % 30.1 % (24.0-44.0); MEAN CORPUSCULAR HEMOGLOBIN 28.8 pg (27.0-33.0); MEAN CORPUSCULAR HGB CONC 31.7 g/dl (32.0-36.5); MEAN CORPUSCULAR VOLUME 90.9 fl (80.0-96.0); MONO # 0.3 10^3/uL (0.0-0.8); NEUTROPHILS # 2.4 10^3/uL (1.5-8.5); NEUTROPHILS % 59.1 % (36.0-66.0); PLATELET COUNT, AUTOMATED 133 10^3/uL (150-450); RED BLOOD COUNT 4.75 10^6/uL (4.30-6.10)
[2022-04-16 10:01] LABS: ALBUMIN 3.7 G/DL (3.2-5.2); ALKALINE PHOSPHATASE 92 U/L (46-116); ALT/SGPT 17 U/L (7.0-40); AST/SGOT 15 U/L (<34); BILIRUBIN,TOTAL 0.8 MG/DL (0.3-1.2); BLOOD UREA NITROGEN 10 MG/DL (9-23); CALCIUM LEVEL 8.9 MG/DL (8.3-10.6); CARBON DIOXIDE LEVEL 26 MMOL/L (20-31); CHLORIDE LEVEL 106 MMOL/L (98-107); CREATININE FOR GFR 0.57 MG/DL (0.70-1.30); GLOMERULAR FILTRATION RATE > 60.0 (>42); GLUCOSE, FASTING 258 MG/DL (74-106); POTASSIUM SERUM 4.3 MMOL/L (3.5-5.1); SODIUM LEVEL 138 MMOL/L (136-145); TOTAL PROTEIN 7.1 G/DL (5.7-8.2)
[2022-05-06 12:28] LABS: BASO % 0.3 % (0.0-1.0); EOS % 0.3 % (0.0-3.0); HEMATOCRIT 42.2 % (42.0-52.0); HEMOGLOBIN 13.9 g/dl (13.5-17.5); LYMPH # 0.8 10^3/uL (1.5-5.0); LYMPH % 11.1 % (24.0-44.0); MEAN CORPUSCULAR HEMOGLOBIN 29.8 pg (27.0-33.0); MEAN CORPUSCULAR HGB CONC 32.9 g/dl (32.0-36.5); MEAN CORPUSCULAR VOLUME 90.4 fl (80.0-96.0); MONO # 0.3 10^3/uL (0.0-0.8); MONO % 4.6 % (2.0-8.0); NEUTROPHILS # 5.9 10^3/uL (1.5-8.5); NEUTROPHILS % 83.4 % (36.0-66.0); PLATELET COUNT, AUTOMATED 147 10^3/uL (150-450); RED BLOOD COUNT 4.67 10^6/uL (4.30-6.10)
[2022-05-06 13:02] VITALS: BP 144/76; O2SAT 98
[2022-05-06 13:17] LABS: ALBUMIN 3.9 G/DL (3.2-5.2); ALKALINE PHOSPHATASE 88 U/L (46-116); ALT/SGPT 21 U/L (7.0-40); AST/SGOT 23 U/L (<34); BILIRUBIN,TOTAL 1.1 MG/DL (0.3-1.2); BLOOD UREA NITROGEN 13 MG/DL (9-23); CALCIUM LEVEL 8.3 MG/DL (8.3-10.6); CARBON DIOXIDE LEVEL 26 MMOL/L (20-31); CHLORIDE LEVEL 104 MMOL/L (98-107); CREATININE FOR GFR 0.59 MG/DL (0.70-1.30); GLOMERULAR FILTRATION RATE > 60.0 (>42); GLUCOSE, FASTING 289 MG/DL (74-106); POTASSIUM SERUM 4.1 MMOL/L (3.5-5.1); SODIUM LEVEL 136 MMOL/L (136-145); TOTAL PROTEIN 7.2 G/DL (5.7-8.2)
[2022-05-06 14:46] LABS: HEPATITIS B CORE ANTIBODY IGM NEGATIVE (NEGATIVE); HEPATITIS B SURFACE ANTIBODY NEGATIVE (POSITIVE); HEPATITIS B SURFACE ANTIGEN NEGATIVE (NEGATIVE)
[2022-05-06] MEDS: FLUOROURACIL IV SCH (15:07)
[2022-05-06] MEDS: NS IV SCH (15:07)
[2022-05-06] MEDS: dexAMETHasone 4 MG TAB PO SCH (15:08)
[2022-05-06] MEDS: PROCHLORPERAZINE 5MG TAB PO SCH (15:08)
[2022-05-10 14:00] VITALS: BP 141/68; O2SAT 99
[2022-05-13 09:48] LABS: BASO % 0.4 % (0.0-1.0); EOS # 0.1 10^3/uL (0.0-0.5); EOS % 1.2 % (0.0-3.0); HEMATOCRIT 42.1 % (42.0-52.0); HEMOGLOBIN 13.6 g/dl (13.5-17.5); LYMPH # 0.6 10^3/uL (1.5-5.0); LYMPH % 9.2 % (24.0-44.0); MEAN CORPUSCULAR HEMOGLOBIN 29.1 pg (27.0-33.0); MEAN CORPUSCULAR HGB CONC 32.3 g/dl (32.0-36.5); MONO # 0.5 10^3/uL (0.0-0.8); MONO % 7.4 % (2.0-8.0); NEUTROPHILS # 5.6 10^3/uL (1.5-8.5); NEUTROPHILS % 81.2 % (36.0-66.0); PLATELET COUNT, AUTOMATED 138 10^3/uL (150-450); RED BLOOD COUNT 4.68 10^6/uL (4.30-6.10); WHITE BLOOD COUNT 6.9 10^3/uL (4.0-10.0)
[2022-05-13 10:21] LABS: ALBUMIN 3.8 G/DL (3.2-5.2); ALKALINE PHOSPHATASE 88 U/L (46-116); ALT/SGPT 15 U/L (7.0-40); AST/SGOT 15 U/L (<34); BILIRUBIN,TOTAL 1.2 MG/DL (0.3-1.2); BLOOD UREA NITROGEN 14 MG/DL (9-23); CALCIUM LEVEL 9.1 MG/DL (8.3-10.6); CARBON DIOXIDE LEVEL 26 MMOL/L (20-31); CHLORIDE LEVEL 104 MMOL/L (98-107); CREATININE FOR GFR 0.62 MG/DL (0.70-1.30); GLOMERULAR FILTRATION RATE > 60.0 (>42); GLUCOSE, FASTING 218 MG/DL (74-106); POTASSIUM SERUM 3.9 MMOL/L (3.5-5.1); SODIUM LEVEL 137 MMOL/L (136-145); TOTAL PROTEIN 7.1 G/DL (5.7-8.2)
[2022-05-13 11:07] VITALS: BP 139/74; O2SAT 98
[2022-05-13] MEDS: PROCHLORPERAZINE 5MG TAB PO SCH (12:57)
[2022-05-13] MEDS: dexAMETHasone 4 MG TAB PO SCH (12:57)
[2022-05-13] MEDS: NS IV SCH (14:19)
[2022-05-13] MEDS: FLUOROURACIL IV SCH (14:19)
[2022-05-17 10:39] VITALS: BP 154/77; O2SAT 100
[2022-05-20 10:10] VITALS: BP 133/70; O2SAT 98
[2022-05-20 10:25] LABS: BASO % 0.4 % (0.0-1.0); EOS # 0.1 10^3/uL (0.0-0.5); EOS % 1.9 % (0.0-3.0); HEMATOCRIT 40.8 % (42.0-52.0); HEMOGLOBIN 13.5 g/dl (13.5-17.5); LYMPH # 0.5 10^3/uL (1.5-5.0); LYMPH % 8.7 % (24.0-44.0); MEAN CORPUSCULAR HEMOGLOBIN 29.9 pg (27.0-33.0); MEAN CORPUSCULAR HGB CONC 33.1 g/dl (32.0-36.5); MEAN CORPUSCULAR VOLUME 90.5 fl (80.0-96.0); MONO # 0.4 10^3/uL (0.0-0.8); MONO % 7.3 % (2.0-8.0); NEUTROPHILS # 4.6 10^3/uL (1.5-8.5); PLATELET COUNT, AUTOMATED 144 10^3/uL (150-450); RED BLOOD COUNT 4.51 10^6/uL (4.30-6.10); WHITE BLOOD COUNT 5.7 10^3/uL (4.0-10.0)
[2022-05-20 10:59] LABS: ALBUMIN 3.7 G/DL (3.2-5.2); ALKALINE PHOSPHATASE 78 U/L (46-116); ALT/SGPT 14 U/L (7.0-40); AST/SGOT 13 U/L (<34); BILIRUBIN,TOTAL 0.8 MG/DL (0.3-1.2); BLOOD UREA NITROGEN 9 MG/DL (9-23); CALCIUM LEVEL 8.5 MG/DL (8.3-10.6); CARBON DIOXIDE LEVEL 28 MMOL/L (20-31); CHLORIDE LEVEL 105 MMOL/L (98-107); CREATININE FOR GFR 0.56 MG/DL (0.70-1.30); GLOMERULAR FILTRATION RATE > 60.0 (>42); GLUCOSE, FASTING 293 MG/DL (74-106); POTASSIUM SERUM 4.4 MMOL/L (3.5-5.1); SODIUM LEVEL 139 MMOL/L (136-145); TOTAL PROTEIN 6.8 G/DL (5.7-8.2)
[2022-05-20] MEDS: dexAMETHasone 4 MG TAB PO SCH (12:06)
[2022-05-20] MEDS: PROCHLORPERAZINE 5MG TAB PO SCH (12:07)
[2022-05-20] MEDS: MAG SULF 1GM/100ML (MAG RUN) 100 ML IV SCH (12:08)
[2022-05-20] MEDS: NS IV SCH (14:12)
[2022-05-20] MEDS: FLUOROURACIL IV SCH (14:12)
[2022-05-24] MEDS: PROCHLORPERAZINE 5MG TAB PO SCH (11:09)
[2022-05-24] MEDS: dexAMETHasone 4 MG TAB PO SCH (11:09)
[2022-05-24 11:50] VITALS: BP 137/76; O2SAT 99
[2022-05-24] MEDS: NS IV SCH (12:03)
[2022-05-24] MEDS: FLUOROURACIL IV SCH (12:03)
[2022-05-27 10:12] VITALS: BP 129/66; O2SAT 99
[2022-05-27 10:27] LABS: BASO % 0.4 % (0.0-1.0); EOS # 0.2 10^3/uL (0.0-0.5); EOS % 2.7 % (0.0-3.0); HEMATOCRIT 40.1 % (42.0-52.0); HEMOGLOBIN 13.2 g/dl (13.5-17.5); LYMPH # 0.3 10^3/uL (1.5-5.0); LYMPH % 4.9 % (24.0-44.0); MEAN CORPUSCULAR HEMOGLOBIN 29.9 pg (27.0-33.0); MEAN CORPUSCULAR HGB CONC 32.9 g/dl (32.0-36.5); MEAN CORPUSCULAR VOLUME 90.9 fl (80.0-96.0); MONO # 0.5 10^3/uL (0.0-0.8); MONO % 7.9 % (2.0-8.0); NEUTROPHILS # 5.6 10^3/uL (1.5-8.5); NEUTROPHILS % 83.7 % (36.0-66.0); PLATELET COUNT, AUTOMATED 136 10^3/uL (150-450); RED BLOOD COUNT 4.41 10^6/uL (4.30-6.10); WHITE BLOOD COUNT 6.7 10^3/uL (4.0-10.0)
[2022-05-27 10:49] LABS: ALBUMIN 3.5 G/DL (3.2-5.2); ALKALINE PHOSPHATASE 72 U/L (46-116); ALT/SGPT 17 U/L (7.0-40); AST/SGOT 12 U/L (<34); BLOOD UREA NITROGEN 11 MG/DL (9-23); CALCIUM LEVEL 8.3 MG/DL (8.3-10.6); CARBON DIOXIDE LEVEL 28 MMOL/L (20-31); CHLORIDE LEVEL 101 MMOL/L (98-107); CREATININE FOR GFR 0.62 MG/DL (0.70-1.30); GLOMERULAR FILTRATION RATE > 60.0 (>42); GLUCOSE, FASTING 296 MG/DL (74-106); POTASSIUM SERUM 4.2 MMOL/L (3.5-5.1); SODIUM LEVEL 138 MMOL/L (136-145); TOTAL PROTEIN 6.3 G/DL (5.7-8.2)
[2022-05-27] MEDS: MAG SULF 1GM/100ML (MAG RUN) 100 ML IV ONE (12:15)
[2022-05-27] MEDS: dexAMETHasone 4 MG TAB PO SCH (12:16)
[2022-05-27] MEDS: PROCHLORPERAZINE 5MG TAB PO SCH (12:16)
[2022-05-27] MEDS: NS IV SCH (13:29)
[2022-05-27] MEDS: FLUOROURACIL IV SCH (13:29)
[2022-05-31 11:31] VITALS: BP 132/64; O2SAT 100
[2022-05-31] MEDS: PROCHLORPERAZINE 5MG TAB PO SCH (11:41)
[2022-05-31] MEDS: dexAMETHasone 4 MG TAB PO SCH (11:42)
[2022-05-31] MEDS: FLUOROURACIL IV SCH (12:40)
[2022-05-31] MEDS: NS IV SCH (12:40)
[2022-06-03 09:30] VITALS: BP 128/66; O2SAT 100
[2022-06-03 11:41] LABS: BASO % 0.4 % (0.0-1.0); EOS # 0.2 10^3/uL (0.0-0.5); EOS % 2.8 % (0.0-3.0); HEMATOCRIT 38.5 % (42.0-52.0); HEMOGLOBIN 12.8 g/dl (13.5-17.5); LYMPH # 0.2 10^3/uL (1.5-5.0); LYMPH % 3.4 % (24.0-44.0); MEAN CORPUSCULAR HEMOGLOBIN 30.8 pg (27.0-33.0); MEAN CORPUSCULAR HGB CONC 33.2 g/dl (32.0-36.5); MEAN CORPUSCULAR VOLUME 92.5 fl (80.0-96.0); MONO # 0.5 10^3/uL (0.0-0.8); MONO % 9.4 % (2.0-8.0); NEUTROPHILS # 4.7 10^3/uL (1.5-8.5); NEUTROPHILS % 83.5 % (36.0-66.0); PLATELET COUNT, AUTOMATED 121 10^3/uL (150-450); RED BLOOD COUNT 4.16 10^6/uL (4.30-6.10); WHITE BLOOD COUNT 5.6 10^3/uL (4.0-10.0)
[2022-06-03 11:43] LABS: ALBUMIN 3.3 G/DL (3.2-5.2); ALKALINE PHOSPHATASE 78 U/L (46-116); ALT/SGPT 12 U/L (7.0-40); AST/SGOT 11 U/L (<34); BILIRUBIN,TOTAL 1.1 MG/DL (0.3-1.2); BLOOD UREA NITROGEN 6 MG/DL (9-23); CALCIUM LEVEL 7.9 MG/DL (8.3-10.6); CARBON DIOXIDE LEVEL 23 MMOL/L (20-31); CHLORIDE LEVEL 100 MMOL/L (98-107); CREATININE FOR GFR 0.59 MG/DL (0.70-1.30); GLOMERULAR FILTRATION RATE > 60.0 (>42); GLUCOSE, FASTING 389 MG/DL (74-106); POTASSIUM SERUM 3.7 MMOL/L (3.5-5.1); SODIUM LEVEL 132 MMOL/L (136-145); TOTAL PROTEIN 5.9 G/DL (5.7-8.2)
[2022-06-03] MEDS: dexAMETHasone 4 MG TAB PO SCH (13:28)
[2022-06-03] MEDS: MAG SULF 1GM/100ML (MAG RUN) 100 ML IV ONE (13:28)
[2022-06-03] MEDS: PROCHLORPERAZINE 5MG TAB PO SCH (13:28)
[2022-06-03] MEDS: NS IV SCH (14:38)
[2022-06-03] MEDS: FLUOROURACIL IV SCH (14:38)
[2022-06-03 15:38] VITALS: BP 128/66; O2SAT 100
[2022-06-07] MEDS: PROCHLORPERAZINE 5MG TAB PO SCH (11:08)
[2022-06-07] MEDS: dexAMETHasone 4 MG TAB PO SCH (11:08)
[2022-06-07 11:09] VITALS: BP 130/78; O2SAT 98
[2022-06-07] MEDS: NS IV SCH (11:46)
[2022-06-07] MEDS: FLUOROURACIL IV SCH (11:46)
[2022-06-10 10:00] VITALS: BP 134/70; O2SAT 98
[2022-06-10 10:09] LABS: BASO % 0.3 % (0.0-1.0); EOS # 0.2 10^3/uL (0.0-0.5); EOS % 4.1 % (0.0-3.0); HEMOGLOBIN 12.8 g/dl (13.5-17.5); LYMPH # 0.2 10^3/uL (1.5-5.0); LYMPH % 3.4 % (24.0-44.0); MEAN CORPUSCULAR HEMOGLOBIN 30.4 pg (27.0-33.0); MEAN CORPUSCULAR HGB CONC 32.8 g/dl (32.0-36.5); MEAN CORPUSCULAR VOLUME 92.6 fl (80.0-96.0); MONO # 0.5 10^3/uL (0.0-0.8); MONO % 9.1 % (2.0-8.0); NEUTROPHILS # 4.8 10^3/uL (1.5-8.5); NEUTROPHILS % 82.6 % (36.0-66.0); PLATELET COUNT, AUTOMATED 137 10^3/uL (150-450); RED BLOOD COUNT 4.21 10^6/uL (4.30-6.10); WHITE BLOOD COUNT 5.8 10^3/uL (4.0-10.0)
[2022-06-10 10:37] LABS: ALBUMIN 3.2 G/DL (3.2-5.2); ALKALINE PHOSPHATASE 76 U/L (46-116); ALT/SGPT 12 U/L (7.0-40); AST/SGOT 14 U/L (<34); BILIRUBIN,TOTAL 0.8 MG/DL (0.3-1.2); BLOOD UREA NITROGEN 6 MG/DL (9-23); CALCIUM LEVEL 7.6 MG/DL (8.3-10.6); CARBON DIOXIDE LEVEL 26 MMOL/L (20-31); CHLORIDE LEVEL 103 MMOL/L (98-107); GLOMERULAR FILTRATION RATE > 60.0 (>42); GLUCOSE, FASTING 271 MG/DL (74-106); SODIUM LEVEL 134 MMOL/L (136-145)
[2022-06-10] MEDS: SODIUM CHLORIDE 0.9% INJ 10 ML SYR IV PRN (10:41)
[2022-06-10 10:49] LABS: TOTAL PROTEIN 5.8 G/DL (5.7-8.2)
[2022-06-11] MEDS: MAG SULF 1GM/100ML (MAG RUN) 100 ML IV ONE (07:37)
[2022-06-11 07:46] VITALS: BP 110/66; O2SAT 100
[2022-06-11] MEDS: NS (Normal Saline) 0.9% 1,000 ML IV ONE (08:38)
[2022-06-11] MEDS: SODIUM CHLORIDE 0.9% INJ 10 ML SYR IV PRN (09:37)
[2022-07-03] MEDS: SODIUM CHLORIDE 0.9% INJ 10 ML SYR IV PRN (08:35)
[2022-07-03 08:49] LABS: BASO % 0.4 % (0.0-1.0); EOS # 0.1 10^3/uL (0.0-0.5); EOS % 1.7 % (0.0-3.0); HEMATOCRIT 38.7 % (42.0-52.0); HEMOGLOBIN 12.6 g/dl (13.5-17.5); LYMPH # 1.8 10^3/uL (1.5-5.0); LYMPH % 39.2 % (24.0-44.0); MEAN CORPUSCULAR HEMOGLOBIN 30.3 pg (27.0-33.0); MEAN CORPUSCULAR HGB CONC 32.6 g/dl (32.0-36.5); MONO # 0.4 10^3/uL (0.0-0.8); MONO % 9.6 % (2.0-8.0); NEUTROPHILS # 2.2 10^3/uL (1.5-8.5); NEUTROPHILS % 48.7 % (36.0-66.0); PLATELET COUNT, AUTOMATED 138 10^3/uL (150-450); RED BLOOD COUNT 4.16 10^6/uL (4.30-6.10); WHITE BLOOD COUNT 4.6 10^3/uL (4.0-10.0)
[2022-07-03 09:11] VITALS: BP 125/70; O2SAT 99
[2022-07-03 09:11] LABS: ALBUMIN 3.2 G/DL (3.2-5.2); ALKALINE PHOSPHATASE 84 U/L (46-116); ALT/SGPT 11 U/L (7.0-40); AST/SGOT 14 U/L (<34); BILIRUBIN,TOTAL 0.6 MG/DL (0.3-1.2); BLOOD UREA NITROGEN 11 MG/DL (9-23); CALCIUM LEVEL 8.4 MG/DL (8.3-10.6); CARBON DIOXIDE LEVEL 27 MMOL/L (20-31); CHLORIDE LEVEL 108 MMOL/L (98-107); CREATININE FOR GFR 0.61 MG/DL (0.70-1.30); GLOMERULAR FILTRATION RATE > 60.0 (>42); GLUCOSE, FASTING 214 MG/DL (74-106); SODIUM LEVEL 140 MMOL/L (136-145); TOTAL PROTEIN 6.3 G/DL (5.7-8.2)
[2022-07-03 09:22] LABS: MAGNESIUM LEVEL 1.6 MG/DL (1.8-2.4)
[2022-07-03 09:43] LABS: CA19-9 TUMOR MARKER,CARBOHYDRA 12.1 U/ML (<35.0)
[2022-08-02] MEDS: SODIUM CHLORIDE 0.9% INJ 10 ML SYR IV PRN (08:31)
[2022-08-02 08:39] VITALS: BP 157/76; O2SAT 99
[2022-08-02 08:43] LABS: BASO % 0.6 % (0.0-1.0); EOS # 0.1 10^3/uL (0.0-0.5); HEMATOCRIT 36.7 % (42.0-52.0); HEMOGLOBIN 12.3 g/dl (13.5-17.5); LYMPH # 1.3 10^3/uL (1.5-5.0); LYMPH % 26.3 % (24.0-44.0); MEAN CORPUSCULAR HEMOGLOBIN 31.2 pg (27.0-33.0); MEAN CORPUSCULAR HGB CONC 33.5 g/dl (32.0-36.5); MEAN CORPUSCULAR VOLUME 93.1 fl (80.0-96.0); MONO # 0.5 10^3/uL (0.0-0.8); MONO % 9.3 % (2.0-8.0); NEUTROPHILS % 62.6 % (36.0-66.0); PLATELET COUNT, AUTOMATED 128 10^3/uL (150-450); RED BLOOD COUNT 3.94 10^6/uL (4.30-6.10); WHITE BLOOD COUNT 4.8 10^3/uL (4.0-10.0)
[2022-08-02 09:15] LABS: ALBUMIN 3.3 G/DL (3.2-5.2); ALKALINE PHOSPHATASE 78 U/L (46-116); ALT/SGPT 15 U/L (7.0-40); AST/SGOT 14 U/L (<34); BILIRUBIN,TOTAL 0.9 MG/DL (0.3-1.2); BLOOD UREA NITROGEN 6 MG/DL (9-23); CALCIUM LEVEL 8.2 MG/DL (8.3-10.6); CARBON DIOXIDE LEVEL 26 MMOL/L (20-31); CHLORIDE LEVEL 108 MMOL/L (98-107); CREATININE FOR GFR 0.56 MG/DL (0.70-1.30); GLOMERULAR FILTRATION RATE > 60.0 (>42); GLUCOSE, FASTING 134 MG/DL (74-106); POTASSIUM SERUM 3.6 MMOL/L (3.5-5.1); SODIUM LEVEL 140 MMOL/L (136-145); TOTAL PROTEIN 6.5 G/DL (5.7-8.2)
[2022-09-13] MEDS: SODIUM CHLORIDE 0.9% INJ 10 ML SYR IV PRN (11:12)
[2022-10-14] MEDS: SODIUM CHLORIDE 0.9% INJ 10 ML SYR IV PRN (11:14)
[2022-11-07] MEDS: SODIUM CHLORIDE 0.9% INJ 10 ML SYR IV PRN (11:40)
[2022-11-07 11:42] VITALS: BP 151/76; O2SAT 95
[2022-11-07 12:04] LABS: BASO % 0.3 % (0.0-1.0); EOS % 0.8 % (0.0-3.0); HEMATOCRIT 39.4 % (42.0-52.0); HEMOGLOBIN 12.9 g/dl (13.5-17.5); LYMPH # 0.9 10^3/uL (1.5-5.0); LYMPH % 24.9 % (24.0-44.0); MEAN CORPUSCULAR HEMOGLOBIN 29.1 pg (27.0-33.0); MEAN CORPUSCULAR HGB CONC 32.7 g/dl (32.0-36.5); MEAN CORPUSCULAR VOLUME 88.9 fl (80.0-96.0); MONO # 0.3 10^3/uL (0.0-0.8); MONO % 9.5 % (2.0-8.0); NEUTROPHILS # 2.3 10^3/uL (1.5-8.5); NEUTROPHILS % 64.2 % (36.0-66.0); PLATELET COUNT, AUTOMATED 133 10^3/uL (150-450); RED BLOOD COUNT 4.43 10^6/uL (4.30-6.10); WHITE BLOOD COUNT 3.6 10^3/uL (4.0-10.0)
[2022-11-07 12:30] LABS: ALBUMIN 3.6 G/DL (3.2-5.2); ALKALINE PHOSPHATASE 114 U/L (46-116); ALT/SGPT 18 U/L (7.0-40); AST/SGOT 14 U/L (<34); BILIRUBIN,TOTAL 0.7 MG/DL (0.3-1.2); BLOOD UREA NITROGEN 8 MG/DL (9-23); CALCIUM LEVEL 8.6 MG/DL (8.3-10.6); CARBON DIOXIDE LEVEL 26 MMOL/L (20-31); CHLORIDE LEVEL 106 MMOL/L (98-107); CREATININE FOR GFR 0.64 MG/DL (0.70-1.30); GLOMERULAR FILTRATION RATE > 60.0 (>42); GLUCOSE, FASTING 257 MG/DL (74-106); POTASSIUM SERUM 3.9 MMOL/L (3.5-5.1); SODIUM LEVEL 139 MMOL/L (136-145); TOTAL PROTEIN 6.7 G/DL (5.7-8.2)
[2022-12-11] MEDS: SODIUM CHLORIDE 0.9% INJ 10 ML SYR IV PRN (11:13)
[2023-01-31 15:38] VITALS: BP 146/74; O2SAT 99
[2023-01-31 16:53] LABS: BASO % 0.5 % (0.0-1.0); EOS # 0.1 10^3/uL (0.0-0.5); EOS % 1.4 % (0.0-3.0); HEMATOCRIT 39.3 % (42.0-52.0); HEMOGLOBIN 13.2 g/dl (13.5-17.5); LYMPH # 0.9 10^3/uL (1.5-5.0); LYMPH % 20.8 % (24.0-44.0); MEAN CORPUSCULAR HEMOGLOBIN 30.3 pg (27.0-33.0); MEAN CORPUSCULAR HGB CONC 33.6 g/dl (32.0-36.5); MEAN CORPUSCULAR VOLUME 90.1 fl (80.0-96.0); MONO # 0.3 10^3/uL (0.0-0.8); MONO % 8.1 % (2.0-8.0); NEUTROPHILS # 2.9 10^3/uL (1.5-8.5); PLATELET COUNT, AUTOMATED 140 10^3/uL (150-450); RED BLOOD COUNT 4.36 10^6/uL (4.30-6.10); WHITE BLOOD COUNT 4.2 10^3/uL (4.0-10.0)
[2023-01-31 17:14] LABS: ALBUMIN 3.5 G/DL (3.2-5.2); ALKALINE PHOSPHATASE 97 U/L (46-116); ALT/SGPT 30 U/L (7.0-40); AST/SGOT 25 U/L (<34); BILIRUBIN,TOTAL 0.6 MG/DL (0.3-1.2); BLOOD UREA NITROGEN 13 MG/DL (9-23); CALCIUM LEVEL 8.5 MG/DL (8.3-10.6); CARBON DIOXIDE LEVEL 28 MMOL/L (20-31); CHLORIDE LEVEL 106 MMOL/L (98-107); CREATININE FOR GFR 0.85 MG/DL (0.70-1.30); GLOMERULAR FILTRATION RATE > 60.0 (>42); GLUCOSE, FASTING 388 MG/DL (74-106); POTASSIUM SERUM 4.8 MMOL/L (3.5-5.1); SODIUM LEVEL 139 MMOL/L (136-145); TOTAL PROTEIN 6.8 G/DL (5.7-8.2)
[2023-01-31 17:34] LABS: CA19-9 TUMOR MARKER,CARBOHYDRA 23.4 U/ML (<35.0)
[2023-03-14] MEDS: SODIUM CHLORIDE 0.9% INJ 10 ML SYR IV PRN (10:05)
[2023-04-25] MEDS: SODIUM CHLORIDE 0.9% INJ 10 ML SYR IV PRN (08:54)
[2023-04-29 13:13] LABS: BASO % 0.3 % (0.0-1.0); EOS # 0.1 10^3/uL (0.0-0.5); EOS % 1.3 % (0.0-3.0); HEMATOCRIT 38.7 % (42.0-52.0); HEMOGLOBIN 12.5 g/dl (13.5-17.5); LYMPH # 0.9 10^3/uL (1.5-5.0); LYMPH % 23.5 % (24.0-44.0); MEAN CORPUSCULAR HEMOGLOBIN 29.6 pg (27.0-33.0); MEAN CORPUSCULAR HGB CONC 32.3 g/dl (32.0-36.5); MEAN CORPUSCULAR VOLUME 91.7 fl (80.0-96.0); MONO # 0.3 10^3/uL (0.0-0.8); MONO % 7.4 % (2.0-8.0); NEUTROPHILS # 2.6 10^3/uL (1.5-8.5); NEUTROPHILS % 67.5 % (36.0-66.0); PLATELET COUNT, AUTOMATED 145 10^3/uL (150-450); RED BLOOD COUNT 4.22 10^6/uL (4.30-6.10); WHITE BLOOD COUNT 3.9 10^3/uL (4.0-10.0)
[2023-04-29 13:43] LABS: ALBUMIN 3.5 G/DL (3.2-5.2); ALKALINE PHOSPHATASE 82 U/L (46-116); ALT/SGPT 30 U/L (7.0-40); AST/SGOT 30 U/L (<34); BILIRUBIN,TOTAL 0.9 MG/DL (0.3-1.2); BLOOD UREA NITROGEN 9 MG/DL (9-23); CALCIUM LEVEL 8.3 MG/DL (8.3-10.6); CARBON DIOXIDE LEVEL 26 MMOL/L (20-31); CHLORIDE LEVEL 107 MMOL/L (98-107); CREATININE FOR GFR 0.71 MG/DL (0.70-1.30); GLOMERULAR FILTRATION RATE > 60.0 (>42); GLUCOSE, FASTING 375 MG/DL (74-106); POTASSIUM SERUM 4.2 MMOL/L (3.5-5.1); SODIUM LEVEL 138 MMOL/L (136-145); TOTAL PROTEIN 6.5 G/DL (5.7-8.2)
[2023-05-09 13:07] VITALS: BP 130/58; O2SAT 99
[2023-06-20] MEDS: SODIUM CHLORIDE 0.9% INJ 10 ML SYR IV PRN (10:53)
[2023-07-30] MEDS: SODIUM CHLORIDE 0.9% INJ 10 ML SYR IV PRN (13:37)
[2023-07-30 13:52] LABS: BASO % 0.3 % (0.0-1.0); EOS # 0.1 10^3/uL (0.0-0.5); EOS % 1.7 % (0.0-3.0); HEMATOCRIT 37.4 % (42.0-52.0); HEMOGLOBIN 12.5 g/dl (13.5-17.5); LYMPH # 0.8 10^3/uL (1.5-5.0); LYMPH % 23.2 % (24.0-44.0); MEAN CORPUSCULAR HEMOGLOBIN 30.6 pg (27.0-33.0); MEAN CORPUSCULAR HGB CONC 33.4 g/dl (32.0-36.5); MEAN CORPUSCULAR VOLUME 91.7 fl (80.0-96.0); MONO # 0.3 10^3/uL (0.0-0.8); MONO % 9.3 % (2.0-8.0); NEUTROPHILS # 2.3 10^3/uL (1.5-8.5); NEUTROPHILS % 65.2 % (36.0-66.0); PLATELET COUNT, AUTOMATED 151 10^3/uL (150-450); RED BLOOD COUNT 4.08 10^6/uL (4.30-6.10); WHITE BLOOD COUNT 3.5 10^3/uL (4.0-10.0)
[2023-07-30 14:24] LABS: ALBUMIN 3.3 G/DL (3.2-5.2); ALKALINE PHOSPHATASE 106 U/L (46-116); ALT/SGPT 39 U/L (7.0-40); AST/SGOT 30 U/L (<34); BILIRUBIN,TOTAL 0.8 MG/DL (0.3-1.2); BLOOD UREA NITROGEN 12 MG/DL (9-23); CALCIUM LEVEL 8.6 MG/DL (8.3-10.6); CARBON DIOXIDE LEVEL 27 MMOL/L (20-31); CHLORIDE LEVEL 108 MMOL/L (98-107); CREATININE FOR GFR 0.64 MG/DL (0.70-1.30); GLOMERULAR FILTRATION RATE > 60.0 (>42); GLUCOSE, FASTING 237 MG/DL (74-106); POTASSIUM SERUM 4.4 MMOL/L (3.5-5.1); SODIUM LEVEL 139 MMOL/L (136-145); TOTAL PROTEIN 6.7 G/DL (5.7-8.2)
[2023-08-13 13:23] VITALS: BP 124/72; O2SAT 99
[2023-09-29] MEDS: SODIUM CHLORIDE 0.9% INJ 10 ML SYR IV PRN (09:28)
[2023-11-06 14:03] LABS: BASO % 0.3 % (0.0-1.0); EOS # 0.1 10^3/uL (0.0-0.5); EOS % 1.3 % (0.0-3.0); HEMATOCRIT 34.7 % (42.0-52.0); HEMOGLOBIN 11.5 g/dl (13.5-17.5); LYMPH # 0.8 10^3/uL (1.5-5.0); LYMPH % 20.7 % (24.0-44.0); MEAN CORPUSCULAR HEMOGLOBIN 30.3 pg (27.0-33.0); MEAN CORPUSCULAR HGB CONC 33.1 g/dl (32.0-36.5); MEAN CORPUSCULAR VOLUME 91.6 fl (80.0-96.0); MONO # 0.3 10^3/uL (0.0-0.8); MONO % 8.3 % (2.0-8.0); NEUTROPHILS # 2.7 10^3/uL (1.5-8.5); NEUTROPHILS % 69.1 % (36.0-66.0); PLATELET COUNT, AUTOMATED 150 10^3/uL (150-450); RED BLOOD COUNT 3.79 10^6/uL (4.30-6.10); WHITE BLOOD COUNT 3.9 10^3/uL (4.0-10.0)
[2023-11-06 14:34] LABS: ALBUMIN 3.6 G/DL (3.2-5.2); ALKALINE PHOSPHATASE 108 U/L (46-116); ALT/SGPT 33 U/L (7.0-40); AST/SGOT 27 U/L (<34); BILIRUBIN,TOTAL 0.9 MG/DL (0.3-1.2); BLOOD UREA NITROGEN 11 MG/DL (9-23); CALCIUM LEVEL 8.9 MG/DL (8.3-10.6); CARBON DIOXIDE LEVEL 28 MMOL/L (20-31); CHLORIDE LEVEL 108 MMOL/L (98-107); CREATININE FOR GFR 0.79 MG/DL (0.70-1.30); FERRITIN 122.1 NG/ML (10.5-307.3); GLOMERULAR FILTRATION RATE > 60.0 (>42); GLUCOSE, FASTING 137 MG/DL (74-106); POTASSIUM SERUM 4.5 MMOL/L (3.5-5.1); SODIUM LEVEL 140 MMOL/L (136-145)
[2023-11-07 13:29] VITALS: BP 136/71; O2SAT 99
[2023-12-17 15:08] VITALS: BP 141/75; O2SAT 100
[2023-12-17 16:06] LABS: BASO % 0.5 % (0.0-1.0); EOS # 0.1 10^3/uL (0.0-0.5); EOS % 1.2 % (0.0-3.0); HEMATOCRIT 37.4 % (42.0-52.0); HEMOGLOBIN 12.5 g/dl (13.5-17.5); LYMPH % 23.8 % (24.0-44.0); MEAN CORPUSCULAR HEMOGLOBIN 30.4 pg (27.0-33.0); MEAN CORPUSCULAR HGB CONC 33.4 g/dl (32.0-36.5); MONO # 0.4 10^3/uL (0.0-0.8); MONO % 8.4 % (2.0-8.0); NEUTROPHILS # 2.8 10^3/uL (1.5-8.5); NEUTROPHILS % 66.1 % (36.0-66.0); PLATELET COUNT, AUTOMATED 170 10^3/uL (150-450); RED BLOOD COUNT 4.11 10^6/uL (4.30-6.10); WHITE BLOOD COUNT 4.2 10^3/uL (4.0-10.0)
[2023-12-17 16:35] LABS: ALBUMIN 3.5 G/DL (3.2-5.2); ALKALINE PHOSPHATASE 138 U/L (46-116); ALT/SGPT 52 U/L (7.0-40); AST/SGOT 49 U/L (<34); BILIRUBIN,TOTAL 0.8 MG/DL (0.3-1.2); BLOOD UREA NITROGEN 17 MG/DL (9-23); CALCIUM LEVEL 9.2 MG/DL (8.3-10.6); CARBON DIOXIDE LEVEL 32 MMOL/L (20-31); CHLORIDE LEVEL 104 MMOL/L (98-107); CREATININE FOR GFR 0.83 MG/DL (0.70-1.30); GLOMERULAR FILTRATION RATE > 60.0 (>42); GLUCOSE, FASTING 205 MG/DL (74-106); INR 1.09; PARTIAL THROMBOPLASTIN TIME 35.6 SECONDS (24.8-34.2); POTASSIUM SERUM 4.5 MMOL/L (3.5-5.1); PROTHROMBIN TIME 13.8 SECONDS (12.5-14.5); SODIUM LEVEL 138 MMOL/L (136-145)
[~2024-01-12] VITALS: Ht 177.8 cm; Wt 52.5 kg
[~2024-01-12 09:46] MED LIST changes: -AUGM0.05 TOP; +AUGM0.0511 TOP; +FLUOROURACIL IV ONE; +FOSAPREPITANT PERIPHERAL LINE 30 MIN INFUSION (PREMIX) IV ONE; +OMEP-611 PO; -OMEP20TA2 PO; +OXALIPLATIN IV ONE; -OXYC1TAB23; +PROCHLORPERAZINE 5MG TAB PO SCH; +SODIUM CHLORIDE 0.9% INJ 10 ML SYR IV PRN; +dexAMETHasone 4 MG TAB PO SCH
[2024-01-12 09:49] VITALS: BP 105/66; O2SAT 98
[2024-01-12] MEDS ORDERED: OXYC1TAB23 (09:55)
[2024-01-12] MEDS ORDERED: OXYC1TAB23 PO (10:56)
[2024-01-16] MEDS ORDERED: PERCOCET PO (14:22)
[2024-01-18] MEDS ORDERED: LANTINJ4 SC (15:23)
== END 2024-01-26 | disposition expired ==
LOC: M ONCM 09:46
PROVIDERS: ATTEND Internal Medicine Medical Oncology
DX: C25.9 Malignant neoplasm of pancreas, unspecified (principal); C77.2 Secondary and unspecified malignant neoplasm of intra-abdominal lymph nodes; C61 Malignant neoplasm of prostate; R59.0 Localized enlarged lymph nodes; J90 Pleural effusion, not elsewhere classified; I10 Essential (primary) hypertension; E11.40 Type 2 diabetes mellitus with diabetic neuropathy, unspecified; K90.89 Other intestinal malabsorption; Z85.51 Personal history of malignant neoplasm of bladder; Z79.4 Long term (current) use of insulin; Z79.899 Other long term (current) drug therapy; Z87.891 Personal history of nicotine dependence; R06.02 Shortness of breath; R63.4 Abnormal weight loss; R19.7 Diarrhea, unspecified; Z51.11 Encounter for antineoplastic chemotherapy; M79.9 Soft tissue disorder, unspecified; Z85.46 Personal history of malignant neoplasm of prostate; E11.21 Type 2 diabetes mellitus with diabetic nephropathy; E11.9 Type 2 diabetes mellitus without complications; C79.11 Secondary malignant neoplasm of bladder; K85.90 Acute pancreatitis without necrosis or infection, unspecified; C77.9 Secondary and unspecified malignant neoplasm of lymph node, unspecified; Z08 Encounter for follow-up examination after completed treatment for malignant neoplasm; Z85.07 Personal history of malignant neoplasm of pancreas
CPT/HCPCS: 36415; 36591; 80053; 82150; 82378; 82728; 83550; 83690; 83735; 84153; 85025; 85027; 85610; 85730; 86301; 86677; 86705; 86706; 87340; 87507; 96361; 96365; 96366; 96367; 96368; 96372; 96375; 96377; 96401; 96411; 96413; 96415; 96416; 96417; 96523; C8957; G0463; J0640; J1100; J1453; J1642; J2469; J2505; J3475; J9190; J9206; J9263

== ENCOUNTER → 2024-01-14 | Outpatient (CLI) | payer MEDICARE, BC ==
[~2024-01-14] MED LIST changes: +AUGM0.05 TOP; -AUGM0.0511 TOP; -FLUOROURACIL IV ONE; -FOSAPREPITANT PERIPHERAL LINE 30 MIN INFUSION (PREMIX) IV ONE; -OMEP-611 PO; +OMEP20TA2 PO; -OXALIPLATIN IV ONE; +OXYC1TAB23; +PERCOCET PO; -PROCHLORPERAZINE 5MG TAB PO SCH; -SODIUM CHLORIDE 0.9% INJ 10 ML SYR IV PRN; -dexAMETHasone 4 MG TAB PO SCH
[2024-01-14 14:10] LABS: PLATELET COUNT, AUTOMATED 180 10^3/uL (150-450)
[2024-01-14 14:22] LABS: INR 1.14; PARTIAL THROMBOPLASTIN TIME 35.3 SECONDS (24.8-34.2); PROTHROMBIN TIME 14.2 SECONDS (12.5-14.5)
== END ==
LOC: M LAB 13:41
PROVIDERS: ATTEND Internal Medicine Pulmonary Disease
DX: Z01.812 Encounter for preprocedural laboratory examination (principal); Z79.4 Long term (current) use of insulin; Z79.890 Hormone replacement therapy

== ENCOUNTER 2024-01-16 06:21 | Inpatient (IN) | payer MEDICARE, BC ==
[~2024-01-16] VITALS: Ht 177.8 cm; Wt 49.1 kg
[~2024-01-16 06:21] MED LIST changes: -PERCOCET PO
[2024-01-16] MEDS: NS 1,000 ML IV SCH (06:25)
[2024-01-16] MEDS ORDERED: INSULIN LISPRO (NovoLOG) PER UNIT SC PRN (06:25)
[2024-01-16] MEDS ORDERED: GLUCAGON INJ 1MG VIAL SC PRN (06:25)
[2024-01-16] MEDS ORDERED: DEXTROSE 50% 50ML SYRINGE IV PRN (06:25)
[2024-01-16] MEDS: LIDOCAINE 1% MDV 20ML VIAL As Ordered ONE (07:09)
[2024-01-16] MEDS ORDERED: LIDOCAINE 2% 100MG/5ML SDV (FOR ANES.) As Ordered ONE (07:12)
[2024-01-16] MEDS ORDERED: propofoL 200 MG/20 ML VIAL As Ordered ONE (07:13)
[2024-01-16] MEDS ORDERED: fentaNYL 100 MCG/2 ML INJECTION As Ordered ONE (07:34)
[2024-01-16] MEDS ORDERED: MIDAZOLAM INJ 2MG/2ML VIAL As Ordered ONE (07:34)
[2024-01-16] MEDS: DOCUSATE SODIUM 100MG CAPSULE PO SCH (09:00)
[2024-01-16] MEDS: oxyCODONE 5MG TAB PO ONE (11:46)
[2024-01-16 12:11] LABS: BASO % 0.4 % (0.0-1.0); EOS % 0.2 % (0.0-3.0); HEMATOCRIT 37.5 % (42.0-52.0); HEMOGLOBIN 12.5 g/dl (13.5-17.5); LYMPH # 0.6 10^3/uL (1.5-5.0); MEAN CORPUSCULAR HGB CONC 33.3 g/dl (32.0-36.5); MEAN CORPUSCULAR VOLUME 90.1 fl (80.0-96.0); MONO # 0.3 10^3/uL (0.0-0.8); MONO % 6.1 % (2.0-8.0); NEUTROPHILS # 4.3 10^3/uL (1.5-8.5); NEUTROPHILS % 81.7 % (36.0-66.0); PLATELET COUNT, AUTOMATED 168 10^3/uL (150-450); RED BLOOD COUNT 4.16 10^6/uL (4.30-6.10); WHITE BLOOD COUNT 5.3 10^3/uL (4.0-10.0)
[2024-01-16] MEDS: CREON-24 CAPSULE (PANCRELIPASE) PO SCH (12:30)
[2024-01-16] MEDS ORDERED: CREON-24 CAPSULE (PANCRELIPASE) PO SCH (12:30)
[2024-01-16 12:40] LABS: BLOOD UREA NITROGEN 16 MG/DL (9-23); CALCIUM LEVEL 8.6 MG/DL (8.3-10.6); CARBON DIOXIDE LEVEL 29 MMOL/L (20-31); CHLORIDE LEVEL 109 MMOL/L (98-107); CREATININE FOR GFR 0.73 MG/DL (0.70-1.30); GLOMERULAR FILTRATION RATE > 60.0 (>42); GLUCOSE, FASTING 145 MG/DL (74-106); POTASSIUM SERUM 4.5 MMOL/L (3.5-5.1); SODIUM LEVEL 140 MMOL/L (136-145)
[2024-01-16 12:54] VITALS: BP 144/85; TEMP 97.9; O2SAT 97
[2024-01-16] MEDS ORDERED: PERCOCET 5MG/325MG TAB PO PRN (13:15)
[2024-01-16] MEDS ORDERED: PERCOCET PO (14:22)
[2024-01-16] MEDS ORDERED: HOME MED LIST COMPLETE! XX SCH (14:25)
[2024-01-16 15:55] VITALS: BP 133/61; TEMP 99.1; O2SAT 96
[2024-01-16] MEDS: oxyCODONE 5MG TAB PO PRN (17:30)
[2024-01-16] MEDS ORDERED: CREON-12 CAPSULE (PANCRELIPASE) PO SCH (18:00)
[2024-01-16 19:34] VITALS: BP 118/57; TEMP 99.5; O2SAT 94
[2024-01-16] MEDS ORDERED: traZODone 25MG PER 1/2 TABLET PO PRN (19:35)
[2024-01-16] MEDS: LEVEMIR (INSULIN DETEMIR) 1 UNITS/0.01ML SC SCH (21:00)
[2024-01-16] MEDS: SALIVA SUBSTITUTE(MOUTHKOTE) BTL MT PRN (22:01)
[2024-01-16 23:59] VITALS: BP 108/64; TEMP 98.8; O2SAT 94
[2024-01-17 03:08] VITALS: BP 122/63; TEMP 97.9; O2SAT 95
[2024-01-17 05:12] LABS: BASO % 0.6 % (0.0-1.0); EOS % 0.4 % (0.0-3.0); HEMATOCRIT 35.8 % (42.0-52.0); LYMPH # 0.8 10^3/uL (1.5-5.0); LYMPH % 14.6 % (24.0-44.0); MEAN CORPUSCULAR HEMOGLOBIN 30.2 pg (27.0-33.0); MEAN CORPUSCULAR HGB CONC 33.5 g/dl (32.0-36.5); MEAN CORPUSCULAR VOLUME 90.2 fl (80.0-96.0); MONO # 0.5 10^3/uL (0.0-0.8); MONO % 9.9 % (2.0-8.0); NEUTROPHILS % 74.1 % (36.0-66.0); PLATELET COUNT, AUTOMATED 153 10^3/uL (150-450); RED BLOOD COUNT 3.97 10^6/uL (4.30-6.10); WHITE BLOOD COUNT 5.3 10^3/uL (4.0-10.0)
[2024-01-17 05:47] LABS: BLOOD UREA NITROGEN 15 MG/DL (9-23); CALCIUM LEVEL 8.7 MG/DL (8.3-10.6); CARBON DIOXIDE LEVEL 27 MMOL/L (20-31); CHLORIDE LEVEL 107 MMOL/L (98-107); GLOMERULAR FILTRATION RATE > 60.0 (>42); GLUCOSE, FASTING 169 MG/DL (74-106); POTASSIUM SERUM 4.7 MMOL/L (3.5-5.1); SODIUM LEVEL 140 MMOL/L (136-145)
[2024-01-17 07:22] VITALS: BP 130/64; TEMP 98.4; O2SAT 95
[2024-01-17 12:00] VITALS: BP 143/68; TEMP 98.5; O2SAT 98
[2024-01-17] MEDS: LEVEMIR (INSULIN DETEMIR) 1 UNITS/0.01ML SC SCH (14:51)
[2024-01-17] MEDS: ONDANSETRON 4MG 2ML VIAL IV PRN (14:51)
[2024-01-17 16:00] VITALS: BP 138/66; TEMP 98.4; O2SAT 95
[2024-01-17 20:32] VITALS: BP 124/66; TEMP 98.4; O2SAT 97
[2024-01-17 23:14] VITALS: BP 130/67; TEMP 98.5; O2SAT 94
[2024-01-18] MEDS: GLUCOSE 4 GM CHEW PO PRN (02:41)
[2024-01-18 02:46] VITALS: BP 117/65
[2024-01-18 03:55] VITALS: BP 122/61; TEMP 97.5; O2SAT 97
[2024-01-18 05:23] LABS: BASO % 0.4 % (0.0-1.0); EOS % 0.8 % (0.0-3.0); HEMATOCRIT 35.8 % (42.0-52.0); LYMPH # 0.3 10^3/uL (1.5-5.0); LYMPH % 6.7 % (24.0-44.0); MEAN CORPUSCULAR HEMOGLOBIN 30.3 pg (27.0-33.0); MEAN CORPUSCULAR HGB CONC 33.5 g/dl (32.0-36.5); MEAN CORPUSCULAR VOLUME 90.4 fl (80.0-96.0); MONO # 0.4 10^3/uL (0.0-0.8); MONO % 8.1 % (2.0-8.0); NEUTROPHILS # 4.3 10^3/uL (1.5-8.5); NEUTROPHILS % 83.6 % (36.0-66.0); PLATELET COUNT, AUTOMATED 151 10^3/uL (150-450); RED BLOOD COUNT 3.96 10^6/uL (4.30-6.10); WHITE BLOOD COUNT 5.1 10^3/uL (4.0-10.0)
[2024-01-18 05:44] LABS: BLOOD UREA NITROGEN 17 MG/DL (9-23); CARBON DIOXIDE LEVEL 31 MMOL/L (20-31); CHLORIDE LEVEL 106 MMOL/L (98-107); CREATININE FOR GFR 0.73 MG/DL (0.70-1.30); GLOMERULAR FILTRATION RATE > 60.0 (>42); GLUCOSE, FASTING 154 MG/DL (74-106); POTASSIUM SERUM 4.5 MMOL/L (3.5-5.1); SODIUM LEVEL 139 MMOL/L (136-145)
[2024-01-18 07:31] VITALS: BP 148/71; TEMP 98.3; O2SAT 98
[2024-01-18] MEDS: MIRALAX *UNIT DOSE* 17GM PACKET PO PRN (09:41)
[2024-01-18 11:53] VITALS: BP 132/70; O2SAT 98
[2024-01-18 12:04] VITALS: TEMP 97.6
[2024-01-18] MEDS ORDERED: LANTINJ4 SC (15:23)
== END 2024-01-18 16:05 | disposition home health service (06) | DRG 199 ==
LOC: M OPP 06:21 → M OR 11:11 → M PCU 12:25
PROVIDERS: ADMIT Internal Medicine Nephrology; ATTEND Internal Medicine Nephrology
PROC: 0W9930Z Drainage of Right Pleural Cavity with Drainage Device, Percutaneous Approach (ICD-10-PCS; principal; 2024-01-16 07:30)
DX: J95.811 Postprocedural pneumothorax (principal); E43 Unspecified severe protein-calorie malnutrition; C25.9 Malignant neoplasm of pancreas, unspecified; J91.0 Malignant pleural effusion; R18.0 Malignant ascites; Z68.1 Body mass index [BMI] 19.9 or less, adult; K91.2 Postsurgical malabsorption, not elsewhere classified; Z66 Do not resuscitate; Z79.4 Long term (current) use of insulin; Z79.899 Other long term (current) drug therapy; Z92.21 Personal history of antineoplastic chemotherapy; E11.42 Type 2 diabetes mellitus with diabetic polyneuropathy; I10 Essential (primary) hypertension; E11.649 Type 2 diabetes mellitus with hypoglycemia without coma; I27.20 Pulmonary hypertension, unspecified; Z90.49 Acquired absence of other specified parts of digestive tract; Z98.49 Cataract extraction status, unspecified eye; C61 Malignant neoplasm of prostate; Z85.51 Personal history of malignant neoplasm of bladder